=== PATIENT | male | born 1950 | race Caucasian/White ===

== ENCOUNTER 2022-10-28 16:02 | Emergency (ER) | payer MEDICARE, SELFPAY ==
[2022-10-28] VITALS (22 sets, daily range): BP systolic 100–134; BP diastolic 67–102; PULSE 71–170; RESP 13–28; TEMP 36.5; O2SAT 95–99; BMI 31.7
--- NOTE | 2022-10-28 16:32 | ED.CHESTPAI1 ---
HPI - Chest Pain General Chief Complaint: Chest Pain Stated Complaint: CHEST PAIN Time Seen by Provider: 10/28/22 16:32 History of Present Illness HPI narrative: Patient the emergency department complaining of chest pain and palpitations. Patient states he was playing golf earlier and developed substernal chest pressure and a fast heart rate. States he had the same symptoms occurred 6 months ago he was given a medication to the IV and morphine and all of his symptoms resolved. He was treated for atrial fibrillation at that time. pt had multiple stress tests prior and holter monitors x2. The patient has never seen a regional property manager. denies any shortness of breath. He denies any fever, chills, nausea, vomiting, diarrhea, constipation, upper respiratory infection symptoms or abdominal pain. He denies any flank pain, hematuria, dysuria. He denies any trauma. He denies any history of thrombotic embolic disease. He denies any lower extremity edema, or cramping. Related Data Home Medications Medication Instructions Recorded Confirmed carvedilol 25 mg tablet 25 mg PO Q12H 10/28/22 10/28/22 pantoprazole 40 mg tablet,delayed 40 mg PO DAILY 10/28/22 10/28/22 release Previous Rx's Medication Instructions Recorded apixaban 5 mg tablet (Eliquis) 5 mg PO BID #60 tabs 10/28/22 Allergies Allergy/AdvReac Type Severity Reaction Status Date / Time No Known Drug Allergies Allergy Verified 10/28/22 16:30 Review of Systems ROS Status of ROS 10 or more systems reviewed and unremarkable except as noted in history and below Exam Narrative Exam Narrative: Nurses notes and vital signs reviewed and patient is not hypoxic. General: Nontoxic, Well-appearing and in no apparent distress. Skin: Warm, dry, no pallor noted. No Rash Head: Normocephalic, atraumatic. Neck: Supple, non-tender. Eye: Pupils are equal, round and EOMI. No scleral icterus. Ears, Nose, Mouth, and Throat: TM clear, no posterior oropharynx erythema or nasal mucosal hypertrophy, uvula is mid-line Oral mucosa is moist Cardiovascular: irregularly irregular tachycardia without murmur, gallop or rub. Respiratory: No accessory muscle use or respiratory distress. Lungs are clear to auscultation, no wheezing, rales or rhonchi Chest Wall: no tenderness Back: No midline thoracic or lumbar vertebral tenderness. No CVA tenderness Musculoskeletal: normal ROM, no calf or popliteal tenderness, no lower extremity edema/swelling GI: Abdomen is soft, non-distended. Normal bowel sounds. No masses appreciated. No tenderness to palpation. No rebound, guarding, or rigidity noted. Neurological: A&O x4. No cranial nerve dysfunction observed. No truncal ataxia. Moves all extremities. Sensation intact. Psychiatric: Cooperative and interactive. Normal mood and affect. Constitutional Vital Signs, click to edit/add: Last Vital Signs Temp 97.7 F 10/28/22 20:34 Pulse 71 10/28/22 20:34 Resp 20 10/28/22 20:34 BP 126/78 H 10/28/22 20:34 Pulse Ox 97 10/28/22 20:34 O2 Del Method Room Air 10/28/22 16:31 Course Vital Signs Vital signs: Vital Signs Pulse Rate 166 H 10/28/22 16:30 Respiratory Rate 13 10/28/22 16:30 Temperature 97.7 F 10/28/22 20:34 Pulse Rate 71 10/28/22 20:34 Respiratory Rate 20 10/28/22 20:34 Blood Pressure 126/78 H 10/28/22 20:34 Pulse Oximetry 97 10/28/22 20:34 Oxygen Delivery Method Room Air 10/28/22 16:31 MDM - Chest Pain MDM Narrative Medical decision making narrative: He had an IV established.Studies were ordered. Cardizem was ordered and the patient converted No sinus rhythm of 78 prior to giving the medication. Patient Remained chest pain-free. He was feeling better. Old labs were unremarkable. 2nd troponin was repeated at 1 hour after discussing the patient with Dr. Chowdary and the repeat troponin at 1 hr was positive. This was discussed with Dr. Chowdary who advised to repeat the troponin in an hour to see if it's trending up. Patient remains chest pain-free and remains in a sinus rhythm. Patient's troponin was repeated and the level was 233. Patient was discussed with Dr. 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 This was discussed with Dr. Chowdary. Patient is agreeable to plan. At this time the patient is without objective evidence of an acute process requiring hospitalization or inpatient management. The patient has remained hemodynamically stable. No additional indication for emergent studies at this time. I answered all questions. Discussed discharge instructions including standard anticipatory guidance and what should prompt a return to the emergency department, including if they get worse are not getting better or develops any new or concerning symptoms. I've given them specific time frame in which to follow-up, and who to follow-up with. The patient demonstrates understanding. Patient is nontoxic and stable for discharge with outpatient follow-up. This note was created with the assistance of a speech recognition program. Although the intention is to generate documents that actually reflects the content of the visit, no guarantees can be provided that every mistake has been identified and corrected by editing. Differential Diagnosis Differential diagnosis: Likely stable angina, unstable angina pectoris, atypical chest pain, st elevation myocardial infarction and chest pain Medical Records Data Attestation: I reviewed the patient's medical records. Lab Data Attestation: I reviewed the patient's lab results. Labs: Lab Results 10/28/22 10/28/22 10/28/22 Range/Units 16:35 18:06 19:25 WBC 13.6 H (4.0-11.0) 10^3/uL RBC 5.11 (4.70-6.10) 10^6/uL Hgb 14.0 (14.0-18.0) g/dL Hct 42.8 (42.0-54.0) % MCV 83.8 (80.0-94.0) fL MCH 27.4 (25.9-34.0) pg MCHC 32.7 (29.9-35.2) g/dL RDW 14.1 (11.0-15.0) % Plt Count 380 (150-450) 10^3/uL MPV 10.2 (9.5-13.5) fL Neut % (Auto) 58.7 (43.0-75.0) % Lymph % (Auto) 32.6 (20.5-60.0) % Wilkin % (Auto) 7.3 (1.7-12.0) % Eos % (Auto) 0.6 L (0.9-7.0) % Baso % (Auto) 0.4 (0.2-2.0) % Neut # (Auto) 8.0 H (1.4-6.5) 10^3/uL Lymph # (Auto) 4.4 H (1.2-3.8) 10^3/uL Wilkin # (Auto) 1.0 H (0.3-0.8) 10^3/uL Eos # (Auto) 0.1 (0.0-0.7) 10^3/uL Baso # (Auto) 0.1 (0.0-0.1) 10^3/uL Abs Immat Gran (auto) 0.05 H (0.00-0.03) 10^3/uL Imm/Tot Granulo (auto) 0.4 (0.0-0.5) % PT 10.7 (9.0-11.6) sec INR 1.01 APTT 31.2 (22.3-36.2) sec Sodium 135 L (136-145) mmol/L Potassium 4.5 (3.5-5.1) mmol/L Chloride 103 (98-107) mmol/L Carbon Dioxide 24.7 (21.0-32.0) mmol/L Anion Gap 11.8 BUN 20.0 H (7.0-18.0) mg/dL Creatinine 1.53 H (0.70-1.30) mg/dL Est GFR ( Amer) 55 L (>=60) Est GFR (Non-Af Amer) 45 L (>=60) BUN/Creatinine Ratio 13.1 Glucose 118 H (74-106) mg/dL Calcium 9.2 (8.5-10.1) mg/dL Total Bilirubin 0.4 (0.2-1.0) mg/dL AST 17 (15-37) U/L ALT 23 (16-63) U/L Alkaline Phosphatase 48 (46-116) U/L Troponin I High Sens 35.4 107.5 H* 233.5 H* (4.0-76.1) pg/mL NT-Pro-B Natriuret Pep 502.0 (<=900.0) pg/mL Total Protein 7.9 (6.4-8.2) g/dL Albumin 3.9 (3.4-5.0) g/dL Globulin 4.0 g/dL Albumin/Globulin Ratio 1.0 ECG Data Attestation: I personally reviewed and interpreted this ECG as follows: Interpretation: EKG #1, shows atrial fibrillation with RVR of [address] depression in the lateral leads. EKG #2Sinus rhythm 78 bpm. No acute ischemic changes. Heart Score History: Slightly/Non-Suspicious ECG: Sign. ST Depression Age: <45 years Risk Factors: No Risk Factors Troponin: <3X Normal Limit Total Heart Score Recommendations & Risks:: 3 Discharge Plan Discharge Chief Complaint: Chest Pain Clinical Impression: Paroxysmal A-fib, Elevated troponin I measurement Patient Disposition: Home, Self-Care Time of Disposition Decision: 20:13 Condition: Good Mode of Transportation: Private Vehicle Prescriptions / Home Meds: New Eliquis 5 mg tablet 5 mg PO BID Qty: 60 0RF No Action carvedilol 25 mg tablet 25 mg PO Q12H pantoprazole 40 mg tablet,delayed release (DR/EC) 40 mg PO DAILY Instructions: A-fib (Atrial Fibrillation) (ED), Blood Thinners (ED), High Troponin Levels (ED) Stand Alone Forms: Portal Instructions Referrals: Maico Chowdary MD [Primary Care Provider] - 1 week Discharge Date/Time: 10/28/22 21:01
--- NOTE | 2022-10-28 16:33 | XR_ITS ---
The [address] [address] Patient Name: RENNY CALDERÓN MRN: [id number] date: 1950 Sex: M Assigned Patient Location: ER Current Patient Location: Accession/Order Number: [id number] Exam Date: 10/28/2022 17:12 Report Date: 10/28/2022 21:09 At the request of: MANISHA MARCANO Procedure: XR chest 1V EXAMINATION: XR chest 1V HISTORY: chest pain COMPARISON: No relevant comparison available. FINDINGS: LUNGS: No significant pulmonary parenchymal abnormalities. VASCULATURE: No increased pulmonary vasculature. PLEURA: No pneumothorax, effusion, or pleural thickening. CARDIAC: No cardiomegaly or cardiac silhouette abnormality. MEDIASTINUM: No visible mass or adenopathy. BONES: No fracture or visible bone lesion. OTHER: Negative. XR/XR chest 1V IMPRESSION: 1. No acute cardiopulmonary process. Preliminary findings were provided to the emergency department at time of imaging. Electronically authenticated by: TONYA ALVARADO Date: 10/28/2022 21:09
--- NOTE | 2022-10-28 16:33 | ECG_ITS ---
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
[2022-10-28] MEDS: 0.9 % SODIUM CHLORIDE 1,000 ML 1000 ML (16:45)
[2022-10-28 16:56] LABS: Basophils Absolute Auto 0.1 10^3/uL (0.0-0.1); Basophils Percent Auto 0.4 % (0.2-2.0); Eosinophils Absolute Auto 0.1 10^3/uL (0.0-0.7); Eosinophils Percent Auto 0.6 % (0.9-7.0); Hematocrit 42.8 % (42.0-54.0); Immature Granulocytes Abs Auto 0.05 10^3/uL (0.00-0.03); Immature Granulocytes Pct Auto 0.4 % (0.0-0.5); Lymphocytes Absolute Auto 4.4 10^3/uL (1.2-3.8); Lymphocytes Percent Auto 32.6 % (20.5-60.0); Mean Corpuscular HGB Conc 32.7 g/dL (29.9-35.2); Mean Corpuscular Hemoglobin 27.4 pg (25.9-34.0); Mean Corpuscular Volume 83.8 fL (80.0-94.0); Mean Platelet Volume 10.2 fL (9.5-13.5); Monocytes Percent Auto 7.3 % (1.7-12.0); Neutrophils Percent Auto 58.7 % (43.0-75.0); Platelet Count 380 10^3/uL (150-450); Red Blood Count 5.11 10^6/uL (4.70-6.10); Red Cell Distribution Width 14.1 % (11.0-15.0); White Blood Count 13.6 10^3/uL (4.0-11.0)
--- NOTE | 2022-10-28 17:03 | ECG_ITS ---
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
[2022-10-28 17:10] LABS: INR 1.01; Partial Thromboplastin Time 31.2 sec (22.3-36.2); Prothrombin Time 10.7 sec (9.0-11.6)
[2022-10-28 17:16] LABS: Alanine Aminotransferase 23 U/L (16-63); Albumin Level 3.9 g/dL (3.4-5.0); Alkaline Phosphatase 48 U/L (46-116); Anion Gap 11.8; Aspartate Amino Transferase 17 U/L (15-37); BUN Creatinine Ratio 13.1; Bilirubin Total 0.4 mg/dL (0.2-1.0); Calcium 9.2 mg/dL (8.5-10.1); Carbon Dioxide 24.7 mmol/L (21.0-32.0); Chloride 103 mmol/L (98-107); Estimated GFR (African America 55 (>=60); Estimated GFR (Non-African Ame 45 (>=60); Glucose 118 mg/dL (74-106); Potassium 4.5 mmol/L (3.5-5.1); Sodium 135 mmol/L (136-145); Total Protein 7.9 g/dL (6.4-8.2); Troponin I High Sensitivity 35.4 pg/mL (4.0-76.1)
[2022-10-28 18:49] LABS: Troponin I High Sensitivity 107.5 pg/mL (4.0-76.1)
[2022-10-28] MEDS: APIXABAN 5 MG TABLET PO (19:22)
[2022-10-28 20:02] LABS: Troponin I High Sensitivity 233.5 pg/mL (4.0-76.1)
== END 2022-10-28 21:01 | disposition home or self-care (01) ==
PROVIDERS: Emergency Provider Emergency Medicine; PCP Family Medicine
DX: I48.0 Paroxysmal atrial fibrillation (principal); R77.8 Other specified abnormalities of plasma proteins; Z79.899 Other long term (current) drug therapy
CPT/HCPCS: 36415; 71045; 80053; 83880; 84484; 85025; 85610; 85730; 93005; 99285

== ENCOUNTER 2022-11-15 13:30 | Outpatient (OUT) | payer MEDICARE, SELFPAY ==
--- NOTE | 2022-11-15 14:05 | CA_ITS ---
Patient: RENNY CALDERÓN Exam Date: 11/15/2022 : 1950 Gender:M Ordering : DR Maico Chowdary . Admission #: [id number] Family : Order #: [id number] CLICK HERE TO VIEW EXAM ECHOCARDIOGRAM REPORT PROCEDURE: CA ECHO DOPPLER COMPLETE INDICATIONS: Atrial fibrillation, hypertension COMPARISON: None. DESCRIPTION: COMPLETE ECHOCARDIOGRAM Real-time transthoracic echocardiography with 2D, M-mode, spectral and color flow Doppler performed. QUALITY: Technical quality was good. LEFT VENTRICLE: Normal chamber size. Proximal septal hypertrophy (sigmoid septum). Normal systolic function. LV EF: Normal left ventricular ejection fraction, (55%). DIASTOLIC: Normal diastolic function. ATRIAL SEPTUM: Visually appears intact. LEFT ATRIUM: Normal chamber size. RIGHT ATRIUM: Normal chamber size. RIGHT VENTRICLE: Normal chamber size. Normal right ventricular systolic function. TRICUSPID VALVE: Normal mobility and thickness. No stenosis with trivial regurgitation. No evidence of pulmonary hypertension. RVSP 28 mmHg MITRAL VALVE: Normal mobility and thickness. No evidence of mitral valve stenosis. There is no mitral annular calcification. Mild mitral regurgitation. AORTIC VALVE: Normal trileaflet appearance. No visible sclerosis. Normal leaflet mobility. No evidence of aortic valve stenosis. No aortic regurgitation. AORTIC ROOT: Normal diameter and appearance. PULMONIC VALVE: Normal thickness and mobility. No stenosis. Trivial regurgitation. PERICARDIUM: No evidence of pericardial effusion. IVC: Collapses with inspirations. PLEURA: CONCLUSION: 1. Normal left ventricular systolic function. LVEF is 55%. 2. Normal right ventricular size and systolic function. 3. Normal diastolic function. 4. Mild mitral regurgitation. 5. Normal right-sided pressures. Adult Echocardiography Procedure Report Left Ventricle LVEDD (3.7 - 5.6 cm): 4.18 cm LVESD (2.2 - 4.0 cm): 2.70 cm LVIVS thickness (0.6 - 1.2 cm): 1.33 cm LVPW thickness (0.5 - 1.0 cm): 0.91 cm e': 0.07 m/s E - e': 5.82 LVOT Max Gradient: 2.64 mm[Hg], 2.85 mm[Hg] LVOT Area (cm2): 0.83 m/s Peak Velocity (LVOT): 0.81 m/s, 0.84 m/s Mean Velocity (LVOT): 0.54 m/s LVOT Diameter 2.33 cm Left Atrium LA Volume Index (2D A2C): 27.85 ml/m2 Left Atrium Systolic Dimension: 3.80 cm Mitral Valve MV E to A Ratio: 0.64 Mitral Valve A-Wave Peak Velocity: 0.65 m/s Mitral Valve E-Wave Peak Velocity: 0.42 m/s Right Ventricle Aorta AO Root Diam: 3.02 cm Aortic Valve AoV Area (Peak Dagoberto): 3.37 cm2, 3.35 cm2, 3.38 cm2 AoV Area (VTI): 3.28 cm2, 3.24 cm2, 3.31 cm2 Peak Velocity(Antegrade Flow): 1.03 m/s, 1.06 m/s Peak Gradient(Antegrade Flow): 4.27 mm[Hg], 4.53 mm[Hg] Mean Velocity(Antegrade Flow): 0.73 m/s, 0.71 m/s Mean Gradient(Antegrade Flow): 2.39 mm[Hg], 2.33 mm[Hg] Velocity Time Integral: 23.10 cm, 22.39 cm Tricuspid Valve Peak Velocity (Regurgitant Flow): 2.49 m/s Pulmonic Valve Peak Velocity: 1.09 m/s Peak Gradient: 4.97 mm[Hg], 4.46 mm[Hg] Right Atrium Right Atrium Systolic Pressure: 54.90 ml, 54.90 ml Dictated by: Buck Caban M.D. on 11/15/2022 at 14:48 Approved by: Buck Caabn M.D. on 11/15/2022 at 14:52
== END 2022-11-15 13:31 | disposition home or self-care (01) ==
LOC: CARD 13:30
PROVIDERS: PCP Family Medicine; Visit Provider Family Medicine
DX: I48.91 Unspecified atrial fibrillation (principal); I10 Essential (primary) hypertension; I34.0 Nonrheumatic mitral (valve) insufficiency
CPT/HCPCS: 93306

== ENCOUNTER 2023-04-28 09:20 | Outpatient (OUT) | payer MEDICARE, SELFPAY ==
[2023-04-28 09:46] LABS: Basophils Absolute Auto 0.1 10^3/uL (0.0-0.1); Basophils Percent Auto 0.8 % (0.2-2.0); Eosinophils Absolute Auto 0.2 10^3/uL (0.0-0.7); Eosinophils Percent Auto 2.7 % (0.9-7.0); Hematocrit 38.9 % (42.0-54.0); Hemoglobin 12.7 g/dL (14.0-18.0); Immature Granulocytes Abs Auto 0.01 10^3/uL (0.00-0.03); Immature Granulocytes Pct Auto 0.1 % (0.0-0.5); Lymphocytes Absolute Auto 2.8 10^3/uL (1.2-3.8); Lymphocytes Percent Auto 35.5 % (20.5-60.0); Mean Corpuscular HGB Conc 32.6 g/dL (29.9-35.2); Mean Corpuscular Hemoglobin 27.8 pg (25.9-34.0); Mean Corpuscular Volume 85.1 fL (80.0-94.0); Mean Platelet Volume 9.8 fL (9.5-13.5); Monocytes Absolute Auto 0.8 10^3/uL (0.3-0.8); Neutrophils Percent Auto 50.9 % (43.0-75.0); Platelet Count 275 10^3/uL (150-450); Red Blood Count 4.57 10^6/uL (4.70-6.10); Red Cell Distribution Width 13.7 % (11.0-15.0); White Blood Count 7.8 10^3/uL (4.0-11.0)
[2023-04-28 11:27] LABS: Anion Gap 13.4; BUN Creatinine Ratio 14.3; Calcium 8.9 mg/dL (8.5-10.1); Carbon Dioxide 25.5 mmol/L (21.0-32.0); Chloride 104 mmol/L (98-107); Estimated GFR (African America >60 (>=60); Estimated GFR (Non-African Ame 50 (>=60); Glucose 99 mg/dL (74-106); Potassium 3.9 mmol/L (3.5-5.1); Sodium 139 mmol/L (136-145)
== END 2023-04-28 09:21 | disposition home or self-care (01) ==
LOC: LAB 09:22
PROVIDERS: PCP Family Medicine; Visit Provider Internal Medicine Cardiovascular Disease
DX: Z01.818 Encounter for other preprocedural examination (principal)
CPT/HCPCS: 36415; 80048; 85025

== ENCOUNTER 2023-05-22 12:38 | Outpatient (OUT) | payer MEDICARE, SELFPAY ==
--- OUTSIDE RECORDS SUMMARY | 2023-05-22 12:42 | XMS_ITS | CCD ---
Author Name Unknown Address [address] [facility] [id number] [place] [address] Organization [facility] Care Team Providers Care Tour Bus Driver Name Role Phone HOY ., DR DE LA ROSA Consulting Unavailable HOY ., DR DE LA ROSA Attending Unavailable HOY ., DR DE LA ROSA Admitting Unavailable HOY ., DR DE LA ROSA Primary Care Unavailable HOY ., DR DE LA ROSA Primary Care Unavailable HAY ., DR WILSON Admitting Unavailable HAY ., DR WILSON Consulting Unavailable HAY ., DR WILSON Attending Unavailable GRANT ARMANDO Consulting Unavailable HOY ., DR DE LA ROSA Consulting Unavailable HOY ., DR DE LA ROSA Attending Unavailable HOY ., DR DE LA ROSA Admitting Unavailable HOY ., DR DE LA ROSA Primary Care Unavailable HOY ., DR DE LA ROSA Consulting Unavailable HOY ., DR DE LA ROSA Attending Unavailable HOY ., DR DE LA ROSA Admitting Unavailable HOY ., DR DE LA ROSA Primary Care Unavailable HOY ., DR DE LA ROSA Consulting Unavailable HOY ., DR DE LA ROSA Attending Unavailable HOY ., DR DE LA ROSA Admitting Unavailable HOY ., DR DE LA ROSA Primary Care Unavailable Chema Tubbs Consulting Unavailable Jacey Webber Unavailable Estrella Chowdary MD Primary Care Provider [phone] SHAHID WILLSON Admitting Unavailable SHAHID WILLSON Attending Unavailable ANUJ KABA Attending Unavailable RODOLFO CLINTON Attending Unavailable SHAHID WILLSON Referring Unavailable Allergies Allergy Classification Reported Allergen(s) Allergy Type Date of Onset Reaction(s) Facility (1 source) ALLERGIES NOT ON FILE; Translations: [ALLERGIES NOT ON FILE] Propensity to adverse reactions (disorder) [facility] Repository Medications Current Medications Medication Drug Class(es) Dates Sig (Normalized) Sig (Original) carvedilol 25 mg oral tablet (2 sources) alpha-Adrenergic Fernando, beta-Adrenergic Fernando take 1 tablet by mouth every twelve hours Carvedilol 25 MG 1 tablet with food Orally Twice a day Active pantoprazole 40 mg delayed release oral tablet (2 sources) Proton Pump Inhibitor take 1 tablet by mouth every twenty-four hours Pantoprazole Sodium 40 MG 1 tablet Orally Once a day Active Problems Active Problems Problem Classification Problem Date Documented Date Episodic/Chronic Cardiac dysrhythmias (3 sources) Supraventricular tachycardia; Translations: [Paroxysmal atrial fibrillation] Onset: 01-18-2022 Chronic Esophageal disorders (1 source) Gastro-esophageal reflux disease without esophagitis; Translations: [GERD WITHOUT ESOPHAGITIS] Onset: 01-18-2022 Chronic Essential hypertension (1 source) Essential (primary) hypertension; Translations: [ESSENTIAL PRIMARY HYPERTENSION] Onset: 01-18-2022 Chronic Heart valve disorders (1 source) Nonrheumatic mitral (valve) insufficiency; Translations: [NONRHEUMATIC MITRAL INSUFFICIENCY] Onset: 03-24-2022 Chronic Nonspecific chest pain (6 sources) Chest pain, unspecified; Translations: [CHEST PAIN UNSPECIFIED] Onset: 03-18-2022 Episodic Open wounds of extremities (2 sources) Laceration without foreign body of left middle finger without damage to nail, subsequent encounter Episodic Other lower respiratory disease (2 sources) Shortness of breath; Translations: [Shortness of breath] Onset: 05-03-2023 Episodic Residual codes; unclassified (1 source) Sleep apnea, unspecified; Translations: [SLEEP APNEA UNSPECIFIED] Onset: 01-18-2022 Chronic Substance-related disorders (1 source) Nicotine dependence, chewing tobacco, uncomplicated; Translations: [NICOTINE DEPEND CHEW TOBACCO UNCOMP] Onset: 01-18-2022 Chronic Syncope (2 sources) Syncope and collapse; Translations: [Syncope and collapse] Onset: 02-26-2023 Episodic Unclassified (1 source) Other ventricular tachycardia; Translations: [Other ventricular tachycardia] Onset: 04-25-2023 Past or Other Problems Problem Classification Problem Date Documented Date Episodic/Chronic Abdominal pain (3 sources) Epigastric pain; Translations: [EPIGASTRIC PAIN] Onset: 01-14-2022 Episodic Cardiac dysrhythmias (4 sources) Tachycardia, unspecified; Translations: [TACHYCARDIA UNSPECIFIED] Onset: 01-28-2022 Episodic Heart valve disorders (1 source) Unspecified abnormalities of heart beat; Translations: [UNS ABNORMALITIES HEART BEAT] Onset: 03-14-2022 Episodic Other screening for suspected conditions (not mental disorders or infectious disease) (1 source) Abnormal result of other cardiovascular function study; Translations: [ABNORM RESULT OT CV FUNCTION STUDY] Onset: 03-24-2022 Episodic Unclassified (1 source) Other ventricular tachycardia; Translations: [Other ventricular tachycardia] Onset: 04-25-2023 Results Test Name Value Interpretation Reference Range Facility on 05-03-2023 HP H&P reviewed. The patient was examined and there are no changes to the H&P. [facility] NURSNOTEon 05-03-2023 NURSNOTE RN educated pt on d/ c instructions. RN encouraged pt to voice any questions or concerns. Pt verbalizes no questions or concerns at this time. Pt was wheeled off of unit with all of belongings. [facility] 04-25-2023 Pt had 2 afib events in past year, rangel not haad any problems since, had monitor. Chest pain he thinks is from GERD. Otherwise feels good [facility] Consult Note Reason for visit: Afib HPI: Kd Mitchell is a 72 y.o. year old with past medical history of ABDULLAHI, afib, htn, gerd, syncope, hld. He was seen in the [facility] 10/2022 for complaints of chest pain and palpitations. He was found to be in A-fib and was treated for. He was treated with IV Cardizem and patient's converted to sinus rhythm prior to Cardizem even being administered. Patient was then discharged home in sinus rhythm but did not have any follow-up with cardiology until seen by Rodolfo recently. He has been feeling well since this event with no complaints of chest pain, shortness of breath, palpitations, lightness, dizziness. he states that his episodes of A-fib had occurred first in 2019 when he was noted to have A-fib with RVR. he associates his episodes of A-fib with abdominal discomfort and dyspepsia that occurs with consuming jalapeno peppers. he has had episodes of syncope or near syncope in the past but there was no monitoring at that time. he was seen by Rodolfo TAVAREZ who ordered a 30-day event monitor. 30-day event monitor from 02/17/2023 to 03/18/2023 did not reveal any episodes of A-fib but there were episodes of nonsustained ventricular tachycardia noted on 03/06/2023 at 5:14 AM of approximately 2 seconds and another 1 on 03/09/2023 at 7:14 PM of 3 seconds. none of this was symptomatic. Echo 11/15/2022 shows normal LVEF, LA normal size, normal right-sided pressures, no significant valvular abnormalities, he was noted to have proximal septal hypertrophy 10/28/2022 CBC unremarkable, sodium 135, potassium 4.5, chloride 103, BUN 20, creatinine 1.53, GFR 45, liver unremarkable, ECG 03/16/2023 sinus rhythm PMH: ABDULLAHI, AFIB, htn, gerd, syncope, hld PMH: Past Medical History: Diagnosis Date Atrial fibrillation (CMS/HCC) Diverticulitis GERD (gastroesophageal reflux disease) Hyperlipidemia Hypertension ABDULLAHI (obstructive sleep apnea) Syncope and collapse PSH: No past surgical history on file. SH: Social Determinants of Health Tobacco Use: High Risk (02/17/2023) Patient History Smoking Tobacco Use: Never Smokeless Tobacco Use: Current Passive Exposure: Not on file Alcohol Use: Not on file Financial Resource Strain: Not on file Food Insecurity: Not on file Transportation Needs: Not on file Physical Activity: Not on file Stress: Not on file Social Connections: Not on file Intimate Partner Violence: Not on file Depression: Not on file Housing Stability: Not on file Utilities: Not on file Allergies: No Known Allergies Weight: 98.4kg Visit Vitals BP 126/82 Pulse 67 Ht 1.778 m (5' 10 ) Wt 98.4 kg (217 lb) SpO2 97% BMI 31.14 kg/m??? Smoking Status Never BSA 2.2 m??? Meds: Current Outpatient Medications on File Prior to Visit Medication Sig Dispense Refill calcium citrate-vitamin D2 250 mg-2.5 mcg (100 unit) tablet Take 1 tablet by mouth once daily as directed. carvedilol (Coreg) 25 mg tablet Take 25 mg by mouth with breakfast and with evening meal. Eliquis 5 mg tablet Take 5 mg by mouth in the morning and at bedtime. pantoprazole (ProtoNix) 40 mg EC tablet Take 40 mg by mouth in the morning. No current facility-administered medications on file prior to visit. ROS: Cardio Basic Cardiovascular Symptoms: no lightheadedness, no leg edema, no syncope, no orthopnea, no PND, no claudication, CP+ Constitutional Constitutional: no fever, no night sweats, no significant weight gain, no significant weight loss, no exercise intolerance Eyes Eyes: no dry eyes, no irritation, no vision change ENMT Ears: no difficulty hearing, no ear pain Nose: no frequent nosebleeds, Mouth/Throat: no sore throat, no bleeding gums, no snoring, no dry mouth, no mouth ulcers, no oral abnormalities, no teeth problems Respiratory Respiratory: no cough, no wheezing, no coughing up blood, no sleep apnea Musculoskeletal Musculoskeletal: no muscle aches, no muscle weakness, joint pain+, no back pain, no swelling in the extremities Integumentary Skin no rash, no ulcer, no varicosities, no discoloration, no pruritus Neurologic Neurologic: no loss of consciousness, no weakness, no numbness, no seizures, no dizziness, no headaches Psychiatric Psych: no depression, feeling safe in relationship, no alcohol abuse, Hematologic/Lymphatic Hematologic/Lymphatic no swollen glands, no bruising Physical Exam: Constitutional General Appearance: well-nourished, well-developed, appears stated age Level of Distress: comfortable Psychiatric Mental Status: alert, normal affect Orientation: oriented to time, place, and person Insight: good judgement Eyes Lids and Conjunctivae: non-injected, no xanthelasma ENMT Ears: no lesions on external ear Nose: no lesions on external nose (more content not included)... Normal [facility] Office Visiton 04-25-2023 Follow-up visit [id number] Kd Mitchell 1950 [facility] Provider Department Center 04/25/2023 ANUJ MONTGOMERY MATT Silva Family History Problem Relation Age of Onset Heart disease Father Family Status - Relation Status Age at Father Level of Service:67146 AL OFFICE/OUTPATIENT [facility] 60 MINUTES Normal [facility] Orders Onlyon 04-25-2023 Orders Only [id number] PaulaKd A 1950 M Date Provider Department Center 04/25/2023 SANDRA HAIDER MATT Silva Family History Problem Relation Age of Onset Heart disease Father Family Status - Relation Status Age at Father Normal [facility] Office Visiton 02-17-2023 Follow-up visit [id number] Kd Mitchell 1950 Date Provider Department Center 02/17/2023 Duglas-RODOLFO CLINTON Terry Silva Family History Problem Relation Age of Onset Heart disease Father Family Status - Relation Status Age at Father Level of Service:69927 [place] OFFICE/OUTPATIENT NEW MODERATE MDM 45-59 MINUTES Reason for Visit and Comments: New Patient [632] [facility] 01-19-2023 CNPN Telephone (CARCMN) KD MITCHELL ([id number]) 1950 Date Time Provider Department 01/19/23 KITTY HICKS During your visit today, we recorded the following information about you: Baljit Jo 01/19/2023 9:47 AM Signed Left a message for the patient regarding the cancellation of 02/15/2023 appointment. Informed the patient of the new appointment scheduled on 05/24/2023. Left a call back number for the patient if the date and time does not fit. Allergies As of Date: 01/19/2023 (Not on File) Date Reviewed: Never Reviewed Reason for Visit: Appointment [186] Cmt: Left a message for the patient regarding the cancellation of 02/15/2023 appointment. Informed the patient of the new appointment scheduled on 05/24/2023. Left a call back number for the patient if the date and time does not fit. Problem List As Of Date: 01/19/2023 (None) Encounter Status:[facility] by [facility]CARCMN[facility] KD MITCHELL ([id number]) 1950 M Date Time Provider Department 11/21/22 KITTY HICKS During your visit today, we recorded the following information about you: Chance Dueñas 11/21/2022 4:37 PM Signed Records received from [facility] by mail. Records uploaded to OPD and sent to scanning. Patient has a future appointment on: 02/15/23. Date of last OV: -. Chance Dueñas November 21, 2022 4:36 PM Allergies As of Date: 11/21/2022 (Not on File) Date Reviewed: Never Reviewed Reason for Visit: Received Outside Medical Records [[id number]] Problem List As Of Date: 11/21/2022 (None) Encounter Status:Closed by CHANCE DUEÑAS on [facility]/21/[facility] (CARCMN) KD MITCHELL ([id number]) 1950 M Date Time Provider Department 11/16/22 KITTY HICKS During your visit today, we recorded the following information about you: Chance Dueñas 11/16/2022 11:19 AM Signed [facility] Records uploaded to OPD and sent to scanning. Patient has a future appointment on: 02/15/23. Date of last OV: -Lianna Dueñas November 16, 2022 11:17 AM Allergies As of Date: 11/16/2022 (Not on File) Date Reviewed: Never Reviewed Reason for Visit: Received Outside Medical Records [[id number]] Problem List As Of Date: 11/16/2022 (None) Encounter Status:Closed by CHANCE DUEÑAS on 11/16/22 Normal [facility] CNCOon 11-09-2022 CNCO Letter Text Normal [facility] CNPNon 11-06-2022 CNPN Telephone (REFPHY) KD MITCHELL ([id number]) 1950 Date Time Provider Department 11/06/22 NO ONE (HISTORICAL) REFPHY During your visit today, we recorded the following information about you: [facility] Keira Uribe 11/06/2022 3:44 PM Signed Patient: Kd Mitchell Date of : 1950 Patient phone number: [phone] Referring Provider for the encounter: Estrella Chowdary Requesting Provider: Reason for requesting visit (RFV/signs and symptoms/diagnosis): AFib Person calling: rp fax Return call to: rp fax Medical Records/Insurance Card scanned into [facility]: No Comments: Dominga Cr 11/09/2022 11:52 AM Signed RP-Appt scheduled- Spoke with Patient to schedule consult, printed and sent new pt packet and appt info via mail Allergies As of Date: 11/06/2022 (Not on File) Date Reviewed: Never Reviewed Reason for Visit: External Referrals/resources [909] Problem List As Of Date: 11/06/2022 (None) Encounter Status:[facility] URIBE on 11/06/22 [facility] CBC AUTO DIFFon 08-30-2022 BASO # 0.1 103/ul Normal 0.0-0.1 [facility] Comment on above: Performed By: #### C BC ####[facility] [address] [place] [id number]. Jeremiah Vela Basophils/100 WBC (Bld) 0.6 % Normal 0.2-2.0 [facility] Comment on above: Performed By: #### C BC ####[facility] [address] [place] [id number]. Jeremiah Vela EO # 0.1 103/ul Normal 0.0-0.7 [facility] Comment on above: Performed By: #### C BC ####[facility] [address] [place], [place] [address]Dr. Jeremiah Vela Eosinophils/100 WBC (Bld) 1.0 % Normal 0.9-7.0 [facility] Comment on above: Performed By: #### C BC ####[facility] [address] [place], [place] [address]Dr. Jeremiah Vela Erythrocyte distribution width (RBC) [Ratio] 13.9 % Normal 11.0-15.0 [facility] Comment on above: Performed By: #### C BC ####[facility] [address] [place], [place] [address]Dr. Jeremiah Vela Hematocrit (Bld) [Volume fraction] 42.1 % Normal 42.0-54.0 [facility] Comment on above: Performed By: #### C BC ####[facility] [address] [place], [place] [address]Dr. Jeremiah Vela Hemoglobin (Bld) [Mass/Vol] 13.7 g/dL Critically low 14.0-18.0 [facility] Comment on above: Performed By: #### C BC ####[facility] [address] [place] [id number]. Jeremiah Vela IG # 0.02 10e3/ul Normal 0.00-0.03 [facility] Comment on above: Performed By: #### C BC ####[facility] [address] [place], [place] [address]Dr. Jeremiah Vela IG % 0.2 % Normal 0.0-0.5 [facility] Comment on above: Performed By: #### C BC ####[facility] [address] [place] [id number]. Jeremiah Vela LYMPH # 2.9 103/ul Normal 1.2-3.8 [facility] Comment on above: Performed By: #### C BC ####[facility] [address] [place] [id number]. Jeremiah Vela Lymphocytes/100 WBC (Bld) 34.9 % Normal 20.5-60.0 [facility] Comment on above: Performed By: #### C BC ####[facility] [address] [place] [id number]. Jeremiah Dane MANUAL DIFF REQ NO Normal [facility] Comment on above: Performed By: #### C BC ####[facility] [address] [place] [id number]. Jeremiah Dane MCH (RBC) [Entitic mass] 27.1 pg Normal 25.9-34.0 [facility] Comment on above: Performed By: #### C BC ####[facility] [address] [place] [id number]. Jeremiah Vela MCHC (RBC) [Mass/Vol] 32.5 g/dL Normal 29.9-35.2 [facility] Comment on above: Performed By: #### C BC ####[facility] [address] [place] [id number]. Jeremiah Dane MCV (RBC) [Entitic vol] 83.4 fL Normal 80.0-94.0 [facility] Comment on above: Performed By: #### C BC ####[facility] [address] [place] [id number]. Jeremiah Vela MONO # 0.7 103/ul Normal 0.3-0.8 [facility] Comment on above: Performed By: #### C BC ####[facility] [address] [place] [id number]. Jeremiah Dane Monocytes/100 WBC (Bld) 8.2 % Normal 1.7-12.0 [facility] Comment on above: Performed By: #### C BC ####[facility] [address] [place] [id number]. Jeremiah Vela NEUT # 4.6 103/ul Normal 1.4-6.5 [facility] Comment on above: Performed By: #### C BC ####[facility] [address] [place] [id number]. Jeremiah Vela Neutrophils/100 WBC (Bld) 55.1 % Normal 43.0-75.0 [facility] Comment on above: Performed By: #### C BC ####[facility] [address] [place] [id number]. Jeremiah Vela Platelet mean volume (Bld) [Entitic vol] 9.9 fL Normal 9.5-13.5 [facility] Comment on above: Performed By: #### C BC ####[facility] [address] [place] [id number]. Jeremiah Vela PLT 296 103/ul Normal 150-450 [facility] Comment on above: Performed By: #### C BC ####[facility] [address] [place] [id number]. Jeremiah Vela RBC 5.05 106/ul Normal 4.70-6.10 [facility] Comment on above: Performed By: #### C BC ####[facility] [address] [place] [id number]. Jeremiah Vela WBC 8.3 103/ul Normal 4.0-11.0 [facility] Comment on above: Performed By: #### C BC ####[facility] [address] [place] [id number]. Jeremiah Vela FREE T3on 08-30-2022 FREE T3 3.00 pg/mlL Normal 2.18-3.98 [facility] Comment on above: Performed By: #### T 4, TSH, FT3, CMP, URIC, LIPID ####[facility] [address] [place] [id number]. Jeremiah Vela GLYCOHEMOGLOBIN A1Con 2022 ADA RECOMMENDATION SEE BELOW Normal [facility] Comment on above: Result Comment: ADA RECOMMENDED LIMIT 4.0 - 6.0 ADA THERAPEUTIC TARGET < 7.0 ACTION SUGGESTED > 7.0 Performed By: #### A 1C ####[facility] [address] [place] [id number]. Jeremiah Vela Glucose [Mass/Vol] 105 mg/dL Normal [facility] Comment on above: Performed By: #### A 1C ####[facility] [address] [place] [id number]. Serenaaminah Dane HbA1c (Bld) [Mass fraction] 5.3 % Normal 4.5-6.2 [facility] Comment on above: Performed By: #### A 1C ####[facility] [address] [place] [address]Dr. Jeremiah Vela LIPID PROFILEon 08-30-2022 CHOL-HDL RATIO NORM SEE BELOW Normal [facility] Comment on above: Result Comment: 3.3 - 4.4 LOW RISK 4.4 - 7.1 AVERAGE RISK 7.1 - 11.0 MODERATE RISK >11.0 HIGH RISK Performed By: #### T 4, TSH, FT3, CMP, URIC, LIPID ####[facility] [address] [place] [id number]. Serenaaminah Vela Cholesterol [Mass/Vol] 175 mg/dL Normal <=200 [facility] Comment on above: Performed By: #### T 4, TSH, FT3, CMP, URIC, LIPID ####[facility] [address] [place] [id number]. Jeremiah Vela Cholesterol in HDL [Mass/Vol] 40 mg/dL Normal 40-60 [facility] Comment on above: Performed By: #### T 4, TSH, FT3, CMP, URIC, LIPID ####[facility] [address] [place] [id number]. Jeremiah Vela Cholesterol in LDL [Mass/Vol] 102.4 mg/dL Normal [facility] Comment on above: Performed By: #### T 4, TSH, FT3, CMP, URIC, LIPID ####[facility] [address] [place] [id number]. Jeremiah Vela Cholesterol.total/Ch olesterol in HDL [Mass ratio] 4.4 {ratio} Normal [facility] Comment on above: Performed By: #### T 4, TSH, FT3, CMP, URIC, LIPID ####[facility] [address] [place] [address]Dr. Jeremiah Vela HDL NORMAL > or = 60 mg/dl - LO W CARDIOVASCULAR RISK <40 mg/dl - HIGH CARDIOVASCULAR RISK Normal [facility] Comment on above: Performed By: #### T 4, TSH, FT3, CMP, URIC, LIPID ####[facility] [address] [place] [address]Dr. Jeremiah Vela LDL CALC NORMAL SEE BELOW Normal [facility] Comment on above: Result Comment: <100 mg/dl OPTIMAL 100 - 129 mg/dl NEAR OR ABOVE OPTIMAL 130 - 159 mg/dl BORDERLINE HIGH 160 - 189 mg/dl HIGH >190 mg/dl VERY HIGH Performed By: #### T 4, TSH, FT3, CMP, URIC, LIPID ####[facility] [address] [place] [address]Dr. Jeremiah Vela Triglyceride [Mass/Vol] 163 mg/dL Critically high <=150 [facility] Comment on above: Performed By: #### T 4, TSH, FT3, CMP, URIC, LIPID ####[facility] [address] [place] [address]Dr. Jeremiah Vela VLDL CALC 32.6 mg/dL Normal [facility] Comment on above: Performed By: #### T 4, TSH, FT3, CMP, URIC, LIPID ####[facility] [address] [place] [address]Dr. Jeremiah Vela PROF 14(COMP METB)on 023 Albumin [Mass/Vol] 3.8 g/dL Normal 3.4-5.0 [facility] Comment on above: Performed By: #### T 4, TSH, FT3, CMP, URIC, LIPID ####[facility] [address] [place] [address]Dr. Jeremiah Vela Albumin/Globulin [Mass ratio] 0.8 {ratio} Normal [facility] Comment on above: Performed By: #### T 4, TSH, FT3, CMP, URIC, LIPID ####[facility] [address] [place] [address]Dr. Jeremiah Vela ALP [Catalytic activity/Vol] 50 U/L Normal 46-116 [facility] Comment on above: Performed By: #### T 4, TSH, FT3, CMP, URIC, LIPID ####[facility] [address] [place], [place] [address]Dr. Jeremiah Vela ALT [Catalytic activity/Vol] 25 U/L Normal 16-63 [facility] Comment on above: Performed By: #### T 4, TSH, FT3, CMP, URIC, LIPID ####[facility] [address] [place], [place] [address]Dr. Jeremiah Vela Anion gap [Moles/Vol] 13.8 mmol/L Normal [facility] Comment on above: Performed By: #### T 4, TSH, FT3, CMP, URIC, LIPID ####[facility] [address] [place], [place] [address]Dr. Jeremiah Vela AST [Catalytic activity/Vol] 15 U/L Normal 15-37 [facility] Comment on above: Performed By: #### T 4, TSH, FT3, CMP, URIC, LIPID ####[facility] [address] [place], [place] [address]Dr. Jeremiah Vela Bilirubin [Mass/Vol] 0.5 mg/dL Normal 0.2-1.0 [facility] Comment on above: Performed By: #### T 4, TSH, FT3, CMP, URIC, LIPID ####[facility] [address] [place], [place] [address]Dr. Jeremiah Vela Calcium [Mass/Vol] 9.0 mg/dL Normal 8.5-10.1 [facility] [place] Comment on above: Performed By: #### T 4, TSH, FT3, CMP, URIC, LIPID ####[facility] [address] [place], [place] [address]Dr. Serenaaminah Vela Chloride [Moles/Vol] 104 mmol/L Normal 98-107 [facility] Comment on above: Performed By: #### T 4, TSH, FT3, CMP, URIC, LIPID ####[facility] [address] [address]Dr. Jeremiah Vela CO2 [Moles/Vol] 27.4 mmol/L Normal 21.0-32.0 [facility] Comment on above: Performed By: #### T 4, TSH, FT3, CMP, URIC, LIPID ####[facility] [address] [place], [place] [address]Dr. Jeremiah Vela Creatinine [Mass/Vol] 1.27 mg/dL Normal 0.70-1.30 [facility] Comment on above: Performed By: #### T 4, TSH, FT3, CMP, URIC, LIPID ####[facility] [address] [place], [place] [address]Dr. Jeremiah Vela EGFR-AF [place] >60 Normal >=60 [facility] Comment on above: Performed By: #### T 4, TSH, FT3, CMP, URIC, LIPID ####[facility] [address] [place], [place] [address]Dr. Jeremiah Vela EGFR-NON AF [place] 56 mL/min/1.73m2 Critically low >=60 [facility] Comment on above: Performed By: #### T 4, TSH, FT3, CMP, URIC, LIPID ####[facility] [address] [address]Dr. Jeremiah Vela Globulin (S) [Mass/Vol] 4.5 g/dL Normal [facility] Comment on above: Performed By: #### T 4, TSH, FT3, CMP, URIC, LIPID ####[facility] [address] [address]Dr. Jeremiah Vela Glucose [Mass/Vol] 97 mg/dL Normal 74-106 [facility] Comment on above: Performed By: #### T 4, TSH, FT3, CMP, URIC, LIPID ####[facility] [address] [address]Dr. Jeremiah Vela Potassium [Moles/Vol] 4.2 mmol/L Normal 3.5-5.1 [facility] Comment on above: Performed By: #### T 4, TSH, FT3, CMP, URIC, LIPID ####[facility] [address] [address]Dr. Jeremiah Vela Protein [Mass/Vol] 8.3 g/dL Critically high 6.4-8.2 [facility] Comment on above: Performed By: #### T 4, TSH, FT3, CMP, URIC, LIPID ####[facility] [address] [address]Dr. Jeremiah Vela Sodium [Moles/Vol] 141 mmol/L Normal 136-145 [facility] [place] Comment on above: Performed By: #### T 4, TSH, FT3, CMP, URIC, LIPID ####[facility] [address] [address]Dr. Jeremiah Vela Urea nitrogen [Mass/Vol] 19.0 mg/dL Critically high 7.0-18.0 [facility] Comment on above: Performed By: #### T 4, TSH, FT3, CMP, URIC, LIPID ####[facility] [address] [address]Dr. Jeremiah Vela Urea nitrogen/Creatinine [Mass ratio] 15.0 mg/mg Normal [facility] Comment on above: Performed By: #### T 4, TSH, FT3, CMP, URIC, LIPID ####[facility] [address] [address]Dr. Jeremiah Vela T4on 08-30-2022 T4 [Mass/Vol] 6.30 ug/dL Normal 4.50-12.10 [facility] Comment on above: Performed By: #### T 4, TSH, FT3, CMP, URIC, LIPID ####[facility] [address] [address]Dr. Jeremiah Vela TSHon 08-30-2022 TSH 1.881 uIU/mL Normal 0.358-3.740 [facility] Comment on above: Performed By: #### T 4, TSH, FT3, CMP, URIC, LIPID ####[facility] [address] [place], [place] [address]Vy. Jeremiah Vela URIC ACID SERUMon 08-30-2022 Urate [Mass/Vol] 6.5 mg/dL Normal 3.5-7.2 [facility] Comment on above: Performed By: #### T 4, TSH, FT3, CMP, URIC, LIPID ####[facility] [address] [place], [place] [address]Qp. Jeremiah Vela ECHOCARDIO M/2D COMPLETEon 1 05-19-2021 ECHOCARDIO M/2D COMPLETE Patient: KD MITCHELL Exam Date: 03/18/2022 : 1950 Gender:M Ordering : DR ESTRELLA CHOWDARY . Admission #: [id number] Family : Order #: [id number] CLICK HERE TO VIEW EXAM ECHOCARDIOGRAM REPORT PROCEDURE: CARDIO PULMONARY ECHOCARDIO M/2D COMP INDICATIONS: Chest pain, abnormal stress test, hypertension COMPARISON: None. DESCRIPTION: COMPLETE ECHOCARDIOGRAM Real-time transthoracic echocardiography with 2D, M-mode, spectral and color flow Doppler performed. QUALITY: Technical quality was good. 70 211# BP 174/88 LEFT VENTRICLE: Normal chamber size. Proximal septal hypertrophy (sigmoid septum). LV EF: Normal left ventricular ejection fraction, (>55%). DIASTOLIC: Normal diastolic function. ATRIAL SEPTUM: Visually appears intact. LEFT ATRIUM: Normal chamber size. RIGHT ATRIUM: Mild dilatation. RIGHT VENTRICLE: Mild dilatation. Normal right ventricular systolic function. TRICUSPID VALVE: Normal mobility and thickness. No stenosis with trivial regurgitation. Doppler studies reveal mildly (35-45) elevated right sided pressures.RVSP 36 mmHg MITRAL VALVE: Normal mobility and thickness. No evidence of mitral valve stenosis. There is no mitral annular calcification. Mild mitral regurgitation. AORTIC VALVE: Normal trileaflet appearance. No visible sclerosis. Normal leaflet mobility. No evidence of aortic valve stenosis. No aortic regurgitation. AORTIC ROOT: Normal diameter and appearance. PULMONIC VALVE: Normal thickness and mobility. No stenosis. No regurgitation. PERICARDIUM: No evidence of pericardial effusion. IVC: Collapses with inspirations. IVC is normal in size. CONCLUSION: Global left ventricular systolic function is normal; visually estimated ejection fraction is 55 to 60%. No significant wall motion abnormalities. Normal diastolic function. The right atrium is mildly dilated. Right ventricle is mildly dilated with normal systolic function. Mildly elevated right-sided pressures. RVSP is 36 mmHg. Mild mitral regurgitation. Adult Echocardiography Procedure Report Left Ventricle LVEDD (3.7 - 5.6 cm): 3.76 cm LVESD (2.2 - 4.0 cm): 2.91 cm LVIVS thickness (0.6 - 1.2 cm): 1.37 cm LVPW thickness (0.5 - 1.0 cm): 1.05 cm e': 0.10 m/s E - e': 5.61 LVOT Max Gradient: 2.36 mm[Hg], 2.36 mm[Hg], 2.36 mm[Hg], 2.36 mm[Hg] Peak Velocity (LVOT): 0.77 m/s, 0.77 m/s, 0.77 m/s, 0.77 m/s Mean Velocity (LVOT): 0.52 m/s, 0.53 m/s, 0.52 m/s, 0.53 m/s LVOT Diameter 2.64 cm Left Atrium LA Volume Index (2D A2C): 60.31 ml, 60.31 ml Left Atrium Systolic Dimension: 3.51 cm Mitral Valve MV E to A Ratio: 0.80, 0.85 Mitral Valve A-Wave Peak Velocity: 0.67 m/s, 0.66 m/s Mitral Valve E-Wave Peak Velocity: 0.54 m/s, 0.55 m/s Right Ventricle Aorta AO Root Diam: 3.96 cm Aortic Valve AoV Area (Peak Dagoberto): 4.08 cm2, 4.17 cm2, 3.99 cm2, 4.17 cm2, 3.99 cm2 AoV Area (VTI): 5.01 cm2, 5.47 cm2, 4.59 cm2, 5.47 cm2, 4.59 cm2 Peak Velocity(Antegrade Flow): 1.01 m/s, 1.05 m/s, 1.01 m/s, 1.05 m/s Peak Gradient(Antegrade Flow): 4.07 mm[Hg], 4.44 mm[Hg], 4.07 mm[Hg], 4.44 mm[Hg] Mean Velocity(Antegrade Flow): 0.55 m/s, 0.77 m/s, 0.55 m/s, 0.77 m/s Mean Gradient(Antegrade Flow): 1.70 mm[Hg], 2.61 mm[Hg], 1.70 mm[Hg], 2.61 mm[Hg] Velocity Time Integral: 17.39 cm, 19.38 cm, 17.39 cm, 19.38 cm Tricuspid Valve Peak Velocity (Regurgitant Flow): 2.86 m/s Peak Velocity: 0.39 m/s Pulmonic Valve Mean Gradient: 1.86 mm[Hg] Mean Velocity: 0.65 m/s Peak Velocity: 0.98 m/s, 1.05 m/s Peak Gradient: 4.39 mm[Hg], 3.81 mm[Hg] Right Atrium Right Atrium Systolic Pressure: 65.00 ml, 65.00 ml Dictated by: Mazin Ramos M.D. on 03/23/2022 at 09:53 Approved by: Mazin Ramos M.D. on 03/23/2022 at 09:55 Normal [facility] STRESS/REST MULTIon 03-08 [place] STRESS/REST MULTI Patient: KD MITCHELL Exam Date: 03/08/2022 : 1950 Gender:M Ordering : DR ESTRELLA CHOWDARY . Admission #: [id number] Family : Order #: [id number] CLICK HERE TO VIEW EXAM RADIOLOGY REPORT PROCEDURE: RADIONUCLIDE IMAGING STRESS/REST MULTI COMPARISON: [place] STRESS/REST MULTI, 03/05/2020. INDICATIONS: Chest pain, abnormal holter monitor TECHNIQUE: Exam Description: Stress/Rest one day protocol gated SPECT Rest Imagin.0 mCi Tc-99m Cardiolite IV on 03/08/2022 Stress Imaging 30.6 mCi Tc-99m Cardiolite IV on 03/08/2022 Exercise Protocol: 0.4 mg Lexiscan given IV Heart Rate (bpm): Rest: 61 Max: 97 PMHR: 64 Blood Pressure: Rest: 162/86 Max: 166/90 Symptoms: Rest and peak stress ECG findings were normal and the exercise portion of the study was normal per attending physician Dr. Iyer . For more details please see separate cardiac stress test report. FINDINGS: QUALITY OF STUDY: Excellent. PERFUSION DEFECT: LOCATION: Apical anterior. SIZE: Small (1-2 segments). SEVERITY: Mild. TYPE: Persistent. WALL MOTION: Normal. LV SIZE: Normal. 86 mL. TID / TCD: None; 0.9 LVEF: Normal. Calculated EF 63%. SUMMARY: Myocardial perfusion imaging study has ABNORMAL findings. CONCLUSION: 1. No acute or reversible ischemia. 2. Small apically anterior wall fixed perfusion defect versus soft tissue attenuation artifact. 3. Normal wall motion and ejection fraction. Dictated by: Chema Tubbs M.D. on 03/08/2022 at 14:41 Approved by: Chema Tubbs M.D. on 03/08/2022 at 14:43 Normal [facility] AMYLASEon 01-14-2022 Amylase [Catalytic activity/Vol] 40 U/L Normal 25-115 [facility] Comment on above: Performed By: #### C MP, LIPA, BRAEDEN, BNP, HSTROPN #### [facility] [address] [place] [address] Dr. Jeremiah Vela BNPon 01-14-2022 Natriuretic peptide B (Bld) [Mass/Vol] 546.0 pg/mL Normal <=900.0 [facility] Comment on above: Performed By: #### C MP, LIPA, BRAEDEN, BNP, HSTROPN #### [facility] [address] [place] [address] Dr. Jeremiah Vela CBC AUTO DIFFon 01-14-2022 BASO # 0.1 103/ul Normal 0.0-0.1 [facility] Comment on above: Performed By: #### C BC #### [facility] [address] [place] [address] Dr. Jeremiah Vela Basophils/100 WBC (Bld) 0.5 % Normal 0.2-2.0 [facility] Comment on above: Performed By: #### C BC #### [facility] [address] [place] [address] Dr. Jeremiah Vela EO # 0.1 103/ul Normal 0.0-0.7 [facility] Comment on above: Performed By: #### C BC #### [facility] [address] [place] [address] Dr. Jeremiah Vela Eosinophils/100 WBC (Bld) 1.1 % Normal 0.9-7.0 [facility] Comment on above: Performed By: #### C BC #### [facility] [address] [place] [address] Dr. Jeremiah Vela Erythrocyte distribution width (RBC) [Ratio] 13.7 % Normal 11.0-15.0 [facility] Comment on above: Performed By: #### C BC #### [facility] [address] [place] [address] Dr. Jeremiah Vela Hematocrit (Bld) [Volume fraction] 41.1 % Critically low 42.0-54.0 [facility] Comment on above: Performed By: #### C BC #### [facility] [address] [place] [address] Dr. Jeremiah Vela Hemoglobin (Bld) [Mass/Vol] 13.4 g/dL Critically low 14.0-18.0 [facility] Comment on above: Performed By: #### C BC #### [facility] [address] [place] [address] Dr. Jeremiah Vela IG # 0.03 10e3/ul Normal 0.00-0.03 [facility] Comment on above: Performed By: #### C BC #### [facility] [address] [place] [address] Dr. Jeremiah Vela IG % 0.3 % Normal 0.0-0.5 [facility] Comment on above: Performed By: #### C BC #### [facility] [address] [place] [address] Dr. Jeremiah Vela LYMPH # 4.0 103/ul Critically high 1.2-3.8 [facility] Comment on above: Performed By: #### C BC #### [facility] [address] [place] [address] Dr. Jeremiah Vela Lymphocytes/100 WBC (Bld) 36.4 % Normal 20.5-60.0 [facility] Comment on above: Performed By: #### C BC #### [facility] [address] [place] [address] Dr. Jeremiah Vela MANUAL DIFF REQ NO Normal [facility] Comment on above: Performed By: #### C BC #### [facility] [address] [address] [address] Jeremiah Vela MCH (RBC) [Entitic mass] 27.7 pg Normal 25.9-34.0 [facility] Comment on above: Performed By: #### C BC #### [facility] [address] [place] [address] Dr. Jeremiah Vela MCHC (RBC) [Mass/Vol] 32.6 g/dL Normal 29.9-35.2 [facility] Comment on above: Performed By: #### C BC #### [facility] [address] [place] [address] Dr. Jeremiah Vela MCV (RBC) [Entitic vol] 85.1 fL Normal 80.0-94.0 [facility] Comment on above: Performed By: #### C BC #### [facility] [address] [place] [address] Dr. Jeremiah Vela MONO # 1.0 103/ul Critically high 0.3-0.8 [facility] Comment on above: Performed By: #### C BC #### [facility] [address] [place] [address] Dr. Jeremiah Vela Monocytes/100 WBC (Bld) 8.9 % Normal 1.7-12.0 [facility] Comment on above: Performed By: #### C BC #### [facility] [address] [place] [address] Dr. Jeremiah Vela NEUT # 5.8 103/ul Normal 1.4-6.5 [facility] Comment on above: Performed By: #### C BC #### [facility] [address] [place] [address] Dr. Jeremiah Vela Neutrophils/100 WBC (Bld) 52.8 % Normal 43.0-75.0 [facility] Comment on above: Performed By: #### C BC #### [facility] [address] [place] [address] Dr. Jeremiah Vela Platelet mean volume (Bld) [Entitic vol] 10.4 fL Normal 9.5-13.5 [facility] Comment on above: Performed By: #### C BC #### [facility] [address] [address] [address] Jeremiah Vela PLT 342 103/ul Normal 150-450 [facility] Comment on above: Performed By: #### C BC #### [facility] [id number] Jeremiah Vela RBC 4.83 106/ul Normal 4.70-6.10 [facility] Comment on above: Performed By: #### C BC #### [facility] [address] [address] [address] Jeremiah Vela WBC 11.0 103/ul Normal 4.0-11.0 [facility] Comment on above: Performed By: #### C BC #### [facility] [address] [place] [address] Dr. Jeremiah Vela LACTATE/LACTIC ACIDon 2021 Lactate [Moles/Vol] 1.2 mmol/L Normal 0.4-1.9 [facility] Comment on above: Performed By: #### L ACT ####[facility] [address] [address]Dr. Jeremiah Vela LIPASEon 01-14-2022 Lipase [Catalytic activity/Vol] 56.0 U/L Critically low 73.0-393.0 [facility] Comment on above: Performed By: #### C MP, LIPA, BRAEDEN, BNP, HSTROPN #### [facility] [address] [place] [address] Dr. Jeremiah Vela PROF 14(COMP METB)on 022 Albumin [Mass/Vol] 3.7 g/dL Normal 3.4-5.0 [facility] [place] Comment on above: Performed By: #### C MP, LIPA, BRAEDEN, BNP, HSTROPN #### [facility] [address] [address] [address] Jeremiah Vela Albumin/Globulin [Mass ratio] 0.9 {ratio} Normal [facility] Comment on above: Performed By: #### C MP, LIPA, BRAEDEN, BNP, HSTROPN #### [facility] [address] [place] [address] Dr. Jeremiah Vela ALP [Catalytic activity/Vol] 53 U/L Normal 46-116 [facility] Comment on above: Performed By: #### C MP, LIPA, BRAEDEN, BNP, HSTROPN #### [facility] [address] [place] [address] Dr. Jeremiah Vela ALT [Catalytic activity/Vol] 22 U/L Normal 16-63 [facility] Comment on above: Performed By: #### C MP, LIPA, BRAEDEN, BNP, HSTROPN #### [facility] [address] [place] [address] Dr. Jeremiah Vela Anion gap [Moles/Vol] 10.5 mmol/L Normal [facility] Comment on above: Performed By: #### C MP, LIPA, BRAEDEN, BNP, HSTROPN #### [facility] [address] [place] [address] Dr. Jeremiah Vela AST [Catalytic activity/Vol] 19 U/L Normal 15-37 [facility] Comment on above: Performed By: #### C MP, LIPA, BRAEDEN, BNP, HSTROPN #### [facility] [address] [place] [address] Dr. Jeremiah Vela Bilirubin [Mass/Vol] 0.4 mg/dL Normal 0.2-1.0 [facility] Comment on above: Performed By: #### C MP, LIPA, BRAEDEN, BNP, HSTROPN #### [facility] [address] [place] [address] Dr. Jeremiah Vela Calcium [Mass/Vol] 9.2 mg/dL Normal 8.5-10.1 [facility] [place] Comment on above: Performed By: #### C MP, LIPA, BRAEDEN, BNP, HSTROPN #### [facility] [address] [place] [address] Dr. Jeremiah Vela Chloride [Moles/Vol] 101 mmol/L Normal 98-107 [facility] Comment on above: Performed By: #### C MP, LIPA, BRAEDEN, BNP, HSTROPN #### [facility] [address] [place] [address] Dr. Jeremiah Vela CO2 [Moles/Vol] 29.2 mmol/L Normal 21.0-32.0 [facility] Comment on above: Performed By: #### C MP, LIPA, BRAEDEN, BNP, HSTROPN #### [facility] [address] [place] [address] Dr. Jeremiah Vela Creatinine [Mass/Vol] 1.44 mg/dL Critically high 0.70-1.30 [facility] Comment on above: Performed By: #### C MP, LIPA, BAREDEN, BNP, HSTROPN #### [facility] [address] [place] [address] Dr. Jeremiah Vela EGFR-AF [place] 59 mL/min/1.73m2 Critically low >=60 [facility] Comment on above: Performed By: #### C MP, LIPA, BRAEDEN, BNP, HSTROPN #### [facility] [address] [place] [address] Dr. Jeremiah Vela EGFR-NON AF [place] 49 mL/min/1.73m2 Critically low >=60 [facility] Comment on above: Performed By: #### C MP, LIPA, BRAEDEN, BNP, HSTROPN #### [facility] [address] [place] [address] Dr. Jeremiah Vela Globulin (S) [Mass/Vol] 3.9 g/dL Normal [facility] Comment on above: Performed By: #### C MP, LIPA, BRAEDEN, BNP, HSTROPN #### [facility] [address] [place] [address] Dr. Jeremiah Vela Glucose [Mass/Vol] 107 mg/dL Critically high 74-106 [facility] Comment on above: Performed By: #### C MP, LIPA, BRAEDEN, BNP, HSTROPN #### [facility] [address] [place] [address] Dr. Jeremiah Vela Potassium [Moles/Vol] 4.7 mmol/L Normal 3.5-5.1 [facility] Comment on above: Performed By: #### C MP, LIPA, BRAEDEN, BNP, HSTROPN #### [facility] [address] [address] [address] Jeremiah Vela Protein [Mass/Vol] 7.6 g/dL Normal 6.4-8.2 [facility] [place] Comment on above: Performed By: #### C MP, LIPA, BRAEDEN, BNP, HSTROPN #### [facility] [address] [address] [address] Jeremiah Vela Sodium [Moles/Vol] 136 mmol/L Normal 136-145 [facility] Comment on above: Performed By: #### C MP, LIPA, BRAEDEN, BNP, HSTROPN #### [facility] [address] [place] [address] Dr. Jeremiah Vela Urea nitrogen [Mass/Vol] 18.0 mg/dL Normal 7.0-18.0 [facility] Comment on above: Performed By: #### C MP, LIPA, BRAEDEN, BNP, HSTROPN #### [facility] [address] [place] [address] Dr. Jeremiah Vela Urea nitrogen/Creatinine [Mass ratio] 12.5 mg/mg Normal [facility] Comment on above: Performed By: #### C MP, LIPA, BRAEDEN, BNP, HSTROPN #### [facility] [address] [place] [address] Dr. Jeremiah Vela TROPONIN, HIGH SENSITIVITYon 01-14-2022 HSTROP 53.5 pg/mL Normal 4.0-76.1 [facility] Comment on above: Result Comment: CUT- OFF POINTS HAVE BEEN ESTABLISHED BASED ON THE FOURTH UNIVERSAL DEFINITIONS OF MYOCARDIAL INFARCTION. THE UPPER REFERENCE LIMIT (URL) OF TROPONIN, DEFINED THE 99TH PERCENTILE OF cTnI DISTRIBUTION IN A REFERENCE POPULATION, HAS BEEN CONFIRMED THE DECISION THRESHOLD FOR PA DIAGNOSIS. Performed By: #### C MP, LIPA, BRAEDEN, BNP, HSTROPN #### [facility] [address] [place] [address] Dr. Jeremiah Vela XR CHEST 1 Von 01-14-2022 XR CHEST 1 V EXAM: XR CHEST 1 V a t 1742 hours HISTORY: Supraventricular tachycardia COMPARISON: 12/02/2020 TECHNIQUE: AP upright portable chest x-ray FINDINGS: The heart is not enlarged and the vasculature is not distended. No acute infiltrate, effusion or pneumothorax is identified. The osseous structures are grossly intact. IMPRESSION: No acute infiltrate or evidence of cardiac decompensation. The overall appearance of the chest is unchanged. Electronically authenticated by: GRANT ARMANDO Date: 2022-01-14 18:43 Normal [facility] Encounters Encounter Date Encounter Type Care Provider Facility Start: 05-03-2023 End: 05-03-2023 ambulatory SHAHID WILLSON [facility] Start: 04-25-2023 End: 04-25-2023 ambulatory ANUJ KABA [facility] Start: 02-17-2023 End: 02-17-2023 ambulatory RODOLFO [facility] Start: 01-19-2023 Telephone encounter Kitty mcdonald MD Work Phone: Cardiology Comment on above: Appointment (Left a message for the patient regarding the cancellation of 02/15/2023 appointment. Informed the patient of the new appointment scheduled on 05/24/2023. Left a call back number for the patient if the date and time does not fit. ) Start: 11-21-2022 Telephone encounter Kitty mcdonald MD Work Phone: Cardiology Comment on above: Received Outside [employer] [facility] Start: 11-16-2022 Telephone encounter Kitty mcdonald MD Work Phone: Cardiology Comment on above: Received Outside [employer] [facility] Start: 11-06-2022 Telephone encounter No One (Historic al) Referring Physician Comment on above: External Referrals/r esources Start: 09-30-2022 End: 09-30-2022 ambulatory Jacey Webber Other [employer] Other Start: 09-30-2022 Office outpatient vi sit 15 minutes [facility] Start: 09-16-2022 End: 09-16-2022 ambulatory Jacey Webber Other [employer] Other Start: 09-16-2022 Office outpatient vi sit 10 minutes Jacey Webber [facility] Start: 08-30-2022 End: 08-31-[address] ESTRELLA CHOWDARY . Facility:[facility] Start: 03-18-2022 End: 03-19-[address] ESTRELLA CHOWDARY . Facility:[facility] Start: 03-08-2022 End: 03-09-[address] ESTRELLA CHOWDARY . Facility:[facility] Start: 01-28-2022 End: 01-29-[address] ESTRELLA CHOWDARY . Facility:[facility] Start: 01-14-2022 End: 01-14-[address] ESTRELLA CHOWDARY . Facility:[facility] Procedures Date Procedure Procedure Detail Performing Clinician Start: 08-30-[address] BO CHOWDARY . Comment on above: Performed By: #### [facility] #### [facility] [address] [place] [address] Dr. Jeremiah Vela Plan of Treatment Date Care Activity Detail Author Start: 12-16-2022 Influenza vaccination [facility] Start: 04-17-2022 ADVANCE DIRECTIVE DISCUSSION ADVANCE DIRECTIVE DISCUSSION [facility] Start: 04-17-2022 DEPRESSION ASSESSMENT DEPRESSION ASS ESSMENT [facility] Start: 2017 Pneumococcal Vaccine : 65+ (1 - PCV) Pneumococcal Vaccine: 65+ (1 - PCV) [facility] Start: 2017 PNEUMOCOCCAL: 65+ (1 - PCV) PNEUMOCOCCAL: 65+ (1 - PCV) [facility] Start: 2002 SHINGRIX VACCINE (1 of 2) SHINGRIX V ACCINE (1 of 2) [facility] Start: 1997 COLOGUARD (FIT-DNA) COLOGUARD (FIT-D NA) [facility] Start: 1997 Colonoscopy COLONOSCOPY [facility] Start: 1997 COLORECTAL CANCER SCREENING COLORECTAL CANCER SCREENING [facility] Start: [address] COLONOGRAPHY [facility] Start: 1997 DIABETES SCREEN DIABETES SCREEN [facility] Start: 1997 Diabetes Screening Diabetes Screenin g [facility] Start: 1997 FECAL OCCULT BLOOD FECAL OCCULT BLOO D [facility] Start: 1997 SIGMOIDOSCOPY SIGMOIDOSCOPY [facility] Start: 11-30-1987 Lipid 1996 panel - S ami or Plasma Lipid Screening [facility] Start: 11-30-1987 LIPID SCREEN LIPID SCREEN [facility] Start: 11-30-1971 Urine microalbumin profile [facility] Start: 1970 HEPATITIS C SCREENING HEPATITIS C SC KEZIA [facility] Start: 06-01-1953 COVID-19 VACCINE (#1) COVID-19 VACCI NE (#1) [facility] Payers Date Payer Category Payer Unknown [id number] 1959 Unknown [id number] 1950 Unknown [id number] [id number] [id number] 1950 Unknown [id number] [id number] [id number] 1950 Unknown [id number] [id number] [id number] 1950 Unknown [id number] [id number] [id number] 1950 Unknown [id number] 2.16.84 [id number] Social History Date Type Detail Facility Sex Assigned At [employer] Other Tobacco smoking status [facility] Tobacco smoking consumption unknown [facility] Start: 1950 Sex Assigned At Not on file [facility] Clinical Note 05-03-2023 Note Date & Type Note Facility 05-03-2023 Note Patient: Kd Mitchell Procedure Information Date/Time: 05/03/23 1030 Procedure: Coronary angiography (Left) Location: [facility] RESEARCH AND 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 Use of blood products discussed with patient who consented to blood products. Plan discussed with fellow. Additional Equipment Requests [facility] Progress note 04-25-2023 Note Date & Type Note Facility 04-25-2023 Note Pt had 2 afib events in past year, rangel not haad any problems since, had monitor. Chest pain he thinks is from GERD. Otherwise feels good [facility] Consult Note Reason for visit: Afib HPI: Kd Mitchell is a 72 y.o. year old with past medical history of ABDULLAHI, afib, htn, gerd, syncope, hld. He was seen in the [facility] 10/2022 for complaints of chest pain and palpitations. He was found to be in A-fib and was treated for. He was treated with IV Cardizem and patient's converted to sinus rhythm prior to Cardizem even being administered. Patient was then discharged home in sinus rhythm but did not have any follow-up with cardiology until seen by Rodolfo recently. He has been feeling well since this event with no complaints of chest pain, shortness of breath, palpitations, lightness, dizziness. he states that his episodes of A-fib had occurred first in 2019 when he was noted to have A-fib with RVR. he associates his episodes of A-fib with abdominal discomfort and dyspepsia that occurs with consuming jalapeno peppers. he has had episodes of syncope or near syncope in the past but there was no monitoring at that time. he was seen by Rodolfo TAVAREZ who ordered a 30-day event monitor. 30-day event monitor from 02/17/2023 to 03/18/2023 did not reveal any episodes of A-fib but there were episodes of nonsustained ventricular tachycardia noted on 03/06/2023 at 5:14 AM of approximately 2 seconds and another 1 on 03/09/2023 at 7:14 PM of 3 seconds. none of this was symptomatic. Echo 11/15/2022 shows normal LVEF, LA normal size, normal right-sided pressures, no significant valvular abnormalities, he was noted to have proximal septal hypertrophy 10/28/2022 CBC unremarkable, sodium 135, potassium 4.5, chloride 103, BUN 20, creatinine 1.53, GFR 45, liver unremarkable, ECG 03/16/2023 sinus rhythm PMH: ABDULLAHI, AFIB, htn, gerd, syncope, hld PMH: Past Medical History: Diagnosis Date Atrial fibrillation (CMS/HCC) Diverticulitis GERD (gastroesophageal reflux disease) Hyperlipidemia Hypertension ABDULLAHI (obstructive sleep apnea) Syncope and collapse PSH: No past surgical history on file. SH: Social Determinants of Health Tobacco Use: High Risk (02/17/2023) Patient History Smoking Tobacco Use: Never Smokeless Tobacco Use: Current Passive Exposure: Not on file Alcohol Use: Not on file Financial Resource Strain: Not on file Food Insecurity: Not on file Transportation Needs: Not on file Physical Activity: Not on file Stress: Not on file Social Connections: Not on file Intimate Partner Violence: Not on file Depression: Not on file Housing Stability: Not on file Utilities: Not on file Allergies: No Known Allergies Weight: 98.4kg Visit Vitals BP 126/82 Pulse 67 Ht 1.778 m (5' 10 ) Wt 98.4 kg (217 lb) SpO2 97% BMI 31.14 kg/m??? Smoking Status Never BSA 2.2 m??? Meds: Current Outpatient Medications on File Prior to Visit Medication Sig Dispense Refill calcium citrate-vitamin D2 250 mg-2.5 mcg (100 unit) tablet Take 1 tablet by mouth once daily as directed. carvedilol (Coreg) 25 mg tablet Take 25 mg by mouth with breakfast and with evening meal. Eliquis 5 mg tablet Take 5 mg by mouth in the morning and at bedtime. pantoprazole (ProtoNix) 40 mg EC tablet Take 40 mg by mouth in the morning. No current facility-administered medications on file prior to visit. ROS: Cardio Basic Cardiovascular Symptoms: no lightheadedness, no leg edema, no syncope, no orthopnea, no PND, no claudication, CP+ Constitutional Constitutional: no fever, no night sweats, no significant weight gain, no significant weight loss, no exercise intolerance Eyes Eyes: no dry eyes, no irritation, no vision change ENMT Ears: no difficulty hearing, no ear pain Nose: no frequent nosebleeds, Mouth/Throat: no sore throat, no bleeding gums, no snoring, no dry mouth, no mouth ulcers, no oral abnormalities, no teeth problems Respiratory Respiratory: no cough, no wheezing, no coughing up blood, no sleep apnea Musculoskeletal Musculoskeletal: no muscle aches, no muscle weakness, joint pain+, no back pain, no swelling in the extremities Integumentary Skin no rash, no ulcer, no varicosities, no discoloration, no pruritus Neurologic Neurologic: no loss of consciousness, no weakness, no numbness, no seizures, no dizziness, no headaches Psychiatric Psych: no depression, feeling safe in relationship, no alcohol abuse, Hematologic/Lymphatic Hematologic/Lymphatic no swollen glands, no bruising Physical Exam: Constitutional General Appearance: well-nourished, well-developed, appears stated age Level of Distress: comfortable Psychiatric Mental Status: alert, normal affect Orientation: oriented to time, place, and person Insight: good judgement Eyes Lids and Conjunctivae: non-injected, no xanthelasma ENMT Ears: no lesions on external ear Nose: no lesions on external nose (more content not included)... [facility] note 02-17-2023 Note Date & Type Note Facility 02-17-2023 Note [place] [facility] Consult Note Reason for visit: new pt, afib HPI: Kd Mitchell is a 72 y.o. year old with past medical history of ABDULLAHI, afib, htn, gerd, syncope, hld. He was seen in the [facility] 10/2022 for complaints of chest pain and palpitations. He was found to be in A-fib and was treated for. He was treated with IV Cardizem and patient's converted to sinus rhythm prior to Cardizem even being administered. Patient was then discharged home in sinus rhythm but did not have any follow-up with cardiology until today. He has been feeling well since this event with no complaints of chest pain, shortness of breath, palpitations, lightness, dizziness Echo 11/15/2022 shows normal LVEF, LA normal size, normal right-sided pressures, no significant valvular abnormalities, he was noted to have proximal septal hypertrophy 10/28/2022 CBC unremarkable, sodium 135, potassium 4.5, chloride 103, BUN 20, creatinine 1.53, GFR 45, liver unremarkable, ECG 03/16/2023 sinus rhythm PMH: ABDULLAHI, AFIB, htn, gerd, syncope, hld PMH: Past Medical History: Diagnosis Date Atrial fibrillation (CMS/HCC) Diverticulitis GERD (gastroesophageal reflux disease) Hyperlipidemia Hypertension ABDULLAHI (obstructive sleep apnea) Syncope and collapse PSH: History reviewed. No pertinent surgical history. SH: Social Determinants of Health Tobacco Use: High Risk (02/17/2023) Patient History Smoking Tobacco Use: Never Smokeless Tobacco Use: Current Passive Exposure: Not on file Alcohol Use: Not on file Financial Resource Strain: Not on file Food Insecurity: Not on file Transportation Needs: Not on file Physical Activity: Not on file Stress: Not on file Social Connections: Not on file Intimate Partner Violence: Not on file Depression: Not on file Housing Stability: Not on file Allergies: Not on File Weight: No weight available Visit Vitals BP 130/82 (BP Location: Left arm, Patient Position: Sitting, BP Cuff Size: Adult) Pulse 73 Resp 12 Ht 1.778 m (5' 10 ) SpO2 96% Smoking Status Never Meds: Current Outpatient Medications on File Prior to Visit Medication Sig Dispense Refill calcium citrate-vitamin D2 250 mg-2.5 mcg (100 unit) tablet Take 1 tablet by mouth once daily as directed. carvedilol (Coreg) 25 mg tablet Take 25 mg by mouth with breakfast and with evening meal. Eliquis 5 mg tablet Take 5 mg by mouth in the morning and at bedtime. pantoprazole (ProtoNix) 40 mg EC tablet Take 40 mg by mouth in the morning. No current facility-administered medications on file prior to visit. ROS: Cardio Basic Cardiovascular Symptoms: no lightheadedness, no leg edema, no syncope, no orthopnea, no PND, no claudication, Constitutional Constitutional: no fever, no night sweats, no significant weight gain, no significant weight loss, no exercise intolerance Eyes Eyes: no dry eyes, no irritation, no vision change ENMT Ears: no difficulty hearing, no ear pain Nose: no frequent nosebleeds, Mouth/Throat: no sore throat, no bleeding gums, no snoring, no dry mouth, no mouth ulcers, no oral abnormalities, no teeth problems Respiratory Respiratory: no cough, no wheezing, no coughing up blood, no sleep apnea Musculoskeletal Musculoskeletal: no muscle aches, no muscle weakness, joint pain+, no back pain, no swelling in the extremities Integumentary Skin no rash, no ulcer, no varicosities, no discoloration, no pruritus Neurologic Neurologic: no loss of consciousness, no weakness, no numbness, no seizures, no dizziness, no headaches Psychiatric Psych: no depression, feeling safe in relationship, no alcohol abuse, Hematologic/Lymphatic Hematologic/Lymphatic no swollen glands, no bruising Physical Exam: Constitutional General Appearance: well-nourished, well-developed, appears stated age Level of Distress: comfortable Psychiatric Mental Status: alert, normal affect Orientation: oriented to time, place, and person Insight: good judgement Eyes Lids and Conjunctivae: non-injected, no xanthelasma ENMT Ears: no lesions on external ear Nose: no lesions on external nose Oropharynx: no cyanosis, no pallor Neck Neck: supple, trachea midline Carotid Arteries: bilateral normal upstroke, no bruits Jugular Veins: normal jugular venous pressure Thyroid: not enlarged Lungs Respiratory Effort: unlabored Chest Exam: normal curvature, no thoracic deformity Auscultation: clear, no wheezing, no rales, no rhonchi Cardiovascular Rate And Rhythm: regular Heart Sounds: normal S1, normal s2, no gallop Systolic Murmur: not heard Diastolic Murmur: not heard Extremities: no cyanosis, no edema, no peripheral signs of emboli Peripheral Pulses Radial Pulse: normal Abdomen Inspection and Palpation: soft, non distended, no bruit, non tender Musculoskeletal Inspection: no joint swelling Neurologic Gait: normal gait Skin Inspection and Palpation: warm and dry N (more content not included)... [facility] Note 01-19-2023 Telephone Encounter - Baljit Jo - 01/19/2023 9:46 AM EDT Note Date & Type Note Facility 01-19-2023 Miscellaneous Notes Formattin g of this note might be different from the original. Left a message for the patient regarding the cancellation of 02/15/2023 appointment. Informed the patient of the new appointment scheduled on 05/24/2023. Left a call back number for the patient if the date and time does not fit. documented in this encounter [facility] Note 11-21-2022 Telephone Encounter - Chance Dueñas - 11/21/2022 4:36 PM EDT Note Date & Type Note Facility 11-21-2022 Miscellaneous Notes Formattin g of this note might be different from the original. Records received from [facility] by mail. Records uploaded to [employer] and sent to scanning. Patient has a future appointment on: 02/15/23. Date of last OV: -. Chance Dueñas November 21, 2022 4:36 PM documented in this encounter [facility] Note 11-16-2022 Telephone Encounter - Chance Dueñas - 11/16/2022 11:17 AM EDT Note Date & Type Note Facility 11-16-2022 Miscellaneous Notes Formattin g of this note might be different from the original. Records received from [facility] by fax. Records uploaded to [employer] and sent to scanning. Patient has a future appointment on: 02/15/23. Date of last OV: -. Chance Dueñas November 16, 2022 11:17 AM documented in this encounter [facility] Note 11-06-2022 [facility] Keira Pope - 11/06/2022 3:43 PM EDT Note Date & Type Note Facility 11-06-2022 Miscellaneous Notes Formattin g of this note might be different from the original. Patient: Kd Mitchell Date of : 1950 Patient phone number: [phone] Referring Provider for the encounter: Estrella Chowdary Requesting Provider: Reason for requesting visit (RFV/signs and symptoms/diagnosis): AFib Person calling: rp fax Return call to: rp fax Medical Records/Insurance Card scanned into [employer]: No Comments: NA Electronically signed by [facility] Service Keira Pope at 11/06/2022 3:44 PM EDT documented in this encounter [facility] Evaluation note 09-30-2022 Note Date & Type Note Facility 09-30-2022 Evaluation note Encounter Date Diagnosis Assessment Notes Sep, Laceration of left middle finger without foreign body without damage to nail, subsequent encounter (ICD-10 - S61.213D) Patient instructed on scar massage and progression of activity as tolerated [employer] Other Evaluation note 09-16-2022 Note Date & Type Note Facility 09-16-2022 Evaluation note Encounter Date Diagnosis Assessment Notes Sep, Laceration of left middle finger without foreign body without damage to nail, subsequent encounter (ICD-10 - S61.213D) Today, we did a physical examination of the middle finger. We will remove stitches today. Patient may allow the finger to air out, he is advised to wear dressing while outside the home. Patient will f/u in 2-3 weeks [employer] Other History general Narrative - Reported Note Date & Type Note Facility History general Narrative - Reported Type Medical History GERD Medical History hypertension Surgical History Appendix [employer] Other Summary Purpose Family History No Family History Records FoundNo Family History Records FoundNo Family History Records Found Advance Directives No Advanced Directives Records FoundNo Advanced Directives Records FoundNo Advanced Directives Records Found Additional Source Comments (unrecognized sect ion and content) No Status Records FoundNo Status Records FoundNo Status Records Found INFORMATION SOURCE (unrecogn ized section and content) DATE CREATED AUTHOR 08/31/2022 [facility] DATE CREATED AUTHOR AUTHOR'S ORGANIZ ATION 01/22/2023 [facility] DATE CREATED AUTHOR AUTHOR'S ORGANIZ ATION 05/06/2023 [facility] REASON FOR VISIT (unrecogniz ed section and content) Reason Comments External Referrals/resources Reason Comments Received Outside Medical Records Reason Comments Appointment Left a message for t he patient regarding the cancellation of 02/15/2023 appointment. Informed the patient of the new appointment scheduled on 05/24/2023. Left a call back number for the patient if the date and time does not fit. Source Comments (unrecognize d section and content) In the event this informatio n is protected by the Federal Confidentiality of Alcohol and Drug Abuse Patient Records regulations: The Federal rules restrict any use of the information to criminally investigate or prosecute any alcohol or drug abuse patient.[facility] ClinicIn the event this information is protected by the Federal Confidentiality of Alcohol and Drug Abuse Patient Records regulations: The Federal rules restrict any use of the information to criminally investigate or prosecute any alcohol or drug abuse patient.[facility] the event this information is protected by the Federal Confidentiality of Alcohol and Drug Abuse Patient Records regulations: The Federal rules restrict any use of the information to criminally investigate or prosecute any alcohol or drug abuse patient.[facility] the event this information is protected by the Federal Confidentiality of Alcohol and Drug Abuse Patient Records regulations: The Federal rules restrict any use of the information to criminally investigate or prosecute any alcohol or drug abuse patient.[facility] Care Teams (unrecognized sec tion and content) [employer] Bus [employer] Relationship Specialty Start Date End Date Estrella Chowdary MD PCP - General Family Medicine 08/21/14 [employer] Relationship Specialty Start Date End Date Estrella Chowdary MD PCP - General Family Medicine 08/21/14 [employer] Relationship Specialty Start Date End Date Estrella Chowdary MD PCP - General Family Medicine 08/21/14 FOR RECORDS PERTAINING TO PATIENTS WHO ARE OR HAVE BEEN ENROLLED IN A CHEMICAL DEPENDENCY/SUBSTANCEABUSE PROGRAM, SOME INFORMATION MAY BE OMITTED. This clinical summary was aggregated from multiple sources. Caution should be exercised in using it in the provision of clinical care. This summary normalizes information from multiple sources, and as a consequence, information in this document may materially change the coding, format and clinical context of patient data. In addition, data may be omitted in some cases. CLINICAL DECISIONS SHOULD BE BASED ON THE PRIMARY CLINICAL RECORDS. [employer] [facility]. provides no warranty or guarantee of the accuracy or completeness of information in this document.
--- NOTE | 2023-05-22 13:41 | CA_ITS ---
Patient Name: RENNY CALDERÓN MR#: [id number] : 1950 Exam Date: 05/22/2023 Ordering Doctor: CANDY WILLSON ECHOCARDIOGRAM REPORT PROCEDURE: CA ECHO DOPPLER COMPLETE INDICATIONS: Paroxysmal atrial fibrillation, SOB COMPARISON: None. DESCRIPTION: COMPLETE ECHOCARDIOGRAM Real-time transthoracic echocardiography with 2D, M-mode, spectral and color flow Doppler performed. QUALITY: Technical quality was good. LEFT VENTRICLE: Normal chamber size. Borderline left ventricular hypertrophy. Global left ventricular systolic function is normal. LV EF: Estimated left ventricular ejection fraction is 60%. DIASTOLIC: Normal diastolic function. ATRIAL SEPTUM: LEFT ATRIUM: Mild dilatation. RIGHT ATRIUM: Moderate dilatation. RIGHT VENTRICLE: Normal chamber size. Normal right ventricular systolic function. TRICUSPID VALVE: Normal mobility and thickness. No stenosis with mild regurgitation. No evidence of pulmonary hypertension. RVSP 33 mmHg MITRAL VALVE: Normal mobility and thickness. No evidence of mitral valve stenosis. There is no mitral annular calcification. Mild mitral regurgitation. AORTIC VALVE: Normal trileaflet appearance. No visible sclerosis. Normal leaflet mobility. No evidence of aortic valve stenosis. No aortic regurgitation. AORTIC ROOT: Normal diameter and appearance. PULMONIC VALVE: Normal thickness and mobility. No stenosis. Trivial regurgitation. PERICARDIUM: No evidence of pericardial effusion. IVC: Collapses with inspirations. Normal size. PLEURA: CONCLUSION: 1. Normal ventricular function. Estimated LVEF is 60%. 2. Normal diastolic function. 3. Mild to moderate biatrial dilatation. 4. Mild mitral and tricuspid regurgitation. 5. Normal right sided pressures. Adult Echocardiography Procedure Report Left Ventricle LVEDD (3.7 - 5.6 cm): 4.66 cm LVESD (2.2 - 4.0 cm): 3.10 cm LVIVS thickness (0.6 - 1.2 cm): 1.01 cm LVPW thickness (0.5 - 1.0 cm): 1.20 cm e': 0.10 m/s E - e': 5.94 LVOT Max Gradient: 1.72 mm[Hg] LVOT Area (cm2): 0.66 m/s Peak Velocity (LVOT): 0.66 m/s Mean Velocity (LVOT): 0.45 m/s LVOT Diameter 2.47 cm Left Ventricular Ejection Fraction: 60 % Left Atrium LA Volume Index (2D A2C): 37.76 ml/m2 Left Atrium Systolic Dimension: 3.74 cm Mitral Valve MV E to A Ratio: 0.87 Mitral Valve A-Wave Peak Velocity: 0.70 m/s Mitral Valve E-Wave Peak Velocity: 0.61 m/s Right Ventricle RV Internal Diastolic Dimension: 3.66 cm Aorta AO Root Diam: 3.65 cm Ascending Ao Diam: 3.23 cm Aortic Valve AoV Area (Peak Dagoberto): 3.23 cm2, 3.23 cm2 AoV Area (VTI): 2.83 cm2, 2.83 cm2 Peak Velocity(Antegrade Flow): 0.98 m/s Peak Gradient(Antegrade Flow): 3.82 mm[Hg] Mean Velocity(Antegrade Flow): 0.69 m/s Mean Gradient(Antegrade Flow): 2.16 mm[Hg] Velocity Time Integral: 25.21 cm Tricuspid Valve Peak Velocity (Regurgitant Flow): 2.33 m/s, 2.76 m/s Pulmonic Valve Mean Gradient: 1.79 mm[Hg], 1.65 mm[Hg] Mean Velocity: 0.60 m/s, 0.58 m/s Peak Velocity: 0.96 m/s Peak Gradient: 4.12 mm[Hg], 3.31 mm[Hg] Right Atrium Right Atrium Systolic Pressure: 67.90 ml, 67.90 ml Dictated by: Buck Caban M.D. on 05/23/2023 at 16:06 Approved by: Buck Caban M.D. on 05/23/2023 at 16:10
== END 2023-05-22 12:39 | disposition home or self-care (01) ==
LOC: CARD 12:38
PROVIDERS: PCP Family Medicine
DX: I48.0 Paroxysmal atrial fibrillation (principal); R06.02 Shortness of breath
CPT/HCPCS: 93306

== ENCOUNTER 2023-12-08 10:06 | Outpatient (OUT) | payer MEDICARE, SELFPAY ==
--- OUTSIDE RECORDS SUMMARY | 2023-12-08 10:27 | XMS_ITS | CCD ---
Author Organization [facility] Care Team Providers Care Balancing Machine Set Up Worker Name Role Phone DEEDEE ., DR DE LA ROSA Consulting Unavailable [...] Unavailable Estrella Chowdary MD Primary Care Provider [phone] Estrella Chowdary MD Primary Care Provider [phone] ESTRELLA CHOWDARY Primary Care Unavailable PJ KABA Referring Unavailable SHAHID WILLSON Referring Unavailable SHHAID WILLSON Attending Unavailable SHAHID WILLSON Admitting Unavailable PJ KABA Attending Unavailable PJ KABA Attending Unavailable RODOLFO CLINTON Attending Unavailable PJ KABA Attending Unavailable Allergies Allergy Classification Reported Allergen(s) Allergy Type Date of Onset Reaction(s) Facility (1 source) ALLERGIES NOT ON FILE; Translations: [ALLERGIES NOT ON FILE] Propensity to adverse reactions (disorder) [facility] Repository Medications Current Medications Medication Drug Class(es) [...] Translations: [NONRHEUMATIC MITRAL INSUFFICIENCY] Onset: 03-24-2022 Chronic Open wounds of extremities (2 sources) Laceration without foreign body of left middle finger without damage to nail, subsequent encounter Episodic Residual codes; unclassified (1 source) Sleep apnea, unspecified; Translations: [SLEEP APNEA UNSPECIFIED] Onset: 01-18-2022 Chronic Substance-related disorders (1 source) Nicotine dependence, chewing tobacco, uncomplicated; Translations: [NICOTINE DEPEND CHEW TOBACCO UNCOMP] Onset: 01-18-2022 Chronic Unclassified (1 source) Other ventricular tachycardia; Translations: [Other ventricular tachycardia] Onset: 06-06-2023 Past or Other Problems Problem Classification Problem Date Documented Date Episodic/Chronic Abdominal pain (3 sources) Epigastric pain; Translations: [EPIGASTRIC PAIN] Onset: 01-14-2022 Episodic Cardiac dysrhythmias (4 sources) Tachycardia, unspecified; Translations: [TACHYCARDIA UNSPECIFIED] Onset: 01-28-2022 Episodic Heart valve disorders (1 source) Unspecified abnormalities of heart beat; Translations: [UNS ABNORMALITIES HEART BEAT] Onset: 03-14-2022 Episodic Nonspecific chest pain (6 sources) Chest pain, unspecified; Translations: [CHEST PAIN UNSPECIFIED] Onset: 03-18-2022 Episodic Other lower respiratory disease (2 sources) Shortness of breath; Translations: [Shortness of breath] Onset: 05-03-2023 Episodic Other screening for suspected conditions (not mental disorders or infectious disease) (1 source) Abnormal result of other cardiovascular function study; Translations: [ABNORM RESULT [facility] CV FUNCTION STUDY] Onset: 03-24-2022 Episodic Syncope (2 sources) Syncope and collapse; Translations: [Syncope and collapse] Onset: 02-26-2023 Episodic Unclassified (1 source) Other ventricular tachycardia; Translations: [Other ventricular tachycardia] Onset: 06-06-2023 Results Test Name Value Interpretation Reference Range Facility Abstracton 11-21-2023 Abstract [id number] Kd Mitchell 1950 [facility] Provider Department Center 11/21/2023 PJ MONTGOMERY [facility] MATT Hall Family History Problem Relation Age of Onset Heart disease Father Family Status - Relation Status Age at Father Normal [facility] Letter (Out)on 11-10-2023 Letter (Out) [id number] Kd Mitchell 1950 [facility] Provider Department Center 11/10/2023 None-None [facility] AUTH AL Medical C Family History Problem Relation Age of Onset Heart disease Father Family Status - Relation Status Age at Father Normal [facility] Office Visiton 10-31-2023 Follow-up visit [id number] Kd Mitchell 1950 [facility] Provider Department Center 10/31/2023 PJ MONTGOMERY MATT Silva Family History Problem Relation Age of Onset Heart disease Father Family Status - Relation Status Age at Father Level of Service:32956 FL OFFICE/OUTPATIENT ESTABLISHED LOW MDM 20 MIN Normal [facility] MR Heart cine for blood flow velocity mappingon 08-21-2023 * * *Final Report* * * DATE OF EXAM: Aug 21 2023 1:59PM [facility] - MRI CARDIAC VELOCITY FLOW MAP / PROCEDURE REASON: . * * * * Physician Interpretation * * * * Cardiac MRI Report: [facility] Date of service: 08/21/2023 1:11:05 PM Linked orders:[id number] CARDIAC VELOCITY FLOW MAP;[id number] CARD MORPH FUNC WO/W IVCON. Ordering physician: PJ KABA Technologist: CURT HOLLAND Fellow: Burton Lorenzo MD Interpreting physician: Pj Antunez MD PATIENT: Name: KD MITCHELL Age: 72 years Gender: M MRI Scanner: Siemens Ratna 1.5T Comparison: 72 year old male with h/o A. fib 10/2022 and subsequent documentation of episodes of nonsustained ventricular tachycardia 02/2023. This study is performed to quantify left/right ventricular size and function, valvular function, and to perform tissue characterization for the assessment of myocardial fibrosis/edema. MRI Techniques: * Turbo spin echo and gradient echo imaging for anatomic definition. * Dynamic cine imaging (SSFP and GRE) for cardiac chamber and wall-motion analysis, and valvular analysis. * Flow quantification sequences for hemodynamics in 2 locations: aortic root and mid-ascending aorta. * Delayed gadolinium enhancement analysis after injection of gadolinium-chelate. * T2-STIR edema-weighted imaging. * T1 mapping. * T2 mapping. Gadolinium Agent: 15 ml of Gadavist was administered. Baseline vital signs: 75 bpm Height: 175.00 cm BSA: 2.18 m Weight: 98.00 kg BMI: 32.0 kg/m FINDINGS: Extracardiac findings: The chest wall appears normal. The mediastinum is normal. Limited imaging of the lungs reveals no gross abnormalities. Cardiac structures: The cardiac chambers demonstrate normal atrioventricular and normal ventriculoarterial concordance. Systemic and pulmonary venous return is normal. Aorta: The thoracic aorta is normal in size Aortic Root/Sinus: 3.6 cm Mid ascendin.5 cm Mid arch: 2.9 cm Descending mid thoracic: 2.7 cm Arch: Left Arch vessel branching pattern: normal Arch branch vessels: patent ostia Pulmonary Arteries: Pulmonary Arteries: Normal dimensions - Main pulmonary artery diameter: 2.7 cm Left Atrium: The left atrium is normal in size. LA volume: 42 ml (normal range: 31-112 ml) LA volume index: 19 ml/m (normal range: 17-59 ml/m ) LA area (4ch): 14 cm LA area (2ch): 17 cm Right Atrium: The right atrium is normal in size. RA volume: 39 ml (normal range: 24-105 ml) RA volume index: 18 ml/m (normal range: 15-61 ml/m ) RA area (4ch): 14 cm Left Ventricle: The left ventricle is normal in size. Left ventricular systolic function is normal. value (normal range) indexed (normal range) EDV: 125 ml (83-207 ml) EDVi: 57 ml/m (47-107 ml/m ) ESV: 45 ml (19-88 ml) ESVi: 20 ml/m (11-47 ml/m ) SV: 80 ml (55-127 ml) SVi: 37 ml/m (30-66 ml/m ) EF: 64 % (51-76 %) CO: 6.0 l/min (3.9-8.3 l/min) CI: 2.8 l/min/m (2.1-4.3 ml/min/m ) mass: 94 g (57-152 g) LVMi: 43 g/m (36-75 g/m ) There is no LV hypertrophy. LV segment wall thickness: basal anteroseptum: 1.1 cm basal inferolateral: 0.7 cm Wall Motion: There are no wall motion abnormalities. Subepicardial to mid myocardial delayed gadolinium enhancement is seen involving the basal posterior wall with minimal extension into the basal inferior wall. Right Ventricle: The right ventricle is normal in size. Right ventricular systolic function is normal. value (normal range) indexed (normal range) EDV: 156 ml (87-244 ml) EDVi: 71 ml/m (53-123 ml/m ) ESV: 77 ml (29-117 ml) ESVi: 35 ml/m (17-59 ml/m ) SV: 79 ml (43-146 ml) SVi: 36 ml/m (28-75 ml/m ) EF: 51 % (42-72 %) CO: 5.9 l/min (2.8-8.3 l/min) CI: 2.7 l/min/m (1.5-4.5 l/min/m ) T1 / T2 / ECV T2 * : +------+ +-- ---+ +----- +-------+----+ T1 pre (ms) +/- T1 post (ms) +/- ECV (%) +/- +------+ +-- ---+ +----- +-------+----+ Base 1050.71 62.93 384.00 42.41 30.31 7.47 +------+ +-- ---+ +----- +-------+----+ Mid 1043.04 68.22 395.52 31.77 31.89 9.90 +------+ +-- ---+ +----- +-------+----+ [place] 1018.68 66.60 419.45 33.61 25.92 6.44 +------+ +-- ---+ +----- +-------+----+ Global 1040.15 66.93 396.02 39.30 29.68 8.49 +------+ +-- ---+ +----- +-------+----+ Normal values based on healthy individuals: T1: 950 +/- 21 ms; ECV: 26 +/- 4% Aortic Valve: There is trace aortic regurgitation. There is no thickening. AV Flow Quantification: ST Junction Forward Volume: 65 ml Reverse Volume: 6 ml Net Forward Volume (more content not included)... DIVISION OF RADIOLOGY Provider, [facility] [place] - 08/21/2023 * * *Final Report* * * DATE OF EXAM: Aug 21 2023 1:59PM [facility] 0704 - MRI CARDIAC VELOCITY FLOW MAP / PROCEDURE REASON: . * * * * Physician Interpretation * * * * Cardiac MRI Report: [facility] Date of service: 08/21/2023 1:11:05 PM Linked orders:[id number] CARDIAC VELOCITY FLOW MAP;[id number] CARD MORPH FUNC WO/W IVCON. Ordering physician: PJ KABA Technologist: CURT HOLLAND Fellow: Burton Lorenzo MD Interpreting physician: Pj Antunez MD PATIENT: Name: KD MITCHELL Age: 72 years Gender: M MRI Scanner: Siemens Ratna 1.5T Comparison: 72 year old male with h/o A. fib 10/2022 and subsequent documentation of episodes of nonsustained ventricular tachycardia 02/2023. This study is performed to quantify left/right ventricular size and function, valvular function, and to perform tissue characterization for the assessment of myocardial fibrosis/edema. MRI Techniques: * Turbo spin echo and gradient echo imaging for anatomic definition. * Dynamic cine imaging (SSFP and GRE) for cardiac chamber and wall-motion analysis, and valvular analysis. * Flow quantification sequences for hemodynamics in 2 locations: aortic root and mid-ascending aorta. * Delayed gadolinium enhancement analysis after injection of gadolinium-chelate. * T2-STIR edema-weighted imaging. * T1 mapping. * T2 mapping. Gadolinium Agent: 15 ml of Gadavist was administered. Baseline vital signs: 75 bpm Height: 175.00 cm BSA: 2.18 m Weight: 98.00 kg BMI: 32.0 kg/m FINDINGS: Extracardiac findings: The chest wall appears normal. The mediastinum is normal. Limited imaging of the lungs reveals no gross abnormalities. Cardiac structures: The cardiac chambers demonstrate normal atrioventricular and normal ventriculoarterial concordance. Systemic and pulmonary venous return is normal. Aorta: The thoracic aorta is normal in size Aortic Root/Sinus: 3.6 cm Mid ascendin.5 cm Mid arch: 2.9 cm Descending mid thoracic: 2.7 cm Arch: Left Arch vessel branching pattern: normal Arch branch vessels: patent ostia Pulmonary Arteries: Pulmonary Arteries: Normal dimensions - Main pulmonary artery diameter: 2.7 cm Left Atrium: The left atrium is normal in size. LA volume: 42 ml (normal range: 31-112 ml) LA volume index: 19 ml/m (normal range: 17-59 ml/m ) LA area (4ch): 14 cm LA area (2ch): 17 cm Right Atrium: The right atrium is normal in size. RA volume: 39 ml (normal range: 24-105 ml) RA volume index: 18 ml/m (normal range: 15-61 ml/m ) RA area (4ch): 14 cm Left Ventricle: The left ventricle is normal in size. Left ventricular systolic function is normal. value (normal range) indexed (normal range) EDV: 125 ml (83-207 ml) EDVi: 57 ml/m (47-107 ml/m ) ESV: 45 ml (19-88 ml) ESVi: 20 ml/m (11-47 ml/m ) SV: 80 ml (55-127 ml) SVi: 37 ml/m (30-66 ml/m ) EF: 64 % (51-76 %) CO: 6.0 l/min (3.9-8.3 l/min) CI: 2.8 l/min/m (2.1-4.3 ml/min/m ) mass: 94 g (57-152 g) LVMi: 43 g/m (36-75 g/m ) There is no LV hypertrophy. LV segment wall thickness: basal anteroseptum: 1.1 cm basal inferolateral: 0.7 cm Wall Motion: There are no wall motion abnormalities. Subepicardial to mid myocardial delayed gadolinium enhancement is seen involving the basal posterior wall with minimal extension into the basal inferior wall. Right Ventricle: The right ventricle is normal in size. Right ventricular systolic function is normal. value (normal range) indexed (normal range) EDV: 156 ml (87-244 ml) EDVi: 71 ml/m (53-123 ml/m ) ESV: 77 ml (29-117 ml) ESVi: 35 ml/m (17-59 ml/m ) SV: 79 ml (43-146 ml) SVi: 36 ml/m (28-75 ml/m ) EF: 51 % (42-72 %) CO: 5.9 l/min (2.8-8.3 l/min) CI: 2.7 l/min/m (1.5-4.5 l/min/m ) T1 / T2 / ECV T2 * : +------+ +-- ---+ +----- +-------+----+ T1 pre (ms) +/- T1 post (ms) +/- ECV (%) +/- +------+ +-- ---+ +----- +-------+----+ Base 1050.71 62.93 384.00 42.41 30.31 7.47 +------+ +-- ---+ +----- +-------+----+ Mid 1043.04 68.22 395.52 31.77 31.89 9.90 +------+ +-- ---+ +----- +-------+----+ [place] 1018.68 66.60 419.45 33.61 25.92 6.44 +------+ +-- ---+ +----- +-------+----+ Global 1040.15 66.93 396.02 39.30 29.68 8.49 +------+ +-- ---+ +----- +-------+----+ Normal values based on healthy individuals: T1: 950 +/- 21 ms; ECV: 26 +/- 4% Aortic Valve: There is trace aortic regurgitation. There is no thickening. AV Flow Quantification: ST Junction Forward Volume: 65 ml Reverse Volume: 6 ml Net Forward Volume: 59 ml Regurgitant Fraction: 9 % Pulmonic Valve: The pulmonic valve was not seen or not int (more content not included)... [facility] MRI CARD MORPH FUNC WO/W IVC ONon 08-21-2023 MRI CARD MORPH FUNC WO/W IVCON * * *Final Report* * * DATE OF EXAM: Aug 21 2023 1:59PM [facility] 0703 - MRI CARD MORPH FUNC WO/W IVCON / PROCEDURE REASON: . * * * * Physician Interpretation * * * * Cardiac MRI Report: [facility] Date of service: 08/21/2023 1:11:05 PM Linked orders:[id number] CARDIAC VELOCITY FLOW MAP;[id number] CARD MORPH FUNC WO/W IVCON. Ordering physician: PJ KABA Technologist: CURT HOLLAND Fellow: Burton Lorenzo MD Interpreting physician: Pj Antunez MD PATIENT: Name: KD MITCHELL Age: 72 years Gender: M MRI Scanner: Siemens Ratna 1.5T Comparison: 72 year old male with h/o A. fib 10/2022 and subsequent documentation of episodes of nonsustained ventricular tachycardia 02/2023. This study is performed to quantify left/right ventricular size and function, valvular function, and to perform tissue characterization for the assessment of myocardial fibrosis/edema. MRI Techniques: * Turbo spin echo and gradient echo imaging for anatomic definition. * Dynamic cine imaging (SSFP and GRE) for cardiac chamber and wall-motion analysis, and valvular analysis. * Flow quantification sequences for hemodynamics in 2 locations: aortic root and mid-ascending aorta. * Delayed gadolinium enhancement analysis after injection of gadolinium-chelate. * T2-STIR edema-weighted imaging. * T1 mapping. * T2 mapping. Gadolinium Agent: 15 ml of Gadavist was administered. Baseline vital signs: 75 bpm Height: 175.00 cm BSA: 2.18 m? Weight: 98.00 kg BMI: 32.0 kg/m? FINDINGS: Extracardiac findings: The chest wall appears normal. The mediastinum is normal. Limited imaging of the lungs reveals no gross abnormalities. Cardiac structures: The cardiac chambers demonstrate normal atrioventricular and normal ventriculoarterial concordance. Systemic and pulmonary venous return is normal. Aorta: The thoracic aorta is normal in size Aortic Root/Sinus: 3.6 cm Mid ascendin.5 cm Mid arch: 2.9 cm Descending mid thoracic: 2.7 cm Arch: Left Arch vessel branching pattern: normal Arch branch vessels: patent ostia Pulmonary Arteries: Pulmonary Arteries: Normal dimensions - Main pulmonary artery diameter: 2.7 cm Left Atrium: The left atrium is normal in size. LA volume: 42 ml (normal range: 31-112 ml) LA volume index: 19 ml/m? (normal range: 17-59 ml/m?) LA area (4ch): 14 cm? LA area (2ch): 17 cm? Right Atrium: The right atrium is normal in size. RA volume: 39 ml (normal range: 24-105 ml) RA volume index: 18 ml/m? (normal range: 15-61 ml/m?) RA area (4ch): 14 cm? Left Ventricle: The left ventricle is normal in size. Left ventricular systolic function is normal. value (normal range) indexed (normal range) EDV: 125 ml (83-207 ml) EDVi: 57 ml/m? (47-107 ml/m?) ESV: 45 ml (19-88 ml) ESVi: 20 ml/m? (11-47 ml/m?) SV: 80 ml (55-127 ml) SVi: 37 ml/m? (30-66 ml/m?) EF: 64 % (51-76 %) CO: 6.0 l/min (3.9-8.3 l/min) CI: 2.8 l/min/m? (2.1-4.3 ml/min/m?) mass: 94 g (57-152 g) LVMi: 43 g/m? (36-75 g/m?) There is no LV hypertrophy. LV segment wall thickness: basal anteroseptum: 1.1 cm basal inferolateral: 0.7 cm Wall Motion: There are no wall motion abnormalities. Subepicardial to mid myocardial delayed gadolinium enhancement is seen involving the basal posterior wall with minimal extension into the basal inferior wall. Right Ventricle: The right ventricle is normal in size. Right ventricular systolic function is normal. value (normal range) indexed (normal range) EDV: 156 ml (87-244 ml) EDVi: 71 ml/m? (53-123 ml/m?) ESV: 77 ml (29-117 ml) ESVi: 35 ml/m? (17-59 ml/m?) SV: 79 ml (43-146 ml) SVi: 36 ml/m? (28-75 ml/m?) EF: 51 % (42-72 %) CO: 5.9 l/min (2.8-8.3 l/min) CI: 2.7 l/min/m? (1.5-4.5 l/min/m?) T1 / T2 / ECV T2 * : +------+ +-- ---+ +----- +-------+----+ T1 pre (ms) +/- T1 post (ms) +/- ECV (%) +/- +------+ +-- ---+ +----- +-------+----+ Base 1050.71 62.93 384.00 42.41 30.31 7.47 +------+ +-- ---+ +----- +-------+----+ Mid 1043.04 68.22 395.52 31.77 31.89 9.90 +------+ +-- ---+ +----- +-------+----+ [place] 1018.68 66.60 419.45 33.61 25.92 6.44 +------+ +-- ---+ +----- +-------+----+ Global 1040.15 66.93 396.02 39.30 29.68 8.49 +------+ +-- ---+ +----- +-------+----+ Normal values based on healthy individuals: T1: 950 +/- 21 ms; ECV: 26 +/- 4% Aortic Valve: There is trace aortic regurgitation. There is no thickening. AV Flow Quantification: ST Junction Forward Volume: 65 ml Reverse Volume: 6 ml Net Forward Volume: 59 ml Regurgitant Fraction: 9 % Pulmonic Valve: The pulmonic valve was not seen or not interrogated. There is no thickening. Mitral Valve: There is trace mitral regurgitation. There is mild thickening. Mitral Flow Quantif (more content not included)... Normal [facility] MRI CARDIAC MORPH FUNC WO/W IVCONon 08-21-2023 * * *Final Report* * * DATE OF EXAM: Aug 21 2023 1:59PM [facility] 0703 - MRI CARD MORPH FUNC WO/W IVCON / PROCEDURE REASON: . * * * * Physician Interpretation * * * * Cardiac MRI Report: [facility] Date of service: 08/21/2023 1:11:05 PM Linked orders:[id number] CARDIAC VELOCITY FLOW MAP;[id number] CARD MORPH FUNC WO/W IVCON. Ordering physician: JP KABA Technologist: CURT HOLLAND Fellow: Burton Lorenzo MD Interpreting physician: Pj Antunez MD PATIENT: Name: KD MITCHELL Age: 72 years Gender: M MRI Scanner: Siemens Ratna 1.5T Comparison: 72 year old male with h/o A. fib 10/2022 and subsequent documentation of episodes of nonsustained ventricular tachycardia 02/2023. This study is performed to quantify left/right ventricular size and function, valvular function, and to perform tissue characterization for the assessment of myocardial fibrosis/edema. MRI Techniques: * Turbo spin echo and gradient echo imaging for anatomic definition. * Dynamic cine imaging (SSFP and GRE) for cardiac chamber and wall-motion analysis, and valvular analysis. * Flow quantification sequences for hemodynamics in 2 locations: aortic root and mid-ascending aorta. * Delayed gadolinium enhancement analysis after injection of gadolinium-chelate. * T2-STIR edema-weighted imaging. * T1 mapping. * T2 mapping. Gadolinium Agent: 15 ml of Gadavist was administered. Baseline vital signs: 75 bpm Height: 175.00 cm BSA: 2.18 m Weight: 98.00 kg BMI: 32.0 kg/m FINDINGS: Extracardiac findings: The chest wall appears normal. The mediastinum is normal. Limited imaging of the lungs reveals no gross abnormalities. Cardiac structures: The cardiac chambers demonstrate normal atrioventricular and normal ventriculoarterial concordance. Systemic and pulmonary venous return is normal. Aorta: The thoracic aorta is normal in size Aortic Root/Sinus: 3.6 cm Mid ascendin.5 cm Mid arch: 2.9 cm Descending mid thoracic: 2.7 cm Arch: Left Arch vessel branching pattern: normal Arch branch vessels: patent ostia Pulmonary Arteries: Pulmonary Arteries: Normal dimensions - Main pulmonary artery diameter: 2.7 cm Left Atrium: The left atrium is normal in size. LA volume: 42 ml (normal range: 31-112 ml) LA volume index: 19 ml/m (normal range: 17-59 ml/m ) LA area (4ch): 14 cm LA area (2ch): 17 cm Right Atrium: The right atrium is normal in size. RA volume: 39 ml (normal range: 24-105 ml) RA volume index: 18 ml/m (normal range: 15-61 ml/m ) RA area (4ch): 14 cm Left Ventricle: The left ventricle is normal in size. Left ventricular systolic function is normal. value (normal range) indexed (normal range) EDV: 125 ml (83-207 ml) EDVi: 57 ml/m (47-107 ml/m ) ESV: 45 ml (19-88 ml) ESVi: 20 ml/m (11-47 ml/m ) SV: 80 ml (55-127 ml) SVi: 37 ml/m (30-66 ml/m ) EF: 64 % (51-76 %) CO: 6.0 l/min (3.9-8.3 l/min) CI: 2.8 l/min/m (2.1-4.3 ml/min/m ) mass: 94 g (57-152 g) LVMi: 43 g/m (36-75 g/m ) There is no LV hypertrophy. LV segment wall thickness: basal anteroseptum: 1.1 cm basal inferolateral: 0.7 cm Wall Motion: There are no wall motion abnormalities. Subepicardial to mid myocardial delayed gadolinium enhancement is seen involving the basal posterior wall with minimal extension into the basal inferior wall. Right Ventricle: The right ventricle is normal in size. Right ventricular systolic function is normal. value (normal range) indexed (normal range) EDV: 156 ml (87-244 ml) EDVi: 71 ml/m (53-123 ml/m ) ESV: 77 ml (29-117 ml) ESVi: 35 ml/m (17-59 ml/m ) SV: 79 ml (43-146 ml) SVi: 36 ml/m (28-75 ml/m ) EF: 51 % (42-72 %) CO: 5.9 l/min (2.8-8.3 l/min) CI: 2.7 l/min/m (1.5-4.5 l/min/m ) T1 / T2 / ECV T2 * : +------+ +-- ---+ +----- +-------+----+ T1 pre (ms) +/- T1 post (ms) +/- ECV (%) +/- +------+ +-- ---+ +----- +-------+----+ Base 1050.71 62.93 384.00 42.41 30.31 7.47 +------+ +-- ---+ +----- +-------+----+ Mid 1043.04 68.22 395.52 31.77 31.89 9.90 +------+ +-- ---+ +----- +-------+----+ [place] 1018.68 66.60 419.45 33.61 25.92 6.44 +------+ +-- ---+ +----- +-------+----+ Global 1040.15 66.93 396.02 39.30 29.68 8.49 +------+ +-- ---+ +----- +-------+----+ Normal values based on healthy individuals: T1: 950 +/- 21 ms; ECV: 26 +/- 4% Aortic Valve: There is trace aortic regurgitation. There is no thickening. AV Flow Quantification: ST Junction Forward Volume: 65 ml Reverse Volume: 6 ml Net Forward Volum (more content not included)... DIVISION OF RADIOLOGY Provider, [facility] - 08/21/2023 * * *Final Report* * * DATE OF EXAM: Aug 21 2023 1:59PM [facility] 0703 - MRI CARD MORPH FUNC WO/W IVCON / PROCEDURE REASON: . * * * * Physician Interpretation * * * * Cardiac MRI Report: [facility] Date of service: 08/21/2023 1:11:05 PM Linked orders:[id number] CARDIAC VELOCITY FLOW MAP;[id number] CARD MORPH FUNC WO/W IVCON. Ordering physician: PJ KABA Technologist: CURT HOLLAND Fellow: Burton Lorenzo MD Interpreting physician: Pj Antunez MD PATIENT: Name: KD MITCHELL Age: 72 years Gender: M MRI Scanner: Siemens Ranta 1.5T Comparison: 72 year old male with h/o A. fib 10/2022 and subsequent documentation of episodes of nonsustained ventricular tachycardia 02/2023. This study is performed to quantify left/right ventricular size and function, valvular function, and to perform tissue characterization for the assessment of myocardial fibrosis/edema. MRI Techniques: * Turbo spin echo and gradient echo imaging for anatomic definition. * Dynamic cine imaging (SSFP and GRE) for cardiac chamber and wall-motion analysis, and valvular analysis. * Flow quantification sequences for hemodynamics in 2 locations: aortic root and mid-ascending aorta. * Delayed gadolinium enhancement analysis after injection of gadolinium-chelate. * T2-STIR edema-weighted imaging. * T1 mapping. * T2 mapping. Gadolinium Agent: 15 ml of Gadavist was administered. Baseline vital signs: 75 bpm Height: 175.00 cm BSA: 2.18 m Weight: 98.00 kg BMI: 32.0 kg/m FINDINGS: Extracardiac findings: The chest wall appears normal. The mediastinum is normal. Limited imaging of the lungs reveals no gross abnormalities. Cardiac structures: The cardiac chambers demonstrate normal atrioventricular and normal ventriculoarterial concordance. Systemic and pulmonary venous return is normal. Aorta: The thoracic aorta is normal in size Aortic Root/Sinus: 3.6 cm Mid ascendin.5 cm Mid arch: 2.9 cm Descending mid thoracic: 2.7 cm Arch: Left Arch vessel branching pattern: normal Arch branch vessels: patent ostia Pulmonary Arteries: Pulmonary Arteries: Normal dimensions - Main pulmonary artery diameter: 2.7 cm Left Atrium: The left atrium is normal in size. LA volume: 42 ml (normal range: 31-112 ml) LA volume index: 19 ml/m (normal range: 17-59 ml/m ) LA area (4ch): 14 cm LA area (2ch): 17 cm Right Atrium: The right atrium is normal in size. RA volume: 39 ml (normal range: 24-105 ml) RA volume index: 18 ml/m (normal range: 15-61 ml/m ) RA area (4ch): 14 cm Left Ventricle: The left ventricle is normal in size. Left ventricular systolic function is normal. value (normal range) indexed (normal range) EDV: 125 ml (83-207 ml) EDVi: 57 ml/m (47-107 ml/m ) ESV: 45 ml (19-88 ml) ESVi: 20 ml/m (11-47 ml/m ) SV: 80 ml (55-127 ml) SVi: 37 ml/m (30-66 ml/m ) EF: 64 % (51-76 %) CO: 6.0 l/min (3.9-8.3 l/min) CI: 2.8 l/min/m (2.1-4.3 ml/min/m ) mass: 94 g (57-152 g) LVMi: 43 g/m (36-75 g/m ) There is no LV hypertrophy. LV segment wall thickness: basal anteroseptum: 1.1 cm basal inferolateral: 0.7 cm Wall Motion: There are no wall motion abnormalities. Subepicardial to mid myocardial delayed gadolinium enhancement is seen involving the basal posterior wall with minimal extension into the basal inferior wall. Right Ventricle: The right ventricle is normal in size. Right ventricular systolic function is normal. value (normal range) indexed (normal range) EDV: 156 ml (87-244 ml) EDVi: 71 ml/m (53-123 ml/m ) ESV: 77 ml (29-117 ml) ESVi: 35 ml/m (17-59 ml/m ) SV: 79 ml (43-146 ml) SVi: 36 ml/m (28-75 ml/m ) EF: 51 % (42-72 %) CO: 5.9 l/min (2.8-8.3 l/min) CI: 2.7 l/min/m (1.5-4.5 l/min/m ) T1 / T2 / ECV T2 * : +------+ +-- ---+ +----- +-------+----+ T1 pre (ms) +/- T1 post (ms) +/- ECV (%) +/- +------+ +-- ---+ +----- +-------+----+ Base 1050.71 62.93 384.00 42.41 30.31 7.47 +------+ +-- ---+ +----- +-------+----+ Mid 1043.04 68.22 395.52 31.77 31.89 9.90 +------+ +-- ---+ +----- +-------+----+ [place] 1018.68 66.60 419.45 33.61 25.92 6.44 +------+ +-- ---+ +----- +-------+----+ Global 1040.15 66.93 396.02 39.30 29.68 8.49 +------+ +-- ---+ +----- +-------+----+ Normal values based on healthy individuals: T1: 950 +/- 21 ms; ECV: 26 +/- 4% Aortic Valve: There is trace aortic regurgitation. There is no thickening. AV Flow Quantification: ST Junction Forward Volume: 65 ml Reverse Volume: 6 ml Net Forward Volume: 59 ml Regurgitant Fraction: 9 % Pulmonic Valve: The pulmonic valve was not seen or not in (more content not included)... [facility] MRI CARDIAC VELOCITY FLOW ARDEN Baker 08-21-2023 MRI CARDIAC VELOCITY FLOW MAP * * *Final Report* * * DATE OF EXAM: Aug 21 2023 1:59PM [id number] - MRI CARDIAC VELOCITY FLOW MAP / PROCEDURE REASON: . * * * * Physician Interpretation * * * * Cardiac MRI Report: [facility] Date of service: 08/21/2023 1:11:05 PM Linked orders:[id number] CARDIAC VELOCITY FLOW MAP;[id number] CARD MORPH FUNC WO/W IVCON. Ordering physician: PJ KABA Technologist: CURT HOLLAND Fellow: Burton Lorenzo MD Interpreting physician: Pj Antunez MD PATIENT: Name: KD MITCHELL Age: 72 years Gender: M MRI Scanner: Siemens Ratna 1.5T Comparison: 72 year old male with h/o A. fib 10/2022 and subsequent documentation of episodes of nonsustained ventricular tachycardia 02/2023. This study is performed to quantify left/right ventricular size and function, valvular function, and to perform tissue characterization for the assessment of myocardial fibrosis/edema. MRI Techniques: * Turbo spin echo and gradient echo imaging for anatomic definition. * Dynamic cine imaging (SSFP and GRE) for cardiac chamber and wall-motion analysis, and valvular analysis. * Flow quantification sequences for hemodynamics in 2 locations: aortic root and mid-ascending aorta. * Delayed gadolinium enhancement analysis after injection of gadolinium-chelate. * T2-STIR edema-weighted imaging. * T1 mapping. * T2 mapping. Gadolinium Agent: 15 ml of Gadavist was administered. Baseline vital signs: 75 bpm Height: 175.00 cm BSA: 2.18 m? Weight: 98.00 kg BMI: 32.0 kg/m? FINDINGS: Extracardiac findings: The chest wall appears normal. The mediastinum is normal. Limited imaging of the lungs reveals no gross abnormalities. Cardiac structures: The cardiac chambers demonstrate normal atrioventricular and normal ventriculoarterial concordance. Systemic and pulmonary venous return is normal. Aorta: The thoracic aorta is normal in size Aortic Root/Sinus: 3.6 cm Mid ascendin.5 cm Mid arch: 2.9 cm Descending mid thoracic: 2.7 cm Arch: Left Arch vessel branching pattern: normal Arch branch vessels: patent ostia Pulmonary Arteries: Pulmonary Arteries: Normal dimensions - Main pulmonary artery diameter: 2.7 cm Left Atrium: The left atrium is normal in size. LA volume: 42 ml (normal range: 31-112 ml) LA volume index: 19 ml/m? (normal range: 17-59 ml/m?) LA area (4ch): 14 cm? LA area (2ch): 17 cm? Right Atrium: The right atrium is normal in size. RA volume: 39 ml (normal range: 24-105 ml) RA volume index: 18 ml/m? (normal range: 15-61 ml/m?) RA area (4ch): 14 cm? Left Ventricle: The left ventricle is normal in size. Left ventricular systolic function is normal. value (normal range) indexed (normal range) EDV: 125 ml (83-207 ml) EDVi: 57 ml/m? (47-107 ml/m?) ESV: 45 ml (19-88 ml) ESVi: 20 ml/m? (11-47 ml/m?) SV: 80 ml (55-127 ml) SVi: 37 ml/m? (30-66 ml/m?) EF: 64 % (51-76 %) CO: 6.0 l/min (3.9-8.3 l/min) CI: 2.8 l/min/m? (2.1-4.3 ml/min/m?) mass: 94 g (57-152 g) LVMi: 43 g/m? (36-75 g/m?) There is no LV hypertrophy. LV segment wall thickness: basal anteroseptum: 1.1 cm basal inferolateral: 0.7 cm Wall Motion: There are no wall motion abnormalities. Subepicardial to mid myocardial delayed gadolinium enhancement is seen involving the basal posterior wall with minimal extension into the basal inferior wall. Right Ventricle: The right ventricle is normal in size. Right ventricular systolic function is normal. value (normal range) indexed (normal range) EDV: 156 ml (87-244 ml) EDVi: 71 ml/m? (53-123 ml/m?) ESV: 77 ml (29-117 ml) ESVi: 35 ml/m? (17-59 ml/m?) SV: 79 ml (43-146 ml) SVi: 36 ml/m? (28-75 ml/m?) EF: 51 % (42-72 %) CO: 5.9 l/min (2.8-8.3 l/min) CI: 2.7 l/min/m? (1.5-4.5 l/min/m?) T1 / T2 / ECV T2 * : +------+ +-- ---+ +----- +-------+----+ T1 pre (ms) +/- T1 post (ms) +/- ECV (%) +/- +------+ +-- ---+ +----- +-------+----+ Base 1050.71 62.93 384.00 42.41 30.31 7.47 +------+ +-- ---+ +----- +-------+----+ Mid 1043.04 68.22 395.52 31.77 31.89 9.90 +------+ +-- ---+ +----- +-------+----+ [place] 1018.68 66.60 419.45 33.61 25.92 6.44 +------+ +-- ---+ +----- +-------+----+ Global 1040.15 66.93 396.02 39.30 29.68 8.49 +------+ +-- ---+ +----- +-------+----+ Normal values based on healthy individuals: T1: 950 +/- 21 ms; ECV: 26 +/- 4% Aortic Valve: There is trace aortic regurgitation. There is no thickening. AV Flow Quantification: ST Junction Forward Volume: 65 ml Reverse Volume: 6 ml Net Forward Volume: 59 ml Regurgitant Fraction: 9 % Pulmonic Valve: The pulmonic valve was not seen or not interrogated. There is no thickening. Mitral Valve: There is trace mitral regurgitation. There is mild thickening. Mitral Flow Quantifi (more content not included)... Normal [facility] No Panel Informationon 08-20 IMPRESSION: Pattern of findings could be c/w (residuals) of myocarditis or infiltrative disease. Clinical correlation is recommended The left ventricle is normal in size (LV EDVi = 57 ml/m ). -The left ventricular systolic function is normal (LV EF = 64 %). -No regional wall motion abnormality. -Subepicardial to mid myocardial delayed gadolinium enhancement is seen involving the basal posterior wall with minimal extension into the basal inferior wall. The right ventricle is normal in size (RV EDVi = 71 ml/m ). The right ventricular systolic function is normal (RV EF = 51 %). - No significant valvular abnormality. * * * Final * * * RP Medical Apparatus Model Maker: CRISTINO Transcribe Date/Time: Aug 21 2023 1:11P Dictated by : PJ ANTUNEZ MD This examination was interpreted and the report reviewed and electronically signed by: PJ ANTUNEZ MD on Aug 21 2023 3:06PM [facility] DIVISION OF RADIOLOGY Radiology Study observation (narrative) [facility] No Panel InformationOrdered By: Ccf Provider on 08-21-2023 [facility] Office Visiton 06-06-2023 Follow-up visit [id number] Kd Mitchell 1950 M Date Provider Department Center 06/06/2023 PJ MONTGOMERY MATT Silva Family History Problem Relation Age of Onset Heart disease Father Family Status - Relation Status Age at Father Level of Service:99693 [place] OFFICE/OUTPATIENT ESTABLISHED LOW MDM 20 MIN [facility] HPon 05-03-2023 HP H&P reviewed. The patient was examined and there are no changes to the H&P. [facility] NURSNOTEon 05-03-2023 NURSNOTE RN educated pt on d/ c instructions. RN encouraged pt to voice any questions or concerns. Pt verbalizes no questions or concerns at this time. Pt was wheeled off of unit with all of belongings. [facility] HPon 04-25-2023 HP Pt had 2 afib events in past year, rangel not haad any problems since, had monitor. Chest pain he thinks is from GERD. Otherwise feels good [facility]rophys[facility] Consult Note Reason for visit: Afib HPI: Kd Mitchell is a 72 y.o. year old with past medical history of ABDULLAHI, afib, htn, gerd, syncope, hld. He was seen in the [facility] 10/2022 for complaints of chest pain and [...] episodes of A-fib had occurred first in 2018 when he was noted to have A-fib [...] external nose (more content not included)... Normal [facility] Office Visiton 04-25-2023 Follow-up visit [id number] Kd Mitchell Maddison 1950 Date Provider Department Center 04/25/2023 PJ MONTGOMERY MATT Silva Family History Problem Relation Age of Onset Heart disease Father Family Status - Relation Status Age at Father Level of Service:53388 [place] OFFICE/OUTPATIENT NEW HIGH MDM 60 MINUTES [facility] Orders Onlyon 04-25-2023 Orders Only [id number] Kd Mitchell Maddison 1950 Date Provider Department Center 04/25/2023 SANDRA HAIDER MATT [facility] Family History Problem Relation Age of Onset Heart disease Father Family Status - Relation Status Age at Father Normal [facility] Office Visiton 02-17-2023 Follow-up visit [id number] Elmore Maddison 1950 Date Provider Department Center 02/17/2023 RODOLFO GARCIA CARD [facility] Family History Problem Relation Age of Onset Heart disease Father Family Status - Relation Status Age at Father Level of Service:20885 [place] OFFICE/OUTPATIENT NEW MODERATE MDM 45-59 MINUTES Reason for Visit and Comments: New Patient [632] [facility] Gopal 01-19-2023 SAULO Telephone ([facility]) KD MITCHELL ([id number]) 1950 M Date Time Provider Department 01/19/23 KITTY HICKS During your visit today, we recorded the following information about you: Jovana Jocooper 01/19/2023 9:47 AM Signed Left a message [...] Encounter Status:[facility] (CAR[facility] KD MITCHELL ([id number]) 1950 M Date Time Provider Department 11/21/22 KITTY HICKS During your visit today, we recorded the following information about you: Chance Dueñas 11/21/2022 4:37 PM Signed Records received from [facility] by mail. Records uploaded to OPD and sent to scanning. Patient has a future appointment on: 02/15/23. Date of last OV: Holden Dueñas November 21, 2022 4:36 PM Allergies As of Date: 11/21/2022 (Not on File) Date Reviewed: Never Reviewed Reason for Visit: Received Outside Medical Records [[id number]] Problem List As Of Date: 11/21/2022 (None) Encounter Status:Closed by CHANCE DUEÑAS on 11/21/22 [facility] 11-16-2022 CNPN Telephone (CARCMN) KD MITCHELL ([id number]) 1950 M Date Time Provider Department 11/16/22 KITTY HICKS CARCMN During your visit today, we recorded the following information about you: Chance Dueñas 11/16/2022 11:19 AM Signed Records received from [facility] by fax. Records uploaded to OPD and sent to scanning. Patient has a future appointment on: 02/15/23. Date of last OV: -Lianna Dueñas November 16, 2022 11:17 AM Allergies As of Date: 11/16/2022 (Not on File) Date Reviewed: Never Reviewed Reason for Visit: Received Outside Medical Records [[id number]] Problem List As Of Date: 11/16/2022 (None) Encounter Status:Closed by CHANCE DUEÑAS on 11/16/22 [facility] CNCOon 11-09-2022 CNCO Letter Text [facility] 11-06-2022 CNPN Telephone (REFPHY) KD MITCHELL ([id number]) 1950 M Date Time Provider Department 11/06/22 NO ONE (HISTORICAL) REFPHY During your visit today, we recorded the following information about you: [facility] Service ShaniceKeira 11/06/2022 3:44 PM Signed Patient: Kd Mitchell Date of : 1950 Patient phone number: [phone] Referring Provider for the encounter: Estrella Chowdary Requesting Provider: Reason for requesting visit (RFV/signs and symptoms/diagnosis): AFib Person calling: rp fax Return call to: rp fax Medical Records/Insurance Card scanned into [employer]: No Comments: Dominga Cr 11/09/2022 11:52 AM Signed RP-Appt scheduled- Spoke with Patient to schedule consult, printed and sent new pt packet and appt info via mail Allergies As of Date: 11/06/2022 (Not on File) Date Reviewed: Never Reviewed Reason for Visit: External Referrals/resources [909] Problem List As Of Date: 11/06/2022 (None) Encounter Status:Closed by [facility] SERVICE SHANICEKEIRA on 11/06/22 Normal [facility] CBC AUTO DIFFon 08-30-2022 BASO # 0.1 103/ul Normal 0.0-0.[address] [facility] Comment on above: Performed By: #### C BC ####[facility] [address] [place], [place] [address]Dr. Jeremiah Vela Basophils/100 WBC (Bld) 0.6 % Normal 0.2-2.[address] [facility] Comment on above: Performed By: #### C BC ####[facility] [address] [place] [address]Dr. Serenalan Vela EO # 0.1 103/ul Normal 0.0-0.[address] [facility] Comment on above: Performed By: #### C BC ####[facility] [address] [place] [address]Dr. Jeremiah Vela Eosinophils/100 WBC (Bld) 1.0 % Normal 0.9-7.[address] [facility] Comment on above: Performed By: #### C BC ####[facility] [address]ewbr[address] [place] [address]Dr. Jeremiah Vela Erythrocyte distribution width (RBC) [Ratio] 13.9 % Normal 11.0-15.[address] [facility] Comment on above: Performed By: #### C BC ####[facility] [address] [place], [place] [address]Dr. Jeremiah Vela Hematocrit (Bld) [Volume fraction] 42.1 % Normal 42.0-54.[address] [facility] Comment on above: Performed By: #### C BC ####[facility] B[address] [place], [place] [address]Dr. Jeremiah Vela Hemoglobin (Bld) [Mass/Vol] 13.7 g/dL Critically low 14.0-18.0 [facility] Comment on above: Performed By: #### C BC ####[facility] [address] [place], [place] [address]Dr. Jeremiah Vela IG # 0.02 10e3/ul Normal 0.00-0.[address] [facility] Comment on above: Performed By: #### C BC ####[facility] [address]es[address] [place], [place] [address]Dr. Jeremiah Vela IG % 0.2 % Normal 0.0-0.5 [facility] Comment on above: Performed By: #### C BC ####[facility] [address] [place], [place] [address]Dr. Jeremiah Vela LYMPH # 2.9 103/ul Normal 1.2-3.[address] [facility] Comment on above: Performed By: #### C BC ####[facility] [address]uch[address] [place], [place] [address]Dr. Jeremiah Vela Lymphocytes/100 WBC (Bld) 34.9 % Normal 20.5-60.[address] [facility] Comment on above: Performed By: #### C BC ####[facility] [address]zzmp[address] [place], [place] [address]Dr. Jeremiah Vela MANUAL DIFF REQ NO Normal [facility] Comment on above: Performed By: #### C BC ####[facility] [address] [place] [id number]. Jeremiah Vela MCH (RBC) [Entitic mass] 27.1 pg Normal 25.9-34.[address] [facility] Comment on above: Performed By: #### C BC ####[facility] [address] [place] [address]Dr. Jeremiah Vela MCHC (RBC) [Mass/Vol] 32.5 g/dL Normal 29.9-35.[address] [facility] Comment on above: Performed By: #### C BC ####[facility] [address] [place], [place] [id number]. Jeremiah Vela MCV (RBC) [Entitic vol] 83.4 fL Normal 80.0-94.[address] [facility] Comment on above: Performed By: #### C BC ####[facility] [address]rsw[address] [place], [place] [address]Dr. Jeremiah Vela MONO # 0.7 103/ul Normal 0.3-0.[address] [facility] Comment on above: Performed By: #### C BC ####[facility] [address]ynzg[address] [place], [place] [address]Dr. Jeremiah Dane Monocytes/100 WBC (Bld) 8.2 % Normal 1.7-12.[address] [facility] Comment on above: Performed By: #### C BC ####[facility] [address]ps[address]irs[address] [place], [place] [address]Dr. Jeremiah Vela NEUT # 4.6 103/ul Normal 1.4-6.[address] [facility] Comment on above: Performed By: #### C BC ####[facility] [address] [place], [place] [address]Dr. Jeremiah Vela Neutrophils/100 WBC (Bld) 55.1 % Normal 43.0-75.[address] [facility] Comment on above: Performed By: #### C BC ####[facility] [address] [place], [place] [address]Dr. Jeremiah Vela Platelet mean volume (Bld) [Entitic vol] 9.9 fL Normal 9.5-13.[address] [facility] Comment on above: Performed By: #### C BC ####[facility] [address] [place] [id number]. Jeremiah Vela PLT 296 103/ul Normal 150-[address] [facility] Comment on above: Performed By: #### C BC ####[facility] [address] [place] [id number]. Jeremiah Vela RBC 5.05 106/ul Normal 4.70-6.[address] [facility] Comment on above: Performed By: #### C BC ####[facility] [address] [place] [id number]. Jeremiah Vela WBC 8.3 103/ul Normal 4.0-11.[address] [facility] Comment on above: Performed By: #### C BC ####[facility] [address] [place] [address]Dr. Jeremiah Vela FREE T3on 08-30-2022 FREE T3 3.00 pg/mlL Normal 2.18-3.98 [facility] Comment on above: Performed By: #### T 4, TSH, FT3, CMP, URIC, LIPID ####[facility] [address] [place] [id number]. Jeremiah Vela GLYCOHEMOGLOBIN A1Con 2022 ADA RECOMMENDATION SEE BELOW Normal [facility] Comment on above: Result Comment: ADA RECOMMENDED LIMIT 4.0 - 6.0 ADA THERAPEUTIC TARGET < 7.0 ACTION SUGGESTED > 7.0 Performed By: #### A 1C ####[facility] [address] [place], [place] [address]Dr. Jeremiah Vela Glucose [Mass/Vol] 105 mg/dL Normal [facility] Comment on above: Performed By: #### A 1C ####[facility] [address] [place] [id number]. Jeremiah Vela HbA1c (Bld) [Mass fraction] 5.3 % Normal 4.5-6.2 [facility] Comment on above: Performed By: #### A 1C ####[facility] [address] [place] [address]Dr. Jeremiah Vela LIPID PROFILEon 08-30-2022 CHOL-HDL RATIO NORM SEE BELOW Normal [facility] Comment on above: Result Comment: 3.3 - 4.4 LOW RISK 4.4 - 7.1 AVERAGE RISK 7.1 - 11.0 MODERATE RISK >11.0 HIGH RISK Performed By: #### T 4, TSH, FT3, CMP, URIC, LIPID ####[facility] [address] [place] [id number]. Serenaaminah Vela Cholesterol [Mass/Vol] 175 mg/dL Normal <=200 [facility] Comment on above: Performed By: #### T 4, TSH, FT3, CMP, URIC, LIPID ####[facility] [address] [place] [address]Dr. Jeremiah Vela Cholesterol in HDL [Mass/Vol] 40 mg/dL Normal 40-60 [facility] Comment on above: Performed By: #### T 4, TSH, FT3, CMP, URIC, LIPID ####[facility] [address] [place] [address]Dr. Jeremiah Vela Cholesterol in LDL [Mass/Vol] 102.4 mg/dL Normal [facility] Comment on above: Performed By: #### T 4, TSH, FT3, CMP, URIC, LIPID ####[facility] [address] [place] [address]Dr. Jeremiah Vela Cholesterol.total/Chol esterol in HDL [Mass ratio] 4.4 {ratio} Normal [facility] Comment on above: Performed By: #### T 4, TSH, FT3, CMP, URIC, LIPID ####[facility] [address] [place] [id number]. Jeremiah Vela HDL NORMAL > or = 60 mg/dl - LO W CARDIOVASCULAR RISK <40 mg/dl - HIGH CARDIOVASCULAR RISK Normal [facility] Comment on above: Performed By: #### T 4, TSH, FT3, CMP, URIC, LIPID ####[facility] [address] [place] [address]Dr. Jeremiah Vela LDL CALC NORMAL SEE BELOW Normal [facility] Comment on above: Result Comment: <100 mg/dl OPTIMAL 100 - 129 mg/dl NEAR OR ABOVE OPTIMAL 130 - 159 mg/dl BORDERLINE HIGH 160 - 189 mg/dl HIGH >190 mg/dl VERY HIGH Performed By: #### T 4, TSH, FT3, CMP, URIC, LIPID ####[facility] [address] [place] [address]Dr. Jeremiah Vela Triglyceride [Mass/Vol] 163 mg/dL Critically high <=150 [facility] Comment on above: Performed By: #### T 4, TSH, FT3, CMP, URIC, LIPID ####[facility] [address] [place] [address]Dr. Jeremiah Vela VLDL CALC 32.6 mg/dL Normal [facility] Comment on above: Performed By: #### T 4, TSH, FT3, CMP, URIC, LIPID ####[facility] [address] [place] [address]Dr. Jeremiah Vela PROF 14(COMP METB)on 023 Albumin [Mass/Vol] 3.8 g/dL Normal 3.4-5.0 [facility] Comment on above: Performed By: #### T 4, TSH, FT3, CMP, URIC, LIPID ####[facility] [address]ps[address] [place] [address]Dr. Jeremiah Vela Albumin/Globulin [Mass ratio] 0.8 {ratio} Normal [facility] Comment on above: Performed By: #### T 4, TSH, FT3, CMP, URIC, LIPID ####[facility] [address] [place] [address]Dr. Jeremiah Vela ALP [Catalytic activity/Vol] 50 U/L Normal 46-116 [facility] Comment on above: Performed By: #### T 4, TSH, FT3, CMP, URIC, LIPID ####[facility] [address] [place] [address]Dr. Jeremiah Vela ALT [Catalytic activity/Vol] 25 U/L Normal 16-63 [facility] Comment on above: Performed By: #### T 4, TSH, FT3, CMP, URIC, LIPID ####[facility] [address] [place] [address]Dr. Jeremiah Vela Anion gap [Moles/Vol] 13.8 mmol/L Normal [facility] Comment on above: Performed By: #### T 4, TSH, FT3, CMP, URIC, LIPID ####[facility] [address] [place] [address]Dr. Jeremiah Vela AST [Catalytic activity/Vol] 15 U/L Normal 15-[address] [facility] Comment on above: Performed By: #### T 4, TSH, FT3, CMP, URIC, LIPID ####[facility] [address] [place] [address]Dr. Jeremiah Vela Bilirubin [Mass/Vol] 0.5 mg/dL Normal 0.2-1.0 [facility] Comment on above: Performed By: #### T 4, TSH, FT3, CMP, URIC, LIPID ####[facility] [address] [place], [place] [address]Dr. Jeremiah Vela Calcium [Mass/Vol] 9.0 mg/dL Normal 8.5-10.1 [facility] Comment on above: Performed By: #### T 4, TSH, FT3, CMP, URIC, LIPID ####[facility] [address] [place], [place] [address]Dr. Jeremiah Vela Chloride [Moles/Vol] 104 mmol/L Normal 98-[address] [facility] Comment on above: Performed By: #### T 4, TSH, FT3, CMP, URIC, LIPID ####[facility] [address] [address]Dr. Jeremiah Vela CO2 [Moles/Vol] 27.4 mmol/L Normal 21.0-32.0 [facility] Comment on above: Performed By: #### T 4, TSH, FT3, CMP, URIC, LIPID ####[facility] [address] [place], [place] [address]Dr. Jeremiah Vela Creatinine [Mass/Vol] 1.27 mg/dL Normal 0.70-1.30 [facility] Comment on above: Performed By: #### T 4, TSH, FT3, CMP, URIC, LIPID ####[facility] [address] [address]Dr. Jeremiah Vela EGFR-AF ISRAELI >60 Normal >=60 [facility] Comment on above: Performed By: #### T 4, TSH, FT3, CMP, URIC, LIPID ####[facility] [address] [address]Dr. Jeremiah Vela EGFR-NON AF ISRAELI 56 mL/min/1.73m2 Critically low >=[address] [facility] Comment on above: Performed By: #### T 4, TSH, FT3, CMP, URIC, LIPID ####[facility] [address] [address]Dr. Jeremiah Vela Globulin (S) [Mass/Vol] 4.5 g/dL Normal [facility] Comment on above: Performed By: #### T 4, TSH, FT3, CMP, URIC, LIPID ####[facility] [address] [place], [place] [address]Dr. Jeremiah Vela Glucose [Mass/Vol] 97 mg/dL Normal 74-106 [facility] Comment on above: Performed By: #### T 4, TSH, FT3, CMP, URIC, LIPID ####[facility] [address] [place], [place] [address]Dr. Jeremiah Vela Potassium [Moles/Vol] 4.2 mmol/L Normal 3.5-5.1 [facility] Comment on above: Performed By: #### T 4, TSH, FT3, CMP, URIC, LIPID ####[facility] [address] [place], [place] [address]Dr. Jeremiah Vela Protein [Mass/Vol] 8.3 g/dL Critically high 6.4-8.2 [facility] Comment on above: Performed By: #### T 4, TSH, FT3, CMP, URIC, LIPID ####[facility] [address] [place], [place] [address]Dr. Jeremiah Vela Sodium [Moles/Vol] 141 mmol/L Normal 136-145 [facility] Comment on above: Performed By: #### T 4, TSH, FT3, CMP, URIC, LIPID ####[facility] [address] [address]Dr. Jeremiah Vela Urea nitrogen [Mass/Vol] 19.0 mg/dL Critically high 7.0-18.[address] [facility] Comment on above: Performed By: #### T 4, TSH, FT3, CMP, URIC, LIPID ####[facility] [address] [address]Dr. Jeremiah Vela Urea nitrogen/Creatinine [Mass ratio] 15.0 mg/mg Normal [facility] Comment on above: Performed By: #### T 4, TSH, FT3, CMP, URIC, LIPID ####[facility] [address] [address]Dr. Jeremiah Vela T4on 08-30-2022 T4 [Mass/Vol] 6.30 ug/dL Normal 4.50-12.10 [facility] Comment on above: Performed By: #### T 4, TSH, FT3, CMP, URIC, LIPID ####[facility] [address] [address]Dr. Jeremiah Vela TSHon 08-30-2022 TSH 1.881 uIU/mL Normal 0.358-3.740 [facility] Comment on above: Performed By: #### T 4, TSH, FT3, CMP, URIC, LIPID ####[facility] [address] [address]Dr. Jeremiah Vela URIC ACID SERUMon 08-30-2022 Urate [Mass/Vol] 6.5 mg/dL Normal 3.5-7.2 [facility] Comment on above: Performed By: #### T 4, TSH, FT3, CMP, URIC, LIPID ####[facility] [address] [address]Dr. Jeremiah Vela ECHOCARDIO M/2D COMPLETEon 1 05-19-2021 ECHOCARDIO M/2D COMPLETE Patient: KD MITCHELL Exam Date: 03/18/2022 : 1950 Gender:M Ordering : DR ESTRELLA CHOWDARY . Admission #: [id number] Family : Order #: [id number] CLICK HERE TO VIEW EXAM ECHOCARDIOGRAM REPORT [...] Ramos M.D. on 03/23/2022 at 09:55 Normal [facility] NM STRESS/REST MULTIon 03-08 NM STRESS/REST MULTI Patient: KD MITCHELL Exam Date: 03/08/2022 : 1950 Gender:M Ordering : DR ESTRELLA CHOWDARY . Admission #: [id number] Family : Order #: [id number] CLICK HERE TO VIEW EXAM RADIOLOGY REPORT PROCEDURE: RADIONUCLIDE IMAGING STRESS/REST MULTI COMPARISON: NM STRESS/REST MULTI, 03/05/2020. INDICATIONS: Chest pain, abnormal [...] Tubbs M.D. on 03/08/2022 at 14:43 Normal [facility] AMYLASEon 01-14-2022 Amylase [Catalytic activity/Vol] 40 U/L Normal 25-115 [facility] Comment on above: Performed By: #### C MP, LIPA, MARIAM, BNP, HSTROPN #### [facility] [address] [place] [address] Dr. Jeremiah Vela BNPon 01-14-2022 Natriuretic peptide B (Bld) [Mass/Vol] 546.0 pg/mL Normal <=900.0 [facility] Comment on above: Performed By: #### C MP, LIPA, MARIAM, BNP, HSTROPN #### [facility] [address] [place] [address] Dr. Jeremiah Vela CBC AUTO DIFFon 01-14-2022 BASO # 0.1 103/ul Normal 0.0-0.1 [facility] Comment on above: Performed By: #### C BC #### [facility] [address] [place] [address] Dr. Jeremiah Vela Basophils/100 WBC (Bld) 0.5 % Normal 0.2-2.0 [facility] Comment on above: Performed By: #### C BC #### [facility] [address] [place] [address] Dr. Jeremiah Vela EO # 0.1 103/ul Normal 0.0-0.7 [facility] Comment on above: Performed By: #### C BC #### [facility] [address] [place] [address] Dr. Jeremiah Vela Eosinophils/100 WBC (Bld) 1.1 % Normal 0.9-7.0 [facility] Comment on above: Performed By: #### C BC #### [facility] [address] [place] [address] Dr. Jeremiah Vela Erythrocyte distribution width (RBC) [Ratio] 13.7 % Normal 11.0-15.0 [facility] Comment on above: Performed By: #### C BC #### [facility] [address] [place] [address] Dr. Jeremiah Vela Hematocrit (Bld) [Volume fraction] 41.1 % Critically low 42.0-54.0 [facility] Comment on above: Performed By: #### C BC #### [facility] [address] [place] [address] Dr. Jeremiah Vela Hemoglobin (Bld) [Mass/Vol] 13.4 g/dL Critically low 14.0-18.0 [facility] Comment on above: Performed By: #### C BC #### [facility] [address] [place] [address] Dr. Jeremiah Vela IG # 0.03 10e3/ul Normal 0.00-0.03 [facility] Comment on above: Performed By: #### C BC #### [facility] [address] [place] [address] Dr. Jeremiah Vela IG % 0.3 % Normal 0.0-0.5 [facility] Comment on above: Performed By: #### C BC #### [facility] [address] [place] [address] Dr. Jeremiah Vela LYMPH # 4.0 103/ul Critically high 1.2-3.8 [facility] Comment on above: Performed By: #### C BC #### [facility] [address] [place] [address] Dr. Jeremiah Vela Lymphocytes/100 WBC (Bld) 36.4 % Normal 20.5-60.0 [facility] Comment on above: Performed By: #### C BC #### [facility] [address] [place] [address] Dr. Jeremiah Vela MANUAL DIFF REQ NO Normal [facility] Comment on above: Performed By: #### C BC #### [facility] [address] [place] [address] Dr. Jeremiah Vela MCH (RBC) [Entitic mass] 27.7 pg Normal 25.9-34.0 [facility] Comment on above: Performed By: #### C BC #### [facility] [address] [place] [address] Dr. Jeremiah Vela MCHC (RBC) [Mass/Vol] 32.6 g/dL Normal 29.9-35.2 [facility] Comment on above: Performed By: #### C BC #### [facility] [address] [place] [address] Dr. Jeremiah Vela MCV (RBC) [Entitic vol] 85.1 fL Normal 80.0-94.0 [facility] Comment on above: Performed By: #### C BC #### [facility] [address] [address] [address] Jeremiah Vela MONO # 1.0 103/ul Critically high 0.3-0.8 [facility] Comment on above: Performed By: #### C BC #### [facility] [address] [address] [address] Jeremiah Vela Monocytes/100 WBC (Bld) 8.9 % Normal 1.7-12.0 [facility] Comment on above: Performed By: #### C BC #### [facility] [address] [address] [address] Jeremiah Vela NEUT # 5.8 103/ul Normal 1.4-6.5 [facility] Comment on above: Performed By: #### C BC #### [facility] [address] [address] [address] Jeremiah Vela Neutrophils/100 WBC (Bld) 52.8 % Normal 43.0-75.0 [facility] Comment on above: Performed By: #### C BC #### [facility] [address] [address] [address] Jeremiah Vela Platelet mean volume (Bld) [Entitic vol] 10.4 fL Normal 9.5-13.5 [facility] Comment on above: Performed By: #### C BC #### [facility] [address] [address] [address] Jeremiah Vela PLT 342 103/ul Normal 150-[address] [facility] Comment on above: Performed By: #### C BC #### [facility] [address] [address] [address] Jeremiah Vela RBC 4.83 106/ul Normal 4.70-6.[address] [facility] Comment on above: Performed By: #### C BC #### [facility] [address] [address] [address] Jeremiah Vela WBC 11.0 103/ul Normal 4.0-11.[address] [facility] Comment on above: Performed By: #### C BC #### [facility] [address] [address] [address] Jeremiah Vela LACTATE/LACTIC ACIDon 2021 Lactate [Moles/Vol] 1.2 mmol/L Normal 0.4-1.9 [facility] Comment on above: Performed By: #### L ACT ####[facility] [address] [address]Dr. Jeremiah Vela LIPASEon 01-14-2022 Lipase [Catalytic activity/Vol] 56.0 U/L Critically low 73.0-393.0 [facility] Comment on above: Performed By: #### C MP, LIPA, MARIAM, BNP, HSTROPN #### [facility] [address] [address] [address] Jeremiah Vela PROF 14(COMP METB)on 022 Albumin [Mass/Vol] 3.7 g/dL Normal 3.4-5.0 [facility] Comment on above: Performed By: #### C MP, LIPA, MARIAM, BNP, HSTROPN #### [facility] [address] [address] [address] Jeremiah Vela Albumin/Globulin [Mass ratio] 0.9 {ratio} Normal [facility] Comment on above: Performed By: #### C MP, LIPA, MARIAM, BNP, HSTROPN #### [facility] [address] [place] [address] Dr. Jeremiah Vela ALP [Catalytic activity/Vol] 53 U/L Normal 46-116 [facility] Comment on above: Performed By: #### C MP, LIPA, MARIAM, BNP, HSTROPN #### [facility] [address] [address] [address] Jeremiah Vela ALT [Catalytic activity/Vol] 22 U/L Normal 16-63 [facility] Comment on above: Performed By: #### C MP, LIPA, MARIAM, BNP, HSTROPN #### [facility] [address] [address] [address] Jeremiah Vela Anion gap [Moles/Vol] 10.5 mmol/L Normal [facility] Comment on above: Performed By: #### C MP, LIPA, MARIAM, BNP, HSTROPN #### [facility] [address] [place] [address] Dr. Jeremiah Vela AST [Catalytic activity/Vol] 19 U/L Normal 15-37 [facility] Comment on above: Performed By: #### C MP, LIPA, MARIAM, BNP, HSTROPN #### [facility] [address] [place] [address] Dr. Jeremiah Vela Bilirubin [Mass/Vol] 0.4 mg/dL Normal 0.2-1.0 [facility] Comment on above: Performed By: #### C MP, LIPA, MARIAM, BNP, HSTROPN #### [facility] [address] [place] [address] Dr. Jeremiah Vela Calcium [Mass/Vol] 9.2 mg/dL Normal 8.5-10.1 [facility] Comment on above: Performed By: #### C MP, LIPA, MARIAM, BNP, HSTROPN #### [facility] [address] [place] [address] Dr. Jeremiah Vela Chloride [Moles/Vol] 101 mmol/L Normal 98-[address] [facility] Comment on above: Performed By: #### C MP, LIPA, MARIAM, BNP, HSTROPN #### [facility] [address] [place] [address] Dr. Jeremiah Vela CO2 [Moles/Vol] 29.2 mmol/L Normal 21.0-32.0 [facility] Comment on above: Performed By: #### C MP, LIPA, MARIAM, BNP, HSTROPN #### [facility] [address] [place] [address] Dr. Jeremiah Vela Creatinine [Mass/Vol] 1.44 mg/dL Critically high 0.70-1.30 [facility] Comment on above: Performed By: #### C MP, LIPA, MARIAM, BNP, HSTROPN #### [facility] [address] [place] [address] Dr. Jeremiah Vela EGFR-AF ISRAELI 59 mL/min/1.73m2 Critically low >=60 [facility] Comment on above: Performed By: #### C MP, LIPA, MARIAM, BNP, HSTROPN #### [facility] [address] [place] [address] Dr. Jeremiah Vela EGFR-NON AF ISRAELI 49 mL/min/1.73m2 Critically low >=60 [facility] Comment on above: Performed By: #### C MP, LIPA, MARIAM, BNP, HSTROPN #### [facility] [address] [place] [address] Dr. Jeremiah Vela Globulin (S) [Mass/Vol] 3.9 g/dL Normal [facility] Comment on above: Performed By: #### C MP, LIPA, MARIAM, BNP, HSTROPN #### [facility] [address] [place] [address] Dr. Jeremiah Vela Glucose [Mass/Vol] 107 mg/dL Critically high 74-106 [facility] Comment on above: Performed By: #### C MP, LIPA, MARIAM, BNP, HSTROPN #### [facility] [address] [place] [address] Dr. Jeremiah Vela Potassium [Moles/Vol] 4.7 mmol/L Normal 3.5-5.1 [facility] Comment on above: Performed By: #### C MP, LIPA, MARIAM, BNP, HSTROPN #### [facility] [address] [place] [address] Dr. Jeremiah Vela Protein [Mass/Vol] 7.6 g/dL Normal 6.4-8.2 [facility] Comment on above: Performed By: #### C MP, LIPA, MARIAM, BNP, HSTROPN #### [facility] [address] [place] [address] Dr. Jeremiah Vela Sodium [Moles/Vol] 136 mmol/L Normal 136-145 [facility] Comment on above: Performed By: #### C MP, LIPA, MARIAM, BNP, HSTROPN #### [facility] [address] [place] [address] Dr. Jeremiah Vela Urea nitrogen [Mass/Vol] 18.0 mg/dL Normal 7.0-18.0 [facility] Comment on above: Performed By: #### C MP, LIPA, MARIAM, BNP, HSTROPN #### [facility] [address] [address] [address] Jeremiah Vela Urea nitrogen/Creatinine [Mass ratio] 12.5 mg/mg Normal [facility] Comment on above: Performed By: #### C MP, LIPA, MARIAM, BNP, HSTROPN #### [facility] [address] [address] [address] Jeremiah Vela TROPONIN, HIGH SENSITIVITYon 01-14-2022 HSTROP 53.5 pg/mL Normal 4.0-76.1 [facility] Comment on above: Result Comment: CUT- OFF POINTS HAVE BEEN ESTABLISHED BASED ON THE FOURTH UNIVERSAL DEFINITIONS OF MYOCARDIAL INFARCTION. THE UPPER REFERENCE LIMIT (URL) OF TROPONIN, DEFINED THE 99TH PERCENTILE OF cTnI DISTRIBUTION IN A REFERENCE POPULATION, HAS BEEN CONFIRMED THE DECISION THRESHOLD FOR SD DIAGNOSIS. Performed By: #### C MP, LIPA, MARIAM, BNP, HSTROPN #### [facility] [address] [address] [address] Jeremiah Vela XR CHEST 1 Von [...] by: GRANT ARMANDO Date: 2022-01-14 18:43 Normal [facility] Vital Signs Date Time Vital Sign Value Performing Clinician Dianna carlin 08-21-2023 12:56-0400 Body height 175.3 cm Mri (I-Stat/1.5t) [facility] 08-21-2023 12:56-0400 Body mass index (BMI) [Ratio] 31.75 kg/m2 Mri (I-Stat/1.5t) [facility] 08-21-2023 12:56-0400 Body weight 97.52 kg Mri (I-Stat/1.5t) [facility] 08-21-2023 12:56-0400 Diastolic blood pressure 82 mm[Hg] Mri (I-Stat/1.5t) [facility] 08-21-2023 12:56-0400 Heart rate 76 /min Mri (I-Stat/1.5t) [facility] 08-21-2023 12:56-0400 Systolic blood pressure 151 mm[Hg] Mri (I-Stat/1.5t) [facility] Encounters Encounter Date Encounter Type Care Provider Facility Start: 10-31-2023 End: 10-31-2023 ambulatory [facility] Start: 08-21-2023 End: 08-21-2023 ambulatory ESTRELLA CHOWDARY Facility:[facility] Start: 08-21-2023 End: 08-21-2023 Subsequent hospital visit by physician [facility] (I-Stat/1.5t) [facility] Start: 06-06-2023 End: 06-06-2023 ambulatory [facility] Start: 05-03-2023 End: 05-03-2023 ambulatory SHAHID [facility] Start: 04-25-2023 End: 04-25-2023 ambulatory [facility] Start: 02-17-2023 End: 02-17-2023 ambulatory RODOLFO [facility] Start: 01-19-2023 Telephone encounter Kitty mcdonald [...] Phone: Cardiology Comment on above: Received Outside Med [facility] Records Start: 11-16-2022 Telephone encounter Kitty mcdonald MD Work Phone: Cardiology Comment on above: Received Outside Med ical Records Start: 11-06-2022 Telephone encounter No One (Historic al) Referring Physician Comment on above: External Referrals/r esources Start: 09-30-2022 End: 09-30-2022 ambulatory Jacey Bjornrita Other [address] Other Start: 09-30-2022 Office outpatient vi sit 15 minutes Jacey Akbar [facility] Start: 09-16-2022 End: 09-16-2022 ambulatory Jacey Akbar Other [address] Other Start: 09-16-2022 Office outpatient vi sit 10 minutes Jacey Bjornrita [facility] Start: 08-30-2022 End: 08-31-[address] ESTRELLA CHOWDARY . Facility:[facility] Start: 03-18-2022 End: 03-19-[address] ESTRELLA CHOWDARY . Facility:[facility] Start: 03-08-2022 End: 03-09-[address] ESTRELLA CHOWDARY . Facility:[facility] Start: 01-28-2022 End: 01-29-[address] ESTRELLA CHOWDARY . Facility:[facility] Start: 01-14-2022 End: 01-14-[address] ESTRELLA CHOWDARY . Facility: Procedures Date Procedure Procedure Detail Performing Clinician Start: 08-21-2023 Cardiac mri w/wo con trast & further seq [facility] Provider Start: 08-30-[address] BO CHOWDARY . Comment on above: Performed By: #### [facility] #### [facility] [address] [place] [address] Dr. Jeremiah Vela Plan of Treatment Date Care Activity Detail Author Start: 09-02-2032 Urine microalbumin profile DTa P,Tdap,Td Vaccine (2 - Td or Tdap) [facility] Start: 04-17-2023 Advance Directive Discussion Advance Directive Discussion [facility] Start: 04-17-2023 Behavioral Health Screening Behavioral Health Screening [facility] Start: 12-16-2022 Covid-19 Vaccine () Covid-19 Vaccine () [facility] Start: 12-16-2022 Influenza vaccination [facility] Start: 04-17-2022 ADVANCE DIRECTIVE DISCUSSION ADVANCE DIRECTIVE DISCUSSION [facility] Start: 04-17-2022 DEPRESSION ASSESSMENT DEPRESSION ASS ESSMENT [facility] Start: 2017 Pneumococcal Vaccine : 65+ (1 - PCV) Pneumococcal Vaccine: 65+ (1 - PCV) [facility] Start: 2017 PNEUMOCOCCAL: 65+ (1 - PCV) PNEUMOCOCCAL: 65+ (1 - PCV) [facility] Start: 04-10-2015 Shingrix Vaccine (2 of 3) Shingrix V accine (2 of 3) [facility] Start: 2012 RSV Vaccine (1 - 1-d ose 60+ series) RSV Vaccine (1 - 1-dose 60+ series) [facility] Start: 2002 SHINGRIX VACCINE (1 of 2) SHINGRIX V ACCINE (1 of 2) [facility] Start: 1997 COLOGUARD (FIT-DNA) COLOGUARD (FIT-D NA) [facility] Start: 1997 Colonoscopy COLONOSCOPY [facility] Start: 1997 COLORECTAL CANCER SCREENING COLORECTAL CANCER SCREENING [facility] Start: [address] COLONOGRAPHY [facility] Start: 1997 DIABETES SCREEN DIABETES SCREEN [facility] Start: 1997 Diabetes Screening Diabetes Screenin g [facility] Start: 1997 FECAL OCCULT BLOOD FECAL OCCULT BLOO D [facility] Start: 1997 Screening for malign ant neoplasm of colon [facility] Start: 1997 SIGMOIDOSCOPY SIGMOIDOSCOPY [facility] Start: 11-30-1987 Lipid 1996 panel - S ami or Plasma Lipid Screening [facility] Start: 11-30-1987 Lipid panel Lipid Screening [facility] Start: 11-30-1987 LIPID SCREEN LIPID SCREEN [facility] Start: 11-30-1971 Urine microalbumin profile [facility] Start: 1970 HEPATITIS C SCREENING HEPATITIS C [facility] Start: 1970 Hepatitis C screening Hepatitis C [facility] Start: 06-01-1953 COVID-19 VACCINE (#1) COVID-19 VACCI NE (#1) [facility] Payers Date Payer Category Payer Unknown [id number] 1959 Unknown [id number] 1950 Unknown [id number] 2.16.84 [id number] 1950 Unknown [id number] [id number] [id number] 1950 Unknown [id number] 2.16.84 [id number] 1950 Unknown [id number] 2.16.84 [id number] 1950 Unknown [id number] 2.16.84 [id number] Social History Date Type Detail Facility Sex Assigned At [address] Other Tobacco smoking status [facility] Tobacco smoking consumption unknown [facility] Start: 1950 Sex Assigned At Not on file C [facility] Clinical Notes 09-16-2022 to 10-31-2023 Mariam Forde, RN - 08/21/2023 1:30 PM EDTHeather Cuadra RT(R) - 08/21/2023 1:30 PM EDTTelephone Encounter - Baljit Jo - 01/19/2023 9:46 AM EDT Note Date & Type Note Facility 10-31-2023 Note [facility] Consult Note Reason for visit: Afib 10/31/2023 patient underwent cardiac MRI at [facility] and this showed evidence of late gadolinium enhancement in the subepicardial to mid myocardial region that involve the basal posterior wall with extension to the basal inferior wall. this was consistent with the possibility of myocarditis Cardiac MRI: 08/21/23 IMPRESSION: Pattern of findings could be c/w (residuals) of myocarditis or infiltrative disease. The left ventricle is normal in size (LV EDVi = 57 ml/m???). -The left ventricular systolic function is normal (LV EF = 64 %). -No regional wall motion abnormality. -Subepicardial to mid myocardial delayed gadolinium enhancement is seen involving the basal posterior wall with minimal extension into the basal inferior wall. The right ventricle is normal in size (RV EDVi = 71 ml/m???). The right ventricular systolic function is normal (RV EF = 51 %). - No significant valvular abnormality. 06/06/23 Patient underwent a cardiac cath on 05/03/2023. He has not done a cardiac MRI yet. He feels fatigued with minimal work. Pt had 2 afib events in past year, rangel not haad any problems since, had monitor. Chest pain he thinks is from GERD. Otherwise feels good Coronary Angiogram: Left main: patent LAD: patent LCX: patent RCA: patent ECHo 05/22/23 Prior HPI: Kd Mitchell is a 72 y.o. year old with past medical history of ABDULLAHI, afib, htn, gerd, syncope, hld. He was seen in the [facility] 10/2022 for complaints of chest pain and [...] Connections: Not on file Intimate Partner Violence: Unknown (06/08/2023) [place] Safety & Environment Fear of Current or Ex-Partner: Not on file Emotionally Abused: Not on file Physically Abused: Not on file Sexually Abused: Not on file Physically or Sexually Abused: Not on file Depression: Not on file Housing Stability: Not on file Utilities: Not on file Allergies: No Known Allergies Weight: 97.5kg Visit Vitals BP 136/87 Pulse 84 Wt 97.5 kg (215 lb) SpO2 96% BMI 30.85 kg/m??? Smoking Status Never BSA 2.19 m??? Meds: Current Outpatient Medications on File [...] medications on file prior to visit. ROS: Review of Systems Cardiovascular: Positive for dyspnea on exertion. All other systems reviewed and are negative. Physical Exam: Constitutional General Appearance: well-n (more content not included)... [facility] 08-21-2023 Note HNO ID: [id number] Author: MARIAM FORED RN Service: Radiology Author Type: Registered Nurse Type: Progress Notes Filed: 08/21/2023 13:00 Note Text: Radiology Service Progress Note DATE OF SERVICE: August 21, 2023 TIME: 12:57 PM PATIENT WEIGHT: 215 LBS PATIENT IDENTITY VERIFICATION COMPLETED USING TWO (2) STANDARD IDENTIFIERS: Name and Date of confirmed by patient verbally and Name and Date of confirmed by identification band. FALL SCREENING: Has the patient had 2 falls in the last year or 1 fall with injury or currently using an Ambulatory Assistive Device (Walker, Cane, Wheelchair, Crutches, etc.)? No PATIENT GENDER DATA: Male ALLERGIES: Reviewed and unchanged CONTRAST ALLERGY: No EXAM: MRI - CONTRAST TYPE: GROUP II IV SITE: Ambulatory: A peripheral IV was started in the Right antecubital site with a Angio cath: 20 gauge. and A Saline lock was inserted per protocol IV SITE APPEARANCE: Clean,Dry and Intact SIGNATURE: Mariam Forde RN PATIENT NAME: Kd Mitchell DATE: August 21, 2023 TIME: 12:57 PM [facility] 08-21-2023 Note HNO ID: [id number] Author: HEATHER CUADRA RT(Glen) Service: Radiology Author Type: Technologist Type: Progress Notes Filed: 08/21/2023 13:15 Note Text: Radiology Service Progress Note PATIENT NAME: Kd Mitchell DATE OF SERVICE: August 21, 2023 TIME: 1:15 PM PATIENT IDENTITY VERIFICATION COMPLETED USING TWO (2) IDENTIFIERS: Name and Date of confirmed by patient verbally and Name and Date of confirmed by identification band. FALL SCREENING: Has the patient had 2 falls in the last year or 1 fall with injury or currently using an Ambulatory Assistive Device (Walker, Cane, Wheelchair, Crutches, etc.)? No PATIENT GENDER DATA: Male PATIENT RELEVANT IMPLANT DATA REVIEWED: Yes PATIENT PRESENTS WITH AN IMPLANTABLE OR ATTACHED CELL ROOM SUPERVISOR: No RADIOLOGY DEPARTMENT: MR; Exam(s) Completed: Cardiac: Cardiac PERIPHERAL IV DATA: Site assessment: Clean,Dry and Intact, Site disposition Discontinued SIGNED BY: RT Tommy(Iveth Vidales RT August 21, 2023 1:15 PM [facility] 08-21-2023 History of Present illness Narrative Radiology Service Progress Note DATE OF SERVICE: August 21, 2023 TIME: 12:57 PM PATIENT WEIGHT: 215 LBS PATIENT IDENTITY VERIFICATION COMPLETED USING TWO (2) STANDARD IDENTIFIERS: Name and Date of confirmed by patient verbally and Name and Date of confirmed by identification band. FALL SCREENING: Has the patient had 2 falls in the last year or 1 fall with injury or currently using an Ambulatory Assistive Device (Walker, Cane, Wheelchair, Crutches, etc.)? No PATIENT GENDER DATA: Male ALLERGIES: Reviewed and unchanged CONTRAST ALLERGY: No EXAM: MRI - CONTRAST TYPE: GROUP II IV SITE: Ambulatory: A peripheral IV was started in the Right antecubital site with a Angio cath: 20 gauge. and A Saline lock was inserted per protocol IV SITE APPEARANCE: Clean,Dry and Intact SIGNATURE: Mariam Forde RN PATIENT NAME: Kd Mitchell DATE: August 21, 2023 TIME: 12:57 PM Radiology Service Progress Note PATIENT NAME: Kd Mitchell DATE OF SERVICE: August 21, 2023 TIME: 1:15 PM PATIENT IDENTITY VERIFICATION COMPLETED USING TWO (2) IDENTIFIERS: Name and Date of confirmed by patient verbally and Name and Date of confirmed by identification band. FALL SCREENING: Has the patient had 2 falls in the last year or 1 fall with injury or currently using an Ambulatory Assistive Device (Walker, Cane, Wheelchair, Crutches, etc.)? No PATIENT GENDER DATA: Male PATIENT RELEVANT IMPLANT DATA REVIEWED: Yes PATIENT PRESENTS WITH AN IMPLANTABLE OR ATTACHED CELL ROOM SUPERVISOR: No RADIOLOGY DEPARTMENT: MR; Exam(s) Completed: Cardiac: Cardiac PERIPHERAL IV DATA: Site assessment: Clean,Dry and Intact, Site disposition Discontinued SIGNED BY: RT Sanders Tia Cabot (R) RT August 21, 2023 1:15 PM documented in this encounter [facility] 06-06-2023 Note [facility] Consult Note Reason for visit: Afib 06/06/23 Patient underwent a cardiac cath on 05/03/2023. He has not done a cardiac MRI yet. He feels fatigued with minimal work Pt had 2 afib events in past year, rangel not haad any problems since, had monitor. Chest pain he thinks is from GERD. Otherwise feels good Coronary Angiogram: Left main: patent LAD: patent LCX: patent RCA: patent ECHo 05/22/23 Prior HPI: Kd Mitchell is a 72 y.o. year old with past medical history of ABDULLAHI, afib, htn, gerd, syncope, hld. He was seen in the [facility] 10/2022 for complaints of chest pain and [...] on file Allergies: No Known Allergies Weight: 99.3kg Visit Vitals BP 114/74 (BP Location: Left arm, Patient Position: Sitting) Pulse 84 Ht 1.778 m (5' 10 ) Wt 99.3 kg (219 lb) SpO2 97% BMI 31.42 kg/m??? Smoking Status Never BSA 2.21 m??? Meds: Current Outpatient Medications on File [...] medications on file prior to visit. ROS: Review of Systems Cardiovascular: Positive for dyspnea on exertion. All other systems reviewed and are negative. Physical Exam: Constitutional General Appearance: well-nourished, well-developed, [...] bruit, non tender Musculoskeletal Inspection: no joint swellin (more content not included)... [facility] 05-03-2023 Note Patient: Kd Mitchell Procedure Information Date/Time: 05/03/23 1030 Procedure: Coronary angiography (Left) Location: [facility] / [facility] (Cath) Providers: Shahid Willson [...] Plan discussed with fellow. Additional Equipment Requests [facility] 04-25-2023 Note Pt had 2 afib events in past year, rangel not haad any problems since, had monitor. Chest pain he thinks is from GERD. Otherwise feels good [facility] Consult Note Reason for visit: Afib HPI: Kd Mitchell is a 72 y.o. year old with past medical history of ABDULLAHI, afib, htn, gerd, syncope, hld. He was seen in the [facility] 10/2022 for complaints of chest pain and [...] episodes of A-fib had occurred first in 2018 when he was noted to have A-fib [...] on external nose (more content not included)... [facility] 02-17-2023 Note [facility] Consult Note Reason for visit: new pt, afib HPI: Kd Mitchell is a 72 y.o. year old with past medical history of ABDULLAHI, afib, htn, gerd, syncope, hld. He was seen in the [facility] 10/2022 for complaints of chest pain and [...] and dry N (more content not included)... [facility] 01-19-2023 Miscellaneous Notes Left a message for the patient regarding the cancellation of 02/15/2023 appointment. Informed the patient of the new appointment scheduled on 05/24/2023. Left a call back number for the patient if the date and time does not fit. documented in this encounter [facility] 11-21-2022 Miscellaneous Notes Records received from [facility] by mail. Records uploaded to OPD and sent to scanning. Patient has a future appointment on: 02/15/23. Date of last OV: -. Chance Dueñas November 21, 2022 4:36 PM documented in this encounter [facility] 11-16-2022 Miscellaneous Notes Records received from [facility] by fax. Records uploaded to OPD and sent to scanning. Patient has a future appointment on: 02/15/23. Date of last OV: -. Chance Dueñas November 16, 2022 11:17 AM documented in this encounter [facility] 11-06-2022 Miscellaneous Notes Patient: Kd Mitchell Date of : 1950 Patient phone number: [phone] Referring Provider for the encounter: Estrella Chowdary Requesting Provider: Reason for requesting visit (RFV/signs and symptoms/diagnosis): AFib Person calling: rp fax Return call to: rp fax Medical Records/Insurance Card scanned into [employer]: No Comments: NA Electronically signed by [employer] [facility] Keira Pope at 11/06/2022 3:44 PM EDT documented in this encounter [facility] 09-30-2022 Evaluation note Encounter Date Diagnosis Assessment Notes Sep, Laceration of left middle finger without foreign body without damage to nail, subsequent encounter (ICD-10 - S61.213D) Patient instructed on scar massage and progression of activity as tolerated [address] Other 06-02-2023 Evaluation note* Encounter Date Diagnosis Assessment Notes Treatment Notes Treatment Clinical Notes Sep, Laceration of left middle finger without foreign body without damage to nail, subsequent encounter (ICD-10 - S61.213D) Today, we did a physical examination of the middle finger. We will remove stitches today. Patient may allow the finger to air out, he is advised to wear dressing while outside the home. Patient will f/u in 2-[address] Other History general Narrative - Reported* Type Description Date Medical History GERD Medical History hypertension Surgical History Appendix [address] Other Summary Purpose Family History No Family [...] content) DATE CREATED AUTHOR 08/31/2022 [facility] DATE CREATED AUTHOR AUTHOR'S ORGANIZ ATION 08/22/2023 [facility] DATE CREATED AUTHOR AUTHOR'S ORGANIZ ATION 11/26/2023 [facility] REASON FOR VISIT (unrecogniz ed section and content) Reason Comments External Referrals/resources Reason Comments Received Outside Medical Records Reason Comments Appointment Left a message for t he patient regarding the cancellation of 02/15/2023 appointment. Informed the patient of the new appointment scheduled on 05/24/2023. Left a call back number for the patient if the date and time does not fit. Reason Comments Radiology MRI Source Comments (unrecognize d section and content) In the event this informatio n is protected by the Federal Confidentiality of Alcohol and Drug Abuse Patient Records regulations: The Federal rules restrict any use of the information to criminally investigate or prosecute any alcohol or drug abuse patient.[facility] the event this information is protected by the Federal Confidentiality of Alcohol and Drug Abuse Patient Records regulations: The Federal rules restrict any use of the information to criminally investigate or prosecute any alcohol or drug abuse patient.[facility] the event this information is protected by the Federal Confidentiality of Alcohol and Drug Abuse Patient Records regulations: The Federal rules restrict any use of the information to criminally investigate or prosecute any alcohol or drug abuse patient.[facility] the event this information is protected by the Federal Confidentiality of Alcohol and Drug Abuse Patient Records regulations: The Federal rules restrict any use of the information to criminally investigate or prosecute any alcohol or drug abuse patient.[facility] the event this information is protected by the Federal Confidentiality of Alcohol and Drug Abuse Patient Records regulations: The Federal rules restrict any use of the information to criminally investigate or prosecute any alcohol or drug abuse patient.[facility] Care Teams (unrecognized sec tion and content) Balancing Machine Set Up Worker Relationship Specialty Start Date End Date Estrella Chowdary MD PCP - General Family Medicine 08/21/14 Balancing Machine Set Up Worker Relationship Specialty Start Date End Date Estrella Chowdary MD PCP - General Family Medicine 08/21/14 Balancing Machine Set Up Worker Relationship Specialty Start Date End Date Estrella [...] BE BASED ON THE PRIMARY CLINICAL RECORDS. [facility] [employer] [facility]. provides no warranty or guarantee of the accuracy or completeness of information in this document.
[2023-12-08 11:28] LABS: Basophils Percent Auto 0.5 % (0.2-2.0); Eosinophils Absolute Auto 0.2 10^3/uL (0.0-0.7); Hematocrit 42.6 % (42.0-54.0); Hemoglobin 13.8 g/dL (14.0-18.0); Immature Granulocytes Abs Auto 0.01 10^3/uL (0.00-0.03); Immature Granulocytes Pct Auto 0.1 % (0.0-0.5); Lymphocytes Absolute Auto 2.5 10^3/uL (1.2-3.8); Lymphocytes Percent Auto 33.9 % (20.5-60.0); Mean Corpuscular HGB Conc 32.4 g/dL (29.9-35.2); Mean Corpuscular Volume 86.4 fL (80.0-94.0); Monocytes Absolute Auto 0.6 10^3/uL (0.3-0.8); Monocytes Percent Auto 7.9 % (1.7-12.0); Neutrophils Absolute Auto 4.2 10^3/uL (1.4-6.5); Neutrophils Percent Auto 55.6 % (43.0-75.0); Platelet Count 270 10^3/uL (150-450); Red Blood Count 4.93 10^6/uL (4.70-6.10); Red Cell Distribution Width 13.9 % (11.0-15.0); White Blood Count 7.5 10^3/uL (4.0-11.0)
[2023-12-08 11:29] LABS: Estimated Average Glucose 108 mg/dL; Glycohemoglobin A1C 5.4 % (4.5-6.2)
[2023-12-08 12:44] LABS: Alanine Aminotransferase 33 U/L (16-63); Albumin Level 3.9 g/dL (3.4-5.0); Alkaline Phosphatase 48 U/L (46-116); Anion Gap 13.7; Aspartate Amino Transferase 18 U/L (15-37); BUN Creatinine Ratio 12.2; Bilirubin Total 0.6 mg/dL (0.2-1.0); Calcium 9.3 mg/dL (8.5-10.1); Carbon Dioxide 27.9 mmol/L (21.0-32.0); Chloride 103 mmol/L (98-107); Chol HDL Ratio 4.5; Cholesterol 194 mg/dL (<=200); Estimated GFR (African America 57 (>=60); Estimated GFR (Non-African Ame 47 (>=60); Globulin 3.8 g/dL; Glucose 95 mg/dL (74-106); HDL Cholesterol 43 mg/dL (40-60); Potassium 4.6 mmol/L (3.5-5.1); Sodium 140 mmol/L (136-145); Thyroid Stimulating Hormone 1.834 uIU/mL (0.358-3.740); Total Protein 7.7 g/dL (6.4-8.2); Triglycerides 194 mg/dL (<=150); VLDL CHOLESTEROL 38.8 mg/dL
[2023-12-08 12:50] LABS: Prostate Specific Antigen Scrn 1.85 ng/mL (<=4.00)
== END 2023-12-08 10:07 | disposition home or self-care (01) ==
LOC: LAB 10:08
PROVIDERS: PCP Family Medicine; Visit Provider Family Medicine
DX: E78.5 Hyperlipidemia, unspecified (principal); I10 Essential (primary) hypertension; E78.1 Pure hyperglyceridemia; K21.9 Gastro-esophageal reflux disease without esophagitis; G47.33 Obstructive sleep apnea (adult) (pediatric); I48.91 Unspecified atrial fibrillation; R73.09 Other abnormal glucose; Z12.12 Encounter for screening for malignant neoplasm of rectum; Z12.5 Encounter for screening for malignant neoplasm of prostate
CPT/HCPCS: 36415; 80053; 80061; 83036; 84436; 84443; 84481; 85025; G0103

== ENCOUNTER 2024-08-31 12:29 | Emergency (ER) | payer MEDICARE, SELFPAY ==
[2024-08-31] VITALS (7 sets, daily range): BP systolic 109–146; BP diastolic 67–125; PULSE 66–172; TEMP 36.8; O2SAT 95–98; BMI 29.8
--- NOTE | 2024-08-31 12:43 | ECG_ITS ---
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 Measurements Intervals Batson Rate: 170 P: -[id number] PA: -[id number] QRS: 33 QRSD: 86 T: 259 QT: 254 QTc: 346 Interpretive Statements Likely atrial flutter [address] depression 4664 Twave abnormality, possible inferior ischemia 9150 abnormal ECG Compared to ECG 10/28/2022 17:03:31 ST (T wave) deviation now present Possible ischemia now present Sinus rhythm no longer present Electronically Signed On 08-31-2024 18:09:43 EDT by KEMAL BLAIR M.D.
--- OUTSIDE RECORDS SUMMARY | 2024-08-31 12:46 | XMS_ITS | CCD ---
Author Organization [facility] Care Team Providers Care Beck Tender Name Role Phone DEEDEE ., DR DE [...] Unavailable Estrella Chowdary MD Primary Care Provider [phone] Estrella Chowdary MD Primary Care Provider [phone] ESTRELLA CHOWDARY Primary Care Unavailable PJ BHAKTA Referring Unavailable MITRA ANDERSON Attending Unavailable Unavailable Primary Care Provider UnavailWING Gambino Attending Unavailable PJ BHAKTA Referring Unavailable PJ BHAKTA Referring Unavailable PJ BHAKTA Referring Unavailable PJ BHAKTA Admitting Unavailable PJ BHAKTA Attending Unavailable JP BHAKTA Attending Unavailable PJ BHAKTA Attending Unavailable Medications Current Medications Medication Drug Class(es) Dates Sig (Normalized) Sig (Original) apixaban 5 mg oral tablet (2 sources) Factor Xa Inhibitor take 1 tablet by mouth in the morning Eliquis 5 MG tablet Take 5 mg by mouth in the morning and 5 mg before bedtime. Active carvedilol 25 mg oral tablet (5 sources) alpha-Adrenergic Fernando, beta-Adrenergic Fernando take 1 tablet by mouth in the morning carvedilol (Coreg) 25 MG tablet Take 25 mg by mouth in the morning and 25 mg in the evening. Take with meals. Active pantoprazole 40 mg delayed release oral tablet (5 sources) Proton Pump Inhibitor Start: 01-23-2023 take 1 tablet by mouth in the morning pantoprazole (ProtoNix) 40 MG EC tablet Take 40 mg by mouth in the morning. 01/23/2023 Active take 1 tablet by faisal th every twenty-four hours Pantoprazole Sodium 40 MG 1 tablet Orall y Once a day Active Problems Active Problems Problem Classification Problem Date Documented Date Episodic/Chronic Cardiac dysrhythmias (3 sources) Supraventricular tachycardia; Translations: [Paroxysmal atrial fibrillation] Onset: 01-18-2022 Chronic Cardiac dysrhythmias (6 sources) Tachycardia, unspecified; Translations: [Palpitations] Onset: 01-28-2022 Episodic Disorders of lipid metabolism (2 sources) Mixed hyperlipidemia; Translations: [Mixed hyperlipidemia] Onset: 02-26-2023 Chronic Esophageal disorders (1 source) Gastro-esophageal reflux disease without esophagitis; Translations: [GERD WITHOUT ESOPHAGITIS] Onset: 01-18-2022 Chronic Essential hypertension (6 sources) Essential (primary) hypertension; Translations: [Hypertensive disorder] Onset: 01-18-2022 12-20-2023 Chronic Heart valve disorders (1 source) Nonrheumatic mitral (valve) insufficiency; Translations: [NONRHEUMATIC MITRAL INSUFFICIENCY] Onset: 03-24-2022 Chronic Open wounds of extremities (2 sources) Laceration without foreign body of left middle finger without damage to nail, subsequent encounter Episodic Other circulatory disease (2 sources) Presence of other cardiac implants and grafts; Translations: [Presence of other cardiac implants and grafts] Onset: 07-31-2024 Chronic Residual codes; unclassified (1 source) Sleep apnea, unspecified; Translations: [SLEEP APNEA UNSPECIFIED] Onset: 01-18-2022 Chronic Residual codes; unclassified (5 sources) Obstructive sleep apnea syndrome; Translations: [Obstructive sleep apnea (adult) (pediatric)] Onset: 12-20-2023 12-20-2023 Chronic Residual codes; unclassified (3 sources) Hypersomnia; Translations: [Hypersomnia, unspecified] Onset: 12-20-2023 12-20-2023 Chronic Residual codes; unclassified (4 sources) Daytime somnolence; Translations: [Other hypersomnia] Onset: 12-21-2023 12-21-2023 Chronic Substance-related disorders (1 source) Nicotine dependence, chewing tobacco, uncomplicated; Translations: [NICOTINE DEPEND CHEW TOBACCO UNCOMP] Onset: 01-18-2022 Chronic Unclassified (1 source) Other ventricular tachycardia; Translations: [Other ventricular tachycardia] Onset: 07-31-2024 Past or Other Problems Problem Classification Problem Date Documented Date Episodic/Chronic Abdominal pain (3 sources) Epigastric pain; Translations: [EPIGASTRIC PAIN] Onset: 01-14-2022 Episodic Heart valve disorders (1 source) Unspecified abnormalities of heart beat; Translations: [UNS ABNORMALITIES HEART BEAT] Onset: 03-14-2022 Episodic Nonspecific chest pain (4 sources) Chest pain, unspecified; Translations: [CHEST PAIN UNSPECIFIED] Onset: 03-18-2022 Episodic Other lower respiratory disease (4 sources) Snoring; Translations: [Snoring] Onset: 12-21-2023 12-21-2023 Episodic Other screening for suspected conditions (not mental disorders or infectious disease) (1 source) Abnormal result of other cardiovascular function study; Translations: [ABNORM RESULT OT CV FUNCTION STUDY] Onset: 03-24-2022 Episodic Unclassified (1 source) Other ventricular tachycardia; Translations: [Other ventricular tachycardia] Onset: 07-31-2024 Results Test Name Value Interpretation Reference Range Facility Office Visiton 07-31-2024 Follow-up visit [id number] Kd Mitchell 1950 M Date Provider Department Center 07/31/2024 [id number], ADAM MATT Silva Family History Problem Relation Age of Onset Heart disease Father Family Status - Relation Status Age at Mother Father Level of Service:06809 [place] OFFICE/OUTPATIENT ESTABLISHED LOW MDM 20 MIN Normal [facility] HPon 03-07-2024 [facility] Electrophysiology Consult Note Reason for visit: Afib 03/06/24 Pt here for LOOP 02/06/24 Pt continues to experience some palpitations. Prior LOOP was denied for unclear reasons. He has near syncope . Patient here for follow up PAF and NSVT. Loop recorder was denied by insurance company. Denies palpitations. Feels SOB at rest occasionally. Feels chest pressure at times. BP and HR are normal during these episodes he says. His main concern fatigue. Compliant with cpap therapy he says. Had routine labs w/ lipid panel in Nov 2023 after last apt. 10/31/2023 patient underwent cardiac MRI at [facility] and this showed evidence of late [...] 05/22/23 Prior HPI: Kd Mitchell is a 73 y.o. year old with past medical history of ABDULLAHI, afib, htn, gerd, syncope, hld. He was seen in the [facility] 10/2022 for complaints of chest pain and palpitations. He was found to be in A-fib and was treated for. He was treated with IV Cardizem and patient's converted to sinus rhythm prior to Cardizem even being administered. Patient was then discharged home in sinus rhythm but did not have any follow-up with cardiology until seen by Pako recently. He has been feeling well since [...] at that time. he was seen by Pako TAVAREZ who ordered a 30-day event monitor. [...] hld PMH: Past Medical History: Diagnosis Date Abnormal ECG Arrhythmia Atrial fibrillation (CMS/HCC) Diverticulitis GERD (gastroesophageal reflux disease) Hyperlipidemia Hypertension ABDULLAHI (obstructive sleep apnea) Syncope and collapse PSH: No past surgical history on file. SH: Social Determinants of Health Tobacco Use: Low Risk (12/21/2023) [facility], [facility] Patient History Smoking Tobacco Use: Never Smokeless Tobacco Use: Never Passive Exposure: Not on file Recent Concern: Tobacco Use - High Risk (11/13/2023) Patient History Smoking Tobacco Use: Never Smokeless Tobacco Use: Current Passive Exposure: Not on file Alcohol Use: Not on file Financial Resource Strain: Not on file Food Insecurity: Not on file Transportation Needs: Not on file Physical Activity: Not on file Stress: Not on file Social Connections: Not on file Intimate Partner Violence: Unknown (06/08/2023) [place] Safety & Environment Fear of Current or Ex-Partner: Not on file Emotionally Abused: Not on file Physically Abused: Not on file Sexually Abused: Not on file Physically or Sexually Abused: Not on file Depression: Not on file Housing Stability: Not on file Utilities: Not on file Health Literacy: Not on file Allergies: No Known Allergies Weight: 99.8kg Visit Vitals BP 125/74 Pulse 67 Resp 15 SpO2 9 (more content not included)... Normal [facility] Office Visiton 02-06-2024 Follow-up visit [id number] Kd Mitchell 1950 [facility] Provider Department Center 02/06/2024 PJ MONTGOMERY Family History Problem Relation Age of Onset Heart disease Father Family Status - Relation Status Age at Father Level of Service:01297 [place] OFFICE/OUTPATIENT ESTABLISHED LOW MDM 20 MIN [facility] Abstracton 11-21-2023 Abstract [id number] Kd Mitchell 1950 [facility] Provider Department Center 11/21/2023 PJ MONTGOMERY [facility] MATT [facility] Family History Problem Relation Age of Onset Heart disease Father Family Status - Relation Status Age at Father [facility] Letter (Out)on 11-10-2023 Letter (Out) [id number] Kd Mitchell 1950 [facility] Provider Department Center 11/10/2023 None-None [facility] Family History Problem Relation Age of Onset Heart disease Father Family Status - Relation Status Age at Father Normal [facility] Office Visiton 10-31-2023 Follow-up visit [id number] Kd Mitchell 1950 [facility] Provider Department Center 10/31/2023 PJ MONTGOMERY Family History Problem Relation Age of Onset Heart disease Father Family Status - Relation Status Age at Father Level of Service:89708 [place] OFFICE/OUTPATIENT ESTABLISHED LOW MDM 20 MIN Normal [facility] MR Heart cine for blood flow velocity mappingon 08-21-2023 * * *Final Report* * * DATE OF EXAM: Aug 21 2023 1:59PM [facility] 0704 - MRI CARDIAC VELOCITY FLOW MAP / PROCEDURE REASON: . * * * * Physician Interpretation * * * * Cardiac MRI Report: [facility] Date of service: 08/21/2023 1:11:05 PM Linked orders:[id number] CARDIAC VELOCITY FLOW MAP;[id number] CARD MORPH FUNC WO/W IVCON. Ordering physician: PJ BHAKTA Technologist: CURT HOLLAND Fellow: Burton Lorenzo MD [...] 31.89 9.90 +------+ +-- ---+ +----- +-------+----+ [place] 1018.68 66.60 419.45 33.61 25.92 6.44 +------+ [...] content not included)... DIVISION OF RADIOLOGY [facility] * * *Final Report* * * DATE OF EXAM: Aug 21 2023 1:59PM [facility] 0704 - MRI CARDIAC VELOCITY FLOW MAP / PROCEDURE REASON: . * * * * Physician Interpretation * * * * Cardiac MRI Report: [facility] Date of service: 08/21/2023 1:11:05 PM Linked orders:[id number] CARDIAC VELOCITY FLOW MAP;[id number] CARD MORPH FUNC WO/W IVCON. Ordering physician: PJ BHAKTA Technologist: CURT HOLLAND Fellow: Burton Lorenzo MD [...] 31.89 9.90 +------+ +-- ---+ +----- +-------+----+ [place] 1018.68 66.60 419.45 33.61 25.92 6.44 +------+ [...] or not int (more content not included)... [facility] MRI CARD MORPH FUNC WO/W IVC ONon 08-21-2023 MRI CARD MORPH FUNC WO/W IVCON * * *Final Report* * * DATE OF EXAM: Aug 21 2023 1:59PM [facility] 0703 - MRI CARD MORPH FUNC WO/W IVCON / PROCEDURE REASON: . * * * * Physician Interpretation * * * * Cardiac MRI Report: [facility] Date of service: 08/21/2023 1:11:05 PM Linked orders:[id number] CARDIAC VELOCITY FLOW MAP;[id number] CARD MORPH FUNC WO/W IVCON. Ordering physician: PJ BHAKTA Technologist: CURT HOLLAND Fellow: Burton Lorenzo MD [...] 31.89 9.90 +------+ +-- ---+ +----- +-------+----+ [place] 1018.68 66.60 419.45 33.61 25.92 6.44 +------+ [...] Flow Quantif (more content not included)... Normal [facility] MRI CARDIAC MORPH FUNC WO/W IVCONon 08-21-2023 * * *Final Report* * * DATE OF EXAM: Aug 21 2023 1:59PM [facility] 0703 - MRI CARD MORPH FUNC WO/W IVCON / PROCEDURE REASON: . * * * * Physician Interpretation * * * * Cardiac MRI Report: [facility] Date of service: 08/21/2023 1:11:05 PM Linked orders:[id number] CARDIAC VELOCITY FLOW MAP;[id number] CARD MORPH FUNC WO/W IVCON. Ordering physician: PJ BHAKTA Technologist: CURT HOLLAND Fellow: Burton Lorenzo MD [...] 31.89 9.90 +------+ +-- ---+ +----- +-------+----+ [place] 1018.68 66.60 419.45 33.61 25.92 6.44 +------+ [...] content not included)... DIVISION OF RADIOLOGY Provider, [facility] - 08/21/2023 * * *Final Report* * * DATE OF EXAM: Aug 21 2023 1:59PM [facility] 0703 - MRI CARD MORPH JAZIO WO/W IVCON / PROCEDURE REASON: . * * * * Physician Interpretation * * * * Cardiac MRI Report: [facility] Date of service: 08/21/2023 1:11:05 PM Linked orders:[id number] CARDIAC VELOCITY FLOW MAP;[id number] CARD MORPH JAZIO WO/W IVCON. Ordering physician: PJ Kelloggologist: CURT HOLLAND Fellow: Burton Lorenzo MD Interpreting [...] 31.89 9.90 +------+ +-- ---+ +----- +-------+----+ [place] 1018.68 66.60 419.45 33.61 25.92 6.44 +------+ [...] or not in (more content not included)... [facility] MRI CARDIAC VELOCITY FLOW [place] Samuel 08-21-2023 MRI CARDIAC VELOCITY FLOW MAP * * *Final Report* * * DATE OF EXAM: Aug 21 2023 1:59PM [facility] 0704 - MRI CARDIAC VELOCITY FLOW MAP / PROCEDURE REASON: . * * * * Physician Interpretation * * * * Cardiac MRI Report: [facility] Date of service: 08/21/2023 1:11:05 PM Linked orders:[id number] CARDIAC VELOCITY FLOW MAP;[id number] CARD MORPH FUNC WO/W IVCON. Ordering physician: PJ BHAKTA Technologist: CURT HOLLAND Fellow: Burton Lorenzo MD [...] 31.89 9.90 +------+ +-- ---+ +----- +-------+----+ [place] 1018.68 66.60 419.45 33.61 25.92 6.44 +------+ [...] Flow Quantifi (more content not included)... Normal [facility] No Panel Informationon 08-20 IMPRESSION: Pattern of [...] * * Final * * * RP Racing Manager: CRISTINO Transcribe Date/Time: Aug 21 2023 1:11P Dictated by : PJ ANTUNEZ MD This examination was interpreted and the report reviewed and electronically signed by: PJ ANTUNEZ MD on Aug 21 2023 3:06PM [facility] DIVISION OF RADIOLOGY Radiology Study observation (narrative) [facility] No Panel InformationOrdered By: Ccf Provider on 08-21-2023 [facility] Gopal 01-19-2023 SAULO Telephone (CARCMN) KD MITCHELL ([id number]) 1950 Date Time Provider Department 01/19/23 KITTY [...] Encounter Status:Closed by BALJIT JO on 01/19/23 [facility] 11-21-2022 CNPN Telephone (CARCMN) KD MITCHELL ([id number]) 1950 M Date Time Provider Department 11/21/22 KITTY HICKS During your visit today, we recorded the following information about you: Chance Dueñas 11/21/2022 4:37 PM Signed Records received from [facility] by mail. Records uploaded to [...] Encounter Status:Closed by CHANCE DUEÑAS on 11/21/22 [facility] CNPNon 11-16-2022 CNPN Telephone (CARCMN) KD MITCHELL ([id number]) 1950 M Date Time Provider Department 11/16/22 KITTY HICKS CARCMN During your visit today, we recorded the following information about you: Chance Dueñas 11/16/2022 11:19 AM Signed Records received from [facility] by fax. Records uploaded to OPD and sent to scanning. Patient has a future appointment on: 02/15/23. Date of last OV: Holden Dueñas November 16, 2022 11:17 AM Allergies As of Date: 11/16/2022 (Not on File) Date Reviewed: Never Reviewed Reason for Visit: Received Outside Medical Records [3576] Problem List As Of Date: 11/16/2022 (None) Encounter Status:Closed by CHANCE DUEÑAS on 11/16/22 [facility] CNCOon 11-09-2022 [facility] (REFPHY[facility] KD MITCHELL ([id number]) 1950 M Date Time Provider Department 11/06/22 NO ONE (HISTORICAL) REFPHY During your visit today, we recorded the following information about you: [facility] Service Keira Prasad 11/06/2022 3:44 PM Signed Patient: Kd Mitchell Date of : 1950 Patient phone number: [phone] Referring Provider for the encounter: Estrella Chowdary Requesting Provider: Reason for requesting visit (RFV/signs and symptoms/diagnosis): AFib Person calling: rp fax Return call to: rp fax Medical Records/Insurance Card scanned into Epic: No Comments: Dominga Cr 11/09/2022 11:52 AM Signed RP-Appt scheduled- Spoke with Patient to schedule consult, printed and sent new pt packet and appt info via mail Allergies As of Date: 11/06/2022 (Not on File) Date Reviewed: Never Reviewed Reason for Visit: External Referrals/resources [909] Problem List As Of Date: 11/06/2022 (None) Encounter Status:Closed by [facility] KEIRA PRASAD on 11/06/22 Normal [facility] CBC AUTO DIFFon 08-30-2022 BASO # 0.1 103/ul Normal 0.0-0.1 [facility] Comment on above: Performed By: #### C BC ####[facility] [address] [place], [place] [address]Dr. Jeremiah Vela Basophils/100 WBC (Bld) 0.6 % Normal 0.2-2.0 [facility] Comment on above: Performed By: #### C BC ####[facility] [address] [place], [place] [address]Dr. Jeremiah Vela EO # 0.1 103/ul Normal 0.0-0.7 [facility] Comment on above: Performed By: #### C BC ####[facility] [address] [place], [place] [address]Dr. Jeremiah Vela Eosinophils/100 WBC (Bld) 1.0 % Normal 0.9-7.0 [facility] Comment on above: Performed By: #### C BC ####[facility] [address] [place], [place] [address]Dr. Jeremiah Vela Erythrocyte distribution width (RBC) [Ratio] 13.9 % Normal 11.0-15.0 [facility] Comment on above: Performed By: #### C BC ####[facility] [address] [place] [address]Dr. Jeremiah Vela Hematocrit (Bld) [Volume fraction] 42.1 % Normal 42.0-54.0 [facility] Comment on above: Performed By: #### C BC ####[facility] [address] [place] [address]DrLianna Jeremiah Vela Hemoglobin (Bld) [Mass/Vol] 13.7 g/dL Critically low 14.0-18.0 [facility] Comment on above: Performed By: #### C BC ####[facility] [address] [place], [place] [address]Dr. Jeremiah Vela IG # 0.02 10e3/ul Normal 0.00-0.03 [facility] Comment on above: Performed By: #### C BC ####[facility] [address] [place], [place] [address]Dr. Serenaaminah Vela IG % 0.2 % Normal 0.0-0.5 [facility] Comment on above: Performed By: #### C BC ####[facility] [address] [place], [place] [address]DrLianna Jeremiah Dane LYMPH # 2.9 103/ul Normal 1.2-3.8 [facility] Comment on above: Performed By: #### C BC ####[facility] [address] [place], [place] [address]DrLianna Serenaaminah Vela Lymphocytes/100 WBC (Bld) 34.9 % Normal 20.5-60.0 [facility] Comment on above: Performed By: #### C BC ####[facility] [address] [place] [address]DrLianna Serenaaminah Vela MANUAL DIFF REQ NO Normal [facility] Comment on above: Performed By: #### C BC ####[facility] [address] [place] [address]DrLianna Serenaaminah Vela MCH (RBC) [Entitic mass] 27.1 pg Normal 25.9-34.0 [facility] Comment on above: Performed By: #### C BC ####[facility] [address] [place] [address]Dr. Jeremiah Dane MCHC (RBC) [Mass/Vol] 32.5 g/dL Normal 29.9-35.2 [facility] Comment on above: Performed By: #### C BC ####[facility] [address] [place] [address]Dr. Jeremiah Vela MCV (RBC) [Entitic vol] 83.4 fL Normal 80.0-94.0 [facility] Comment on above: Performed By: #### C BC ####[facility] [address] [place], [place] [address]Dr. Jeremiah Vela MONO # 0.7 103/ul Normal 0.3-0.8 [facility] Comment on above: Performed By: #### C BC ####[facility] [address] [place], [place] [address]Dr. Jeremiah Vela Monocytes/100 WBC (Bld) 8.2 % Normal 1.7-12.0 [facility] Comment on above: Performed By: #### C BC ####[facility] [address] [place], [place] [address]Dr. Jeremiah Vela NEUT # 4.6 103/ul Normal 1.4-6.5 [facility] Comment on above: Performed By: #### C BC ####[facility] [address] [place], [place] [address]Dr. Jeremiah Vela Neutrophils/100 WBC (Bld) 55.1 % Normal 43.0-75.0 [facility] Comment on above: Performed By: #### C BC ####[facility] [address] [place], [place] [address]Dr. Jeremiah Vela Platelet mean volume (Bld) [Entitic vol] 9.9 fL Normal 9.5-13.5 [facility] Comment on above: Performed By: #### C BC ####[facility] [address] [place], [place] [address]Dr. Jeremiah Vela PLT 296 103/ul Normal 150-450 [facility] Comment on above: Performed By: #### C BC ####[facility] [address] [place] [address]Dr. Jeremiah Vela RBC 5.05 106/ul Normal 4.70-6.10 [facility] Comment on above: Performed By: #### C BC ####[facility] [address] [place] [address]Dr. Jeremiah Vela WBC 8.3 103/ul Normal 4.0-11.0 [facility] Comment on above: Performed By: #### C BC ####[facility] [address] [place] [address]Dr. Jeremiah Vela FREE T3on 08-30-2022 FREE T3 3.00 pg/mlL Normal 2.18-3.98 [facility] Comment on above: Performed By: #### T 4, TSH, FT3, CMP, URIC, LIPID ####[facility] [address] [place] [address]Dr. Jeremiah Vela GLYCOHEMOGLOBIN A1Con 2022 ADA RECOMMENDATION SEE BELOW Normal [facility] Comment on above: Result Comment: ADA RECOMMENDED LIMIT 4.0 - 6.0 ADA THERAPEUTIC TARGET < 7.0 ACTION SUGGESTED > 7.0 Performed By: #### A 1C ####[facility] [address] [place] [address]Dr. Jeremiah Vela Glucose [Mass/Vol] 105 mg/dL Normal [facility] Comment on above: Performed By: #### A 1C ####[facility] [address] [place] [address]Dr. Jeremiah Vela HbA1c (Bld) [Mass fraction] 5.3 % Normal 4.5-6.2 [facility] Comment on above: Performed By: #### A 1C ####[facility] [address] [place], [place] [address]Dr. Jeremiah Vela LIPID PROFILEon 08-30-2022 CHOL-HDL RATIO NORM SEE BELOW Normal [facility] Comment on above: Result Comment: 3.3 - 4.4 LOW RISK 4.4 - 7.1 AVERAGE RISK 7.1 - 11.0 MODERATE RISK >11.0 HIGH RISK Performed By: #### T 4, TSH, FT3, CMP, URIC, LIPID ####[facility] [address] [place] [address]Dr. Jeremiah Vela Cholesterol [Mass/Vol] 175 mg/dL Normal <=200 Th e [facility] Comment on above: Performed By: #### T 4, TSH, FT3, CMP, URIC, LIPID ####[facility] [address] [place] [address]Dr. Jeremiah Vela Cholesterol in HDL [Mass/Vol] 40 mg/dL Normal 40-60 [facility] Comment on above: Performed By: #### T 4, TSH, FT3, CMP, URIC, LIPID ####[facility] [address] [place], [place] [address]Dr. Jeremiah Vela Cholesterol in LDL [Mass/Vol] 102.4 mg/dL Normal [facility] Comment on above: Performed By: #### T 4, TSH, FT3, CMP, URIC, LIPID ####[facility] [address] [place], [place] [address]Dr. Jeremiah Vela Cholesterol.total/Chol esterol in HDL [Mass ratio] 4.4 {ratio} Normal [facility] Comment on above: Performed By: #### T 4, TSH, FT3, CMP, URIC, LIPID ####[facility] [address] [place] [address]Dr. Serenaaminah Vela HDL NORMAL > or = 60 mg/dl - LO W CARDIOVASCULAR RISK <40 mg/dl - HIGH CARDIOVASCULAR RISK Normal [facility] [facility] Comment on above: Performed By: #### T 4, TSH, FT3, CMP, URIC, LIPID ####[facility] [address] [place] [address]Dr. Serenaaminah Vela LDL CALC NORMAL SEE BELOW Normal [facility] Comment on above: Result Comment: <100 mg/dl OPTIMAL 100 - 129 mg/dl NEAR OR ABOVE OPTIMAL 130 - 159 mg/dl BORDERLINE HIGH 160 - 189 mg/dl HIGH >190 mg/dl VERY HIGH Performed By: #### T 4, TSH, FT3, CMP, URIC, LIPID ####[facility] [address] [place] [address]Dr. Jeremiah Vela Triglyceride [Mass/Vol] 163 mg/dL Critically high <=150 [facility] Comment on above: Performed By: #### T 4, TSH, FT3, CMP, URIC, LIPID ####[facility] [address] [place] [address]Dr. Jeremiah Vela VLDL CALC 32.6 mg/dL Normal [facility] Comment on above: Performed By: #### T 4, TSH, FT3, CMP, URIC, LIPID ####[facility] [address] [place] [address]Dr. Jeremiah Vela PROF 14(COMP METB)on 023 Albumin [Mass/Vol] 3.8 g/dL Normal 3.4-5.0 [facility] Comment on above: Performed By: #### T 4, TSH, FT3, CMP, URIC, LIPID ####[facility] [address] [place] [address]Dr. Jeremiah Vela Albumin/Globulin [Mass ratio] 0.8 {ratio} Normal [facility] Comment on above: Performed By: #### T 4, TSH, FT3, CMP, URIC, LIPID ####[facility] [address] [place] [address]Dr. Jeremiah Vela ALP [Catalytic activity/Vol] 50 U/L Normal 46-116 [facility] Comment on above: Performed By: #### T 4, TSH, FT3, CMP, URIC, LIPID ####[facility] [address] [place] [address]Dr. Jeremiah Vela ALT [Catalytic activity/Vol] 25 U/L Normal 16-63 [facility] Comment on above: Performed By: #### T 4, TSH, FT3, CMP, URIC, LIPID ####[facility] [address] [place] [address]Dr. Jeremiah Vela Anion gap [Moles/Vol] 13.8 mmol/L Normal [facility] Comment on above: Performed By: #### T 4, TSH, FT3, CMP, URIC, LIPID ####[facility] [address] [place] [address]Dr. Jeremiah Vela AST [Catalytic activity/Vol] 15 U/L Normal 15-37 [facility] Comment on above: Performed By: #### T 4, TSH, FT3, CMP, URIC, LIPID ####[facility] [address] [place] [address]Dr. Jeremiah Vela Bilirubin [Mass/Vol] 0.5 mg/dL Normal 0.2-1.0 [facility] Comment on above: Performed By: #### T 4, TSH, FT3, CMP, URIC, LIPID ####[facility] [address] [place] [address]Dr. Jeremiah Vela Calcium [Mass/Vol] 9.0 mg/dL Normal 8.5-10.1 [facility] Comment on above: Performed By: #### T 4, TSH, FT3, CMP, URIC, LIPID ####[facility] [address] [place], [place] [address]Dr. Jeremiah Vela Chloride [Moles/Vol] 104 mmol/L Normal 98-107 [facility] Comment on above: Performed By: #### T 4, TSH, FT3, CMP, URIC, LIPID ####[facility] [address] [place], [place] [address]Dr. Jeremiah Vela CO2 [Moles/Vol] 27.4 mmol/L Normal 21.0-32.[address] [facility] Comment on above: Performed By: #### T 4, TSH, FT3, CMP, URIC, LIPID ####[facility] [address] [place] [address]Dr. Jeremiah Vela Creatinine [Mass/Vol] 1.27 mg/dL Normal 0.70-1.30 [facility] Comment on above: Performed By: #### T 4, TSH, FT3, CMP, URIC, LIPID ####[facility] [address] [place] [address]Dr. Jeremiah Vela EGFR-AF CHILEAN >60 Normal >=[address] [facility] Comment on above: Performed By: #### T 4, TSH, FT3, CMP, URIC, LIPID ####[facility] [address] [place] [address]Dr. Jeremiah Vela EGFR-NON AF CHILEAN 56 mL/min/1.73m2 Critically low >=60 [facility] Comment on above: Performed By: #### T 4, TSH, FT3, CMP, URIC, LIPID ####[facility] [address] [place] [address]Dr. Jeremiah Vela Globulin (S) [Mass/Vol] 4.5 g/dL Normal [facility] Comment on above: Performed By: #### T 4, TSH, FT3, CMP, URIC, LIPID ####[facility] [address] [place] [address]Dr. Jeremiah Vela Glucose [Mass/Vol] 97 mg/dL Normal 74-106 [facility] Comment on above: Performed By: #### T 4, TSH, FT3, CMP, URIC, LIPID ####[facility] [address] [place], [place] [address]Dr. Jeremiah Vela Potassium [Moles/Vol] 4.2 mmol/L Normal 3.5-5.1 [facility] Comment on above: Performed By: #### T 4, TSH, FT3, CMP, URIC, LIPID ####[facility] [address] [place] [address]Dr. Jeremiah Vela Protein [Mass/Vol] 8.3 g/dL Critically high 6.4-8.2 [facility] Comment on above: Performed By: #### T 4, TSH, FT3, CMP, URIC, LIPID ####[facility] [address] [place] [address]Dr. Jeremiah Vela Sodium [Moles/Vol] 141 mmol/L Normal 136-145 [facility] Comment on above: Performed By: #### T 4, TSH, FT3, CMP, URIC, LIPID ####[facility] [address] [place] [address]Dr. Jeremiah Vela Urea nitrogen [Mass/Vol] 19.0 mg/dL Critically high 7.0-18.0 [facility] Comment on above: Performed By: #### T 4, TSH, FT3, CMP, URIC, LIPID ####[facility] [address] [place] [address]Dr. Jeremiah Vela Urea nitrogen/Creatinine [Mass ratio] 15.0 mg/mg Normal [facility] Comment on above: Performed By: #### T 4, TSH, FT3, CMP, URIC, LIPID ####[facility] [address] [place] [address]Dr. Jeremiah Vela T4on 08-30-2022 T4 [Mass/Vol] 6.30 ug/dL Normal 4.50-12.10 [facility] Comment on above: Performed By: #### T 4, TSH, FT3, CMP, URIC, LIPID ####[facility] [address] [place] [address]Dr. Jeremiah Vela TSHon 08-30-2022 TSH 1.881 uIU/mL Normal 0.358-3.740 [facility] Comment on above: Performed By: #### T 4, TSH, FT3, CMP, URIC, LIPID ####[facility] [address] [place] [address]Dr. Jeremiah Vela URIC ACID SERUMon 08-30-2022 Urate [Mass/Vol] 6.5 mg/dL Normal 3.5-7.2 [facility] Comment on above: Performed By: #### T 4, TSH, FT3, CMP, URIC, LIPID ####[facility] [address] [place] [address]Dr. Jeremiah Vela ECHOCARDIO M/2D COMPLETEon 1 05-19-2021 ECHOCARDIO M/2D COMPLETE Patient: KD MITCHELL Exam Date: 03/18/2022 : 1950 Gender:M Ordering : DR ESTRELLA CHOWDARY . Admission #: [id number] Family : Order #: [id number] CLICK HERE TO VIEW EXAM ECHOCARDIOGRAM REPORT [...] Mazin Ramos M.D. on 03/23/2022 at 09:55 [facility] NM STRESS/REST MULTIon 03-08 NM STRESS/REST MULTI Patient: KD MITCHELL Exam Date: 03/08/2022 : 1950 Gender:M Ordering : DR ESTRELLA CHOWDARY . Admission #: [id number] Family : Order #: [id number] CLICK HERE TO VIEW EXAM RADIOLOGY REPORT [...] M.D. on 03/08/2022 at 14:43 Normal [facility] AMYLASEon 01-14-2022 Amylase [Catalytic activity/Vol] 40 U/L Normal 25-115 [facility] Comment on above: Performed By: #### C MP, LIPA, MARIAM, BNP, HSTROPN #### [facility] [address] [place] [address] Dr. Jeremiah Vela BNPon 01-14-2022 Natriuretic peptide B (Bld) [Mass/Vol] 546.0 pg/mL Normal <=900.0 [facility] Comment on above: Performed By: #### C MP, LIPA, MARIAM, BNP, HSTROPN #### [facility] [address] [place] [address] Dr. Jeremiah Vela CBC AUTO DIFFon 01-14-2022 BASO # 0.1 103/ul Normal 0.0-0.1 [facility] Comment on above: Performed By: #### C BC #### [facility] [address] [place] [address] Dr. Jeremiah Vela Basophils/100 WBC (Bld) 0.5 % Normal 0.2-2.0 [facility] Comment on above: Performed By: #### C BC #### [facility] [address] [place] [address] Dr. Jeremiah Vela EO # 0.1 103/ul Normal 0.0-0.7 [facility] Comment on above: Performed By: #### C BC #### [facility] [address] [place] [address] Dr. Jeremiah Vela Eosinophils/100 WBC (Bld) 1.1 % Normal 0.9-7.0 [facility] Comment on above: Performed By: #### C BC #### [facility] [address] [place] [address] Dr. Jeremiah Vela Erythrocyte distribution width (RBC) [Ratio] 13.7 % Normal 11.0-15.0 [facility] Comment on above: Performed By: #### C BC #### [facility] [address] [place] [address] Dr. Jeremiah Vela Hematocrit (Bld) [Volume fraction] 41.1 % Critically low 42.0-54.0 [facility] Comment on above: Performed By: #### C BC #### [facility] [address] [place] [address] Dr. Jeremiah Vela Hemoglobin (Bld) [Mass/Vol] 13.4 g/dL Critically low 14.0-18.0 [facility] Comment on above: Performed By: #### C BC #### [facility] [address] [place] [address] Dr. Jeremiah Vela IG # 0.03 10e3/ul Normal 0.00-0.03 [facility] Comment on above: Performed By: #### C BC #### [facility] [address] [place] [address] Dr. Jeremiah Vela IG % 0.3 % Normal 0.0-0.5 [facility] Comment on above: Performed By: #### C BC #### [facility] [address] [place] [address] Dr. Jeremiah Vlea LYMPH # 4.0 103/ul Critically high 1.2-3.8 [facility] Comment on above: Performed By: #### C BC #### [facility] [address] [place] [address] Dr. Jeremiah Vela Lymphocytes/100 WBC (Bld) 36.4 % Normal 20.5-60.0 [facility] Comment on above: Performed By: #### C BC #### [facility] [address] [place] [address] Dr. Jeremiah Vela MANUAL DIFF REQ NO Normal [facility] Comment on above: Performed By: #### C BC #### [facility] [address] [place] [address] Dr. Jeremiah eVla MCH (RBC) [Entitic mass] 27.7 pg Normal 25.9-34.0 [facility] Comment on above: Performed By: #### C BC #### [facility] [address] [place] [address] Dr. Jeremiah Vela MCHC (RBC) [Mass/Vol] 32.6 g/dL Normal 29.9-35.2 [facility] Comment on above: Performed By: #### C BC #### [facility] [address] [place] [address] Dr. Jeremiah Vela MCV (RBC) [Entitic vol] 85.1 fL Normal 80.0-94.0 [facility] Comment on above: Performed By: #### C BC #### [facility] [address] [place] [address] Dr. Jeremiah Vela MONO # 1.0 103/ul Critically high 0.3-0.8 [facility] Comment on above: Performed By: #### C BC #### [facility] [address] [place] [address] Dr. Jeremiah Vela Monocytes/100 WBC (Bld) 8.9 % Normal 1.7-12.0 [facility] Comment on above: Performed By: #### C BC #### [facility] [address] [place] [address] Dr. Jeremiah Vela NEUT # 5.8 103/ul Normal 1.4-6.5 [facility] Comment on above: Performed By: #### C BC #### [facility] [address] [place] [address] Dr. Jeremiah Vela Neutrophils/100 WBC (Bld) 52.8 % Normal 43.0-75.0 [facility] Comment on above: Performed By: #### C BC #### [facility] [address] [place] [address] Dr. Jeremiah Vela Platelet mean volume (Bld) [Entitic vol] 10.4 fL Normal 9.5-13.5 [facility] Comment on above: Performed By: #### C BC #### [facility] [address] [place] [address] Dr. Jeremiah Vela PLT 342 103/ul Normal 150-450 [facility] Comment on above: Performed By: #### C BC #### [facility] [address] [place] [address] Dr. Jeremiah Vela RBC 4.83 106/ul Normal 4.70-6.10 [facility] Comment on above: Performed By: #### C BC #### [facility] [address] [place] [address] Dr. Jeremiah Vela WBC 11.0 103/ul Normal 4.0-11.0 [facility] Comment on above: Performed By: #### C BC #### [facility] [address] [place] [address] Dr. Jeremiah Vela LACTATE/LACTIC ACIDon 2021 Lactate [Moles/Vol] 1.2 mmol/L Normal 0.4-1.9 [facility] Comment on above: Performed By: #### L ACT ####[facility] [address] [place] [address]Dr. Jeremiah Vela LIPASEon 01-14-2022 Lipase [Catalytic activity/Vol] 56.0 U/L Critically low 73.0-393.0 [facility] Comment on above: Performed By: #### C MP, LIPA, MARIAM, BNP, HSTROPN #### [facility] [address] [place] [address] [address] Jeremiah Vela PROF 14(COMP METB)on Albumin [Mass/Vol] 3.7 g/dL Normal 3.4-5.0 [facility] Comment on above: Performed By: #### C MP, LIPA, MARIAM, BNP, HSTROPN #### [facility] [address] [place] [address] Dr. Jeremiah Vela Albumin/Globulin [Mass ratio] 0.9 {ratio} Normal [facility] Comment on above: Performed By: #### C MP, LIPA, MARIAM, BNP, HSTROPN #### [facility] [address] [place] [address] Dr. Jeremiah Vela ALP [Catalytic activity/Vol] 53 U/L Normal 46-116 [facility] Comment on above: Performed By: #### C MP, LIPA, MARIAM, BNP, HSTROPN #### [facility] [address] [place] [address] [address] Jeremiah Vela ALT [Catalytic activity/Vol] 22 U/L Normal 16-63 [facility] Comment on above: Performed By: #### C MP, LIPA, MARIAM, BNP, HSTROPN #### [facility] [address] [address] [address] Jeremiah Vela Anion gap [Moles/Vol] 10.5 mmol/L Normal [facility] Comment on above: Performed By: #### C MP, LIPA, MARIAM, BNP, HSTROPN #### [facility] [address] [place] [address] Dr. Jeremiah Vela AST [Catalytic activity/Vol] 19 U/L Normal 15-37 [facility] Comment on above: Performed By: #### C MP, LIPA, MARIAM, BNP, HSTROPN #### [facility] [address] [place] [address] Dr. Jeremiah Vela Bilirubin [Mass/Vol] 0.4 mg/dL Normal 0.2-1.0 [facility] Comment on above: Performed By: #### C MP, LIPA, MARIAM, BNP, HSTROPN #### [facility] [address] [place] [address] Dr. Jeremiah Vela Calcium [Mass/Vol] 9.2 mg/dL Normal 8.5-10.1 [facility] Comment on above: Performed By: #### C MP, LIPA, MARIAM, BNP, HSTROPN #### [facility] [address] [place] [address] Dr. Jeremiah Vela Chloride [Moles/Vol] 101 mmol/L Normal 98-107 [facility] Comment on above: Performed By: #### C MP, LIPA, MARIAM, BNP, HSTROPN #### [facility] [address] [place] [address] Dr. Jeremiah Vela CO2 [Moles/Vol] 29.2 mmol/L Normal 21.0-32.0 [facility] Comment on above: Performed By: #### C MP, LIPA, MARIAM, BNP, HSTROPN #### [facility] [address] [place] [address] Dr. Jeremiah Vela Creatinine [Mass/Vol] 1.44 mg/dL Critically high 0.70-1.30 [facility] Comment on above: Performed By: #### C MP, LIPA, MARIAM, BNP, HSTROPN #### [facility] [address] [place] [address] Dr. Jeremiah Vela EGFR-AF CHILEAN 59 mL/min/1.73m2 Critically low >=60 [facility] Comment on above: Performed By: #### C MP, LIPA, MARIAM, BNP, HSTROPN #### [facility] [address] [place] [address] Dr. Jeremiah Vela EGFR-NON AF CHILEAN 49 mL/min/1.73m2 Critically low >=60 [facility] Comment on above: Performed By: #### C MP, LIPA, MARIAM, BNP, HSTROPN #### [facility] [address] [place] [address] Dr. Jeremiah Vela Globulin (S) [Mass/Vol] 3.9 g/dL Normal [facility] Comment on above: Performed By: #### C MP, LIPA, MARIAM, BNP, HSTROPN #### [facility] [address] [place] [address] Dr. Jeremiah Vela Glucose [Mass/Vol] 107 mg/dL Critically high 74-[address] [facility] Comment on above: Performed By: #### C MP, LIPA, MARIAM, BNP, HSTROPN #### [facility] [address] [place] [address] Dr. Jeremiah Vela Potassium [Moles/Vol] 4.7 mmol/L Normal 3.5-5.1 [facility] Comment on above: Performed By: #### C MP, LIPA, MARIAM, BNP, HSTROPN #### [facility] [address] [place] [address] Dr. Jeremiah Vela Protein [Mass/Vol] 7.6 g/dL Normal 6.4-8.2 [facility] Comment on above: Performed By: #### C MP, LIPA, MARIAM, BNP, HSTROPN #### [facility] [address] [place] [address] Dr. Jeremiah Vela Sodium [Moles/Vol] 136 mmol/L Normal 136-145 [facility] Comment on above: Performed By: #### C MP, LIPA, MARIAM, BNP, HSTROPN #### [facility] [address] [place] [address] Dr. Jeremiah Vela Urea nitrogen [Mass/Vol] 18.0 mg/dL Normal 7.0-18.0 [facility] Comment on above: Performed By: #### C MP, LIPA, MARIAM, BNP, HSTROPN #### [facility] [address] [place], [place] [address] Dr. Jeremiah Vela Urea nitrogen/Creatinine [Mass ratio] 12.5 mg/mg Normal [facility] Comment on above: Performed By: #### C MP, LIPA, MARIAM, BNP, HSTROPN #### [facility] [address] [place], [place] [address] Dr. Jeremiah Vela TROPONIN, HIGH SENSITIVITYon 01-14-2022 HSTROP 53.5 pg/mL Normal 4.0-76.1 [facility] Comment on above: Result Comment: CUT- OFF POINTS HAVE BEEN ESTABLISHED BASED ON THE FOURTH UNIVERSAL DEFINITIONS OF MYOCARDIAL INFARCTION. THE UPPER REFERENCE LIMIT (URL) OF TROPONIN, DEFINED THE 99TH PERCENTILE OF cTnI DISTRIBUTION IN A REFERENCE POPULATION, HAS BEEN CONFIRMED THE DECISION THRESHOLD FOR HI DIAGNOSIS. Performed By: #### C MP, LIPA, MARIAM, BNP, HSTROPN #### [facility] [address] [address] [address] Jeremiah Vela XR CHEST 1 Von [...] by: GRANT ARMANDO Date: 2022-01-14 18:43 Normal [facility] Vital Signs Date Time Vital Sign Value Performing Clinician Faci lity 12-21-2023 13:30-0400 Body height 175.3 cm Mitra Anderson ROTARY OPERATOR Work Phone: [facility] 12-21-2023 13:30-040 Body mass index (BMI) [Ratio] 32.19 kg/m2 Mitra Anderson ROTARY OPERATOR Work Phone: [facility] 12-21-2023 13:30-040 Body weight 98.88 kg Mitra Anderson NP Work Phone: [facility] 12-21-2023 13:30-0400 Diastolic blood pressure 78 mm[Hg] Mitra Anderson ROTARY OPERATOR Work Phone: [facility] 12-21-2023 13:30-0400 Heart rate 75 /min Mitra Chamberlainr ROTARY OPERATOR Work Phone: [facility] 12-21-2023 13:30-0400 SaO2% (BldA) [Mass fraction] 95 % Mitra Anderson ROTARY OPERATOR Work Phone: [facility] 12-21-2023 13:30-0400 Systolic blood pressure 140 mm[Hg] Mitra Chamberlainr ROTARY OPERATOR Work Phone: [facility] 08-21-2023 12:56-0400 Body height 175.3 cm Mri (I-Stat/1.5t) [facility] 08-21-2023 12:56-0400 Body mass index (BMI) [Ratio] 31.75 kg/m2 Mri (I-Stat/1.5t) [facility] 08-21-2023 12:56-0400 Body weight 97.52 kg Mri (I-Stat/1.5t) [facility] 08-21-2023 12:56-0400 Diastolic blood pressure 82 mm[Hg] Mri (I-Stat/1.5t) [facility] 08-21-2023 12:56-0400 Heart rate 76 /min Mri (I-Stat/1.5t) [facility] 08-21-2023 12:56-0400 Systolic blood pressure 151 mm[Hg] Mri (I-Stat/1.5t) [facility] Encounters Encounter Date Encounter Type Care Provider Facility Start: 07-31-2024 End: 07-31-2024 ambulatory WING HART [facility] Start: 07-17-2024 ambulatory [facility] Start: 06-11-2024 ambulatory [facility] Start: 05-09-2024 ambulatory [facility] Start: 03-07-2024 End: 03-07-2024 ambulatory [facility] Start: 02-06-2024 End: 02-06-2024 ambulatory [facility] Start: 12-21-2023 End: 12-21-2023 Bamboo flowsheet Mitra Anderson ROTARY OPERATOR Work Phone: [facility] Start: 12-21-2023 End: 12-21-2023 Bamboo flowsheet Mitra Gilljovani ROTARY OPERATOR [facility] Start: 12-21-2023 End: 12-21-2023 Office outpatient visit 25 minutes Mitra Anderson ROTARY OPERATOR Work Phone: [facility] Comment on above: ABDULLAHI (obstructive sle ep apnea) (Primary Dx); Snoring; Daytime hypersomnolence Start: 12-21-2023 End: 12-21-2023 ambulatory MITRA ANDERSON Not Available Start: 10-31-2023 End: 10-31-2023 ambulatory [facility] Start: 08-21-2023 End: 08-21-2023 ambulatory ESTRELLA Nino Gurjit Facility:[facility] Start: 08-21-2023 End: 08-21-2023 Subsequent hospital visit by physician Jefferson Heller (I-Stat/1.5t) JEFFERSON Heller Start: 01-19-2023 Telephone encounter Kitty mcdonald MD [...] above: Received Outside Med ical Records Start: 11-16-2022 Telephone encounter Kitty mcdonald MD Work Phone: Cardiology Comment on above: Received Outside Med ical Records Start: 11-06-2022 Telephone encounter No One (Historic al) Referring Physician Comment on above: External Referrals/r esources Start: 09-30-2022 End: 09-30-2022 ambulatory Jacey Bjornrita Other [facility] Other Start: 09-30-2022 Office outpatient vi sit 15 minutes Jacey Webber [facility] Start: 09-16-2022 End: 09-16-2022 ambulatory Jacey Bjornrita Other [facility] Other Start: 09-16-2022 Office outpatient vi sit 10 minutes Jacey Webber [facility] Start: 08-30-2022 End: 08-31-[address] [...] Comment on above: Performed By: #### P [facility] #### [facility] [address] [place] [address] Dr. Jeremiah Vela Plan of Treatment Date Care Activity Detail Author Start: 09-02-2032 Urine microalbumin profile DTaP,Tdap,Td Vaccine (2 - Td or Tdap) [facility] Start: 12-21-2023 End: 12-21-2023 Patient encounter procedure 12/21/2023 1:40 PM EDT [facility] [address] [place] [address] Mitra Anderson NP [address] [place], [place] Arrived [facility] Comment on above: Arrived Start: 12-17-2023 Influenza vaccination Influenza Vacc ine (#1) [facility] Start: 04-17-2023 Advance Directive Discussion Advance Directive Discussion [facility] Start: 04-17-2023 Behavioral Health Screening Behavioral Health Screening [facility] Start: 12-16-2022 Covid-19 Vaccine ( season) Covid-19 Vaccine ( season) [facility] Start: 12-16-2022 Influenza vaccination [facility] Start: 04-17-2022 ADVANCE DIRECTIVE DISCUSSION ADVANCE DIRECTIVE DISCUSSION [facility] Start: 04-17-2022 DEPRESSION ASSESSMENT DEPRESSION ASS ESSMENT [facility] Start: 2017 Pneumococcal Vaccine : 65+ (1 - PCV) Pneumococcal Vaccine: 65+ (1 - PCV) [facility] Start: 2017 PNEUMOCOCCAL: 65+ (1 - PCV) PNEUMOCOCCAL: 65+ (1 - PCV) [facility] Start: 04-10-2015 Shingrix Vaccine (2 of 3) Shingrix Vaccine (2 of 3) [facility] Start: 2012 RSV Vaccine (1 - 1-d ose 60+ series) RSV Vaccine (1 - 1-dose 60+ series) [facility] Start: 2002 SHINGRIX VACCINE (1 of 2) SHINGRIX VACCINE (1 of 2) [facility] Start: 1997 COLOGUARD (FIT-DNA) COLOGUARD (FIT-D NA) [facility] Start: 1997 Colonoscopy COLONOSCOPY [facility] Start: 1997 COLORECTAL CANCER SCREENING COLORECTAL CANCER SCREENING [facility] Start: [address] COLONOGRAPHY [facility] Start: 1997 DIABETES SCREEN DIABETES SCREEN [facility] Start: 1997 Diabetes Screening Diabetes Screenin g [facility] Start: 1997 FECAL OCCULT BLOOD FECAL OCCULT BLOO D [facility] Start: 1997 Screening for malign ant neoplasm of colon [facility] Start: 1997 [facility] Start: 11-30-1987 Lipid 1996 panel - S ami or Plasma Lipid Screening [facility] Start: 11-30-1987 Lipid panel Lipid Screening [facility] Start: 11-30-1987 LIPID SCREEN LIPID SCREEN [facility] Start: 11-30-1971 Urine microalbumin profile [facility] Start: 1970 HEPATITIS C SCREENING HEPATITIS C [facility] Start: 1970 Hepatitis C screening Hepatitis C [facility] Start: [birth year]01-1953 COVID-19 VACCINE (#1) COVID-19 VACCI NE (#1) [facility] Start: 1950 Screening for malign ant neoplasm of colon [facility] Immunizations Immunization Date Immunization Notes Care Provider Fa pattity 12-28-2022 influenza virus vacc ine, unspecified formulation Mitra Anedrson ROTARY OPERATOR Work Phone: [facility] Healthcare Payers Date Payer Category Payer Unknown [id number] 2012 Unknown [id number] 1959 Unknown [id number] 1950 Unknown [id number] [id number] [id number] 1950 Unknown [id number] [id number] [id number] 1950 Unknown [id number] [id number] [id number] 1950 Unknown [id number] 2.16.84 [id number] 1950 Unknown [id number] 2.16.84 [id number] 1950 Unknown [id number] [id number] [id number] Social History Date Type Detail Facility Start: 12-20-2023 End: 12-21-[address] [facility] [employer] Other Tobacco smoking status DEIS Tobacco smoking consumption unknown [facility] Start: 1950 Sex Assigned At Not on file [facility] Start: 12-20-2023 Tobacco smoking status NHIS Never smoked tobacco [facility] Start: 12-20-2023 Tobacco use and exposure Smokeless tobacco non-user [facility] Start: 12-20-2023 End: 12-21-2023 Alcoholic beverage intake Lifetime non-drinker (finding) [facility] Start: 12-20-2023 End: 12-21-2023 History of Social function [facility] Start: 12-20-2023 Alcohol Comment caffeine 1-2 c ups per day [facility] Clinical Notes 09-16-2022 to 07-31-2024 Mitra Anderson NP - 12/21/2023 1:40 PM EDTMariam Forde RN - 08/21/2023 1:30 PM EDTHeather Cuadra RT(R) - 08/21/2023 1:30 PM EDTTelephone Encounter - Law Jomateus - 01/19/2023 9:46 AM EDT Note Date & Type Note Facility 07-31-2024 Note SUBJECTIVE Reason for Visit: Kd Mitchell is a 73 y.o. year old male patient being seen for follow-up office visit status post loop recorder implant. HPI: Kd Mitchell is a 73 y.o. year old male with significant medical history of obstructive sleep apnea, atrial fibrillation, hypertension, hyperlipidemia, GERD, and prior episodes of syncope. He was evaluated at [facility] in October 2022 for chest pain and palpitations and was found to be in atrial fibrillation. Although IV Cardizem was ordered, he spontaneously converted to sinus rhythm prior to administration and was discharged home in stable condition. He did not follow up with cardiology until recently being evaluated by [facility]. Since that event, he reports feeling well with no recurrence of chest pain, palpitations, shortness of breath, dizziness, or lightheadedness. He recalls his initial episode of atrial fibrillation occurred in 2019 with RVR, and he has since noted a correlation between episodes and abdominal discomfort or dyspepsia, particularly after consuming jalape???os. He also has a history of syncope or near-syncope, though no monitoring was done at the time. [facility], ordered a 30-day event monitor from 02/17/2023 to 03/18/2023, which did not capture any atrial fibrillation. However, two brief asymptomatic episodes of nonsustained ventricular tachycardia were noted: one on 03/06/2023 lasting approximately 2 seconds, and another on 03/09/2023 lasting 3 seconds. 03/06/24 Pt here for LOOP 02/06/24 Pt continues to experience some palpitations. Prior LOOP was denied for unclear reasons. He has near syncope . Patient here for follow up PAF and NSVT. Loop recorder was denied by insurance company. Denies palpitations. Feels SOB at rest occasionally. Feels chest pressure at times. BP and HR are normal during these episodes he says. His main concern fatigue. Compliant with cpap therapy he says. Had routine labs w/ lipid panel in Nov 2023 after last apt. 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 this was consistent with the possibility of myocarditis 07/31/2024 office visit: Patient was seen and evaluated in the office today. He reports shortness of breath with stair climbing or prolonged walking, along with daily fatigue. He states he remains very active, regularly golfing and performing activities leader. He is compliant with his CPAP therapy. He denies chest pain, palpitations, lightheadedness, or dizziness. Physical exam was otherwise unremarkable. Past Medical History: Diagnosis Date Abnormal ECG Arrhythmia Atrial fibrillation (CMS/HCC) Diverticulitis GERD (gastroesophageal reflux disease) Hyperlipidemia Hypertension ABDULLAHI (obstructive sleep apnea) Syncope and collapse No past surgical history on file. Patient Active Problem List Diagnosis Paroxysmal atrial fibrillation (CMS/HCC) Hypertension ABDULLAHI (obstructive sleep apnea) Hyperlipidemia Syncope and collapse Chest pain Daytime hypersomnolence Hypersomnia Snoring family history includes Heart disease in his father. Social History Tobacco Use Smoking status: Never Smokeless tobacco: Current Substance Use Topics Alcohol use: Not Currently Drug use: Never OBJECTIVE Visit Vitals Smoking Status Never Physical Exam Constitutional: General Appearance: well-developed, appears stated age. Level of Distress: no acute distress. Neck: Jugular Veins: normal jugular venous pressure. Lungs: Auscultation: no rales or rhonchi and normal breath sounds. Cardiovascular: Rate And Rhythm: regular Heart Sounds: normal S1 and s2; Systolic Murmur: not heard. Diastolic Murmur: not heard. Extremities: no edema Peripheral Pulses: Pulses: full and equal in all extremities except if noted. Abdomen: Inspection and Palpation: non distended or tender and soft. Musculoskeletal: Inspection: no joint tenderness or swelling. Neurologic: Gait: normal gait. Psychiatric: Mental Status: alert and normal affect. Skin: Inspection and Palpation: warm and dry. Allergies: No Known Allergies Outpatient Medications: Current Outpatient Medications Medication Instructions calcium citrate-vitamin D2 250 mg-2.5 mcg (100 unit) tablet 1 tablet, oral, Once Daily carvedilol (COREG) 25 mg, oral, 2 times daily with meals Eliquis 5 mg, oral, 2 times daily pantoprazole (PROTONIX) 40 mg, oral, Daily rivaroxaban (XARELTO) 20 mg, oral, Daily with evening meal, Take with food. Recent Labs: No visits with results within 2 Month(s) from this visit. Latest known visit with results is: Admission on 05/03/2023, Discharged on 05/03/2023 Component Date Value Ventricular Rate 05/03/2023 68 Atrial Rate 05/03/2023 68 TX Interval 05/03/2023 190 QRS DU (more content not included)... [facility] 03-07-2024 Note LOOP IMPLANT PROCEDU RE NOTE DATE OF PROCEDURE: 03/07/24 PERFORMING PHYSICIAN: Dr. Pj Bhakta OUTREACH PROFESSIONAL: INDICATIONS FOR PROCEDURE: 1. SVT/AF surveillance CONSENT: Patient LOCATION: EP lab PROCEDURAL SEDATION: None FLUOROSCOPY TIME: 0min PREPARATION: Preoperative antibiotics was administered. EBL:5cc SPECIMEN REMOVED: None PROCEDURES PERFORMED: 1. LOOP implant PROCEDURE NOTE: Patient was brought to the EP lab in the post absorptive state. A procedural pause was performed verifying the patient, the procedure. Sterile prep and drape were performed over the left precordium and anesthesia with 1% lidocaine was followed by a small incision was made in the 3rd intercostal space near the sternum on the left using the [employer] Messenger tool. The loop recorder was then injected subcutaneously and noted to have good sensing parameters. Technical details of the device as noted below. The skin was then closed with 3-0 absorbable monofilament suture and glue applied to hold the edges together. Tegaderm was applied to cover the wound. The patient appeared to tolerate the procedure well and was returned to the room in stable condition. No complications were immediately observed. Sensin.35 mV. IMPRESSION: Successful placement of LOOP implant with excellent sensing parameters. COMPLICATIONS: None RECOMMENDATIONS: 1. Occlusive dressing to be changed after 7 days. 2. Do not wet the incision. Pj Bhakta MD Cardiac Electrophysiology. [facility] 02-06-2024 Note [facility] Consult Note Reason for visit: Afib 02/06/24 Pt continues to experience some palpitations. Prior LOOP was denied for unclear reasons. He has near syncope . Patient here for follow up PAF and NSVT. Loop recorder was denied by insurance company. Denies palpitations. Feels SOB at rest occasionally. Feels chest pressure at times. BP and HR are normal during these episodes he says. His main concern fatigue. Compliant with cpap therapy he says. Had routine labs w/ lipid panel in Nov 2023 after last apt. 10/31/2023 patient underwent cardiac MRI at [facility] and this showed evidence of late [...] 05/22/23 Prior HPI: Kd Mitchell is a 73 y.o. year old with past medical history of ABDULLAHI, afib, htn, gerd, syncope, hld. He was seen in the [facility] 10/2022 for complaints of chest pain and palpitations. He was found to be in A-fib and was treated for. He was treated with IV Cardizem and patient's converted to sinus rhythm prior to Cardizem even being administered. Patient was then discharged home in sinus rhythm but did not have any follow-up with cardiology until seen by Pako recently. He has been feeling well since [...] at that time. he was seen by Pako TAVAREZ who ordered a 30-day event monitor. [...] hld PMH: Past Medical History: Diagnosis Date Abnormal ECG Arrhythmia Atrial fibrillation (CMS/HCC) Diverticulitis GERD (gastroesophageal reflux disease) Hyperlipidemia Hypertension ABDULLAHI (obstructive sleep apnea) Syncope and collapse PSH: No past surgical history on file. SH: Social Determinants of Health Tobacco Use: High Risk (02/06/2024) Patient History Smoking Tobacco Use: Never Smokeless Tobacco Use: Current Passive Exposure: Not on file Alcohol Use: Not on file Financial Resource Strain: Not on file Food Insecurity: Not on file Transportation Needs: Not on file Physical Activity: Not on file Stress: Not on file Social Connections: Not on file Intimate Partner Violence: Unknown (06/08/2023) [place] Safety & Environment Fear of Current or Ex-Partner: Not on file Emotionally Abused: Not on file Physically Abused: Not on file Sexually Abused: Not on file Physically or Sexually Abused: Not on file Depression: Not on file Housing Stability: Not on file Utilities: Not on file Allergies: No Known Allergies Weight: 99.8kg Visit Vitals BP 144/72 (BP Location: Left arm, Patient Position: Sitting) Pulse 83 Ht 1.778 m (5' 10 ) Wt 99.8 kg (220 lb) SpO2 96% BMI 31.57 kg/m??? Smoking Status Never BSA 2.22 m??? Meds: Current Outpatient Medications on File Prior to Visit Medication Sig Dispense Refill calcium citrate-vitamin D (more content not included)... [facility] 12-21-2023 History of Present illness Narrative Images from the original note were not included. Chief Complaint Patient presents with Sleep Apnea Patient is here today for follow-up of ABDULLAHI. I am following the plan of care established by the physician who is present in the office today. Gavin Yi was last seen on 12/21/2022 at the [facility]. He states he is wearing his PAP machine nightly. He states he cannot sleep without it. He does get about 6 1/2 hours of sleep most days due to taking his grandson to school. He does get to sleep in on the weekends. He denies any issues with his machine. He does need new supplies. Past Medical History: Diagnosis Date Hypertension (CMS/HCC) Sleep apnea No past surgical history on file. No family history on file. Social History Tobacco Use Smoking status: Never Smokeless tobacco: Never Substance Use Topics Alcohol use: Never Comment: caffeine 1-2 cups per day Allergies: Patient has no known allergies. General: No fever or chills HEENT: No nasal congestion or runny nose Pulmonary: No shortness of breath or cough Cardiovascular: No chest pain or palpitations GI: No nausea or vomiting : No dysuria or hematuria Musculoskeletal: No new aches or pains or muscle weakness Infectious: no recurrent fevers or infections Dermatologic: No rashes or skin lesions Neurologic: No new headaches or dizziness Vitals: 12/21/23 1330 BP: 140/78 Pulse: 75 SpO2: 95% Body mass index is 32.19 kg/m . weight: 218 lb Neurologic exam: General: Normal body habitus, cooperative, pleasant Mental status: Awake, alert to person, place and time. Recent and remote memory are intact. Attention and concentration are normal. Fund of knowledge is appropriate for level of education. HEENT: NC/AT Cranial nerves: CN II: Visual ram full to confrontation. No loss of vision CN III, IV, : pupils equal round and reactive to light. Extraocular movements intact. No ptosis present. CN V: Facial sensation is normal. CN VII: Full and symmetric facial movement. CN VIII: Hearing is normal CN IX and X: Palate elevates symmetrically. CN XI: Shoulder shrug is normal bilaterally. CN XII: Tongue is midline without atrophy or fasciculation. Speech: Clear and fluent no aphasia or dysarthria Pronator drift: Negative bilateral upper extremity Coordination: Intact, no signs of dysmetria Good finger to nose and rapid alternating movements Sensory: Sensation is intact to light and vibratory touch throughout four extremities. Pinprick intact in all four extremities. Motor: LUE 5/5 RUE 5/5 LLE 5/5 RLE 5/5 Tone: Physiologic, no tremor, bradykinesia or rigidity DTR: Bilateral Biceps x Bilateral BR x Bilateral Patellar x No spasticity Gait: Normal to casual gait Romberg's x Review and summary of old records: Assessment/Plan Diagnoses and all orders for this visit: ABDULLAHI (obstructive sleep apnea) Snoring Daytime hypersomnolence 73-year-old male with a severe obstructive sleep apnea with a apnea hypopnea index of 40 and oxygen desaturation/ hypoxia down to 79 percent. This was leading to daytime hypersomnolence and snoring. He is here today as he is in need of new supplies. He last seen at the [facility] December 21, 2022. He is compliant on his machine as noted below. He states he is sleeping very well with the machine and wakes well rested therefore he is benefiting from the machine. He can not sleep without it. Denies any issues with his mask or machine. There was a discussion about why he needs to see us annually and if he needs to continue to do as noted below. He does continue to see cardiology as there is still question if he has atrial fibrillation. Last time he saw them he was going to have a loop recorder placed and insurance denied this. . Compliance download reviewed and he is complaint as he put the mask on 97% of the days > 4 hours with average nightly usage 7 hours 17 minutes, residual AHI 1.2 . . . Plan Sleep Clinic note reviewed Compliance download reviewed Compliance download at next visit WE will send in for new supplies-script sent from clinic signed Continue with cardiology Discussion of annual visits as he has a brother that is with [employer] and he does not need to see a sleep provider and supplies sent to him without issues He has just this month switched to [employer] and may or may not follow up pending if he has too I did discuss reasons to continue to see a provider annually to ensure that he is still well controlled on his mask and not having any issues and we do recommend this plan of care The patient was counseled on the risks of stroke, HI, and sudden with ABDULLAHI, along with the need for compliance with the CPAP/BiPAP treatment. The diagnosis was all discussed with the patient. All questions were answered and they agreed with the treatment plan. Patient will call if there are any new issues or questions. Return to clinic: one year-we will have [facility] call and schedule documented in this encounter [facility] 10-31-2023 Note [facility] Consult Note Reason for visit: Afib 10/31/2023 patient underwent cardiac MRI at [facility] and this showed evidence of late [...] syncope, hld. He was seen in the [facility] 10/2022 for complaints of chest pain and palpitations. He was found to be in A-fib and was treated for. He was treated with IV Cardizem and patient's converted to sinus rhythm prior to Cardizem even being administered. Patient was then discharged home in sinus rhythm but did not have any follow-up with cardiology until seen by Pako recently. He has been feeling well since [...] at that time. he was seen by Pako TAVAREZ who ordered a 30-day event monitor. [...] on file Intimate Partner Violence: Unknown (06/08/2023) [place] Safety & Environment Fear of Current or [...] General Appearance: well-n (more content not included)... [facility] 08-21-2023 Note HNO ID: [id number] Author: MARIAM FORDE RN Service: Radiology Author Type: Registered Nurse [...] DATE: August 21, 2023 TIME: 12:57 PM [facility] 08-21-2023 Note HNO ID: [id number] Author: HEATHER CUADRA RT(R) Service: Radiology Author Type: Technologist Type: Progress [...] PATIENT PRESENTS WITH AN IMPLANTABLE OR ATTACHED PARKING LOT SUPERVISOR: No RADIOLOGY DEPARTMENT: MR; Exam(s) Completed: Cardiac: Cardiac PERIPHERAL IV DATA: Site assessment: Clean,Dry and Intact, Site disposition Discontinued SIGNED BY: RT Tommy(R), Iveth APODACA August 21, 2023 1:15 PM [facility] 08-21-2023 History of Present illness Narrative Radiology [...] PATIENT PRESENTS WITH AN IMPLANTABLE OR ATTACHED PARKING LOT SUPERVISOR: No RADIOLOGY DEPARTMENT: MR; Exam(s) Completed: Cardiac: Cardiac PERIPHERAL IV DATA: Site assessment: Clean,Dry and Intact, Site disposition Discontinued SIGNED BY: RT Tommy(R)Iveth August 21, 2023 1:15 PM documented in this encounter [facility] 01-19-2023 Miscellaneous Notes Left a message for the patient regarding the cancellation of 02/15/2023 appointment. Informed the patient of the new appointment scheduled on 05/24/2023. Left a call back number for the patient if the date and time does not fit. documented in this encounter [facility] 11-21-2022 Miscellaneous Notes Records received from [facility] by mail. Records uploaded to [facility] and sent to scanning. Patient has a future appointment on: 02/15/23. Date of last OV: -. Chance Dueñas November 21, 2022 4:36 PM documented in this encounter [facility] 11-16-2022 Miscellaneous Notes Records received from [facility] by fax. Records uploaded to [facility] and sent to scanning. Patient has a future appointment on: 02/15/23. Date of last OV: -. Chance Dueñas November 16, 2022 11:17 AM documented in this encounter [facility] 11-06-2022 Miscellaneous Notes Patient: Kd Mitchell Date of : 1950 Patient phone number: [phone] Referring Provider for the encounter: Estrella Chowdary Requesting Provider: Reason for requesting visit (RFV/signs and symptoms/diagnosis): AFib Person calling: rp fax Return call to: rp faabhi Medical Records/Insurance Card scanned into [employer]: No Comments: NA documented in this encounter [facility] 09-30-2022 Evaluation note Encounter Date Diagnosis Assessment Notes Sep, Laceration of left middle finger without foreign body without damage to nail, subsequent encounter (ICD-10 - S61.213D) Patient instructed on scar massage and progression of activity as tolerated [facility] Other 06-02-2023 Evaluation note* Encounter Date Diagnosis [...] home. Patient will f/u in 2-3 weeks [facility] Other Evaluation note* Diagnosis ABDULLAHI (obstructive sleep apnea)- Primary Obstructive sleep apnea (adult) (pediatric) Snoring Other dyspnea and respiratory abnormality Daytime hypersomnolence documented in this encounter [facility] - Reported* Type Description Date Medical History GERD Medical History hypertension Surgical History Appendix [facility] Other Summary Purpose Family History No Family History Records FoundNo Family History Records FoundNo Family History Records FoundNo Family History Records Found Advance Directives No Advanced Directives Records FoundNo Advanced Directives Records FoundNo Advanced Directives Records FoundNo Advanced Directives Records Found Additional Source Comments (unrecognized sect ion and content) No Status Records FoundNo Status Records FoundNo Status Records FoundNo Status Records Found INFORMATION SOURCE (unrecogn ized section and content) DATE CREATED AUTHOR 08/31/2022 [facility] DATE CREATED AUTHOR AUTHOR'S ORGANIZ ATION 08/22/2023 [facility] DATE CREATED AUTHOR AUTHOR'S ORGANIZ ATION 12/23/2023 [facility] DATE CREATED AUTHOR AUTHOR'S ORGANIZ ATION 08/02/2024 [facility] REASON FOR VISIT (unrecogniz ed section and [...] does not fit. Reason Comments Radiology MRI Reason Comments Sleep Apnea Source Comments (unrecognize d section and content) In the event this informatio n is protected by the Federal Confidentiality of Alcohol and Drug Abuse Patient Records regulations: The Federal rules restrict any use of the information to criminally investigate or prosecute any alcohol or drug abuse patient.[facility] the event this information is protected by the Federal Confidentiality of Alcohol and Drug Abuse Patient Records regulations: The Federal rules restrict any use of the information to criminally investigate or prosecute any alcohol or drug abuse patient.[facility] the event this information is protected by the Federal Confidentiality of Alcohol and Drug Abuse Patient Records regulations: The Federal rules restrict any use of the information to criminally investigate or prosecute any alcohol or drug abuse patient.[facility] the event this information is protected by the Federal Confidentiality of Alcohol and Drug Abuse Patient Records regulations: The Federal rules restrict any use of the information to criminally investigate or prosecute any alcohol or drug abuse patient.[facility] Center[facility] the event this information is protected by the Federal Confidentiality of Alcohol and Drug Abuse Patient Records regulations: The Federal rules restrict any use of the information to criminally investigate or prosecute any alcohol or drug abuse patient.[facility] Care Teams (unrecognized sec tion and content) Beck Tender Relationship Specialty Start Date End Date Estrella Chowdary MD PCP - [facility] Family [facility] 08/21/14 Beck Tender Relationship Specialty Start Date End Date Estrella Chowdary MD PCP - General [facility] Medicine 08/21/14 Beck Tender Relationship Specialty Start Date End Date Estrella [...] BE BASED ON THE PRIMARY CLINICAL RECORDS. [employer] [facility]. provides no warranty or guarantee of the accuracy or completeness of information in this document.
[2024-08-31] MEDS: DILTIAZEM HCL 25 MG/5 ML VIAL 20 MG IV (12:50)
--- NOTE | 2024-08-31 12:51 | ECG_ITS ---
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 Measurements Intervals [place] Rate: 84 P: -30 WV: 178 QRS: 40 QRSD: 80 T: 22 QT: 330 QTc: 371 Interpretive Statements 1100 Sinus rhythm 9110 normal ECG Compared to ECG 08/31/2024 12:40:14 Sinus rhythm has replaced atrial flutter ST (T wave) deviation no longer present Possible ischemia no longer present Electronically Signed On 08-31-2024 18:12:06 EDT by KEMAL BLAIR M.D.
[2024-08-31 13:03] LABS: Basophils Absolute Auto 0.1 10^3/uL (0.0-0.1); Basophils Percent Auto 0.7 % (0.2-2.0); Eosinophils Absolute Auto 0.1 10^3/uL (0.0-0.7); Eosinophils Percent Auto 1.3 % (0.9-7.0); Hematocrit 40.5 % (42.0-54.0); Hemoglobin 13.2 g/dL (14.0-18.0); Immature Granulocytes Abs Auto 0.02 10^3/uL (0.00-0.03); Immature Granulocytes Pct Auto 0.2 % (0.0-0.5); Lymphocytes Absolute Auto 3.2 10^3/uL (1.2-3.8); Lymphocytes Percent Auto 32.5 % (20.5-60.0); Mean Corpuscular HGB Conc 32.6 g/dL (29.9-35.2); Mean Corpuscular Hemoglobin 27.7 pg (25.9-34.0); Mean Corpuscular Volume 84.9 fL (80.0-94.0); Monocytes Absolute Auto 0.7 10^3/uL (0.3-0.8); Monocytes Percent Auto 7.4 % (1.7-12.0); Neutrophils Absolute Auto 5.6 10^3/uL (1.4-6.5); Neutrophils Percent Auto 57.9 % (43.0-75.0); Platelet Count 336 10^3/uL (150-450); Red Blood Count 4.77 10^6/uL (4.70-6.10); Red Cell Distribution Width 14.1 % (11.0-15.0); White Blood Count 9.7 10^3/uL (4.0-11.0)
[2024-08-31 13:30] LABS: Alanine Aminotransferase 15 U/L (16-63); Albumin Globulin Ratio 0.8; Albumin Level 3.4 g/dL (3.4-5.0); Alkaline Phosphatase 58 U/L (46-116); Anion Gap 11.8; Aspartate Amino Transferase 13 U/L (15-37); BUN Creatinine Ratio 12.8; Bilirubin Total 0.4 mg/dL (0.2-1.0); Calcium 9.1 mg/dL (8.5-10.1); Carbon Dioxide 24.8 mmol/L (21.0-32.0); Chloride 106 mmol/L (98-107); Estimated GFR (African America 53 (>=60 mL/min/1.73m^2); Estimated GFR (Non-African Ame 44 (>=60 mL/min/1.73m^2); Globulin 4.1 g/dL; Glucose 152 mg/dL (74-106); Potassium 4.6 mmol/L (3.5-5.1); Sodium 138 mmol/L (136-145); Total Protein 7.5 g/dL (6.4-8.2)
[2024-08-31 14:58] LABS: Troponin I High Sensitivity 12.6 pg/mL (4.0-76.1)
--- NOTE | 2024-08-31 16:30 | ED_ITS ---
HPI - Arrhythmia/Palpitations General Chief Complaint: Arrhythmia/Palpitations Stated Complaint: AFIB Time Seen by Provider: 08/31/24 12:41 Source: patient Mode of arrival: walk-in Limitations: no limitations History of Present Illness HPI narrative: The patient came to the ER after he was walking outside in the backyard did not start working yet, when he started having retrosternal chest pressure and sense of heart racing, upon arrival the patient mentioned also some dizziness , he mentioned that he have a history of A-fib and this happened to him before Patient denies any recent symptoms of cough fever or any other concerns The patient has been taking his medication including his anticoagulant Eliquis and beta-vera Related Data Home Medications ?Medication ?Instructions ?Recorded ?Confirmed carvedilol 25 mg tablet 25 mg PO Q12H 10/28/2208/31 pantoprazole 40 mg tablet,delayed 40 mg PO DAILY 10/2808/31/24 release Previous Rx's ?Medication ?Instructions ?Recorded apixaban 5 mg tablet (Eliquis) 5 mg PO BID #60 tabs Allergies Allergy/AdvReac Type Severity Reaction Status Date / Time No Known Drug Allergies Allergy Verified 10/28/22 16:30 Review of Systems ROS Status of ROS 10 or more systems reviewed and unremark able except as noted in history and below PFSH PFSH Social History Little interest or pleasure in doing things: not at all Feeling down, depressed, or hopeless: not at all Exam Narrative Exam Narrative: Nurses notes and vital signs reviewed and patient is not hypoxic. General: Well-appearing and in no apparent distress. Skin: Warm, dry, no pallor noted. No rash. Head: Normocephalic, atraumatic. Neck: Supple, non-tender. Eye: Pupils are equal, round and EOMI. No scleral icterus. Ears, Nose, Mouth, and Throat: TM are clear, no nasal mucosal hypertrophy. Oral mucosa is moist, no posterior oropharynx erythema, uvula is mid-line Cardiovascular: Irregular rate and Rhythm without murmur, gallop or rub. Respiratory: No accessory muscle use or respiratory distress. Lungs are clear to auscultation, no wheezing, rales or rhonchi Chest Wall: no tenderness Back: No midline thoracic or lumbar vertebral tenderness. No CVA tenderness Musculoskeletal: normal ROM, no calf or popliteal tenderness, no lower extremity edema/swelling GI: Abdomen is soft, non-distended. Normal bowel sounds. No masses appreciated. No tenderness to palpation. No rebound, guarding, or rigidity noted. Neurological: A&O x4. No cranial nerve dysfunction observed. Constitutional Vital Signs, click to edit/add: Last Vital Signs Temp 98.2 F 08/31/24 12:38 Pulse 66 08/31/24 15:00 Resp 19 08/31/24 15:00 BP 109/67 08/31/24 14:00 Pulse Ox 95 08/31/24 13:00 O2 Del Method Room Air 08/31/24 12:38 Course Vital Signs Vital signs: Vital Signs Temperature 98.2 F 08/31/24 12:38 Pulse Rate 172 H 08/31/24 12:38 Respiratory Rate 18 08/31/24 12:38 Blood Pressure 146/125 H 08/31/24 12:38 Pulse Oximetry 98 08/31/24 12:38 Oxygen Delivery Method Room Air 08/31/24 12:38 Temperature 98.2 F 08/31/24 12:38 Pulse Rate 66 08/31/24 15:00 Respiratory Rate 19 08/31/24 15:00 Blood Pressure 109/67 08/31/24 14:00 Pulse Oximetry 95 08/31/24 13:00 Oxygen Delivery Method Room Air 08/31/24 12:38 MDM - Arrhythmia/Palpitations MDM Narrative Medical decision making narrative: Upon arrival the patient was in A-fib RVR his heart rate was around 170 according to the EKG we obtained initially Patient was started then on Cardizem loading dose 20 mg IV after which the patient turned into sinus and his EKG was showing sinus rhythm with a heart rate of [address] elevation or depression The patient blood workup showed no acute pathology and his troponin did not trend up in a concerning matter for any acute coronary syndrome The patient case was discussed with in cardiology service and he recommended the patient just follow-up with outpatient Patient have no symptoms he was discharged home to follow-up with cardiology as outpatient on Monday The patient is to follow up with primary care physician in next 2-3 days or to return to the emergency department should any of the signs or symptoms worsen or new symptoms develop. The patient agrees with the following Diagnosis and Treatment plan and the patient will be discharged home. Lab Data Labs: Lab Results 08/31/24 08/31/24 Range/Units 12:53 14:23 WBC 9.7 (4.0-11.0) 10^3/uL RBC 4.77 (4.70-6.10) 10^6/uL Hgb 13.2 L (14.0-18.0) g/dL Hct 40.5 L (42.0-54.0) % MCV 84.9 (80.0-94.0) fL MCH 27.7 (25.9-34.0) pg MCHC 32.6 (29.9-35.2) g/dL RDW 14.1 (11.0-15.0) % Plt Count 336 (150-450) 10^3/uL MPV 10.0 (9.5-13.5) fL Neut % (Auto) 57.9 (43.0-75.0) % Lymph % (Auto) 32.5 (20.5-60.0) % [place] % (Auto) 7.4 (1.7-12.0) % Eos % (Auto) 1.3 (0.9-7.0) % Baso % (Auto) 0.7 (0.2-2.0) % Neut # (Auto) 5.6 (1.4-6.5) 10^3/uL Lymph # (Auto) 3.2 (1.2-3.8) 10^3/uL [place] # (Auto) 0.7 (0.3-0.8) 10^3/uL Eos # (Auto) 0.1 (0.0-0.7) 10^3/uL Baso # (Auto) 0.1 (0.0-0.1) 10^3/uL Abs Immat Gran (auto) 0.02 (0.00-0.03) 10^3/uL Imm/Tot Granulo (auto) 0.2 (0.0-0.5) % Sodium 138 (136-145) mmol/L Potassium 4.6 (3.5-5.1) mmol/L Chloride 106 (98-107) mmol/L Carbon Dioxide 24.8 (21.0-32.0) mmol/L Anion Gap 11.8 BUN 20.0 H (7.0-18.0) mg/dL Creatinine 1.56 H (0.70-1.30) mg/dL Est GFR ( Amer) 53 L (>=60 mL/min/1.73m^2) Est GFR (Non-Af Amer) 44 L (>=60 mL/min/1.73m^2) BUN/Creatinine Ratio 12.8 Glucose 152 H (74-106) mg/dL Calcium 9.1 (8.5-10.1) mg/dL Magnesium 2.0 (1.8-2.4) mg/dL Total Bilirubin 0.4 (0.2-1.0) mg/dL AST 13 L (15-37) U/L ALT 15 L (16-63) U/L Alkaline Phosphatase 58 (46-116) U/L Troponin I High Sens 8.0 12.6 (4.0-76.1) pg/mL Total Protein 7.5 (6.4-8.2) g/dL Albumin 3.4 (3.4-5.0) g/dL Globulin 4.1 g/dL Albumin/Globulin Ratio 0.8 Discharge Plan Discharge Chief Complaint: Arrhythmia/Palpitations Clinical Impression: Paroxysmal A-fib Patient Disposition: Home, Self-Care Time of Disposition Decision: 15:19 Condition: Good Prescriptions / Home Meds: No Action carvedilol 25 mg tablet 25 mg PO Q12H pantoprazole 40 mg tablet,delayed release (DR/EC) 40 mg PO DAILY Eliquis 5 mg tablet 5 mg PO BID Qty: 60 0RF Print Language: Portuguese Instructions: A-fib (Atrial Fibrillation) (ED) Referrals: Maico Chowdary MD [Primary Care Provider, Family Practice] - 1 week Pj Bhakta MD [Physician, Cardiology] - 1 week Discharge Date/Time: 08/31/24 15:37
== END 2024-08-31 15:37 | disposition home or self-care (01) ==
PROVIDERS: Emergency Provider Emergency Medicine; PCP Family Medicine
DX: I48.0 Paroxysmal atrial fibrillation (principal); Z79.01 Long term (current) use of anticoagulants; Z79.899 Other long term (current) drug therapy
CPT/HCPCS: 36415; 71045; 80053; 83735; 84484; 85025; 93005; 96374; 99285

== ENCOUNTER 2024-09-23 18:39 | Emergency (ER) | payer OTHER, SELFPAY ==
--- OUTSIDE RECORDS SUMMARY | 2023-12-08 05:00 | XMS_ITS ---
Author Organization [facility] in [place] Address [address] [place] [address] Care Team Providers Care Dba Manager Name Role Phone Hunter Chowdary Primary Care Provider Allergies No Known Allergies REASON FOR VISIT check up Medications Medication SIG (Take, Route, Frequency, Duration) Notes Start Date End Date Status Pantoprazole Sodium 40 MG TAKE 1 TABLET BY MOUTH ONCE DAILY for 90 Active Eliquis 5 MG 1 tablet Orally Twic e a day for 90 days Active Vitamin D 50 MCG (1999) 1 tablet Oral ly Once a day for 90 days Active Carvedilol 25 MG 1 tablet with food O rally Twice a day for 90 days Active Social History Tobacco Use: Social History Observation Description Date Details (start date - stop date) Unknown Tobacco Use/Smoking Question Answer Notes Patient is a Uses tobacco in other forms Additional Findings: Tobacco User Chews tobacco AUDIT-C (Standard) Question Answer Notes Did you have a drink containing alcohol in the p ast year? No Points 0 Interpretation Negative Vital Signs Weight 214.2 lbs 12/08/2023 Height 69 in 12/08/2023 Blood pressure systolic 164 mm Hg 12/08/19 24 Blood pressure diastolic 94 mm Hg 024 BMI 31.63 kg/m2 12/08/2023 Encounters Encounter Location Date Provider Diagnosis [id number] [place] [address] 12/08/2023 Hunter Chowdary Hypertension I10 ; Hypertriglyceridemia E78.1 ; Gastro-esophageal reflux disease K21.9 ; Obstructive sleep apnea syndrome, severe G47.33 and Atrial fibrillation I48.91 Assessments Encounter Date Diagnosis (ICD Code) Assessment Notes Treatment Notes Treatment Clinical Notes Section Notes 12/08/2023 Hypertension (ICD-10 - I10) high here - reaepta next week 12/08/2023 Hypertriglyceridemia (ICD-10 - E78.1) diet 12/08/2023 Gastro-esophageal re flux disease (ICD-10 - K21.9) on meds 12/08/2023 Obstructive sleep ap lala syndrome, severe (ICD-10 - G47.33) wearing mask faithfully 12/08/2023 Atrial fibrillation (ICD-10 - I48.91) rate controlled- sounds liek sinus sinus Plan Of Treatment Treatment Notes Assessment Notes Hypertension high here - reaepta next week Hypertriglyceridemia diet Gastro-esophageal reflux disease on meds Obstructive sleep apnea syndrome, severe wearing mask faithfully Atrial fibrillation rate controlled- brianna nds liek sinus sinus Pending Test Test Name Order Date CMP (COMPLETE METABOLIC PANEL) 4 HEMOGLOBIN A1C (GLYCO) 12/08/2023 LIPID PANEL (CHOL/TRIG/HDL/LDL) 12/08/19 24 CBC WITH DIFF 12/08/2023 PSA, TOTAL 12/08/2023 STOOL OCCULT BLOOD 12/08/2023 THYROID PANEL (T4/TSH/FREE T3) 4 Progress Notes * Kd CALDERÓN ADOB:1950 ( 73 yo M)Acc No.[id number]:12/08/2023 Progress Note Patient: Kd ARBOLEDA Provider: Ruel Chowdary ([facility])MD :1950 A ge:73 Y S ex:Male Date:12/08/2023 Address:[address] [place], [place] [id number] Check In:08:53 AM ESTCheck O ut:10:00 AM EST Subjective: * Chief Complaints: * 1 . Check up. * HPI: D epression Screening: PHQ-2 (2015 Edition) L ittle interest or pleasure in doing things??Not at all F eeling down, depressed, or hopeless? N ot at all T otal Score 0 Bp up here - sbp 130 at home Gerd - good woith meds a-fib with rat under controlled - discussed Cardiology visits - eveiwed echo and cath dsiucsed MRI in heart - bottom of hear twih inflammation Disucssed trigs - Discussed Sleep apne a - wearing mask. * ROS: E ENT: hearing changes d enies. v isual changes d enies.?non-healing mouth sores d enies. s wollen glands or neck lumps d enies. h oarseness d enies. s ore throat d enies. d ifficulty swallowing d enies. n ose bleeds d enies. n elsie congestion d enies. e ar ache d enies. e ar discharge?denies. r inging in ears d enies. l ight sensitivity d enies. e ye pain d enies. b lurring d enies. e ye irritation d enies. d ouble vision d enies.?vision loss d enies. G eneral/Constitutional: Sweats: D enies. F atigue d enies. S leep problems d enies. A norexia d enies. M alaise d enies. W eight loss d enies.?Fatigue or Weakness d enies. F ever or Chills d enies. C ardiovascular: Shortness of Breath w/lying flat d enies. L ightheadedness/dizziness d enies. C hest tightness/ heavy pressure d enies. S welling of legs, ankles, or feet d enies. W aking up with shortness of breath d enies. C hest pain denies. P alpitations d enies. W eight gain d enies. R espiratory: Chronic or frequent cough d enies. C oughing up blood?denies. D ifficulty breathing d enies. P roductive cough d enies. S noring?denies. S hortness of breath that awakens from sleep (PND) d enies. C hest pain d enies. S putum production d enies. W heezing d enies. M usculoskeletal: Joint pain d enies. J oint Fluid d enies. B ack pain d enies. K nee pain d enies. N gulshan pain d enies. J oint Stiffness d enies. M uscle cramps d enies. W eakness of muscles d enies. A rthritis d enies. M uscle aches d enies. P ain in shoulder(s) d enies. S wollen joints d enies. * Active Problem List I10 Hypertension Modified On:08/24/2022 Status:confirmed E78.1 Hypertriglyceridemia Modified On:08/24/2022 Status:confirmed J32.9 Sinusitis Modified On:08/24/2022 Status:confirmed H61.20 Cerumen impaction Modified On:08/24/2022 Status:confirmed Z00.00 Well adult Modified On:08/24/2022 Status:confirmed K57.92 Diverticulitis Modified On:08/24/2022 Status:confirmed R10.11 Abdominal pain, RUQ Modified On:08/24/2022 Status:confirmed K21.9 Gastro-esophageal re flux disease Modified On:08/24/2022 Status:confirmed M75.40 Shoulder impingement syndrome Modified On:08/24/2022 Status:confirmed G47.33 Obstructive sleep ap lala syndrome, severe Modified On:08/24/2022 Status:confirmed R55 Syncope and collapse Modified On:08/24/2022 Status:confirmed M79.606 Pain in leg, unspeci fied Modified On:08/24/2022 Status:confirmed S83.8X9A Sprain of other spec ified parts of unspecified knee, initial encounter Modified On:08/24/2022 Status:confirmed R07.9 Chest pain Modified On:11/16/2022 Status:confirmed R53.83 Fatigue Modified On:08/24/2022 Status:confirmed I48.91 Atrial fibrillation Modified On:10/31/2022 Status:confirmed R00.1 Bradycardia Modified On:06/08/2023 Status:confirmed * Medical History: G lion-esophageal reflux disease, Cerumen impaction, Syncope and collapse, Fatigue, Pain in leg, unspecified, Abdominal pain, RUQ, Obstructive sleep apnea syndrome, severe, Diverticulitis, Shoulder impingement syndrome, Chest pain, Sinusitis, Hypertension, Sprain of other specified parts of unspecified knee, initial encounter, Hypertriglyceridemia, Well adult. * Surgical History: A ppendix 1998, Coronary Angiography 05/03/2023. * Family History: F ather: , diagnosed with Unspecified heart disease. M other: 72 yrs.? * Social History: T obacco Use: T obacco Use/Smoking P atient is a U ses tobacco in other forms A dditional Findings: Tobacco User C hews tobacco D rug/Alcohol: A FIGUEROA-C (Standard) D id you have a drink containing alcohol in the past year? N o P oints 0 I nterpretation N egative * Medications: T aking Carvedilol 25 MG Tablet 1 tablet with food Orally Twice a day , Taking Eliquis(Apixaban) 5 MG Tablet 1 tablet Orally Twice a day , Taking Pantoprazole Sodium 40 MG Tablet Delayed Release TAKE 1 TABLET BY MOUTH ONCE DAILY , Taking Vitamin D 50 MCG (2000 UT) Tablet 1 tablet Orally Once a day , Medication List reviewed and reconciled with the patient * Allergies: N .K.D.A. Objective: * Vitals: W t:214.2lbs, Ht: 69 in, BP:164/94mm Hg, BMI:31.63Index, Ht-cm: 175.26 cm, Wt-k.16 kg. * Examination: P hysical Exam: GENERAL: w ell developed, well nourished, in no acute distress. HEAD: n ormocephalic/atraumatic. EYES: p upils equal, round and reactive to light, conjunctivae and sclerae normal. EARS: n o deformity or lesion of external ear, canals and TM appear normal bilaterally, TM's intact, not inflamed with normal light reflex, hearing grossly normal to conversational speech. NOSE: n o deformity, discharge, inflammation, or lesions.? MOUTH: m ucous membranes moist, normal oropharynx and posterior pharynx without lesions or exudates, tongue normal, dentition normal. NECK: n gulshan supple, no masses or palpable cervical nodes, trachea midline, thyroid without nodules, masses, tenderness, or enlargement. CHEST: n o chest wall deformity, no chest wall tenderness.? LUNGS: n ormal respiratory effort and clear to auscultation, no wheezes, rales, or rhonchi, good air exchange. CARDIO: r egular rate and rhythm, normal S1 and S2, nor murmur, rub, or gallop. PULSES: n ormal capillary refill. ABDOMEN: s oft, non-distended, non-tender, no masses. RECTAL: n o rectal mass, normal external exam. MUSCULOSKELETAL: n o deformity or scoliosis noted, normal range of motion, joints normal, no erythema, edema, effusion, or ecchymosis. EXTREMITY: n o clubbing, cyanosis, edema, or deformity with normal ROM in both upper and lower bilateral extremities. NEUROLOGIC: g rossly normal. SKIN: n o rashes, ulcerations, or suspicious lesions. LYMPH NODES: n o cervical adenopathy, nodes normal. MENTAL STATUS: a lert and oriented x3, normal mood and affect. Assessment: * Assessment: 1. H ypertension - I10 (Primary) 2 . H ypertriglyceridemia - E78.1 3 . G lion-esophageal reflux disease - K21.9 4 . O bstructive sleep apnea syndrome, severe - G47.33?5. A trial fibrillation - I48.91 Plan: * Treatment: 2. H ypertriglyceridemia L AB: CMP (COMPLETE METABOLIC PANEL) L AB: HEMOGLOBIN A1C (GLYCO) L AB: LIPID PANEL (CHOL/TRIG/HDL/LDL) L AB: CBC WITH DIFF L AB: PSA, TOTAL L AB: STOOL OCCULT BLOOD L AB: THYROID PANEL (T4/TSH/FREE T3) Notes: diet 3. G lion-esophageal reflux disease L AB: CMP (COMPLETE METABOLIC PANEL) L AB: HEMOGLOBIN A1C (GLYCO) L AB: LIPID PANEL (CHOL/TRIG/HDL/LDL) L AB: CBC WITH DIFF L AB: PSA, TOTAL L AB: STOOL OCCULT BLOOD L AB: THYROID PANEL (T4/TSH/FREE T3) Notes: on meds 4. O bstructive sleep apnea syndrome, severe L AB: CMP (COMPLETE METABOLIC PANEL) L AB: HEMOGLOBIN A1C (GLYCO) L AB: LIPID PANEL (CHOL/TRIG/HDL/LDL) L AB: CBC WITH DIFF L AB: PSA, TOTAL L AB: STOOL OCCULT BLOOD L AB: THYROID PANEL (T4/TSH/FREE T3) Notes: wearing mask faithfully 5. A trial fibrillation L AB: CMP (COMPLETE METABOLIC PANEL) L AB: HEMOGLOBIN A1C (GLYCO) L AB: LIPID PANEL (CHOL/TRIG/HDL/LDL) L AB: CBC WITH DIFF L AB: PSA, TOTAL L AB: STOOL OCCULT BLOOD L AB: THYROID PANEL (T4/TSH/FREE T3) Notes: rate controlled- sounds liek sinus sinus * Preventive Medicine: Screenings/Counseling: B OR ACTION PLAN Above Normal BMI Follow-up D ietary management education, guidance, and counseling See treatment section of progress note for complete details of management plan. T OBACCO ACTION PLAN Patient counselled on the dangers of tobacco use and urged to quit. 0 12/08/2023 . F ALL RISK SCREENING Fall Risk Assessment: N o falls in the past year * * Sign off status: Completed Visit Status: C HK (Check Out) true * Provider: Ruel Chowdary ([facility])MD Date: 0 12/08/2023 Generated for Printi ng/Fahailyg/eTransmitting on: 0 09/23/2024 06:45 PM EDT History and Physical Notes * HPI (History of Present Illness) Category Sub-Category Detail Notes Category Not es Depression Screening PHQ-2 (2015 Edition) Little interest or pleasure in doing things?: Not at all Bp up here - sbp 130 at home Gerd - good woith meds a-fib with rat under controlled - discussed Cardiology visits - eveiwed echo and cath dsiucsed MRI in heart - bottom of hear twih inflammation Disucssed trigs - Discussed Sleep apne a - wearing mask Feeling down, depressed, or hopeless?: N ot at all Total Score: 0 Examination Category Sub-Category Detail Notes Category Not es Physical Exam GENERAL: well developed, well nourished, in no acute distress HEAD: normocephalic/atraum atic EYES: pupils equal, round and reactive to light, conjunctivae and sclerae normal EARS: no deformity or lesi on of external ear, canals and TM appear normal bilaterally, TM's intact, not inflamed with normal light reflex, hearing grossly normal to conversational speech NOSE: no deformity, discha rge, inflammation, or lesions MOUTH: mucous membranes maggie st, normal oropharynx and posterior pharynx without lesions or exudates, tongue normal, dentition normal NECK: neck supple, no mass es or palpable cervical nodes, trachea midline, thyroid without nodules, masses, tenderness, or enlargement CHEST: no chest wall deform ity, no chest wall tenderness LUNGS: normal respiratory e ffort and clear to auscultation, no wheezes, rales, or rhonchi, good air exchange CARDIO: regular rate and rhy thm, normal S1 and S2, nor murmur, rub, or gallop PULSES: normal capillary ref ill ABDOMEN: soft, non-distended, non-tender, no masses RECTAL: no rectal mass, norm al external exam MUSCULOSKELETAL: no deformity or scol iosis noted, normal range of motion, joints normal, no erythema, edema, effusion, or ecchymosis EXTREMITY: no clubbing, cyanosi s, edema, or deformity with normal ROM in both upper and lower bilateral extremities NEUROLOGIC: grossly normal SKIN: no rashes, ulceratio ns, or suspicious lesions LYMPH NODES: no cervical adenopat hy, nodes normal MENTAL STATUS: alert and oriented x 3, normal mood and affect
--- OUTSIDE RECORDS SUMMARY | 2023-12-10 17:52 | XMS_ITS ---
Author Organization [facility] in [place] Address [address] [place] [address] Care Team Providers Care Polisher Brass Name Role Phone Hunter Chowdary Primary Care Provider REASON FOR VISIT Lab Results Encounters Encounter Location Date Provider Diagnosis [facility] [address] [place] [address] 12/10/2023 Hunter Chowdary Plan Of Treatment No Information Progress Notes * Kd CALDERÓN ADOB:1950 ( 73 yo M)Acc No.[id number]:12/10/2023 Patient: Kasi RAMIREZ Kd Washburn :1950 A ge:73 Y S ex:Male Address:[address] [place] [address], [id number] * true * Date: Generated for Hortensiai ng/Fahailyg/eTransmitting on: 0 09/23/2024 06:45 PM EDT
--- OUTSIDE RECORDS SUMMARY | 2024-05-16 04:23 | XMS_ITS ---
Author Organization [facility] in [place] Address [address] [place] [address] Care Team Providers Care Icicle Machine Operator Name Role Phone DiegoHunter montoya Primary Care Provider Medications Medication SIG (Take, Route, Frequency, Duration) Notes Start Date End Date Status Vitamin D 50 MCG (1999) 1 tablet Oral ly Once a day for 90 days Active Carvedilol 25 mg TAKE 1 TABLET BY STEVE TH TWICE DAILY WITH FOOD for 90 Active Pantoprazole Sodium 40 MG TAKE 1 TABLET BY MOUTH ONCE DAILY for 90 days Active Eliquis 5 MG 1 tablet Orally Twic e a day for 90 days Active Encounters Encounter Location Date Provider Diagnosis [address] [address] 05/16/2024 Hunter Chowdary Plan Of Treatment Medication Medication Name Sig Start Date Stop Date Notes Vitamin D 50 MCG (1999) 1 tablet Oral ly Once a day for 90 days Carvedilol 25 mg TAKE 1 TABLET BY STEVE TH TWICE DAILY WITH FOOD for 90 Pantoprazole Sodium 40 MG TAKE 1 TABLET BY MOUTH ONCE DAILY for 90 days Eliquis 5 MG 1 tablet Orally Twic e a day for 90 days Progress Notes * Kd CALDERÓN ADOB:1950 ( 73 yo M)Acc No.[id number]:05/16/2024 Patient: Kd ARBOLEDA Maddison :1950 A ge:73 Y S ex:Male Address:[address] [place] [address] , [place], [address] * Refills Refill Eliquis Tablet, 5 MG, 180 Tablet, 1 tablet Orally Twice a day, 90 days, Refills=3 Refill Pantoprazole Sodium Tablet Delayed Release, 40 MG, 90 Tablet, TAKE 1 TABLET BY MOUTH ONCE DAILY, 90 days, Refills=3 Refill Carvedilol Tablet, 25 mg, 180 Tablet, TAKE 1 TABLET BY MOUTH TWICE DAILY WITH FOOD, 90, Refills=3 Refill Vitamin D Tablet, 50 MCG (1999 [place]), Orally, 90 Tablet, 1 tablet, Once a day, 90 days, Refills=3 * true * Date: Generated for Kevin howell/Erwin/Venancioitting on: 0 09/23/2024 06:45 PM EDT
[2024-09-23] VITALS (16 sets, daily range): BP systolic 77–124; BP diastolic 55–71; PULSE 71–175; TEMP 36.8–37; O2SAT 95–97
--- OUTSIDE RECORDS SUMMARY | 2024-09-23 18:46 | XMS_ITS | Clinical Summary ---
Author Organization [facility] Healthcare Address [address] [place] [address] Care Team Providers Care Dining Host Name Role Phone Unavailable Primary Care Provider Unavailabl e Allergies No known active allergies Medications carvedilol (Coreg) 25 MG tablet Take 25 mg by mouth in the morning and 25 mg in the evening. Take with meals. Active pantoprazole (ProtoNix) 40 MG EC tablet Take 40 mg by mouth in the morning. 01/23/2023 Active Eliquis 5 MG tablet Take 5 mg by mouth in the morning and 5 mg before bedtime. Active Active Problems Problem Noted Date Diagnosed Date Daytime hypersomnolence 12/21/2023 Snoring 12/21/2023 ABDULLAHI (obstructive sleep apnea) 12/20/2023 Hypersomnia 12/20/2023 Hypertension 12/20/2023 Social History Tobacco Use Types Packs/Day Years Used Date Smoking Tobacco: Never Smokeless Tobacco: Never Tobacco Cessation:Counseling Given: Not Answered Alcohol Use Standard Drinks/Week Comments Never 0 (1 standard drink = 0.6 oz pur e alcohol) caffeine 1-2 cups per day Sex and Gender Information Value Date Recorded Sex Assigned at Not on file Legal Sex Male 6:45 PM EDT Gender Identity Not on file Sexual Orientation Not on file Last Filed Vital Signs Vital Sign Reading Time Taken Comments Blood Pressure 140/78 12/21/2023 1:30 PM EDT Pulse 75 12/21/2023 1:30 PM EDT Temperature - - Respiratory Rate - - Oxygen Saturation 95% 12/21/2023 1:30 PM EDT Inhaled Oxygen Concentration - - Weight 98.9 kg (218 lb) 12/21/2023 1:30 PM EDT Height 175.3 cm (5' 9 ) 12/21/2023 1:30 PM EDT Body Mass Index 32.19 12/21/2023 1:30 PM EDT Plan of Treatment Health Maintenance Due Date Last Done Comments CT Colonography 1950 Colonoscopy 1950 Colorectal Cancer Screening 1950 FIT-DNA 1950 FIT 1950 FOBT 1950 Sigmoidoscopy 1950 Influenza Vaccine (Season Ended) 2024 12/28/2022, 01/13/2022, 01/09/2021, Additional history exists Pneumococcal Vaccine: 65+ Years Completed 09/24/2019, 12/20/2018, 02/23/2018 Insurance [facility] [address] HEALTH
--- OUTSIDE RECORDS SUMMARY | 2024-09-23 18:46 | XMS_ITS | Clinical Summary ---
Author Organization [facility] Address [address] [place], [place] [id number] Care Team Providers Care Electrical Prospecting Observer Name Role Phone Maico Chowdary MD Primary Care Provider [phone] Allergies No known active allergies Social History Tobacco Use Types Packs/Day Years Used Date Smoking Tobacco: Never Assessed Sex and Gender Information Value Date Recorded Sex Assigned at Not on file Legal Sex Male 3:30 PM EDT Gender Identity Not on file Sexual Orientation Not on file Last Filed Vital Signs Vital Sign Reading Time Taken Comments Blood Pressure 151/82 08/21/2023 12:56 PM EDT Pulse 76 08/21/2023 12:56 PM EDT Temperature - - Respiratory Rate - - Oxygen Saturation - - Inhaled Oxygen Concentration - - Weight 97.5 kg (215 lb) 08/21/2023 12:56 PM EDT Height 175.3 cm (5' 9 ) 08/21/2023 12:56 PM EDT Body Mass Index 31.75 08/21/2023 12:56 PM EDT Plan of Treatment Health Maintenance Due Date Last Done Comments Anxiety Screening 1970 Depression Screening 1970 Hepatitis C Screening 1970 Lipid Screening 11/30/1987 CT Colonography 1997 Cologuard (FIT-DNA) 1997 Colonoscopy 1997 Colorectal Cancer Screening 1997 Diabetes Screening 1997 Fecal Occult Blood 1997 Sigmoidoscopy 1997 Shingrix Vaccine (2 of 3) 04/10/2015 02/13/2015 Covid-19 Vaccine ( - 2023-2 5 season) 2023 01/13/2022, 01/15/2021, 07/02/2020, Additional history exists Advance Directive Discussion 04/17/2024 Influenza Vaccine (Season Ended) 2024 12/28/2022, 01/13/2022, 01/09/2021, Additional history exists RSV Vaccine (1 - 1-dose 75+ series) 11/30/2027 DTaP,Tdap,Td Vaccine (2 - Td or Tdap) 09/02/2032 09/02/2022 Pneumococcal Vaccine: 50+ Completed 2019, 12/20/2018, 02/23/2018 Insurance [employer] H[employer] Care Teams Electrical Prospecting Observer Relationship Specialty Start Date End Date Maico Chowdary MD PCP - General Family Medicine 08/21/14
--- OUTSIDE RECORDS SUMMARY | 2024-09-23 18:46 | XMS_ITS | Clinical Summary ---
Author Organization [facility] Address [address] [place] [address] Care Team Providers Care Toolroom Keeper Name Role Phone aMico Chowdary MD Primary Care Provider [phone] Allergies No known active allergies Medications Medication Sig Dispensed Refills Start Date End Date Status Eliquis 5 mg tablet Take 5 mg by mouth two times daily. 01/26/2023 Active carvedilol (Coreg) 25 mg tablet Take 25 mg by mouth with breakfast and with evening meal. 12/26/2022 Active pantoprazole (ProtoNix) 40 mg EC tablet Take 40 mg by mouth in the morning. 01/23/2023 Active calcium citrate-vitamin D2 250 mg-2.5 mcg (100 unit) tablet Take 1 tablet by mouth once daily as directed. Active rivaroxaban (Xarelto) 20 mg tabletIndications:PA F (paroxysmal atrial fibrillation) (CMS/HCC) Take 1 tablet (20 mg) by mouth daily with evening meal. Take with food. 90 tablet 3 05/14/2024 Active Active Problems Problem Noted Date Diagnosed Date Daytime hypersomnolence 12/21/2023 Snoring 12/21/2023 Hypersomnia 12/20/2023 Chest pain 04/25/2023 Paroxysmal atrial fibrillation 02/17/2023 Hypertension ABDULLAHI (obstructive sleep apnea) Hyperlipidemia Syncope and collapse Encounters Date Type Department Care Team Description 09/01/2024 Orders Only [facility] [address] [place] [id number] Pj Bhakta MD 08/22/2024 8:35 AM EDT Ancillary Procedure [facility] [address] [place] [id number] Awareness of heartbeats 07/31/2024 2:00 PM EDT Office Visit [facility] [address] [place] [address] Lino Fernandes CNP Paroxysmal atrial fibrillation (CMS/HCC) (Primary Dx); NSVT (nonsustained ventricular tachycardia) (CMS/HCC); Status post placement of implantable loop recorder; Primary hypertension; Mixed hyperlipidemia 07/09/2024 12:25 PM EDT Ancillary Procedure [facility] [address] [place] [address] Awareness of heartbeats from Last 3 Months Immunizations Name Administration Dates Next Due Influenza, High-dose Seasona l, Quadrivalent, Preservative Free 01/13/2022 Influenza, Seasonal, Quadriv alent, Adjuvanted 12/28/2022,01/13/2020 Influenza, Unspecified 01/09/2021 Influenza, injectable, quadr ivalent, preservative free 12/14/2020,12/01/2017,02/14/2017 Influenza, seasonal, injecta ble, preservative free, 6 moonths & older 01/27/2015 Influenza, trivalent, adjuvanted 12/20/2018 Pneumococcal Conjugate PCV 13 12/20/2018, 018 Pneumococcal Polysaccharide PPV23 09/24/2019 Tdap 09/02/2022 Zoster, live 02/13/2015 Family History Medical History Relation Name Comments Heart disease Father Relation Name Status Comments Father Mother Social History Tobacco Use Types Packs/Day Years Used Date Smoking Tobacco: Never Smokeless Tobacco: Current Chew Tobacco Cessation:Ready to Q uit: Not Asked; Counseling Given: Not Answered Comments:chew Alcohol Use Standard Drinks/Week Comments Yes 0 (1 standard drink = 0.6 oz pur e alcohol) occasional [place] Safety & Environment Answer Date Rec orded Fear of Current or Ex-Partner Not on file Emotionally Abused Not on file 06/08/2023 Physically Abused Not on file 06/08/2023 Sexually Abused Not on file 06/08/2023 Physically or Sexually Abused Not on file Sex and Gender Information Value Date Recorded Sex Assigned at Male 03/07/2024 6:58 AM EST Gender Identity Male 03/07/2024 6:58 AM EST Sexual Orientation Heterosexual or Straight 02/16 6:58 AM EST Last Filed Vital Signs Vital Sign Reading Time Taken Comments Blood Pressure 139/80 07/31/2024 1:49 PM EDT Pulse 79 07/31/2024 1:49 PM EDT Temperature - - Respiratory Rate 20 03/07/2024 8:52 AM EST Oxygen Saturation 96% 07/31/2024 1:49 PM EDT Inhaled Oxygen Concentration - - Weight 99.8 kg (220 lb) 02/06/2024 3:48 PM EDT Height 177.8 cm (5' 10 ) 07/31/2024 1:49 PM EDT Body Mass Index 31.57 02/06/2024 3:48 PM EDT Plan of Treatment Upcoming Encounters Date Type Department Care Team (Late st Contact Info) Description 09/24/2024 9:30 AM EDT Office Visit [facility] [address] [place] [address] Pj Bhakta MD [address] [place] [address] Health Maintenance Due Date Last Done Comments CT Colonography 1950 Colonoscopy 1952 Colorectal Cancer Screening 1952 FIT-DNA 1952 FIT 1952 FOBT 1950 Medicare Annual Wellness (AWV) 1950 Sigmoidoscopy 1952 Depression Screening 1964 Zoster Vaccines (1 of 2) 2002 02/13/2015 Fall Risk Screening 2017 COVID-19 Vaccine ( season) 2023 01/13/2022, 01/15/2021, 07/02/2020, Additional history exists Adult Tetanus 09/02/2032 09/02/2022 Pneumococcal Vaccine: 65+ Years Completed 09/24/2019, 12/20/2018, 02/23/2018 Influenza Vaccine Completed 02/02/2024, , 01/13/2022, Additional history exists HIB Vaccines Aged Out No longer eligi ble based on patient's age to complete this topic HPV Vaccines Aged Out No longer eligi ble based on patient's age to complete this topic IPV Vaccines Aged Out No longer eligi ble based on patient's age to complete this topic Meningococcal B Vaccine Aged Out No l onger eligible based on patient's age to complete this topic Meningococcal Vaccine Aged Out No danna xavier eligible based on patient's age to complete this topic Rotavirus Vaccines Aged Out No longer eligible based on patient's age to complete this topic Medical Devices Implanted Type Area Machine Rigger Device Identifier Shelf Expiration Date Model / Serial / Lot Monitor,Omar Hall,[employer]+[facility] - [id number] - [id number] Implanted:Qty: 1 on 03/07/2024 by Pj Bhakta MD at [facility] Implantable Loop Recorder [employer] 03/27/2025 [id number] / Procedures Procedure Name Priority Date/Time Associated Diagnosis Comments CARDIAC DEVICE CHECK CHECK - REMOTE Routine 09/02/2024 9:38 AM EDT Awareness of heartbeats CARDIAC DEVICE CHECK - REMOTE ALERT - LOOP RECORDER (ILR) Routine 09/01/2024 12:00 AM EDT CARDIAC DEVICE CHECK - REMOTE - LOOP RECORDER (ILR) Routine 07/17/2024 11:28 AM EDT Awareness of heartbeats from Last 3 Months Results * CARDIAC DEVICE CHECK - REMOTE ALERT - LOOP RECORDER (ILR) (09/02/2024 9:38 AM EDT) Only the most recent of2 resultswithin the time period is included. Pj Bhakta MD CV IMPLANTABLE CARDI AC DEVICE PROCEDURES CPACS * Cardiac device check - Remote alert loop recorder (ILR) (09/01/2024 12:00 AM EDT) Anatomical Region Laterality Modality Other 09/01/2024 Pj Bhakta MD CV IMPLANTABLE CARDI AC DEVICE PROCEDURES from Last 3 Months Care Teams Toolroom Keeper Relationship Specialty Start Date End Date Maico Chowdary MD [address] [facility] [place] [address] PCP - General 02/16/23
--- OUTSIDE RECORDS SUMMARY | 2024-09-23 18:46 | XMS_ITS | Patient Health Record ---
Author Organization [facility] in [place] Address [address] [place] [address] Care Team Providers Care Dehydrator Operator Name Role Phone Hunter Chowdary Primary Care Provider [phone] Allergies No Known Allergies Results Component Value Reference Range Notes FREE T3 Reviewed date:12/10/2023 09:52:47 PM Interpretation: Performing Lab: Notes/Report: [facility] , Free T3 2.70 2.18-3.98 pg/mL Performing Lab: see note ML - [facility] LB LIPID PROFILE Reviewed date:12/10/2023 09:52:47 PM Interpretation: Performing Lab: Notes/Report: [facility] , Triglycerides 194 <=150 mg/dL Cholesterol 194 <=200 mg/dL HDL Cholesterol 43 40-60 mg/dL <40 mg/dl - HIGH CARDIOVASCULAR RISK > or =60 mg/dl - LOW CARDIOVASCULAR RISK LDL Cholesterol Calculated 113.0 <100 mg/dl OPTIMAL 130-159 mg/dl BORDERLINE HIGH 100-129 mg/dl NEAR OR ABOVE OPTIMAL >190 mg/dl VERY HIGH 160-189 mg/dl HIGH VLDL CHOLESTEROL 38.8 Chol HDL Ratio 4.5 >11.0 HIGH RISK 3.3 - 4.4 LOW RISK 7.1 - 11.0 MODERATE RISK 4.4 - 7.1 AVERAGE RISK Performing Lab: see note ML - [facility] LB PROF 14(COMP METB) Reviewed date:12/10/2023 09:52:47 PM Interpretation: Performing Lab: Notes/Report: [facility] , Sodium 140 136-145 mmol/L Potassium 4.6 3.5-5.1 mmol/L Chloride 103 98-107 mmol/L Carbon Dioxide 27.9 21.0-32.0 mmol/L Anion Gap 13.7 Glucose 95 74-106 mg/dL Blood Urea Nitrogen 18.0 7.0-18.0 mg/dL Creatinine 1.48 0.70-1.30 mg/dL Estimated GFR ( Chio 57 >=60 Estimated GFR (Non- Sherie 47 >=60 BUN Creatinine Ratio 12.2 Calcium 9.3 8.5-10.1 mg/dL Bilirubin Total 0.6 0.2-1.0 mg/dL Aspartate Amino Transferase 18 15-37 U/L Alanine Aminotransferase 33 16-63 U/L Alkaline Phosphatase 48 46-116 U/L Total Protein 7.7 6.4-8.2 g/dL Albumin Level 3.9 3.4-5.0 g/dL Globulin 3.8 Albumin Globulin Ratio 1.0 Performing Lab: see note ML - [facility] LB T4 Reviewed date:12/10/2023 09:52:47 PM Interpretation: Performing Lab: Notes/Report: [facility] , T4 Thyroxine 5.20 4.50-12.10 ug/dL Performing Lab: see note ML - [facility] LB TSH Reviewed date:12/10/2023 09:52:47 PM Interpretation: Performing Lab: Notes/Report: [facility] , Thyroid Stimulating Hormone 1.834 0.358-3.740 uIU/mL Performing Lab: see note - [facility] LB CBC AUTO DIFF Reviewed date:09/01/2024 10:10:15 PM Interpretation: Performing Lab: Notes/Report: [facility] , White Blood Count 9.7 4.0-11.0 10 3/uL Red Blood Count 4.77 4.70-6.10 10 6/uL Hemoglobin 13.2 14.0-18.0 g/dL Hematocrit 40.5 42.0-54.0 % Mean Corpuscular Volume 84.9 80.0-94.0 fL Mean Corpuscular Hemoglobin 27.7 25.9-34.0 pg Mean Corpuscular HGB Conc 32.6 29.9-35.2 g/dL Red Cell Distribution Width 14.1 11.0-15.0 % Platelet Count 336 150-450 10 3/uL Mean Platelet Volume 10.0 9.5-13.5 fL Neutrophils Percent Auto 57.9 43.0-75.0 % Lymphocytes Percent Auto 32.5 20.5-60.0 % Monocytes Percent Auto 7.4 1.7-12.0 % Eosinophils Percent Auto 1.3 0.9-7.0 % Basophils Percent Auto 0.7 0.2-2.0 % Immature Granulocytes Pct Auto 0.2 0.0-0.5 % Neutrophils Absolute Auto 5.6 1.4-6.5 10 3/uL Lymphocytes Absolute Auto 3.2 1.2-3.8 10 3/uL Monocytes Absolute Auto 0.7 0.3-0.8 10 3/uL Eosinophils Absolute Auto 0.1 0.0-0.7 10 3/uL Basophils Absolute Auto 0.1 0.0-0.1 10 3/uL Immature Granulocytes Abs Auto 0.02 0.00-0.03 10 3/uL Performing Lab: see note ML - [facility] LB MAGNESIUM Reviewed date:09/01/2024 10:10:15 PM Interpretation: Performing Lab: Notes/Report: [facility] , Magnesium 2.0 1.8-2.4 mg/dL Performing Lab: see note ML - [facility] LB PROF 14(COMP METB) Reviewed date:09/01/2024 10:10:15 PM Interpretation: Performing Lab: Notes/Report: [facility] , Sodium 138 136-145 mmol/L Potassium 4.6 3.5-5.1 mmol/L Chloride 106 98-107 mmol/L Carbon Dioxide 24.8 21.0-32.0 mmol/L Anion Gap 11.8 Glucose 152 74-106 mg/dL Blood Urea Nitrogen 20.0 7.0-18.0 mg/dL Creatinine 1.56 0.70-1.30 mg/dL Estimated GFR ( Chio 53 >=60 mL/min/1.73m 2 Estimated GFR (Non- Sherie 44 >=60 mL/min/1.73m 2 BUN Creatinine Ratio 12.8 Calcium 9.1 8.5-10.1 mg/dL Bilirubin Total 0.4 0.2-1.0 mg/dL Aspartate Amino Transferase 13 15-37 U/L Alanine Aminotransferase 15 16-63 U/L Alkaline Phosphatase 58 46-116 U/L Total Protein 7.5 6.4-8.2 g/dL Albumin Level 3.4 3.4-5.0 g/dL Globulin 4.1 Albumin Globulin Ratio 0.8 Performing Lab: see note - [facility] LB Troponin I High Sensitivity Reviewed date:09/01/2024 10:10:15 PM Interpretation: Performing Lab: Notes/Report: [facility] , Troponin I High Sensitivity 8.0 4.0-76.1 pg/mL UNIVERSAL DEFINITION OF MYOCARDIAL INFARCTION. THE UPPER CUT-OFF POINTS HAVE BEEN ESTABLISHED BASED ON THE FOURTH WITH OTHER DIAGNOSTIC AND CLINICAL INFORMATION. HAS BEEN CONFIRMED THE DECISION THRESHOLD FOR [place] PERCENTILE OF cTnI DISTRIBUTION IN A REFERENCE POPULATION, DIAGNOSIS. 99TH PERCENTILE = 76.2 PG/ML USED IN ISOLATION BUT SHOULD BE INTERPRETED IN CONJUNCTION REFERENCE LIMIT (URL) OF TROPONIN, DEFINED THE 99TH NOTE: HIGH-SENSITIVITY TROPONIN ASSAY IS NOT INTENDED TO BE Performing Lab: see note - [facility] LB ECG 12 lead Reviewed date:09/01/2024 10:10:15 PM Interpretation: Performing Lab: Notes/Report: Source Facility: [facility] [address] [place] [address] Electrocardiograph Report Signed Patient: KD CALDERÓN MR#: [id number] : 1950 Acct:[id number] Age/Sex: 73 / M ADM Date: 08/31/24 Loc: ER Attending Dr: Ordering Physician: Liana Amor Date of Service: 08/31/24 Procedure(s): ECG 12 lead Accession Number(s): [id number] cc: [facility] Test Date: 2024-08-31 Pat Name: KD CALDERÓN Department: Room: - Gender: Male Turn Down Man: : 1950 Requested By: 1854 Order Number: [id number] Reading MD: KEMAL BLAIR M.D. Measurements Intervals [place] Rate: 170 P: -43408 MA: -63283 QRS: 33 QRSD: 86 T: 259 QT: 254 QTc: 346 Interpretive Statements Likely atrial flutter [address] depression 4664 Twave abnormality, possible inferior ischemia 9150 abnormal ECG Compared to ECG 10/28/2022 17:03:31 ST (T wave) deviation now present Possible ischemia now present Sinus rhythm no longer present Electronically Signed On 08-31-2024 18:09:43 EDT by KEMAL BLAIR M.D. Dictated By: KEMAL BLAIR Signed By: 08/31/241808 DD/ 1240 TD/TT: [place]: [place] [address] Electrocardiograph Report Signed Patient: KD CALDERÓN MR#: [id number] : 1950 Acct:[id number] Age/Sex: 73 / M ADM Date: 08/31/24 Loc: ER Attending Dr: Ordering Physician: Liana Amor Date of Service: 08/31/24 Procedure(s): ECG 12 lead Accession Number(s): [id number] cc: [facility] Test Date: 2024-08-31 Pat Name: KD CALDERÓN Department: 21 Room: - Gender: Male Turn Down Man: : 1950 Requ ested By: 1854 Order Number: [id number] Reading MD: KEMAL BLAIR M.D. Measurements Intervals [place] Rate: 170 P: -48599 MA: -25748 QRS: 33 QRSD: 86 T: 259 QT: 254 QTc: 346 Interpretive Statements Likely atrial flutter [address] depression 4664 Twave abnormali ty, possible inferior ischemia 9150 abnormal ECG Compared to ECG 10/28/2022 17:03:31 ST (T wave) deviatio n now present Possible ischemia no w present Sinus rhythm no long er present Electronically [place] d On 08-31-2024 18:09:43 EDT by KEMAL BLAIR M.D. Dictated By: KEMAL BLAIR Signed By: 08/31/241808 DD/ 1240 TD/TT: [place]: ECG 12 lead Reviewed date:09/01/2024 10:10:15 PM Interpretation: Performing Lab: Notes/Report: Source Facility: [facility] [address] [place] [address] Electrocardiograph Report Signed Patient: KD CALDERÓN MR#: [id number] : 1950 Acct:[id number] Age/Sex: 73 / M ADM Date: 08/31/24 Loc: ER Attending Dr: Ordering Physician: Liana Amor Date of Service: 08/31/24 Procedure(s): ECG 12 lead Accession Number(s): [id number] cc: [facility] Test Date: 2024-08-31 Pat Name: KD CALDERÓN Department: Room: - Gender: Male Turn Down Man: : 1950 Requested By: 1854 Order Number: [id number] Reading MD: KEMAL BLAIR M.D. Measurements Intervals [place] Rate: 84 P: -30 MA: 178 QRS: 40 QRSD: 80 T: 22 QT: 330 QTc: 371 Interpretive Statements 1100 Sinus rhythm 9110 normal ECG Compared to ECG 08/31/2024 12:40:14 Sinus rhythm has replaced atrial flutter ST (T wave) deviation no longer present Possible ischemia no longer present Electronically Signed On 08-31-2024 18:12:06 EDT by KEMAL BLAIR M.D. Dictated By: KEMAL BLAIR Signed By: 08/31/24 181 DD/ 1252 TD/TT: [place]: [place] [address] Electrocardiograph Report Signed Patient: KD CALDERÓN MR#: [id number] : 1950 Acct:[id number] Age/Sex: 73 / M ADM Date: 08/31/24 Loc: ER Attending Dr: Ordering Physician: Liana Amor Date of Service: 08/31/24 Procedure(s): ECG 12 lead Accession Number(s): [id number] cc: [facility] Test Date: 2024-08-31 Pat Name: KD CALDERÓN Department: 21 Room: - Gender: Male Turn Down Man: : 1950 Requ ested By: 1854 Order Number: [id number] Reading MD: KEMAL BLAIR M.D. Measurements Intervals [place] Rate: 84 P: -30 MA: 178 QRS: 40 QRSD: 80 T: 22 QT: 330 QTc: 371 Interpretive Statements 1100 Sinus rhythm 9110 normal ECG Compared to ECG 08/31/2024 12:40:14 Sinus rhythm has rep laced atrial flutter ST (T wave) deviatio n no longer present Possible ischemia no longer present Electronically [place] d On 08-31-2024 18:12:06 EDT by KEMAL BLAIR M.D. Dictated By: KEMAL BLAIR Signed By: 08/31/24 1812 DD/ 1252 TD/TT: [place]: Troponin I High Sensitivity Reviewed date:09/01/2024 10:10:15 PM Interpretation: Performing Lab: Notes/Report: [facility] , Troponin I High Sensitivity 12.6 4.0-76.1 pg/mL NOTE: HIGH-SENSITIVITY TROPONIN ASSAY IS NOT INTENDED TO BE DIAGNOSIS. CUT-OFF POINTS HAVE BEEN ESTABLISHED BASED ON THE FOURTH 99TH PERCENTILE = 76.2 PG/ML UNIVERSAL DEFINITION OF MYOCARDIAL INFARCTION. THE UPPER REFERENCE LIMIT (URL) OF TROPONIN, DEFINED THE 99TH PERCENTILE OF cTnI DISTRIBUTION IN A REFERENCE POPULATION, WITH OTHER DIAGNOSTIC AND CLINICAL INFORMATION. USED IN ISOLATION BUT SHOULD BE INTERPRETED IN CONJUNCTION HAS BEEN CONFIRMED THE DECISION THRESHOLD FOR [place] Performing Lab: see note ML - [facility] PSA SCREENING Reviewed date:12/10/2023 09:52:47 PM Interpretation: Performing Lab: Notes/Report: [facility] , Prostate Specific Antigen Scrn 1.85 <=4.00 ng/mL Performing Lab: see note ML - [facility] GLYCOHEMOGLOBIN A1C Reviewed date:12/10/2023 09:52:47 PM Interpretation: Performing Lab: Notes/Report: [facility] , Glycohemoglobin A1C 5.4 4.5-6.2 % ADA THERAPEUTIC TARGET < 7.0 > 7.0 ADA RECOMMENDED LIMIT 4.0 - 6.0 ACTION SUGGESTED Estimated Average Glucose 108 Performing Lab: see note ML - [facility] CBC AUTO DIFF Reviewed date:12/10/2023 09:52:47 PM Interpretation: Performing Lab: Notes/Report: [facility] , White Blood Count 7.5 4.0-11.0 10 3/uL Red Blood Count 4.93 4.70-6.10 10 6/uL Hemoglobin 13.8 14.0-18.0 g/dL Hematocrit 42.6 42.0-54.0 % Mean Corpuscular Volume 86.4 80.0-94.0 fL Mean Corpuscular Hemoglobin 28.0 25.9-34.0 pg Mean Corpuscular HGB Conc 32.4 29.9-35.2 g/dL Red Cell Distribution Width 13.9 11.0-15.0 % Platelet Count 270 150-450 10 3/uL Mean Platelet Volume 10.0 9.5-13.5 fL Neutrophils Percent Auto 55.6 43.0-75.0 % Lymphocytes Percent Auto 33.9 20.5-60.0 % Monocytes Percent Auto 7.9 1.7-12.0 % Eosinophils Percent Auto 2.0 0.9-7.0 % Basophils Percent Auto 0.5 0.2-2.0 % Immature Granulocytes Pct Auto 0.1 0.0-0.5 % Neutrophils Absolute Auto 4.2 1.4-6.5 10 3/uL Lymphocytes Absolute Auto 2.5 1.2-3.8 10 3/uL Monocytes Absolute Auto 0.6 0.3-0.8 10 3/uL Eosinophils Absolute Auto 0.2 0.0-0.7 10 3/uL Basophils Absolute Auto 0.0 0.0-0.1 10 3/uL Immature Granulocytes Abs Auto 0.01 0.00-0.03 10 3/uL Performing Lab: see note ML - [facility] Reason For Referral No Information Medications Medication SIG (Take, Route, Frequency, Duration) Notes Start Date End Date Status Vitamin D 50 MCG (1999) 1 tablet Oral ly Once a day for 90 days Active Carvedilol 25 mg TAKE 1 TABLET BY STEVE TWICE DAILY WITH FOOD for 90 Active Pantoprazole Sodium 40 MG TAKE 1 TABLET BY MOUTH ONCE DAILY for 90 days Active Eliquis 5 MG 1 tablet Orally Twic e a day for 90 days Active Social History Tobacco Use: Social History Observation Description Date Details (start date - stop date) Unknown Tobacco Use/Smoking Question Answer Notes Patient is a Uses tobacco in other forms Additional Findings: Tobacco User Chews tobacco Alcohol Screen (Audit-C) Question Answer Notes Did you have a drink contain ing alcohol in the past year? Yes How often did you have 6 or more drinks on one occasion in the past year? Never (0 point) How many drinks did you have on a typical day when you were drinking in the past year? 3 or 4 drinks (1 point) How often did you have a dri nk containing alcohol in the past year? Weekly (3 points) Points 4 Interpretation Positive AUDIT-C (Standard) Question Answer Notes Did you have a drink containing alcohol in the p ast year? No Points 0 Interpretation Negative Problems Problem Type SNOMED Code ICD Code Onset Dates Problem Status W/U Status Risk Notes Problem Syncope and collapse (317617556) Syncope and collapse (R55) Active confirmed Problem Pain in limb (63357950) Pain in leg, unspecified (M79.606) Active confirmed Problem Sprain of knee (disorder) (05107250) Sprain of other specified parts of unspecified knee, initial encounter (S83.8X9A) Active confirmed Problem Chest pain (75653302) Chest pain (R07.9) Active confirmed Problem Fatigue (40581457) Fatigue (R53.83) Active conf irmed Problem Atrial fibrillation (33955637) Atrial fibrillation (I48.91) Active confirmed Problem Hypertension (40355807) Hypertension (I10) Active confirmed Problem Bradycardia (31285453) Bradycardia (R00.1) Active confirmed Problem Hypertriglyceridemia (649824296) Hypertriglyceridemia (E78.1) Active confirmed Problem Sinusitis (57996371) Sinusitis (J32.9) Active c onfirmed Problem Impacted cerumen (89248113) Cerumen impaction (H61.20) Active confirmed Problem Well adult (444311319) Well adult (Z00.00) Active confirmed Problem Diverticulitis (47554494) Diverticulitis (K57.92) Active confirmed Problem Right upper quadrant pain (683363605) Abdominal pain, RUQ (R10.11) Active confirmed Problem Gastro-esophageal reflux disease (056698614) Gastro-esophageal reflux disease (K21.9) Active confirmed Problem Shoulder impingement syndrome (397995737) Shoulder impingement syndrome (M75.40) Active confirmed Problem Obstructive sleep apnea syndrome (21973456) Obstructive sleep apnea syndrome, severe (G47.33) Active confirmed Vital Signs Blood pressure diastolic 94 mm Hg 12/08/2023 Height 69 in 12/08/2023 Blood pressure systolic 164 mm Hg 12/08/2023 Weight 214.2 lbs 12/08/2023 BMI 31.63 kg/m2 12/08/2023 Encounters Encounter Location Date Provider Diagnosis [facility] [address] [place] [address] 05/16/2024 [facility] [address] [place] [address] 11/27/2023 [facility] [address] [place] [address] 12/10/2023 [facility] [address] [place] [address] 12/08/2023 Hunter Chowdary Hypertension I10 ; Hypertriglyceridemia [...] sounds liek sinus sinus Plan Of Treatment Pending Test Test Name Order Date CMP (COMPLETE METABOLIC PANEL) 3 CMP (COMPLETE METABOLIC PANEL) 4 HEMOGLOBIN A1C (GLYCO) 08/30/2022 HEMOGLOBIN A1C (GLYCO) 12/08/2023 LIPID PANEL (CHOL/TRIG/HDL/LDL) 08/31/19 LIPID PANEL (CHOL/TRIG/HDL/LDL) 12/08/19 24 CBC WITH DIFF 12/08/2023 CBC WITH DIFF 08/30/2022 PSA, PROSTATE-SPECIFIC ANTIGEN 3 URIC ACID 08/30/2022 PSA, TOTAL 12/08/2023 STOOL OCCULT BLOOD 12/08/2023 THYROID PANEL (T4/TSH/FREE T3) 4 THYROID PANEL (T4/TSH/FREE T3) 3 ECHOCARDIO M/2D COMPLETE 10/31/2022 Insurance Providers Payer Name Payer Address Payer Phone Subscriber Number Group Number Insured Name Patient Relationship to Insured Coverage Start Date Coverage End Date [employer] ADV PLAN [address] [place] [address] [id number] [facility] Self - patient is the insured 3 Medical (General) History Medical History History ICD Code Gastro-esophageal reflux disease K21.9 Cerumen impaction H61.20 Syncope and collapse R55 Fatigue R53.83 Pain in leg, unspecified M79.606 Abdominal pain, RUQ R10.11 Obstructive sleep apnea syndrome, severe G47.33 Diverticulitis K57.92 Shoulder impingement syndrome M75.40 Chest pain R07.9 Sinusitis J32.9 Hypertension I10 Sprain of other specified parts of unspe cified knee, initial encounter S83.8X9A Hypertriglyceridemia E78.1 Well adult Z00.00 Surgical History Surgery Date(Month/Year) Coronary Angiography 05/03/2023 Appendix 1998
--- NOTE | 2024-09-23 18:55 | ECG_ITS ---
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 Measurements Intervals [place] Rate: 176 P: -59482 MT: -30759 QRS: 33 QRSD: 90 T: 178 QT: 260 QTc: 354 Interpretive Statements Supraventricular tachycardia [address] depression 4664 Twave abnormality, possible inferior ischemia 9150 abnormal ECG Compared to ECG 08/31/2024 12:52:42 ST (T wave) deviation now present Possible ischemia now present Sinus rhythm no longer present Electronically Signed On 09-23-2024 21:57:46 EDT by KEMAL BLAIR M.D.
[2024-09-23] MEDS: 0.9 % SODIUM CHLORIDE 1,000 ML 1000 ML IV (19:00)
[2024-09-23] MEDS: DILTIAZEM HCL 25 MG/5 ML VIAL 20 MG IV (19:05)
--- NOTE | 2024-09-23 19:06 | ECG_ITS ---
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 Measurements Intervals [place] Rate: 87 P: -6 UT: 168 QRS: 33 QRSD: 84 T: 32 QT: 334 QTc: 379 Interpretive Statements 1100 Sinus rhythm 9110 normal ECG Compared to ECG 09/23/2024 18:47:41 Supraventricular tachycardia no longer present ST (T wave) deviation no longer present Electronically Signed On 09-23-2024 21:58:45 EDT by KEMAL BLAIR M.D.
[2024-09-23 19:12] LABS: Basophils Absolute Auto 0.1 10^3/uL (0.0-0.1); Basophils Percent Auto 0.5 % (0.2-2.0); Eosinophils Absolute Auto 0.1 10^3/uL (0.0-0.7); Eosinophils Percent Auto 0.9 % (0.9-7.0); Hemoglobin 12.8 g/dL (14.0-18.0); Immature Granulocytes Abs Auto 0.02 10^3/uL (0.00-0.03); Immature Granulocytes Pct Auto 0.2 % (0.0-0.5); Lymphocytes Absolute Auto 4.4 10^3/uL (1.2-3.8); Lymphocytes Percent Auto 37.6 % (20.5-60.0); Mean Corpuscular HGB Conc 33.7 g/dL (29.9-35.2); Mean Corpuscular Hemoglobin 27.6 pg (25.9-34.0); Mean Corpuscular Volume 81.9 fL (80.0-94.0); Mean Platelet Volume 9.9 fL (9.5-13.5); Monocytes Percent Auto 8.8 % (1.7-12.0); Platelet Count 390 10^3/uL (150-450); Red Blood Count 4.64 10^6/uL (4.70-6.10); Red Cell Distribution Width 13.5 % (11.0-15.0); White Blood Count 11.6 10^3/uL (4.0-11.0)
[2024-09-23] MEDS: ASPIRIN 81 MG TAB.CHEW 162 MG PO (19:15)
[2024-09-23 19:27] LABS: Alanine Aminotransferase 14 U/L (16-63); Albumin Globulin Ratio 0.7; Albumin Level 3.3 g/dL (3.4-5.0); Alkaline Phosphatase 64 U/L (46-116); Anion Gap 16.8; Aspartate Amino Transferase 13 U/L (15-37); BUN Creatinine Ratio 15.6; Bilirubin Total 0.5 mg/dL (0.2-1.0); Calcium 9.3 mg/dL (8.5-10.1); Carbon Dioxide 25.4 mmol/L (21.0-32.0); Chloride 100 mmol/L (98-107); Estimated GFR (African America >60 (>=60 mL/min/1.73m^2); Estimated GFR (Non-African Ame 52 (>=60 mL/min/1.73m^2); Globulin 4.6 g/dL; Glucose 105 mg/dL (74-106); Potassium 4.2 mmol/L (3.5-5.1); Sodium 138 mmol/L (136-145); Total Protein 7.9 g/dL (6.4-8.2)
--- NOTE | 2024-09-23 19:29 | ED.ARRPALP1 ---
HPI - Arrhythmia/Palpitations General Chief Complaint: Arrhythmia/Palpitations Stated Complaint: afib, sob, chest pains Time Seen by Provider: 09/23/24 18:53 Source: patient and family Mode of arrival: walk-in Limitations: no limitations History of Present Illness HPI narrative: past history of episodic A. fib. Episode 4 years ago. Again 2 years ago and 3 weeks ago. converted 3 weeks ago after IV diltiazem. Followed by [facility] cardiology and wearing loop recorder since 03/10. About 45 minutes prior to admission again experienced episode of A. fib with RVR associated with substernal chest pain. Came to ER and initially seen by Dr Luna who ordered diltiazem IVP. When I seen the patient he was back in NSR and no longer had chest pain. Repeat EKG ordered. He has an appointment tomorrow with Dr Bhakta Sign Language Teacher Related Data Home Medications ?Medication ?Instructions ?Recorded ?Confirmed carvedilol 25 mg tablet 25 mg PO Q12H 10/28/22 09/23/24 pantoprazole 40 mg tablet,delayed 40 mg PO DAILY 10/28/22 09/23/24 release rivaroxaban 20 mg tablet (Xarelto) 20 mg PO DAILY 09/23/24 09/23/24 Allergies Allergy/AdvReac Type Severity Reaction Status Date / Time No Known Drug Allergies Allergy Verified 09/23/24 18:48 Review of Systems ROS Status of ROS 10 or more systems reviewed and unremarkable except as noted in history and below PFSH PFSH Social History Little interest or pleasure in doing things: not at all Feeling down, depressed, or hopeless: not at all Exam Constitutional Vital Signs, click to edit/add: Last Vital Signs Temp 98.3 F 09/23/24 18:48 Pulse 71 09/23/24 20:10 Resp 18 09/23/24 20:10 BP 124/64 09/23/24 19:30 Pulse Ox 95 09/23/24 19:30 O2 Del Method Room Air 09/23/24 18:48 Common normals: no apparent distress, average body habitus, oriented x3, no limitations, healthy appearing, alert and well nourished [facility] [place] Common normals: normocephalic and head/scalp atraumatic Eye Common normals: EOMs intact bilaterally and conjunctivae normal Respiratory Common normals: normal respiratory effort, no retractions, no use of accessory muscles and clear to auscultation bilaterally Cardio Common normals: regular rate, regular rhythm, S1 normal heart sound and S2 normal heart sound GI Common normals: Normal to inspection, nondistended, normoactive bowel sounds present and soft to palpation Extremity Common normals: normal to inspection and full ROM Neuro Common normals: oriented x3, CN's II-XII intact bilaterally, moves all extremities and no focal motor deficits Psych Appearance: grossly normal Course Vital Signs Vital signs: Vital Signs Pulse Rate 174 H 09/23/24 18:47 Respiratory Rate 23 H 09/23/24 18:47 Pulse Oximetry 96 09/23/24 18:47 Temperature 98.3 F 09/23/24 18:48 Pulse Rate 71 09/23/24 20:10 Respiratory Rate 18 09/23/24 20:10 Blood Pressure 124/64 09/23/24 19:30 Pulse Oximetry 95 09/23/24 19:30 Oxygen Delivery Method Room Air 09/23/24 18:48 MDM - Arrhythmia/Palpitations MDM Narrative Medical decision making narrative: presents with acute onset of A. Fib. 4 episodes over the past 4 years. Last episode 3 weeks ago that resolved after one dose of diltiazem IVP. Has an appointment with Cardiology tomorrow. Acute onset of A. fib again about 45 min IT SUPPORT ANALYST. given dose of Diltiazem and again converted to NSR. Lab unremarkable including normal troponin. Cxray per my review without acute findings. Repeat EKG confirms NSR. patient discharged home in improved condition and will follow up with Cardiology tomorrow as scheduled Patient was seen by Dr. Patrick. I briefly spoke to the patient at 1850, ordered medications to help treat hemodynamics. Patient was seen and evaluated with complete history, physical exam by Dr. Patrick. Lab Data Labs: Lab Results 09/23/24 Range/Units 18:55 WBC 11.6 H (4.0-11.0) 10^3/uL RBC 4.64 L (4.70-6.10) 10^6/uL Hgb 12.8 L (14.0-18.0) g/dL Hct 38.0 L (42.0-54.0) % MCV 81.9 (80.0-94.0) fL MCH 27.6 (25.9-34.0) pg MCHC 33.7 (29.9-35.2) g/dL RDW 13.5 (11.0-15.0) % Plt Count 390 (150-450) 10^3/uL MPV 9.9 (9.5-13.5) fL Neut % (Auto) 52.0 (43.0-75.0) % Lymph % (Auto) 37.6 (20.5-60.0) % Reeves % (Auto) 8.8 (1.7-12.0) % Eos % (Auto) 0.9 (0.9-7.0) % Baso % (Auto) 0.5 (0.2-2.0) % Neut # (Auto) 6.0 (1.4-6.5) 10^3/uL Lymph # (Auto) 4.4 H (1.2-3.8) 10^3/uL Reeves # (Auto) 1.0 H (0.3-0.8) 10^3/uL Eos # (Auto) 0.1 (0.0-0.7) 10^3/uL Baso # (Auto) 0.1 (0.0-0.1) 10^3/uL Abs Immat Gran (auto) 0.02 (0.00-0.03) 10^3/uL Imm/Tot Granulo (auto) 0.2 (0.0-0.5) % PT 11.9 H (9.0-11.6) sec INR 1.14 APTT 36.4 H (22.3-36.2) sec Sodium 138 (136-145) mmol/L Potassium 4.2 (3.5-5.1) mmol/L Chloride 100 (98-107) mmol/L Carbon Dioxide 25.4 (21.0-32.0) mmol/L Anion Gap 16.8 BUN 21.0 H (7.0-18.0) mg/dL Creatinine 1.35 H (0.70-1.30) mg/dL Est GFR ( Amer) >60 (>=60 mL/min/1.73m^2) Est GFR (Non-Af Amer) 52 L (>=60 mL/min/1.73m^2) BUN/Creatinine Ratio 15.6 Glucose 105 (74-106) mg/dL Calcium 9.3 (8.5-10.1) mg/dL Total Bilirubin 0.5 (0.2-1.0) mg/dL AST 13 L (15-37) U/L ALT 14 L (16-63) U/L Alkaline Phosphatase 64 (46-116) U/L Troponin I High Sens 8.4 (4.0-76.1) pg/mL NT-Pro-B Natriuret Pep 364.0 (<=900.0) pg/mL Total Protein 7.9 (6.4-8.2) g/dL Albumin 3.3 L (3.4-5.0) g/dL Globulin 4.6 g/dL Albumin/Globulin Ratio 0.7 Lipase 17.0 (16.0-77.0) U/L Discharge Plan Discharge Chief Complaint: Arrhythmia/Palpitations Clinical Impression: Paroxysmal A-fib Patient Disposition: Home, Self-Care Prescriptions / Home Meds: No Action carvedilol 25 mg tablet 25 mg PO Q12H pantoprazole 40 mg tablet,delayed release (DR/EC) 40 mg PO DAILY Xarelto 20 mg tablet 20 mg PO DAILY Rx Instructions: must administer with evening meal Print Language: Australian Instructions: A-fib (Atrial Fibrillation) (ED) Additional Instructions: follow up with Dr Lyn tomorrow Referrals: Maico Chowdary MD [Primary Care Provider, Family Practice] - 1 week
--- NOTE | 2024-09-23 19:33 | ECG_ITS ---
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 Measurements Intervals Moodus Rate: 72 P: -30 ND: 162 QRS: 27 QRSD: 82 T: 15 QT: 370 QTc: 395 Interpretive Statements 1100 Sinus rhythm 9110 normal ECG Compared to ECG 09/23/2024 19:06:05 No significant changes Electronically Signed On 09-23-2024 21:59:02 EDT by KEMAL BLAIR M.D.
[2024-09-23 19:34] LABS: Troponin I High Sensitivity 8.4 pg/mL (4.0-76.1)
[2024-09-23 19:35] LABS: INR 1.14; Partial Thromboplastin Time 36.4 sec (22.3-36.2); Prothrombin Time 11.9 sec (9.0-11.6)
== END 2024-09-23 20:34 | disposition home or self-care (01) ==
PROVIDERS: Emergency Medicine; Emergency Provider Internal Medicine; PCP Family Medicine
DX: I48.0 Paroxysmal atrial fibrillation (principal); R00.2 Palpitations; R07.89 Other chest pain
CPT/HCPCS: 36415; 71045; 80053; 83690; 83880; 84484; 85025; 85610; 85730; 93005; 96374; 99285

== ENCOUNTER 2024-10-07 22:34 | Emergency (ER) | payer OTHER, SELFPAY ==
[2024-10-07] VITALS (14 sets, daily range): BP systolic 99–130; BP diastolic 65–90; PULSE 78–178; O2SAT 94–98; BMI 30.3
--- OUTSIDE RECORDS SUMMARY | 2024-10-07 22:40 | XMS_ITS | CCD ---
Author Organization 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 Name Role Phone DEEDEE ., DR DE [...] Unavailable Estrella Chowdary MD Primary Care Provider [phone] Estrella Chowdary MD Primary Care Provider [phone] ESTRELLA CHOWDARY Primary Care Unavailable PJ BHAKTA Referring Unavailable ANGELA ANDERSON Attending Unavailable Unavailable Primary Care Provider UnavailPJ Morataya Referring Unavailable WING HART Attending Unavailable PJ BHAKTA Attending Unavailable PJ BHAKTA Attending Unavailable PJ BHAKTA Attending Unavailable PJ BHAKTA Admitting Unavailable PJ BHAKTA Attending Unavailable PJ BHAKTA Referring Unavailable PJ BHAKTA Referring Unavailable PJ BHAKTA Referring Unavailable PJ BHAKTA Referring Unavailable Medications Current Medications Medication Drug Class(es) [...] Translations: [Paroxysmal atrial fibrillation] Onset: 01-18-2022 Chronic Disorders of lipid metabolism (2 sources) Mixed [...] UNCOMP] Onset: 01-18-2022 Chronic Unclassified (1 source) Supraventricular tachycardia, unspecified; Translations: [Supraventricular tachycardia, unspecified] Onset: 09-24-2024 Unclassified (1 source) Other ventricular tachycardia; Translations: [Other ventricular tachycardia] Onset: 07-31-2024 Past or Other Problems Problem Classification Problem Date Documented Date Episodic/Chronic Abdominal pain (3 sources) Epigastric pain; Translations: [EPIGASTRIC PAIN] Onset: 01-14-2022 Episodic Cardiac dysrhythmias (6 sources) Tachycardia, unspecified; Translations: [Palpitations] Onset: 01-28-2022 Episodic Heart valve disorders (1 [...] other cardiovascular function study; Translations: [ABNORM RESULT OTH CV FUNCTION STUDY] Onset: 03-24-2022 Episodic Unclassified (1 source) Supraventricular tachycardia, unspecified; Translations: [Supraventricular tachycardia, unspecified] Onset: 09-24-2024 Unclassified (1 source) Other ventricular tachycardia; Translations: [Other ventricular tachycardia] Onset: 07-31-2024 Results Test Name Value Interpretation Reference Range Facility 36on 10-02-2024 36 This report has been cancelled. [facility] 36 Pharmacy called stating pt needs refill on his Eliquis medication. I spoke to pt he states he needed a refill on his xarelto but he gets it from [facility] and ordered a 4 month supply. Pt will call if he needs a refill on his eliquis. [facility] Telephoneon 10-02-2024 Telephone [id number] Renny Mitchell 1950 Date Provider Department Center 10/02/2024 Richard-MISTY RICHTERTA C CARD [place] [facility] Family History Problem Relation Age of Onset Heart disease Father Family Status - Relation Status Age at Mother Father [facility] Office Visiton 09-24-2024 Follow-up visit [id number] Renny Mitchell 1950 Date Provider Department Center 09/24/2024 PJ MONTGOMERY CARD [facility] Family History Problem Relation Age of Onset Heart disease Father Family Status - Relation Status Age at Mother Father Level of Service:00283 [place] OFFICE/OUTPATIENT ESTABLISHED HIGH MDM 40 MIN [facility] Orders Onlyon 09-24-2024 Orders Only [id number] Renny Mitchell 1950 Date Provider Department Center 09/24/2024 SANDRA HAIDER [facility]ARD [facility] Family History Problem Relation Age of Onset Heart disease Father Family Status - Relation Status Age at Mother Father [facility] Orders Onlyon 09-01-2024 Orders Only [id number] Renny Mitchell 1950 Date Provider Department Center 09/01/2024 PJ MONTGOMERY [facility] CARD [place] [facility] Family History Problem Relation Age of Onset Heart disease Father Family Status - Relation Status Age at Mother Father [facility] Office Visiton 07-31-2024 Follow-up visit [id number] Renny Mitchell 1950 Date Provider Department Center 07/31/2024 [id number] MIKE CARD [facility] Family History Problem Relation Age of Onset Heart disease Father Family Status - Relation Status Age at Mother Father Level of Service:70252 [place] OFFICE/OUTPATIENT ESTABLISHED LOW MDM 20 MIN [facility] HPon 03-07-2024 [facility] Electrophysiology Consult Note Reason for visit: Afib [...] apt. 10/31/2023 patient underwent cardiac MRI at [facility] and this showed evidence of late [...] patent RCA: patent ECHo 05/22/23 Prior HPI: Renny Mitchell is a 73 y.o. year old with past medical history of ABDULLAHI, afib, htn, gerd, syncope, hld. He was seen in the [facility] 10/2022 for complaints of chest pain [...] Tobacco Use: Low Risk (12/21/2023) [facility] Patient History Smoking Tobacco Use: [...] on file Intimate Partner Violence: Unknown (06/08/2023) [place] Safety [place] Fear of Current or [...] SpO2 9 (more content not included)... Normal [facility] Office Visiton 02-06-2024 Follow-up visit [id number] Renny Mitchell 1950 M Date Provider Department Center 02/06/2024 PJ MONTGOMERY Family History Problem Relation Age of Onset Heart disease Father Family Status - Relation Status Age at Father Level of Service:77589 [place] OFFICE/OUTPATIENT ESTABLISHED LOW MDM 20 MIN Normal [facility] Abstracton 11-21-2023 Abstract [id number] Renny Mitchell 1950 M Date Provider Department Center 11/21/2023 PJ MONTGOMERY [facility] Family History Problem Relation Age of Onset Heart disease Father Family Status - Relation Status Age at Father Normal [facility] Letter (Out)on 11-10-2023 Letter (Out) [id number] PaulaRenny A 1950 M Date Provider Department Center 11/10/2023 None-None [facility] AUTH [place] [facility] Family History Problem Relation Age of Onset Heart disease Father Family Status - Relation Status Age at Father Normal [facility] Office Visiton 10-31-2023 Follow-up visit [id number] PaulaRenny A 1950 M Date Provider Department Center 10/31/2023 PJ MONTGOMERY Family History Problem Relation Age of Onset Heart disease Father Family Status - Relation Status Age at Father Level of Service:53935 [place] OFFICE/OUTPATIENT ESTABLISHED LOW MDM 20 MIN Normal [facility] MR Heart cine for blood flow velocity mappingon 08-21-2023 * * *Final Report* * * DATE OF EXAM: Aug 21 2023 1:59PM [facility] 0704 - MRI CARDIAC VELOCITY FLOW MAP / PROCEDURE REASON: . * * * * Physician Interpretation * * * * Cardiac MRI Report: [facility] Date of service: 08/21/2023 1:11:05 PM Linked orders:[id number] CARDIAC VELOCITY FLOW MAP;[id number] CARD MORPH FUNC WO/W IVCON. Ordering physician: PJ BHAKTA Technologist: CURT HOLLAND Fellow: Burton Lorenzo MD Interpreting physician: Pj Antunez MD PATIENT: Name: RENNY MITCHELL Age: 72 years Gender: M MRI [...] 31.89 9.90 +------+ +-- ---+ +----- +-------+----+ [place] 1018.68 66.60 419.45 33.61 25.92 6.44 +------+ [...] content not included)... DIVISION OF RADIOLOGY Provider, [facility] Darby Quispe - 08/21/2023 * * *Final Report* * * DATE OF EXAM: Aug 21 2023 1:59PM [facility] 0704 - MRI CARDIAC VELOCITY FLOW MAP / PROCEDURE REASON: . * * * * Physician Interpretation * * * * Cardiac MRI Report: [facility] Date of service: 08/21/2023 1:11:05 PM Linked orders:[id number] CARDIAC VELOCITY FLOW MAP;[id number] CARD MORPH FUNC WO/W IVCON. Ordering physician: PJ BHAKTA Technologist: CURT HOLLAND Fellow: Burton Lorenzo MD Interpreting physician: Pj Antunez MD PATIENT: Name: RENNY MITCHELL Age: 72 years Gender: M MRI [...] 31.89 9.90 +------+ +-- ---+ +----- +-------+----+ [place] 1018.68 66.60 419.45 33.61 25.92 6.44 +------+ [...] or not int (more content not included)... [facility] MRI CARD MORPH FUNC WO/W IVC ONon 08-21-2023 MRI CARD MORPH FUNC WO/W IVCON * * *Final Report* * * DATE OF EXAM: Aug 21 2023 1:59PM [facility] 0703 - MRI CARD MORPH FUNC WO/W IVCON / PROCEDURE REASON: . * * * * Physician Interpretation * * * * Cardiac MRI Report: [facility] Date of service: 08/21/2023 1:11:05 PM Linked orders:[id number] CARDIAC VELOCITY FLOW MAP;[id number] CARD MORPH FUNC WO/W IVCON. Ordering physician: PJ BHAKTA Technologist: CURT HOLLAND Fellow: Burton Lorenzo MD Interpreting physician: Pj Antunez MD PATIENT: Name: RENNY MITCHELL Age: 72 years Gender: M MRI [...] 31.89 9.90 +------+ +-- ---+ +----- +-------+----+ [place] 1018.68 66.60 419.45 33.61 25.92 6.44 +------+ [...] Flow Quantif (more content not included)... Normal [facility] MRI CARDIAC MORPH FUNAcuitas Medical WO/W IVCONon 08-21-2023 * * *Final Report* * * DATE OF EXAM: Aug 21 2023 1:59PM [facility] 0703 - MRI CARD MORPH Brian IndustriesC WO/W IVCON / PROCEDURE REASON: . * * * * Physician Interpretation * * * * Cardiac MRI Report: [facility] Date of service: 08/21/2023 1:11:05 PM Linked orders:[id number] CARDIAC VELOCITY FLOW MAP;[id number] CARD MORPH FUNC WO/W IVCON. Ordering physician: PJ BHAKTA Technologist: CURT HOLLAND Fellow: Burton Lorenzo MD Interpreting physician: Pj Antunez MD PATIENT: Name: RENNY MITCHELL Age: 72 years Gender: M MRI Scanner: [employer] 1.5T Comparison: 72 year old male with [...] 31.89 9.90 +------+ +-- ---+ +----- +-------+----+ [place] 1018.68 66.60 419.45 33.61 25.92 6.44 +------+ [...] content not included)... DIVISION OF RADIOLOGY Provider, [facility] - 08/21/2023 * * *Final Report* * * DATE OF EXAM: Aug 21 2023 1:59PM [facility] 0703 - MRI CARD MORPH MERY WO/W JAYSONON / PROCEDURE REASON: . * * * * Physician Interpretation * * * * Cardiac MRI Report: [facility] Date of service: 08/21/2023 1:11:05 PM Linked orders:[id number] CARDIAC VELOCITY FLOW MAP;[id number] CARD MORPH FUNC WO/W IVCON. Ordering physician: PJ BHAKTA Technologist: CURT HOLLAND Fellow: Burton Lorenzo MD Interpreting physician: Pj Antunez MD PATIENT: Name: RENNY MITCHELL Age: 72 years Gender: M MRI [...] 31.89 9.90 +------+ +-- ---+ +----- +-------+----+ [place] 1018.68 66.60 419.45 33.61 25.92 6.44 +------+ [...] or not in (more content not included)... [facility] MRI CARDIAC VELOCITY FLOW MT Samuel 08-21-2023 MRI CARDIAC VELOCITY FLOW MAP * * *Final Report* * * DATE OF EXAM: Aug 21 2023 1:59PM [facility] 0704 - MRI CARDIAC VELOCITY FLOW MAP / PROCEDURE REASON: . * * * * Physician Interpretation * * * * Cardiac MRI Report: [facility] Date of service: 08/21/2023 1:11:05 PM Linked orders:[id number] CARDIAC VELOCITY FLOW MAP;[id number] CARD MORPH FUNC WO/W IVCON. Ordering physician: PJ BHAKTA Technologist: CURT HOLLAND Fellow: Burton Lorenzo MD Interpreting physician: Pj Antunez MD PATIENT: Name: RENNY MITCHELL Age: 72 years Gender: M MRI [...] 31.89 9.90 +------+ +-- ---+ +----- +-------+----+ [place] 1018.68 66.60 419.45 33.61 25.92 6.44 +------+ [...] Flow Quantifi (more content not included)... Normal [facility] No Panel Informationon 08-20 IMPRESSION: Pattern [...] * * Final * * * RP Loan Servicing Representative: CRISTINO Transcribe Date/Time: Aug 21 2023 1:11P Dictated by : PJ ANTUNEZ MD This examination was interpreted and the report reviewed and electronically signed by: PJ ANTUNEZ MD on Aug 21 2023 3:06PM [facility] DIVISION OF RADIOLOGY Radiology Study observation (narrative) [facility] No Panel InformationOrdered By: Ccf Provider on 08-21-2023 [facility] Gopal 01-19-2023 SAULO Telephone (CARCMN) RENNY MITCHELL ([id number]) 1950 M Date Time Provider Department 01/19/23 MARÍA HICKS During your visit today, we recorded the following information about you: Hosea Jo 01/19/2023 9:47 AM Signed Left a [...] Of Date: 01/19/2023 (None) Encounter Status:Closed by HOSEA [facility] CNPN Telephone (CARCMN) RENNY MITCHELL ([id number]) 1950 M Date Time Provider Department 11/21/22 MARÍA HICKS During your visit today, we recorded the following information about you: Chance Dueñas 11/21/2022 4:37 PM Signed Records received from [facility] by mail. Records uploaded to OPD and sent to scanning. Patient has a future appointment on: 02/15/23. Date of last OV: Holden Dueñas November 21, 2022 4:36 PM Allergies As of Date: 11/21/2022 (Not on File) Date Reviewed: Never Reviewed Reason for Visit: Received Outside Medical Records [3576] Problem List As Of Date: 11/21/2022 (None) Encounter Status:Closed by CHANCE DUEÑAS on 11/21/22 [facility] CNPN Telephone (CARCMN) RENNY MITCHELL ([id number]) 1950 M Date Time Provider Department 11/16/22 MARÍA HICKS [place] During your visit today, we recorded the following information about you: Chance Dueñas 11/16/2022 11:19 AM Signed [facility] fax. Records uploaded to OPD and sent to scanning. Patient has a future appointment on: 02/15/23. Date of last OV: -Lianna Dueñas November 16, 2022 11:17 AM Allergies As of Date: 11/16/2022 (Not on File) Date Reviewed: Never Reviewed Reason for Visit: Received Outside Medical Records [3576] Problem List As Of Date: 11/16/2022 (None) Encounter Status:Closed by CHANCE DUEÑAS on 11/16/22 [facility] CNCOon 11-09-2022 CNCO Letter Text [facility] CNPNon 11-06-2022 CNPN Telephone (REFPHY) RENNY MITCHELL ([id number]) 1950 M Date Time Provider Department 11/06/22 NO ONE (HISTORICAL) REFPHY During your visit today, we recorded the following information about you: [facility] Keira Pope 11/06/2022 3:44 PM Signed Patient: Renny Mitchell Date of : 1950 Patient phone number: [phone] Referring Provider for the encounter: Estrella Chowdary Requesting Provider: Reason for requesting visit (RFV/signs and symptoms/diagnosis): AFib Person calling: rp fax Return call to: rp fax Medical Records/Insurance Card scanned into [employer]: No Comments: Dominga Cr 11/09/2022 11:52 AM Signed RP-Appt scheduled- Spoke with Patient to schedule consult, printed and sent new pt packet and appt info via mail Allergies As of Date: 11/06/2022 (Not on File) Date Reviewed: Never Reviewed Reason for Visit: External Referrals/resources [909] Problem List As Of Date: 11/06/2022 (None) Encounter Status:Closed by [facility] SHANICE KEIRA on 11/06/22 Normal [facility] CBC AUTO DIFFon 08-30-2022 BASO # 0.1 103/ul Normal 0.0-0.1 [facility] Comment on above: Performed By: #### C BC ####[facility] [address] [place], [place] [address]Dr. Jeremiah Vela Basophils/100 WBC (Bld) 0.6 % Normal 0.2-2.0 [facility] Comment on above: Performed By: #### C BC ####[facility] [address] [place], [place] [address]DrLianna Vela EO # 0.1 103/ul Normal 0.0-0.7 [facility] Comment on above: Performed By: #### C BC ####[facility] [address] [place], [place] [address]DrLianna Vela Eosinophils/100 WBC (Bld) 1.0 % Normal 0.9-7.0 [facility] Comment on above: Performed By: #### C BC ####[facility] P[address] [place], [place] [address]DrLianna Vela Erythrocyte distribution width (RBC) [Ratio] 13.9 % Normal 11.0-15.0 [facility] Comment on above: Performed By: #### C BC ####[facility] [address] [place] [address]Dr. Jeremiah Vela Hematocrit (Bld) [Volume fraction] 42.1 % Normal 42.0-54.0 [facility] Comment on above: Performed By: #### C BC ####[facility] [address] [place] [address]Dr. Jeremiah Vela Hemoglobin (Bld) [Mass/Vol] 13.7 g/dL Critically low 14.0-18.0 [facility] Comment on above: Performed By: #### C BC ####[facility] K[address] [place], [place] [address]Dr. Jeremiah Vela IG # 0.02 10e3/ul Normal 0.00-0.03 [facility] Comment on above: Performed By: #### C BC ####[facility] T[address] [place], [place] [address]Dr. Jeremiah Vela IG % 0.2 % Normal 0.0-0.5 [facility] Comment on above: Performed By: #### C BC ####[facility] Vwpew[address] [place], [place] [address]DrLianna Vela LYMPH # 2.9 103/ul Normal 1.2-3.8 [facility] Comment on above: Performed By: #### C BC ####[facility] Eiuzfmsaf[address] [place], [place] [address]DrLianna Vela Lymphocytes/100 WBC (Bld) 34.9 % Normal 20.5-60.0 [facility] Comment on above: Performed By: #### C BC ####[facility] [address] [place], [place] [address]DrLianna Vela MANUAL DIFF REQ NO Normal [facility] Comment on above: Performed By: #### C BC ####[facility] Pincyt[address] [place], [place] [address]DrLianna Vela MCH (RBC) [Entitic mass] 27.1 pg Normal 25.9-34.0 [facility] Comment on above: Performed By: #### C BC ####[facility] [address] [place] [address]DrLianna Vela MCHC (RBC) [Mass/Vol] 32.5 g/dL Normal 29.9-35.2 [facility] Comment on above: Performed By: #### C BC ####[facility] [address] [place] [address]DrLianna Vela MCV (RBC) [Entitic vol] 83.4 fL Normal 80.0-94.0 [facility] Comment on above: Performed By: #### C BC ####[facility] W[address]wh[address] [place], [place] [address]DrLianna Vela MONO # 0.7 103/ul Normal 0.3-0.8 [facility] Comment on above: Performed By: #### C BC ####[facility] [address] [place], [place] [address]DrLianna Vela Monocytes/100 WBC (Bld) 8.2 % Normal 1.7-12.0 [facility] Comment on above: Performed By: #### C BC ####[facility] [address] [place], [place] [address]DrLianna Vela NEUT # 4.6 103/ul Normal 1.4-6.5 [facility] Comment on above: Performed By: #### C BC ####[facility] [address] [place], [place] [address]DrLianna Vela Neutrophils/100 WBC (Bld) 55.1 % Normal 43.0-75.0 [facility] Comment on above: Performed By: #### C BC ####[facility] [address] [place], [place] [address]DrLianna Vela Platelet mean volume (Bld) [Entitic vol] 9.9 fL Normal 9.5-13.5 [facility] Comment on above: Performed By: #### C BC ####[facility] [address] [place], [place] [address]DrLianna Vela PLT 296 103/ul Normal 150-450 [facility] Comment on above: Performed By: #### C BC ####[facility] [address] [place] [id number]. Jeremiah Vela RBC 5.05 106/ul Normal 4.70-6.10 [facility] Comment on above: Performed By: #### C BC ####[facility] [address] [place] [id number]. Jeremiah Vela WBC 8.3 103/ul Normal 4.0-11.0 [facility] Comment on above: Performed By: #### C BC ####[facility] [address] [place] [id number]. Jeremiah Vela FREE T3on 08-30-2022 FREE T3 3.00 pg/mlL Normal 2.18-3.98 [facility] Comment on above: Performed By: #### T 4, TSH, FT3, CMP, URIC, LIPID ####[facility] [address] [place] [id number]. Jeremiah Vela GLYCOHEMOGLOBIN A1Con 2022 ADA RECOMMENDATION SEE BELOW Normal [facility] Comment on above: Result Comment: ADA RECOMMENDED LIMIT 4.0 - 6.0 ADA THERAPEUTIC TARGET < 7.0 ACTION SUGGESTED > 7.0 Performed By: #### A 1C ####[facility] [address] [place] [id number]. Jeremiah Vela Glucose [Mass/Vol] 105 mg/dL Normal [facility] Comment on above: Performed By: #### A 1C ####[facility] [address] [place] [id number]. Jeremiah Vela HbA1c (Bld) [Mass fraction] 5.3 % Normal 4.5-6.2 [facility] Comment on above: Performed By: #### A 1C ####[facility] [address] [place] [id number]. Jeremiah Vela LIPID PROFILEon 08-30-2022 CHOL-HDL RATIO NORM SEE BELOW Normal [facility] Comment on above: Result Comment: 3.3 - 4.4 LOW RISK 4.4 - 7.1 AVERAGE RISK 7.1 - 11.0 MODERATE RISK >11.0 HIGH RISK Performed By: #### T 4, TSH, FT3, CMP, URIC, LIPID ####[facility] [address] [place] [address]Dr. Jeremiah Vela Cholesterol [Mass/Vol] 175 mg/dL Normal <=200 [facility] Comment on above: Performed By: #### T 4, TSH, FT3, CMP, URIC, LIPID ####[facility] [address] [place] [address]Dr. Jeremiah Vela Cholesterol in HDL [Mass/Vol] 40 mg/dL Normal 40-60 [facility] Comment on above: Performed By: #### T 4, TSH, FT3, CMP, URIC, LIPID ####[facility] [address] [place] [address]Dr. Jeremiah Vela Cholesterol in LDL [Mass/Vol] 102.4 mg/dL Normal [facility] Comment on above: Performed By: #### T 4, TSH, FT3, CMP, URIC, LIPID ####[facility] [address] [place] [address]Dr. Serenaaminah Vela Cholesterol.total/Chol esterol in HDL [Mass ratio] 4.4 {ratio} Normal [facility] Comment on above: Performed By: #### T 4, TSH, FT3, CMP, URIC, LIPID ####[facility] [address] [place] [address]Dr. Serenaaminah Vela HDL NORMAL > or = 60 mg/dl - LO W CARDIOVASCULAR RISK <40 mg/dl - HIGH CARDIOVASCULAR RISK Normal [facility] Comment on above: Performed By: #### T 4, TSH, FT3, CMP, URIC, LIPID ####[facility] [address] [place] [address]Dr. Serenaaminah Vela LDL CALC NORMAL SEE BELOW Normal [facility] Comment on above: Result Comment: <100 mg/dl OPTIMAL 100 - 129 mg/dl NEAR OR ABOVE OPTIMAL 130 - 159 mg/dl BORDERLINE HIGH 160 - 189 mg/dl HIGH >190 mg/dl VERY HIGH Performed By: #### T 4, TSH, FT3, CMP, URIC, LIPID ####[facility] [address] [place] [address]Dr. Jeremiah Vela Triglyceride [Mass/Vol] 163 mg/dL Critically high <=150 [facility] Comment on above: Performed By: #### T 4, TSH, FT3, CMP, URIC, LIPID ####[facility] [address] [place] [address]Dr. Jeremiah Vela VLDL CALC 32.6 mg/dL Normal [facility] Comment on above: Performed By: #### T 4, TSH, FT3, CMP, URIC, LIPID ####[facility] [address] [place] [address]Dr. Jeremiah Vela PROF 14(COMP METB)on 023 Albumin [Mass/Vol] 3.8 g/dL Normal 3.4-5.0 [facility] Comment on above: Performed By: #### T 4, TSH, FT3, CMP, URIC, LIPID ####[facility] [address] [place] [address]Dr. Jeremiah Vela Albumin/Globulin [Mass ratio] 0.8 {ratio} Normal [facility] Comment on above: Performed By: #### T 4, TSH, FT3, CMP, URIC, LIPID ####[facility] [address] [place] [address]Dr. Jeremiah Vela ALP [Catalytic activity/Vol] 50 U/L Normal 46-116 [facility] Comment on above: Performed By: #### T 4, TSH, FT3, CMP, URIC, LIPID ####[facility] [address] [place] [address]Dr. Jeremiah Vela ALT [Catalytic activity/Vol] 25 U/L Normal 16-63 [facility] Comment on above: Performed By: #### T 4, TSH, FT3, CMP, URIC, LIPID ####[facility] [address] [place] [address]Dr. Jeremiah Vela Anion gap [Moles/Vol] 13.8 mmol/L Normal [facility] Comment on above: Performed By: #### T 4, TSH, FT3, CMP, URIC, LIPID ####[facility] [id number] [address]Dr. Jeremiah Vela AST [Catalytic activity/Vol] 15 U/L Normal 15-37 [facility] Comment on above: Performed By: #### T 4, TSH, FT3, CMP, URIC, LIPID ####[facility] [address] [address]Dr. Jeremiah Vela Bilirubin [Mass/Vol] 0.5 mg/dL Normal 0.2-1.0 [facility] Comment on above: Performed By: #### T 4, TSH, FT3, CMP, URIC, LIPID ####[facility] [address] [place], [place] [address]Dr. Jeremiah Vela Calcium [Mass/Vol] 9.0 mg/dL Normal 8.5-10.1 [facility] Comment on above: Performed By: #### T 4, TSH, FT3, CMP, URIC, LIPID ####[facility] [address] [place], [place] [address]Dr. Jeremiah Vela Chloride [Moles/Vol] 104 mmol/L Normal 98-107 [facility] Comment on above: Performed By: #### T 4, TSH, FT3, CMP, URIC, LIPID ####[facility] [address] [place], [place] [address]Dr. Jeremiah Vela CO2 [Moles/Vol] 27.4 mmol/L Normal 21.0-32.0 [facility] Comment on above: Performed By: #### T 4, TSH, FT3, CMP, URIC, LIPID ####[facility] [address] [place], [place] [address]Dr. Jeremiah Vela Creatinine [Mass/Vol] 1.27 mg/dL Normal 0.70-1.30 [facility] Comment on above: Performed By: #### T 4, TSH, FT3, CMP, URIC, LIPID ####[facility] [address] [place], [place] [address]Dr. Jeremiah Vela EGFR-AF BARBADIAN >60 Normal >=60 [facility] Comment on above: Performed By: #### T 4, TSH, FT3, CMP, URIC, LIPID ####[facility] [address] [address]Dr. Jeremiah Vela EGFR-NON AF BARBADIAN 56 mL/min/1.73m2 Critically low >=60 [facility] Comment on above: Performed By: #### T 4, TSH, FT3, CMP, URIC, LIPID ####[facility] [address] [address]Dr. Jeremiah Vela Globulin (S) [Mass/Vol] 4.5 g/dL Normal [facility] Comment on above: Performed By: #### T 4, TSH, FT3, CMP, URIC, LIPID ####[facility] [address] [place], [place] [address]Dr. Jeremiah Vela Glucose [Mass/Vol] 97 mg/dL Normal 74-106 [facility] Comment on above: Performed By: #### T 4, TSH, FT3, CMP, URIC, LIPID ####[facility] [address] [place], [place] [address]Dr. Jeremiah Vela Potassium [Moles/Vol] 4.2 mmol/L Normal 3.5-5.1 [facility] Comment on above: Performed By: #### T 4, TSH, FT3, CMP, URIC, LIPID ####[facility] [address] [place] [address]Dr. Jeremiah Vela Protein [Mass/Vol] 8.3 g/dL Critically high 6.4-8.2 [facility] Comment on above: Performed By: #### T 4, TSH, FT3, CMP, URIC, LIPID ####[facility] [address] [address] [address]Dr. Jeremiah Vela Sodium [Moles/Vol] 141 mmol/L Normal 136-145 [facility] Comment on above: Performed By: #### T 4, TSH, FT3, CMP, URIC, LIPID ####[facility] [address] [address] [address]Dr. Jeremiah Vela Urea nitrogen [Mass/Vol] 19.0 mg/dL Critically high 7.0-18.0 [facility] Comment on above: Performed By: #### T 4, TSH, FT3, CMP, URIC, LIPID ####[facility] [address] [address] [address]Dr. Jeremiah Vela Urea nitrogen/Creatinine [Mass ratio] 15.0 mg/mg Normal [facility] Comment on above: Performed By: #### T 4, TSH, FT3, CMP, URIC, LIPID ####[facility] [address] [id number]. Jeremiah Vela T4on 08-30-2022 T4 [Mass/Vol] 6.30 ug/dL Normal 4.50-12.10 [facility] Comment on above: Performed By: #### T 4, TSH, FT3, CMP, URIC, LIPID ####[facility] [address]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 Tommy(R)Iveth August 21, 2023 1:15 PM documented in this encounter [facility] 01-19-2023 Miscellaneous Notes Left a message for the patient regarding the cancellation of 02/15/2023 appointment. Informed the patient of the new appointment scheduled on 05/24/2023. Left a call back number for the patient if the date and time does not fit. documented in this encounter [facility] 11-21-2022 Miscellaneous Notes Records received from [facility] by mail. Records uploaded to OPD and sent to scanning. Patient has a future appointment on: 02/15/23. Date of last OV: -. Chance Dueñas November 21, 2022 4:36 PM documented in this encounter [facility] 11-16-2022 Miscellaneous Notes [facility] fax. Records uploaded to OPD and sent to scanning. Patient has a future appointment on: 02/15/23. Date of last OV: -Lianna Dueñas November 16, 2022 11:17 AM documented in this encounter [facility] 11-06-2022 Miscellaneous Notes Patient: Renny [facility] Date of : 1950 Patient phone number: [phone] Referring Provider for the encounter: Estrella Chowdary Requesting Provider: Reason for requesting visit (RFV/signs and symptoms/diagnosis): AFib Person calling: rp fax Return call to: rp fax Medical Records/Insurance Card scanned into [employer]: No Comments: NA Electronically signed by [email or web address] [facility] Service Keira Pope at 11/06/2022 3:44 PM EDT documented in this encounter [facility] 09-30-2022 Evaluation note Encounter Date Diagnosis Assessment Notes Sep, Laceration of left middle finger without foreign body without damage to nail, subsequent encounter (ICD-10 - S61.213D) Patient instructed on scar massage and progression of activity as tolerated [facility] Other 06-02-2023 Evaluation note* Encounter Date Diagnosis [...] home. Patient will f/u in 2-3 weeks [facility] Other Evaluation note* Diagnosis ABDULLAHI (obstructive sleep apnea)- Primary Obstructive sleep apnea (adult) (pediatric) Snoring Other dyspnea and respiratory abnormality Daytime hypersomnolence documented in this encounter [facility] N[facility] - Reported* Type Description Date Medical History GERD Medical History hypertension Surgical History Appendix [facility] Other Summary Purpose Family History No Family [...] and content) DATE CREATED AUTHOR 08/31/2022 [facility] DATE CREATED AUTHOR 'S ORGANIZ ATION 08/22/2023 [facility] DATE CREATED AUTHOR AUTHOR'S ORGANIZ ATION 12/23/2023 [facility] DATE CREATED AUTHOR AUTHOR'S ORGANIZ ATION 10/05/2024 [facility] REASON FOR VISIT (unrecogniz ed section and [...] or prosecute any alcohol or drug abuse patient.[facility] the event this information is protected by the Federal Confidentiality of Alcohol and Drug Abuse Patient Records regulations: The Federal rules restrict any use of the information to criminally investigate or prosecute any alcohol or drug abuse patient.[facility] the event this information is protected by the Federal Confidentiality of Alcohol and Drug Abuse Patient Records regulations: The Federal rules restrict any use of the information to criminally investigate or prosecute any alcohol or drug abuse patient.[facility] the event this information is protected by the Federal Confidentiality of Alcohol and Drug Abuse Patient Records regulations: The Federal rules restrict any use of the information to criminally investigate or prosecute any alcohol or drug abuse patient.[facility] the event this information is protected by the Federal Confidentiality of Alcohol and Drug Abuse Patient Records regulations: The Federal rules restrict any use of the information to criminally investigate or prosecute any alcohol or drug abuse patient.[facility] Care Teams (unrecognized sec tion and content) Farm Equipment Operator Relationship Specialty Start Date End Date Estrella Chowdary MD PCP - General Family Medicine 08/21/14 Farm Equipment Operator Relationship Specialty Start Date End Date Estrella Chowdary MD PCP - General Family Medicine 08/21/14 Farm Equipment Operator Relationship Specialty Start Date End Date Estrella [...] BE BASED ON THE PRIMARY CLINICAL RECORDS. [facility] [employer] [facility]. provides no warranty or guarantee of the accuracy or completeness of information in this document.
--- NOTE | 2024-10-07 22:46 | ECG_ITS ---
[facility] Test Date: 2024-10-07 Pat Name: RENNY CALDERÓN Department: Room: - Gender: Male Integrity Consultant: : 1950 Requested By: [id number] Order Number: [id number] Reading MD: KEMAL BLAIR M.D. Measurements Intervals [place] Rate: 178 P: -[id number] NE: -[id number] QRS: 34 QRSD: 88 T: -42 QT: 262 QTc: 356 Interpretive Statements Supraventricular tachycardia, likely atrial flutter [address] depression [address] & Twave abnormality 9150 abnormal ECG Compared to ECG 09/23/2024 19:33:00 ST (T wave) deviation now present Sinus rhythm no longer present Electronically Signed On 10-08-2024 9:36:09 EDT by KEMAL BLAIR M.D.
--- NOTE | 2024-10-07 22:56 | ED.ARRPALP1 ---
HPI - Arrhythmia/Palpitations General Chief Complaint: Arrhythmia/Palpitations Stated Complaint: A FIB Time Seen by Provider: 10/07/24 22:52 Mode of arrival: Wheelchair Limitations: no limitations History of Present Illness HPI narrative: past history of recurrent A. Fib. Seen several times in past couple of months in the ER. Seen by his oim architect and scheduled for an ablation next month. Tonight around 10pm heart racing again. Now presents complaining of pressure in his chest . No nausea or dyspnea Related Data Home Medications ?Medication ?Instructions ?Recorded ?Confirmed carvedilol 25 mg tablet 25 mg PO Q12H 10/28/22 09/23/24 pantoprazole 40 mg tablet,delayed 40 mg PO DAILY 10/28/22 09/23/24 release rivaroxaban 20 mg tablet (Xarelto) 20 mg PO DAILY 09/23/24 09/23/24 Allergies Allergy/AdvReac Type Severity Reaction Status Date / Time No Known Drug Allergies Allergy Verified 09/23/24 18:48 Review of Systems ROS Status of ROS 10 or more systems reviewed and unremarkable except as noted in history and below PFSH PFSH Social History Little interest or pleasure in doing things: not at all Feeling down, depressed, or hopeless: not at all Exam Constitutional Vital Signs, click to edit/add: Last Vital Signs Pulse 68 10/08/24 01:15 Resp 15 10/08/24 01:00 BP 117/70 10/08/24 01:15 Pulse Ox 96 10/08/24 00:00 O2 Del Method Room Air 10/07/24 22:48 Common normals: no apparent distress, average body habitus, oriented x3, no limitations, healthy appearing, alert and well nourished [facility] Common normals: normocephalic and head/scalp atraumatic Eye Common normals: PERRL and EOMs intact bilaterally Respiratory Common normals: normal respiratory effort, no retractions, no use of accessory muscles and clear to auscultation bilaterally Cardio Rate: tachycardic GI Common normals: Normal to inspection, nondistended, normoactive bowel sounds present, soft to palpation and non-tender Extremity Common normals: normal to inspection and full ROM Neuro Common normals: oriented x3, CN's II-XII intact bilaterally and moves all extremities Psych Appearance: grossly normal Course Vital Signs Vital signs: Vital Signs Pulse Rate 178 H 10/07/24 22:46 Respiratory Rate 20 10/07/24 22:46 Pulse Rate 68 10/08/24 01:15 Respiratory Rate 15 10/08/24 01:00 Blood Pressure 117/70 10/08/24 01:15 Pulse Oximetry 96 10/08/24 00:00 Oxygen Delivery Method Room Air 10/07/24 22:48 MDM - Arrhythmia/Palpitations MDM Narrative Medical decision making narrative: patient well known to the department. Presents again with acute onset of A. fib with RVR immediately responsive to diltiazem. He has converted to NSR after 10mg bolus and drip. labs normal including Troponin. Will hold drip and continue to monitor patient observed in the department for over an hour without diltiazem drip. In the past he has converted with the diltiazem bolus and did not require hospitalization. Will discharge and have him contact his oim architect tomorrow Lab Data Labs: Lab Results 10/07/24 Range/Units 22:55 WBC 11.2 H (4.0-11.0) 10^3/uL RBC 4.59 L (4.70-6.10) 10^6/uL Hgb 12.4 L (14.0-18.0) g/dL Hct 37.7 L (42.0-54.0) % MCV 82.1 (80.0-94.0) fL MCH 27.0 (25.9-34.0) pg MCHC 32.9 (29.9-35.2) g/dL RDW 13.4 (11.0-15.0) % Plt Count 434 (150-450) 10^3/uL MPV 9.6 (9.5-13.5) fL Neut % (Auto) 50.1 (43.0-75.0) % Lymph % (Auto) 39.5 (20.5-60.0) % [place] % (Auto) 7.9 (1.7-12.0) % Eos % (Auto) 1.6 (0.9-7.0) % Baso % (Auto) 0.7 (0.2-2.0) % Neut # (Auto) 5.6 (1.4-6.5) 10^3/uL Lymph # (Auto) 4.4 H (1.2-3.8) 10^3/uL [place] # (Auto) 0.9 H (0.3-0.8) 10^3/uL Eos # (Auto) 0.2 (0.0-0.7) 10^3/uL Baso # (Auto) 0.1 (0.0-0.1) 10^3/uL Abs Immat Gran (auto) 0.02 (0.00-0.03) 10^3/uL Imm/Tot Granulo (auto) 0.2 (0.0-0.5) % Sodium 139 (136-145) mmol/L Potassium 3.8 (3.5-5.1) mmol/L Chloride 103 (98-107) mmol/L Carbon Dioxide 27.7 (21.0-32.0) mmol/L Anion Gap 12.1 BUN 16.0 (7.0-18.0) mg/dL Creatinine 1.33 H (0.70-1.30) mg/dL Est GFR ( Amer) >60 (>=60 mL/min/1.73m^2) Est GFR (Non-Af Amer) 53 L (>=60 mL/min/1.73m^2) BUN/Creatinine Ratio 12.0 Glucose 127 H (74-106) mg/dL Calcium 9.2 (8.5-10.1) mg/dL Troponin I High Sens 8.1 (4.0-76.1) pg/mL Discharge Plan Discharge Chief Complaint: Arrhythmia/Palpitations Clinical Impression: Paroxysmal A-fib Patient Disposition: Home, Self-Care Prescriptions / Home Meds: No Action carvedilol 25 mg tablet 25 mg PO Q12H pantoprazole 40 mg tablet,delayed release (DR/EC) 40 mg PO DAILY Xarelto 20 mg tablet 20 mg PO DAILY Rx Instructions: must administer with evening meal Print Language: Italian Instructions: A-fib (Atrial Fibrillation) (ED) Additional Instructions: contact oim architect tomorrow and update on your condition Referrals: Maico Chowdary MD [Primary Care Provider, Family Practice] - 1 week
[2024-10-07 23:08] LABS: Basophils Absolute Auto 0.1 10^3/uL (0.0-0.1); Basophils Percent Auto 0.7 % (0.2-2.0); Eosinophils Absolute Auto 0.2 10^3/uL (0.0-0.7); Eosinophils Percent Auto 1.6 % (0.9-7.0); Hematocrit 37.7 % (42.0-54.0); Hemoglobin 12.4 g/dL (14.0-18.0); Immature Granulocytes Abs Auto 0.02 10^3/uL (0.00-0.03); Immature Granulocytes Pct Auto 0.2 % (0.0-0.5); Lymphocytes Absolute Auto 4.4 10^3/uL (1.2-3.8); Lymphocytes Percent Auto 39.5 % (20.5-60.0); Mean Corpuscular HGB Conc 32.9 g/dL (29.9-35.2); Mean Corpuscular Volume 82.1 fL (80.0-94.0); Mean Platelet Volume 9.6 fL (9.5-13.5); Monocytes Absolute Auto 0.9 10^3/uL (0.3-0.8); Monocytes Percent Auto 7.9 % (1.7-12.0); Neutrophils Absolute Auto 5.6 10^3/uL (1.4-6.5); Neutrophils Percent Auto 50.1 % (43.0-75.0); Platelet Count 434 10^3/uL (150-450); Red Blood Count 4.59 10^6/uL (4.70-6.10); Red Cell Distribution Width 13.4 % (11.0-15.0); White Blood Count 11.2 10^3/uL (4.0-11.0)
[2024-10-07] MEDS: DILTIAZEM HCL 25 MG/5 ML VIAL 10 MG IV (23:08)
[2024-10-07] MEDS: dilTIAZem HCL 125 MG in 0.9 % SODIUM CHLORIDE 100 ML 10 MG IV (23:09)
[2024-10-07 23:28] LABS: Anion Gap 12.1; Calcium 9.2 mg/dL (8.5-10.1); Carbon Dioxide 27.7 mmol/L (21.0-32.0); Chloride 103 mmol/L (98-107); Estimated GFR (African America >60 (>=60 mL/min/1.73m^2); Estimated GFR (Non-African Ame 53 (>=60 mL/min/1.73m^2); Glucose 127 mg/dL (74-106); Potassium 3.8 mmol/L (3.5-5.1); Sodium 139 mmol/L (136-145); Troponin I High Sensitivity 8.1 pg/mL (4.0-76.1)
[2024-10-08] VITALS (11 sets, daily range): BP systolic 96–119; BP diastolic 60–72; PULSE 67–80; O2SAT 96
--- NOTE | 2024-10-08 00:16 | ECG_ITS ---
[facility] Test Date: 2024-10-08 Pat Name: RENNY CALDERÓN Department: Room: - Gender: Male Manager Speech: : 1950 Requested By: [id number] Order Number: [id number] Reading MD: KEMAL BLAIR M.D. Measurements Intervals [place] Rate: 74 P: 18 [place]: 178 QRS: 26 QRSD: 80 T: 7 QT: 356 QTc: 384 Interpretive Statements 1100 Sinus rhythm 9110 normal ECG Compared to ECG 10/07/2024 22:46:28 Sinus rhythm is now present ST (T wave) deviation no longer present Electronically Signed On 10-08-2024 9:35:30 EDT by KEMAL BLAIR M.D.
== END 2024-10-08 01:42 | disposition home or self-care (01) ==
PROVIDERS: Emergency Provider Internal Medicine; PCP Family Medicine
DX: I48.0 Paroxysmal atrial fibrillation (principal)
CPT/HCPCS: 36415; 80048; 84484; 85025; 93005; 96365; 96376; 99285

== ENCOUNTER 2024-10-24 09:25 | Outpatient (OUT) | payer OTHER, SELFPAY ==
[2024-10-24 10:11] LABS: Hematocrit 36.9 % (42.0-54.0); Hemoglobin 12.0 g/dL (14.0-18.0); Immature Granulocytes Abs Auto 0.03 10^3/uL (0.00-0.03); Immature Granulocytes Pct Auto 0.2 % (0.0-0.5); Lymphocytes Absolute Auto 2.3 10^3/uL (1.2-3.8); Mean Corpuscular HGB Conc 32.5 g/dL (29.9-35.2); Mean Corpuscular Hemoglobin 26.9 pg (25.9-34.0); Mean Corpuscular Volume 82.7 fL (80.0-94.0); Platelet Count 401 10^3/uL (150-450); Red Blood Count 4.46 10^6/uL (4.70-6.10); White Blood Count 12.6 10^3/uL (4.0-11.0)
[2024-10-24 11:06] LABS: Alanine Aminotransferase 14 U/L (16-63); Albumin Globulin Ratio 0.6; Albumin Level 3.2 g/dL (3.4-5.0); Alkaline Phosphatase 53 U/L (46-116); Anion Gap 11.3; Aspartate Amino Transferase 10 U/L (15-37); Blood Urea Nitrogen 17.0 mg/dL (7.0-18.0); Calcium 9.3 mg/dL (8.5-10.1); Carbon Dioxide 31.1 mmol/L (21.0-32.0); Chloride 102 mmol/L (98-107); Cholesterol 156 mg/dL (<=200); Estimated GFR (African America >60 (>=60 mL/min/1.73m^2); Estimated GFR (Non-African Ame 59 (>=60 mL/min/1.73m^2); Free T3 2.72 pg/mL (2.18-3.98); Globulin 5.1 g/dL; Glucose 101 mg/dL (74-106); HDL Cholesterol 46 mg/dL (40-60); NT Pro B Type Natriuretic Pept 346.0 pg/mL (<=900.0); Potassium 4.4 mmol/L (3.5-5.1); Sodium 140 mmol/L (136-145); Thyroid Stimulating Hormone 1.566 uIU/mL (0.358-3.740); Total Protein 8.3 g/dL (6.4-8.2); Triglycerides 90 mg/dL (<=150); Uric Acid 5.3 mg/dL (3.5-7.2); VLDL CHOLESTEROL 18.0 mg/dL
[2024-10-25 19:08] LABS: Antinuclear Antibodies, IFA Positive (.)
== END 2024-10-24 09:26 | disposition home or self-care (01) ==
LOC: LAB 09:38
PROVIDERS: PCP Family Medicine; Visit Provider Family Medicine
DX: I48.91 Unspecified atrial fibrillation (principal); I50.9 Heart failure, unspecified; N18.31 Chronic kidney disease, stage 3a; M54.50 Low back pain, unspecified; E78.5 Hyperlipidemia, unspecified; R73.09 Other abnormal glucose; Z12.5 Encounter for screening for malignant neoplasm of prostate; I11.0 Hypertensive heart disease with heart failure
CPT/HCPCS: 36415; 80053; 80061; 83036; 83525; 83880; 84436; 84443; 84481; 84484; 84550; 85025; 85652; 86038; 86060; 86140; 86431; G0103

== ENCOUNTER 2025-02-21 12:28 | Outpatient (OUT) | payer OTHER, SELFPAY ==
--- OUTSIDE RECORDS SUMMARY | 2025-02-07 04:30 | XMS_ITS ---
Author Organization [facility] [place] Address [address] [place] [address] Care Team Providers Care Laundry Tech Name Role Phone Hunter Chowdary Primary Care Provider [phone] Allergies No Known Allergies REASON FOR VISIT Presents to office alone for F2F for CPAP- new machine, Machine is 5 years old and is making very loud noises when using it. [facility]ses [facility] Medications Medication SIG (Take, Route, Frequency, Duration) Notes Start Date End Date Status Carvedilol 25 mg TAKE 1 TABLET BY MOUTH TWICE DA ISAIAS WITH FOOD; Duration: 90 ActiveCPAP -CPAP machine and mask and tubine; Duration: 365 days5Active Vitamin D 50 MCG (1999)1 tablet Orally Once a day; Duration: 90 daysActive Pantoprazole Sodium 40 MGTAKE 1 TABLET BY MOUTH ONCE DAILY; Duration: 90 days ActiveXarelto 20 MG1 tablet with food Orally Once a day5Active Social History Tobacco Use: Social History Observation Description Date Details (start date - stop date) Unknown Tobacco Use/Smoking Question Answer Notes Patient is a Uses tobacco in other forms Additional Findings: Tobacco UserChews tobaccoAUDIT-C (Standard) Question Answer Notes Did you have a drink containing alcohol in the p ast year? No Zjvcmg8WuonbdrbpxrzlnCyfqytku Problems Problem Type SNOMED Code ICD Code Onset Dates Problem Status W/U Status Risk Notes Problem Sleep apnea (43953921) Sleep apnea (G47.3 0) Activeconfirmed Vital Signs Weight 211.2 lbs 02/07/2025 Height 69 in 02/07/2025 Blood pressure systolic 128 mm Hg 02/08/20 25 Blood pressure diastolic 80 mm Hg 025 BMI 31.19 kg/m2 02/07/2025 Encounters Encounter Location Date Provider Diagnosis [facility] [address] [place] [address] 02/07/2025 Hunter Chowdary Sleep apnea G47.30 Assessments Encounter Date Diagnosis (ICD Code) Assessment Notes Treatment Notes Treatment Clinical Notes Section Notes 02/07/2025 Sleep apnea (ICD-10 - G47.30) Needs new machine - grinding noise from machine does work - help with daytime wakefulness and focus Plan Of Treatment Medication Medication Name Sig Start Date Stop Date Notes CPAP - CPAP machine and mask and tubine; Duratio n: 365 days 02/07/2025 Treatment Notes Assessment Notes Sleep apnea Needs new machine - grinding noise from machine does work - help with daytime wakefulness and focus Progress Notes * Kd CALDERÓN ADOB:1950 ( 74 yo M)Acc No.[id number]:02/07/2025 Progress Note Patient: Kd ARBOLEDA :?Maico M. Epi ([facility]), MDDOB:1950???Age: 74 Y???Sex:MaleDate:02/07/2025Phone:[phone]:[address] [place] [id number] In:09:22 AM ESTCheck Out:10:01 AM EST Subjective: * Chief Complaints: * P resents to office alone for F2F for CPAP- new machineMachine is 5 years old and is making very loud noises when using it. Uses [facility] * HPI: ???General:? Dx with PMR Sleep apnea - Dx fopr over 5 years - uses machine daily and helpw ith focus and wakefullness now getting grinding from machine - he had a recording adn def not a mask leak. * ROS: ???EENT:?hearing changes?denies.?visual changes?denies. non-healing mouth sores?denies.?swollen glands or neck lumps?denies.?hoarseness?denies.?sore throat?denies.?difficulty swallowing?denies.?nose bleeds?denies.?nasal congestion?denies.?ear ache?denies.?ear discharge denies.?ringing in ears?denies.?light sensitivity?denies.?eye pain?denies.?blurring?denies.?eye irritation?denies.?double vision?denies. vision loss?denies.?General/Constitutional:?Sweats:?Denies.?Fatigue?denies.?Sleep proble ms?denies.?Anorexia?denies.?Malaise?denies.?Weight loss?denies. Fatigue or Weakness?denies.?Fever or Chills?denies.?Cardiovascular:?Shortness of Breath w/lying flat?denies.?Lightheadedne ss/dizziness?denies.?Chest tightness/ heavy pressure?denies.?Swelling of legs, a nkles, or feet?denies.?Waking up with shortness of breath?denies.?Chest pain&#16 0;denies.?Palpitations?denies.?Weight gain?denies.?Respiratory:?Chronic or frequent cough?denies.?Coughing up blood&#1 60;denies.?Difficulty breathing?denies.?Productive cough?denies.?Snoring&#1 60;denies.?Shortness of breath that awakens from sleep (PND)?denies.?Chest pain? denies.?Sputum production?denies.?Wheezing?denies.?Musculoskeletal:?Joint pain?denies.?Joint Fluid?denies.?Backpain?denies.?Knee pain?denies.?Neck pain?denies.?Joint Stiffness?denies.?Muscle cramps?denies.?Weakness of muscles?denies.?Arthritis?denies.?Muscle aches?denies.?Pain in shoulder(s)?denies.?Swollen joints?denies.? * Active Problem List I10 Hypertension Modified On:08/24/2022W/U Status:gmtivfzgsN73.1Hypertriglyceridemia Modified On:08/24/2022 Status:qstjmyjqbK78.9Sinusitis Modified On:08/24/2022 Status:lencsfhirM92.20Cerumen impaction Modified On:08/24/2022 Status:btyhkuogzZ84.00Well adult Modified On:08/24/2022 Status:rlxmtwandZ33.92Diverticulitis Modified On:08/24/2022 Status:cjleddbvlJ87.11Abdominal pain, RUQ Modified On:08/24/2022 Status:rwhslwgxgN75.9Gastro-esophageal reflux disease Modified On:08/24/2022 Status:fhfonvyaxN00.40Shoulder impingement syndrome Modified On:08/24/2022 Status:xxkmojubqP33.33Obstructive sleep apnea syndrome, severe Modified On:08/24/2022 Status:cewyzlypdD92Tctljuh and collapse Modified On:08/24/2022 Status:vscpkltkiL00.606Pain in leg, unspecified Modified On:08/24/2022 Status:dbzywfsfiH29.6I8LPbbudo of other specified parts of unspecified knee, initial encounter Modified On:08/24/2022 Status:ruwqiqyqqJ74.9Chest pain Modified On:11/16/2022 Status:napjqyjvwA25.83Fatigue Modified On:08/24/2022 Status:losyeuteaA84.91Atrial fibrillation Modified On:10/31/2022 Status:jpwpimxmpW32.1Bradycardia Modified On:06/08/2023 Status:zufrxrmkiM60.9Heart failure, unspecified Modified On:10/24/2024 Status:bnvktjflcI05.31Chronic kidney disease, stage 3a Modified On:10/24/2024 Status:vvjdlpibkT11.9Lupus Modified On:10/28/2024 Status:kemjbaktgK18.3PMR (polymyalgia rheumatica) Modified On:01/17/2025 Status:intxgvhvxP80.52Long term (current) use of systemic steroids Modified On:01/17/2025W/U Status:ufzhdlvejI93.30Sleep apnea Modified On:02/07/2025W/U Status:confirmed * Medical History: * Surgical History: A ppendix 1999Coronary Angiography 05/03/2023 * Hospitalization/Major Diagno stic Procedure: * Family History: F ather: , diagnosed with Heart Disease. M other: 72 yrs. * Social History: ???Tobacco Use:?Tobacco Use/Smoking?Patient is a?Uses tobacco in other forms ?Additional Findings: Tobacco User?Chews tobacco ???Drug/Alcohol:?AUDIT-C (Standard)?Did you have a drink containing alcohol in the past year??No ?Points?0 ?Interpretation?Negative * Medications: T akingCarvedilol 25 mg Tablet TAKE 1 TABLET BY MOUTH TWICE DAILY WITH FOOD Pantoprazole Sodium 40 MG Tablet Delayed Release TAKE 1 TABLET BY MOUTH ONCE DAILY Vitamin D 50 MCG (2000 UT) Tablet 1 tablet Orally Once a day Xarelto(Rivaroxaban) 20 MG Tablet 1 tablet with food Orally Once a day Medication List reviewed and reconciled with the patientTaking Carvedilol 25 mg Tablet TAKE 1 TABLET BY MOUTH TWICE DAILY WITH FOOD Taking Pantoprazole Sodium 40 MG Tablet Delayed Release TAKE 1 TABLET BY MOUTH ONCE DAILY Taking Vitamin D 50 MCG (2000 UT) Tablet 1 tablet Orally Once a day Taking Xarelto(Rivaroxaban) 20 MG Tablet 1 tablet with food Orally Once a day Medication List reviewed and reconciled with the patient * Allergies: N .K.D.A.no[Allergies Verified] Objective: * Vitals: W t:211.2lbs, Ht: 69 in, BP:128/80mm Hg, BMI:31.19Index, Ht-cm: 175.26 cm, Wt-k.8 kg. * Examination: ???Physical Exam: ?GENERAL:?well developed, well nourished, in no acute distress.?HEAD:?normocephalic/atraumatic.?EYES:?pupils equal, round and reactive to light, conjunctivae and sclerae normal.?EARS:?no deformity or lesion of external ear, canals and TM appear normal bilaterally, TM's intact, not inflamed with normal light reflex, hearing grossly normal to conversational speech.?NOSE:?no deformity, discharge, inflammation, or lesions. ?MOUTH:?mucous membranes moist, normal oropharynx and posterior pharynx without lesions or exudates, tongue normal, dentition normal.?NECK:?neck supple, no masses or palpable cervical nodes, trachea midline, thyroid without nodules, masses, tenderness, or enlargement.?CHEST:?no chest wall deformity, no chest wall tenderness. ?LUNGS:?normal respiratory effort and clear to auscultation, no wheezes, rales, or rhonchi, good air exchange.?CARDIO:?regular rate and rhythm, normal S1 and S2, nor murmur, rub, or gallop.?PULSES:?normal capillary refill.?ABDOMEN:?soft, non-distended, non-tender, no masses.?MUSCULOSKELETAL:?no deformity or scoliosis noted, normal range of motion, joints normal, no erythema, edema, effusion, or ecchymosis.?EXTREMITY:?no clubbing, cyanosis, edema, or deformity withnormal ROM in both upper and lower bilateral extremities.?NEUROLOGIC:?grossly normal.?SKIN:?no rashes, ulcerations, or suspicious lesions.?LYMPH NODES:?no cervical adenopathy, nodes normal.?MENTAL STATUS:?alert and oriented x3, normal mood and affect.? Assessment: * Assessment: 1.?Sleep apnea - G47.30 (Primary)??? Plan: * Treatment: Start CPAP , -, CPAP machine and mask and tubine, 365 days, 1, Refills 11.?? Notes: Needs new machine - grinding noise from machine does work - help with daytime wakefulness and focus?? * Procedure Codes: * Preventive Medicine: ??Screenings/Counseling:?BMI ACTION PLAN?Above Normal BMI Follow-up?Dietary management education, guidance, and counseling See treatment section of progress note for complete details of management plan. ?TOBACCO ACTION PLAN?Patient counselled on the dangers of tobacco use and urged to quit.? 02/07/2025 . ?FALL RISK SCREENING?Fall Risk Assessment:?No falls in the past year * * Sign off status: CompletedVisit Status:?CHK (Check Out) true * Provider: Ruel Chowdary (TT[facility])MD Date: Generated for Printing/Faxing/eTransmitting on:?02/21/2025 12:35 PM EST History and Physical Notes * HPI (History of Present Illness) CategorySub-CategoryDetailNotesCategory NotesGeneral Dx with PMR Sleep apnea - Dx fopr over 5 years - uses machine daily and helpw ith focus and wakefullness now getting grinding from machine - he had a recording adn def not a mask leak Examination CategorySub-CategoryDetailNotesCategory NotesPhysical ExamGENERAL:well developed, well nourished, in no acute distressHEAD:normocephalic/atraumatic EYES:pupils equal, round and reactive to light, conjunctivae and sclerae normal EARS:no deformity or lesion of external ear, canals and TM appear normal bilaterally, TM's intact, not inflamed with normal light reflex, hearing grossly normal to conversational speechNOSE:no deformity, discharge, inflammation, or lesionsMOUTH:mucous membranes moist, normal oropharynx and posterior pharynx without lesions or exudates, tonguenormal, dentition normalNECK:neck supple, no masses or palpable cervical nodes, trachea midline, thyroid without nodules, masses, tenderness, or enlargementCHEST:no chest wall deformity, no chest wall tendernessLUNGS:normal respiratory effort and clear to auscultation, no wheezes, rales, or rhonchi, good air exchangeCARDIO:regular rate and rhythm, normal S1 and S2, nor murmur, rub, or gallopPULSES:normal capillary refillABDOMEN:soft, non-distended, non-tender, no massesRECTAL:MUSCULOSKELETAL:no deformity or scoliosis noted, normal range of motion, joints normal, no erythema, edema, effusion, or ecchymosisEXTREMITY:no clubbing, cyanosis, edema, or deformity with normal ROM in both upper and lower bilateral extremitiesNEUROLOGIC:grossly normalSKIN:no rashes, ulcerations, or suspicious lesionsLYMPH NODES:no cervical adenopathy, nodes normalMENTAL STATUS:alert and oriented x3, normal mood and affect
--- OUTSIDE RECORDS SUMMARY | 2025-02-21 04:06 | XMS_ITS ---
Author Organization [facility] [place] Address [address] [place] [address] Care Team Providers Care Grocery Clerk Marking Name Role Phone Hunter Chowdary Primary Care Provider REASON FOR VISIT labs from [facility] Encounters Encounter Location Date Provider Diagnosis [facility] [address] [place] [address] 02/21/2025 Hunter Chowdary Lupus M32.9 Assessments Encounter Date Diagnosis (ICD Code) Assessment Notes Treatment Notes Treatment Clinical Notes Section Notes 02/21/2025 Lupus (ICD-10 - M32.9) Plan Of Treatment Pending Test Test Name Order Date ESR 02/21/2025 CRP 02/21/2025 Progress Notes * Kd CALDERÓN ADOB:1950 ( 74 yo M)Acc No.[id number]:02/21/2025 Patient:?Kd CALDERÓN :1950???Age:74 Y???Sex:MalePhone:[phone] Address:[address] [place] [id number] Subjective: * Chief Complaints: * l abs from [facility] * Medical History: * Surgical History: * Hospitalization/Major Diagno stic Procedure: * Medications: Objective: * Vitals: * Physical Examination: ??? Assessment: * Assessment: 1.?Lupus - M32.9 (Primary)??? Plan: * Treatment: ?LAB: ESR ?LAB: CRP * Procedure Codes: * true * Date:?Generated for Printing/FaPosh Eyes/Sensicast Systemsitting on:?02/21/2025 12:35 PM EST
--- OUTSIDE RECORDS SUMMARY | 2025-02-21 12:36 | XMS_ITS | Clinical Summary ---
Author Organization [facility] Address [address] [place] [address] Care Team Providers Care Studio Assistant Name Role Phone Unavailable Primary Care Provider Unavailabl e Allergies No known active allergies Medications MedicationSigDispense QuantityRefillsLast FilledStart DateEnd DateStatus carvedilol (Coreg) 25 MG tablet Take 25 mg by mouth in the morning and 25 mg in the evening. Take with meals. Active pantoprazole (ProtoNix) 40 MG EC tablet Take 40 mg by mouth in the morning.01/23/2023ctive Eliquis 5 MG tablet Take 5 mg by mouth in the morning and 5 mg before bedtime.Active Active Problems ProblemNoted DateDiagnosed DateDaytime ahyvaxbpknrhfrm79/05/2024Snoring 12/21/2023OSA (obstructive sleep apnea)12/20/20238109Wyyathbyfht11/04/2024 Peizywdmoeuj95/04/2024 Social History Tobacco UseTypesPacks/DayYears UsedDateSmoking Tobacco: NeverSmokeless Tobacco: Never Tobacco Cessation:Counseling Given: Not Answered Alcohol UseStandard Drinks/WeekCommentsNever0 (1 standard drink = 0.6 oz pure alcohol)caffeine 1-2 cups per daySex and Gender InformationValueDate RecordedSex Assigned at BirthNot on fileLegal SzyUaek1106/29/2022 6:45 PM EDTGender Identity Not on fileSexual OrientationNot on file Last Filed Vital Signs Vital SignReadingTime TakenCommentsBlood Irewqpwj482/7809 1:30 PM EDT Jwrrg561612/21/2023 1:30 PM EDTTemperature--Respiratory Rate--Oxygen Xdoevqupil65% 12/21/2023 1:30 PM EDTInhaled Oxygen Concentration--Hwvkng11.9 kg (218 lb) 12/21/2023 1:30 PM QEGIznlit401.3 cm (5' 9 )12/21/2023 1:30 PM EDTBody Mass Index32.19012/21/2023 1:30 PM EDT Plan of Treatment Not on file Insurance
--- OUTSIDE RECORDS SUMMARY | 2025-02-21 12:36 | XMS_ITS | Clinical Summary ---
Author Organization [facility] Address [address] [place] [address] Care Team Providers Care Yield Clerk Name Role Phone Maico Chowdary MD Primary Care Provider [phone] Allergies No known active allergies Medications MedicationSigDispense QuantityRefillsLast FilledStart DateEnd DateStatus carvedilol (Coreg) 25 mg tablet Take 25 mg by mouth with breakfast and with evening meal.12/26/2022ctive pantoprazole (ProtoNix) 40 mg EC tablet Take 40 mg by mouth in the morning.01/23/2023ctive rivaroxaban (Xarelto) 20 mg tablet Indications:PAF (paroxysmal atrial fibrillation) (CMS/HCC)Take 1 tablet (20 mg) by mouth daily with evening meal. Take with food. 90 tablet 5Active cholecalciferol (Vitamin D3) 50 MCG (1999) tablet Take 2,000 Units by mouth in the morning.Active Active Problems ProblemNoted DateDiagnosed DateSVT (supraventricular tachycardia)09/24/2024 Daytime nhtjrtfpetizpbs68/05/9261Qfnjymp54/05/3523Eoshaomkepr96/04/2024hest pain04/25/2023aroxysmal atrial syebvbpohbof80/03/2023HypertensionOSA (obstructive sleep apnea)HyperlipidemiaSyncope and collapse Encounters DateTypeDepartmentCare CvuxZlgodmjdiha57/05/2025Orders Only [facility] [address] [place] [phone] Rosio Marcelo MD 01/06/2025 10:15 AM EDTAncillary Procedure [facility] [address] [place] [address] Awareness of heartbeatsfrom Last 3 Months Immunizations ImmunizationAdministration DatesNext DueInfluenza, High-dose Seasonal, Quadrivalent, Preservative Free01/13/2022Influenza, Seasonal, Quadrivalent, Aeppkglogp74/13/2023,01/13/2020Influenza, Etkmxtmltck20/25/2021Influenza, injectable, quadrivalent, preservative free12/14/2020,12/01/2017,02/14/2017 Influenza, seasonal, injectable, preservative free, 6 moonths & older01/27/2015 Influenza, trivalent, szizlvzqtz92/05/2019Pneumococcal Conjugate PCV 13 12/20/2018,02/23/2018Pneumococcal Polysaccharide NNC303009/24/2019Tdap09/02/2022 Zoster, live02/13/2015 Family History Medical HistoryRelationNameCommentsHeart diseaseFatherRelationNameStatusComments FatherDeceasedMotherDeceased Social History Tobacco UseTypesPacks/DayYears UsedDateSmoking Tobacco: NeverSmokeless Tobacco: CurrentChew Tobacco Cessation:Ready to Q uit: Not Asked; Counseling Given: Not Answered Comments:chew Alcohol UseStandard Drinks/WeekCommentsYes0 (1 standard drink = 0.6 oz pure alcohol)occasionalUT Safety & EnvironmentAnswerDate RecordedFear of Current or Ex-PartnerNot on file06/08/2023Emotionally AbusedNot on file06/08/2023hysically AbusedNot on file06/08/2023Sexually AbusedNot on file06/08/2023hysically or Sexually AbusedNot on file06/08/2023Sex and Gender InformationValueDate Recorded Sex Assigned at LhkvsUemq84/21/2024 6:58 AM ESTLegal AawBihb4210/14/2021 12:39 AM EDTGender QiykarntMwfd63/21/2024 6:58 AM ESTSexual OrientationHeterosexual or Lrapbsmx21/21/2024 6:58 AM EST Last Filed Vital Signs Vital SignReadingTime TakenCommentsBlood Owjzekoa004/9008 9:14 AM EDT Ujxsp8779/01/2025 9:14 AM EDTTemperature--Respiratory Mkzs4506 9:14 AM EDTOxygen Bwkahdylqb89%11/15/2024 9:14 AM EDTInhaled Oxygen Concentration-- Vdgdmz09.7 kg (202 lb 3.2 oz)11/15/2024 9:14 AM SSZPfdfjq648.8 cm (5' 10 ) 11/15/2024 9:14 AM EDTBody Mass Index29.01011/15/2024 9:14 AM EDT Plan of Treatment DateTypeDepartmentCare Team (Latest Contact Info)Pzuadrfexvh85/02/2025 9:45 AM ESTOffice Visit [facility] [address] [place] [address] Pj Bhakta MD [address] [place] [address] Health MaintenanceDue DateLast DoneCommentsCT Jilwzlwihxny06/15/1953Colonoscopy 3Colorectal Cancer Vqnolkidp63/15/1951FIT-DNA1950FIT1950 FOBT1950Medicare Annual Wellness (AWV)1950 0947Wrzmpsefxfkxs48/15/1953 Depression Ufdcljccd36/15/1965Zoster Vaccines (1 of 2)Fall Risk Cmofnmsaj13/15/2018COVID-19 Vaccine ( season)2024 01/13/2022, 01/15/2021, 07/02/2020, Additional history existsInfluenza Vaccine (#1), 12/28/2022, 01/13/2022, Additional history existsAdult Qqibgni06neumococcal Vaccine: 50+ OzmydFypiixige51/09/2020, 12/20/2018, 02/23/2018HIB VaccinesAged OutNo longer eligible based on patient's age to complete this topicHPV VaccinesAged OutNo longer eligible based on patient's age to complete this topicIPV VaccinesAged OutNo longer eligible based on patient's age to complete this topicMeningococcal B VaccineAged OutNo longer eligible based on patient's age to complete this topicMeningococcal VaccineAged OutNo longer eligible based on patient's age to complete this topicRotavirus VaccinesAged OutNo longer eligible based on patient's age to complete this topic Medical Devices ImplantedTypeAreaManufacturerDevice IdentifierShelf Expiration DateModel / Serial / LotMonitor,Cardiac,Lux,Dxii+[facility] - [id number] - [id number] Implanted:Qty: 1 on 03/07/2024 by Pj [facility] HospitalImplantable Loop RecorderBoston [id number] / [id number] / Procedures Procedure NamePriorityDate/TimeAssociated DiagnosisCommentsCARDIAC DEVICE CHECK CHECK - GFLMBWAsmyjsn71/08/2025 9:27 AM EDT Awareness of heartbeats CARDIAC DEVICE CHECK - REMOTE - LOOP RECORDER (ILR)Vkglhxx0601/19/2025 12:00 AM EDTCARDIAC DEVICE CHECK CHECK - NVIEDFQsgxhhj93/13/2025 10:19 AM EDT Awareness of heartbeats from Last 3 Months Results * CARDIAC DEVICE CHECK - REMOTE - LOOP RECORDER (ILR) (01/22/2025 9:27 AM EDT) Only the most recent of2 resultswithin the time period is included. Specimen (Source)Anatomical Location / LateralityCollection Method / Volume Collection TimeReceived Time Narrative Authorizing ProviderResult TypeResult StatusPj Bhakta [facility] IMPLANTABLE CARDIAC DEVICE PROCEDURESFinal ResultPerforming OrganizationAddressCity/State/ZIP Code Phone Number CPACS * Cardiac device check - Remote loop recorder (ILR) (01/19/2025 12:00 AM EDT) Anatomical RegionLateralityModalityOtherSpecimen (Source)Anatomical Location / LateralityCollection Method / VolumeCollection TimeReceived Time01/19/2025 Narrative Authorizing ProviderResult TypeResult StatusRosio Marcelo [facility] IMPLANTABLE CARDIAC DEVICE PROCEDURESFinal Result from Last 3 Months Insurance * Guarantor: Kd Mitchell AAccount TypeRelation to PatientDate of BirthPhone Billing AddressPersonal/MjxwpdVeyh08/ [address] [address] Care Teams Team MemberRelationshipSpecialtyStart DateEnd Date Maico Chowdary MD [address] [facility] [address] [address] PCP - Uxorsji47/2/23
--- OUTSIDE RECORDS SUMMARY | 2025-02-21 12:36 | XMS_ITS | Patient Health Record ---
Author Organization [facility] in [place] Address [address] [place] [address] Care Team Providers Care Recruiter Account Manager Name Role Phone Hunter Chowdary Primary Care Provider Allergies No Known Allergies Results Component Value Reference Range Notes BNP Reviewed date:10/24/2024 06:45:52 PM Interpretation: Performing Lab: Notes/Report: [facility] , NT Pro B Type Natriuretic Pept 346.0 <=900.0 pg /mL Performing Lab:see noteML - [facility] LBCBC AUTO DIFF Reviewed date:09/01/2024 10:10:15 PM Interpretation: Performing Lab: Notes/Report: [facility] ,White Blood Count9.74.0-11.0 10 3/uLRed Blood Count4.774.70-6.10 10 6/uL Wempnmycci31.214.0-18.0 g/lSEosopxsunu23.542.0-54.0 %Mean Corpuscular Prdxqe92.9 80.0-94.0 fLMean Corpuscular Xbpzypiodw96.725.9-34.0 pgMean Corpuscular HGB Conc 32.629.9-35.2 g/dLRed Cell Distribution Width14.111.0-15.0 %Platelet Uuybe806 150-450 10 3/uLMean Platelet Rcimub27.09.5-13.5 fLNeutrophils Percent Auto57.9 43.0-75.0 %Lymphocytes Percent Auto32.520.5-60.0 %Monocytes Percent Auto7.41.7- 12.0 %Eosinophils Percent Auto1.30.9-7.0 %Basophils Percent Auto0.70.2-2.0 % Immature Granulocytes Pct Auto0.20.0-0.5 %Neutrophils Absolute Auto5.61.4-6.5 10 3/uLLymphocytes Absolute Auto3.21.2-3.8 10 3/uLMonocytes Absolute Auto0.70.3-0.8 10 3/uLEosinophils Absolute Auto0.10.0-0.7 10 3/uLBasophils Absolute Auto0.10.0- 0.1 10 3/uLImmature Granulocytes Abs Auto0.020.00-0.03 10 3/uLPerforming Lab:see noteML - [facility] LBMAGNESIUM Reviewed date:09/01/2024 10:10:15 PM Interpretation: Performing Lab: Notes/Report: [facility] ,Magnesium2.01.8-2.4 mg/dLPerforming Lab:see noteML - [facility] LB PROF 14(COMP METB) Reviewed date:09/01/2024 10:10:15 PM Interpretation: Performing Lab: Notes/Report: [facility] ,Dfjynn421688-441 mmol/LPotassium4.63.5-5.1 mmol/PXswhrimj38526-161 mmol/LCarbon Ujqgeou29.821.0-32.0 mmol/LAnion Gap11.1Fnpdaon78610-495 mg/dLBlood Urea Emfwmcfm78.07.0-18.0 mg/dLCreatinine1.560.70-1.30 mg/dLEstimated GFR ( Mlelpnx04>=60 mL/min/1.73m 2Estimated GFR (Non- Ame44>=60 mL/min/1.73m 2 BUN Creatinine Ratio12.8Xnxhtpd8.18.5-10.1 mg/dLBilirubin Total0.40.2-1.0 mg/dL Aspartate Amino Ucdqxshvwje9946-75 U/LAlanine Lruzswrmwukohnoq9724-96 U/L Alkaline Jmyhuvhpmyj0845-046 U/LTotal Protein7.56.4-8.2 g/dLAlbumin Level3.43.4- 5.0 g/dLGlobulin4.1Albumin Globulin Ratio0.8Performing Lab:see noteML - [facility] LBTroponin I High Sensitivity Reviewed date:09/01/2024 10:10:15 PM Interpretation: Performing Lab: Notes/Report: [facility] ,Troponin I High Sensitivity8.04.0-76.1 pg/mL UNIVERSAL DEFINITION OF MYOCARDIAL INFARCTION. THE UPPER CUT-OFF POINTS HAVE BEEN ESTABLISHED BASED ON THE FOURTH PERCENTILE OF cTnI DISTRIBUTION IN A REFERENCE POPULATION, WITH OTHER DIAGNOSTIC AND CLINICAL INFORMATION. HAS BEEN CONFIRMED THE DECISION THRESHOLD FOR NC DIAGNOSIS. 99TH PERCENTILE = 76.2 PG/ML REFERENCE LIMIT (URL) OF TROPONIN, DEFINED THE 99TH USED IN ISOLATION BUT SHOULD BE INTERPRETED IN CONJUNCTION NOTE: HIGH-SENSITIVITY TROPONIN ASSAY IS NOT INTENDED TO BE Performing Lab:see noteML - [facility] LBECG 12 lead Reviewed date:09/01/2024 10:10:15 PM Interpretation: Performing Lab: Notes/Report: Source Facility: [facility]-[address] [place] [address] [place] [address] Electrocardiograph Report Signed Patient: KD CALDERÓN MR#: [id number] : 1950 Acct:[id number] Age/Sex: 73 / M ADM Date: 08/31/24 Loc: ER Attending Dr: Ordering Physician: Liana Amor Date of Service: 08/31/24 Procedure(s): ECG 12 lead Accession Number(s): [id number] cc: [facility] Test Date: 2024-08-31 Pat Name: KD CALDERÓN Department: Room: - Gender: Male Parts Counterman: : 1950 Requested By: 1854 Order Number: [id number] Reading MD: KEMAL BLAIR M.D. Measurements Intervals [place] Rate: 170 P: -01037 WV: -88563 QRS: 33 QRSD: 86 T: 259 QT: [...] Dictated By: KEMAL BLAIR Signed By: 08/31/24 1809 DD/ 1240 TD/TT: Open Hearth Worker:ECG 12 lead Reviewed date:09/01/2024 10:10:15 PM Interpretation: Performing Lab: Notes/Report: Source Facility: [facility]-[address] [place] [address] [place] [address] Electrocardiograph Report Signed Patient: KD CALDERÓN MR#: [id number] : 1950 Acct:[id number] Age/Sex: 73 / M ADM Date: 08/31/24 Loc: ER Attending Dr: Ordering Physician: Liana Amor Date of Service: 08/31/24 Procedure(s): ECG 12 lead Accession Number(s): [id number] cc: [facility] Test Date: 2024-08-31 Pat Name: KD CALDERÓN Department: Room: - Gender: Male Parts Counterman: : 1950 Requested By: 1854 Order Number: [id number] Reading MD: KEMAL BLAIR M.D. Measurements Intervals [place] Rate: 84 P: -30 WV: 178 QRS: 40 QRSD: 80 T: 22 QT: 330 QTc: 371 Interpretive Statements 1100 Sinus rhythm 9110 normal ECG Compared to ECG 08/31/2024 12:40:14 Sinus rhythm has replaced atrial flutter ST (T wave) deviation no longer present Possible ischemia no longer present Electronically Signed On 08-31-2024 18:12:06 EDT by KEMAL BLAIR M.D. Dictated By: KEMAL BLAIR Signed By: 08/31/24 1812 DD/ 1252 TD/TT: Open Hearth Worker:Troponin I High Sensitivity Reviewed date:09/01/2024 10:10:15 PM Interpretation: Performing Lab: Notes/Report: [facility] ,Troponin I High Nlwfphgmpep98.64.0-76.1 pg/mL NOTE: HIGH-SENSITIVITY TROPONIN ASSAY IS NOT INTENDED TO BE DIAGNOSIS. CUT-OFF POINTS HAVE BEEN ESTABLISHED BASED ON THE FOURTH 99TH PERCENTILE = 76.2 PG/ML UNIVERSAL DEFINITION OF MYOCARDIAL INFARCTION. THE UPPER PERCENTILE OF cTnI DISTRIBUTION IN A REFERENCE POPULATION, REFERENCE LIMIT (URL) OF TROPONIN, DEFINED THE 99TH WITH OTHER DIAGNOSTIC AND CLINICAL INFORMATION. HAS BEEN CONFIRMED THE DECISION THRESHOLD FOR NC USED IN ISOLATION BUT SHOULD BE INTERPRETED IN CONJUNCTION Performing Lab:see noteML - [facility] LBECG 12 lead Reviewed date:09/24/2024 03:28:25 PM Interpretation: Performing Lab: Notes/Report: Source Facility: [place] [address] Electrocardiograph Report Signed Patient: KD CALDERÓN MR#: [id number] : 1950 Acct:[id number] Age/Sex: 73 / M ADM Date: 09/23/24 Loc: ER Attending Dr: Ordering Physician: Bahman Patrick Date of Service: 09/23/24 Procedure(s): ECG 12 lead Accession Number(s): [id number] cc: [facility] Test Date: 2024-09-23 Pat Name: KD CALDERÓN Department: Room: - Gender: Male Parts Counterman: : 1950 Requested By: 1031 Order Number: [id number] Reading MD: KEMAL BLAIR M.D. Measurements Intervals [place] Rate: 87 P: -6 WV: 168 QRS: 33 QRSD: 84 T: 32 QT: 334 QTc: 379 Interpretive Statements 1100 Sinus rhythm 9110 normal ECG Compared to ECG 09/23/2024 18:47:41 Supraventricular tachycardia no longer present ST (T wave) deviation no longer present Electronically Signed On 09-23-2024 21:58:45 EDT by KEMAL BLAIR M.D. Dictated By: KEMAL BLAIR Signed By: 09/23/24 2159 DD/ 05 TD/TT: Open Hearth Worker:ECG 12 lead Reviewed date:09/24/2024 03:28:25 PM Interpretation: Performing Lab: Notes/Report: Source Facility: [place] [address] Electrocardiograph Report Signed Patient: KD CALDERÓN MR#: [id number] : 1950 Acct:[id number] Age/Sex: 73 / M ADM Date: 09/23/24 Loc: ER Attending Dr: Ordering Physician: Bahman Patrick Date of Service: 09/23/24 Procedure(s): ECG 12 lead Accession Number(s): [id number] cc: [facility] Test Date: 2024-09-23 Pat Name: KD CALDERÓN Department: Room: - Gender: Male Parts Counterman: : 1950 Requested By: 1031 Order Number: [id number] Reading MD: KEMAL BLAIR M.D. Measurements Intervals [place] Rate: 72 P: -30 WV: 162 QRS: 27 QRSD: 82 T: 15 QT: 370 QTc: 395 Interpretive Statements 1100 Sinus rhythm 9110 normal ECG Compared to ECG 09/23/2024 19:06:05 No significant changes Electronically Signed On 09-23-2024 21:59:02 EDT by KEMAL BLAIR M.D. Dictated By: KEMAL BLAIR Signed By: 09/23/242158 DD/ 32 TD/TT: Open Hearth Worker:CBC AUTO DIFF Reviewed date:10/09/2024 09:09:16 PM Interpretation: Performing Lab: Notes/Report: [facility] ,White Blood Count11.24.0-11.0 10 3/uLRed Blood Count4.594.70-6.10 10 6/uL Visnvwjeut71.414.0-18.0 g/rLSqxmmhfqgm01.742.0-54.0 %Mean Corpuscular Xdmejl68.1 80.0-94.0 fLMean Corpuscular Qbxuffssnm03.025.9-34.0 pgMean Corpuscular HGB Conc 32.929.9-35.2 g/dLRed Cell Distribution Width13.411.0-15.0 %Platelet Kcxkt888 150-450 10 3/uLMean Platelet Volume9.69.5-13.5 fLNeutrophils Percent Auto50.1 43.0-75.0 %Lymphocytes Percent Auto39.520.5-60.0 %Monocytes Percent Auto7.91.7- 12.0 %Eosinophils Percent Auto1.60.9-7.0 %Basophils Percent Auto0.70.2-2.0 % Immature Granulocytes Pct Auto0.20.0-0.5 %Neutrophils Absolute Auto5.61.4-6.5 10 3/uLLymphocytes Absolute Auto4.41.2-3.8 10 3/uLMonocytes Absolute Auto0.90.3-0.8 10 3/uLEosinophils Absolute Auto0.20.0-0.7 10 3/uLBasophils Absolute Auto0.10.0- 0.1 10 3/uLImmature Granulocytes Abs Auto0.020.00-0.03 10 3/uLPerforming Lab:see noteML - [facility] LBPROF CHEM 8 (BAS METB) Reviewed date:10/09/2024 09:09:16 PM Interpretation: Performing Lab: Notes/Report: [facility] ,Xnffbz582260-211 mmol/LPotassium3.83.5-5.1 mmol/IHwglnaan98946-027 mmol/LCarbon Luqgncx65.721.0-32.0 mmol/LAnion Gap12.6Rzocqfg39253-703 mg/dLBlood Urea Arimxfdt89.07.0-18.0 mg/dLCreatinine1.330.70-1.30 mg/dLEstimated GFR ( Chio>60>=60 mL/min/1.73m 2Estimated GFR (Non- Ame53>=60 mL/min/1.73m 2 BUN Creatinine Ratio12.1Seppwny5.28.5-10.1 mg/dLPerforming Lab:see noteML - [facility] LBTroponin I High Sensitivity Reviewed date:10/09/2024 09:09:16 PM Interpretation: Performing Lab: Notes/Report: [facility] ,Troponin I High Sensitivity8.14.0-76.1 pg/mL USED IN ISOLATION BUT SHOULD BE INTERPRETED IN CONJUNCTION HAS BEEN CONFIRMED THE DECISION THRESHOLD FOR NC DIAGNOSIS. WITH OTHER DIAGNOSTIC AND CLINICAL INFORMATION. REFERENCE LIMIT (URL) OF TROPONIN, DEFINED THE 99TH PERCENTILE OF cTnI DISTRIBUTION IN A REFERENCE POPULATION, UNIVERSAL DEFINITION OF MYOCARDIAL INFARCTION. THE UPPER NOTE: HIGH-SENSITIVITY TROPONIN ASSAY IS NOT INTENDED TO BE CUT-OFF POINTS HAVE BEEN ESTABLISHED BASED ON THE FOURTH 99TH PERCENTILE = 76.2 PG/ML Performing Lab:see noteML - [facility] LBECG 12 lead Reviewed date:10/09/2024 09:09:16 PM Interpretation: Performing Lab: Notes/Report: Source Facility: [place] [address] [place] [address] Electrocardiograph Report Signed Patient: KD CALDERÓN MR#: [id number] : 1950 Acct:[id number] Age/Sex: 73 / M ADM Date: 10/07/24 Loc: ER Attending Dr: Ordering Physician: Bahman Patrick Date of Service: 10/07/24 Procedure(s): ECG 12 lead Accession Number(s): [id number] cc: [facility] Test Date: 2024-10-07 Pat Name: KD CALDERÓN Department: Room: - Gender: Male Parts Counterman: : 1950 Requested By: 1031 Order Number: [id number] Reading MD: KEMAL BLAIR M.D. Measurements Intervals [place] Rate: 178 P: -57990 WV: -96154 QRS: 34 QRSD: 88 T: -42 QT: 262 QTc: 356 Interpretive Statements Supraventricular tachycardia, likely atrial flutter [address] depression [address] Twave abnormality 9150 abnormal ECG Compared to ECG 09/23/2024 19:33:00 ST (T wave) deviation now present Sinus rhythm no longer present Electronically Signed On 10-08-2024 9:36:09 EDT by KEMAL BLAIR M.D. Dictated By: KEMAL BLAIR Signed By: 10/08/24 0936 DD/ 2246 TD/TT: Open Hearth Worker:ECG 12 lead Reviewed date:10/09/2024 09:09:16 PM Interpretation: Performing Lab: Notes/Report: Source Facility: [address] [address] Electrocardiograph Report Signed Patient: KD CALDERÓN MR#: [id number] : 1950 Acct:[id number] Age/Sex: 73 / M ADM Date: 10/07/24 Loc: ER Attending Dr: Ordering Physician: Bahman Patrick Date of Service: 10/08/24 Procedure(s): ECG 12 lead Accession Number(s): [id number] cc: [facility] Test Date: 2024-10-08 Pat Name: KD CALDERÓN Department: Room: - Gender: Male Parts Counterman: : 1950 Requested By: 1031 Order Number: [id number] Reading MD: KEMAL BLAIR M.D. Measurements Intervals [place] Rate: 74 P: 18 WV: 178 QRS: 26 QRSD: 80 T: 7 QT: 356 QTc: 384 Interpretive Statements 1100 Sinus rhythm 9110 normal ECG Compared to ECG 10/07/2024 22:46:28 Sinus rhythm is now present ST (T wave) deviation no longer present Electronically Signed On 10-08-2024 9:35:30 EDT by KEMAL BLAIR M.D. Dictated By: KEMAL BLAIR Signed By: 10/08/24 0935 DD/ 0016 TD/TT: Open Hearth Worker:AISSATOU by IFA Reviewed date:10/27/2024 03:59:49 PM Interpretation: Performing Lab: Notes/Report: [facility] ,Antinuclear Antibodies, IFAPositive. Borderline 1:80 Positive >1:80 Negative <1:80 Homogeneous PatternTNP.Nucleolar PatternTNP.Speckled Pattern1:160.ICAP nomenclature: AC-2,4,5,29Centromere PatternTNP.Spindle Apparatus PatternTNP. Nuclear Membrane PatternTNP.Midbody PatternTNP.Nuclear Dot PatternTNP.PCNA PatternTNP.Centriole PatternTNP.Note:Comment. Arterial Hypertension, Systemic Autoimmune Cholangitis Homogeneous Systemic Lupus Erythematosus, Drug Induced Myositis Overlap Syndrome, Systemic Myositis Overlap Syndrome, Sjogren Lupus, Congenital Heart Block, Myositis Overlap Syndrome, Systemic Lupus Centromere Scleroderma-CREST, Limited Cutaneous SSc, Speckled Sjogren Syndrome, Systemic Lupus Pattern Potential Disease Association Syndrome, Raynaud phenomenon, Pulmonary Rheumatic Disease, Autoimmune Cytopenias, Arthritis Rheumatic Disease, Cancer Systemic Lupus Erythematosus, Chronic Mixed Connective Tissue Disease, Autoimmune Rheumatic Disease, Erythematosus, Subacute Cutaneous Lupus, Performed at: [facility] Dot Primary Biliary Cholangitis Tipple Tender: Gibson Cruz PhD, Phone: [phone] Nucleolar Systemic Sclerosis, Scleroderma-Autoimmune Orfbdcxcyoykz-Teloyfoshnt-Ejrjclhlvm Raynaud's Phenomenon, Primary Biliary Nuclear Primary Biliary Cholangitis, Autoimmune Undifferentiated Connective Tissue Disease Scleroderma-diffuse, Scleroderma-Autoimmune Autoimmune hepatitis, Juvenile Idiopathic Linear Scleroderma, Antiphospholipid Syndrome [address] [place], [place] [id number] Membrane Hepatitis/Liver disease, Systemic Autoimmune Performing Lab:see noteLC - [facility] LBCBC AUTO DIFF Reviewed date:10/24/2024 06:45:52 PM Interpretation: Performing Lab: Notes/Report: [facility] ,White Blood Count12.64.0-11.0 10 3/uLRed Blood Count4.464.70-6.10 10 6/uL Ckquvkilip05.014.0-18.0 g/kLUyhkonmtvd54.942.0-54.0 %Mean Corpuscular Yvovos68.7 80.0-94.0 fLMean Corpuscular Fbgbxdtysa62.925.9-34.0 pgMean Corpuscular HGB Conc 32.529.9-35.2 g/dLRed Cell Distribution Width13.511.0-15.0 %Platelet Lmccs688 150-450 10 3/uLMean Platelet Volume9.29.5-13.5 fLNeutrophils Percent Auto72.5 43.0-75.0 %Lymphocytes Percent Auto18.420.5-60.0 %Monocytes Percent Auto7.41.7- 12.0 %Eosinophils Percent Auto1.00.9-7.0 %Basophils Percent Auto0.50.2-2.0 % Immature Granulocytes Pct Auto0.20.0-0.5 %Neutrophils Absolute Auto9.21.4-6.5 10 3/uLLymphocytes Absolute Auto2.31.2-3.8 10 3/uLMonocytes Absolute Auto0.90.3-0.8 10 3/uLEosinophils Absolute Auto0.10.0-0.7 10 3/uLBasophils Absolute Auto0.10.0- 0.1 10 3/uLImmature Granulocytes Abs Auto0.030.00-0.03 10 3/uLPerforming Lab:see noteML - [facility] LBCRP Reviewed date:10/24/2024 06:45:52 PM Interpretation: Performing Lab: Notes/Report: [facility] ,C Reactive Protein5.89<=0.50 mg/dLPerforming Lab:see note - [facility] LBFREE T3 Reviewed date:10/24/2024 06:45:52 PM Interpretation: Performing Lab: Notes/Report: [facility] ,Free T32.722.18-3.98 pg/mLPerforming Lab:see note - [facility] LB GLYCOHEMOGLOBIN A1C Reviewed date:10/24/2024 06:45:52 PM Interpretation: Performing Lab: Notes/Report: [facility] ,Glycohemoglobin A1C5.64.5-6.2 % ADA THERAPEUTIC TARGET < 7.0 ADA RECOMMENDED LIMIT 4.0 - 6.0 ACTION SUGGESTED > 7.0 Estimated Average Agbttgx842Qmhceeqjym Lab:see note - [facility] LB LIPID PROFILE Reviewed date:10/24/2024 06:45:52 PM Interpretation: Performing Lab: Notes/Report: [facility] ,Gdyteqirzqzlz69<=150 mg/zDJsrdzuksqdn336<=200 mg/dLHDL Pzgzbbulwvu9609-71 mg/dL <40 mg/dl - HIGH CARDIOVASCULAR RISK > or =60 mg/dl - LOW CARDIOVASCULAR RISK LDL Cholesterol Xzvncegbea30.0 >190 mg/dl VERY HIGH 130-159 mg/dl BORDERLINE HIGH <100 mg/dl OPTIMAL 100-129 mg/dl NEAR OR ABOVE OPTIMAL 160-189 mg/dl HIGH VLDL GGFFNPTSEHG26.0Chol HDL Ratio3.4 7.1 - 11.0 MODERATE RISK >11.0 HIGH RISK 3.3 - 4.4 LOW RISK 4.4 - 7.1 AVERAGE RISK Performing Lab:see note - [facility] LBPROF 14(COMP METB) Reviewed date:10/24/2024 06:45:52 PM Interpretation: Performing Lab: Notes/Report: [facility] ,Hoezin461651-765 mmol/LPotassium4.43.5-5.1 mmol/GYhkvjpno43314-398 mmol/LCarbon Frordus56.121.0-32.0 mmol/LAnion Gap11.3Kpjgeeq31233-566 mg/dLBlood Urea Ifxvtepp95.07.0-18.0 mg/dLCreatinine1.210.70-1.30 mg/dLEstimated GFR ( Chio>60>=60 mL/min/1.73m 2Estimated GFR (Non- Ame59>=60 mL/min/1.73m 2 BUN Creatinine Ratio14.8Wbbfutt0.38.5-10.1 mg/dLBilirubin Total0.40.2-1.0 mg/dL Aspartate Amino Mgmocztwapz0886-29 U/LAlanine Hsvucrdwxyvvharb0167-74 U/L Alkaline Envqfgmuqjc7836-962 U/LTotal Protein8.36.4-8.2 g/dLAlbumin Level3.23.4- 5.0 g/dLGlobulin5.1Albumin Globulin Ratio0.6Performing Lab:see noteML - [facility] LBRHEUMATOID FACTOR Reviewed date:10/27/2024 03:59:49 PM Interpretation: Performing Lab: Notes/Report: [facility] ,Rheumatoid Factor (RF)13.6<14.0 IU/mLPerforming Lab:see noteLC - [facility] LBT4 Reviewed date:10/24/2024 06:45:52 PM Interpretation: Performing Lab: Notes/Report: [facility] ,T4 Thyroxine5.104.50-12.10 ug/dLPerforming Lab:see note - [facility] LBTSH Reviewed date:10/24/2024 06:45:52 PM Interpretation: Performing Lab: Notes/Report: [facility] ,Thyroid Stimulating Hormone1.5660.358-3.740 uIU/mLPerforming Lab:see note - [facility] LBURIC ACID SERUM Reviewed date:10/24/2024 06:45:52 PM Interpretation: Performing Lab: Notes/Report: [facility] ,Uric Acid5.33.5-7.2 mg/dLPerforming Lab:see note - [facility] LB Erythrocyte Sedimentation Rate Reviewed date:10/24/2024 06:45:52 PM Interpretation: Performing Lab: Notes/Report: [facility] ,Erythrocyte Sedimentation Rate93<=20 mm/hrPerforming Lab:see note - [facility] LBTroponin I High Sensitivity Reviewed date:10/24/2024 06:45:52 PM Interpretation: Performing Lab: Notes/Report: [facility] ,Troponin I High Sensitivity5.84.0-76.1 pg/mL REFERENCE LIMIT (URL) OF TROPONIN, DEFINED THE 99TH USED IN ISOLATION BUT SHOULD BE INTERPRETED IN CONJUNCTION NOTE: HIGH-SENSITIVITY TROPONIN ASSAY IS NOT INTENDED TO BE DIAGNOSIS. CUT-OFF POINTS HAVE BEEN ESTABLISHED BASED ON THE FOURTH 99TH PERCENTILE = 76.2 PG/ML PERCENTILE OF cTnI DISTRIBUTION IN A REFERENCE POPULATION, HAS BEEN CONFIRMED THE DECISION THRESHOLD FOR NC WITH OTHER DIAGNOSTIC AND CLINICAL INFORMATION. UNIVERSAL DEFINITION OF MYOCARDIAL INFARCTION. THE UPPER Performing Lab:see [facility] LBAntistreptolysin O Ab Reviewed date:10/27/2024 03:59:49 PM Interpretation: Performing Lab: Notes/Report: [facility] ,Antistreptolysin O Ab74.10.0-200.0 IU/mL Tipple Tender: Gibson Cruz PhD, Phone: [phone] Performed at: [address] [id number] Performing [facility] LBPSA SCREENING Reviewed date:10/24/2024 06:45:52 PM Interpretation: Performing Lab: Notes/Report: [facility] ,Prostate Specific Antigen Scrn2.00<=4.00 ng/mLPerforming Lab:see [facility] LBINSULIN Reviewed date:10/27/2024 03:59:49 PM Interpretation: Performing Lab: Notes/Report: [facility] ,Unvapor30.62.6-24.9 uIU/mL Tipple Tender: Gbison Cruz PhD, Phone: [phone] [address] [place] [phone] Performed at: [facility] Performing Lab:see [facility] LBECG 12 lead Reviewed date:09/24/2024 03:28:25 PM Interpretation: Performing Lab: Notes/Report: Source Facility: [facility]-[address] [place] [address] [place] [address] Electrocardiograph Report Signed Patient: KD CALDERÓN MR#: [id number] : 1950 Acct:[id number] Age/Sex: 73 / M ADM Date: 09/23/24 Loc: ER Attending Dr: Ordering Physician: Brian Luna Date of Service: 09/23/24 Procedure(s): ECG 12 lead Accession Number(s): [id number] cc: [facility] Test Date: 2024-09-23 Pat Name: KD CALDERÓN Department: Room: - Gender: Male Parts Counterman: : 1950 Requested By: 0919 Order Number: [id number] Reading MD: KEMAL BLAIR M.D. Measurements Intervals [place] Rate: 176 P: -95723 WV: -[address]232 QRS: 33 QRSD: 90 T: 178 QT: 260 QTc: 354 Interpretive Statements Supraventricular tachycardia [address] depression 4664 Twave abnormality, possible inferior ischemia 9150 abnormal ECG Compared to ECG 08/31/2024 12:52:42 ST (T wave) deviation now present Possible ischemia now present Sinus rhythm no longer present Electronically Signed On 09-23-2024 21:57:46 EDT by KEMAL BLAIR M.D. Dictated By: KEMAL BLAIR Signed By: 09/23/24 2158 DD/ 1847 TD/TT: Open Hearth Worker:Troponin I High Sensitivity Reviewed date:09/23/2024 09:04:51 PM Interpretation: Performing Lab: Notes/Report: [facility] ,Troponin I High Sensitivity8.44.0-76.1 pg/mL PERCENTILE OF cTnI DISTRIBUTION IN A REFERENCE POPULATION, DIAGNOSIS. WITH OTHER DIAGNOSTIC AND CLINICAL INFORMATION. HAS BEEN CONFIRMED THE DECISION THRESHOLD FOR NC USED IN ISOLATION BUT SHOULD BE INTERPRETED IN CONJUNCTION NOTE: HIGH-SENSITIVITY TROPONIN ASSAY IS NOT INTENDED TO BE REFERENCE LIMIT (URL) OF TROPONIN, DEFINED THE 99TH UNIVERSAL DEFINITION OF MYOCARDIAL INFARCTION. THE UPPER CUT-OFF POINTS HAVE BEEN ESTABLISHED BASED ON THE FOURTH 99TH PERCENTILE = 76.2 PG/ML Performing Lab:see noteML - [facility] LBProthrombin Time INR Reviewed date:09/23/2024 09:04:51 PM Interpretation: Performing Lab: Notes/Report: [facility] ,Prothrombin Time11.99.0-11.6 secINR1.14 DESIRED INR: 2.5-3.5 RECURRENT THROMBOSIS 2.5-3.5 FOR PROSTHETIC HEART VALVE REPLACEMENT 2.0-3.0 CONDITIONS NOT LISTED BELOW Performing Lab:see noteML - [facility] LBPTT Reviewed date:09/23/2024 09:04:51 PM Interpretation: Performing Lab: Notes/Report: [facility] ,Partial Thromboplastin Time36.422.3-36.2 secPerforming Lab:see note - [facility] LBPROF 14(COMP METB) Reviewed date:09/23/2024 09:04:51 PM Interpretation: Performing Lab: Notes/Report: [facility] ,Cfnicf154842-140 mmol/LPotassium4.23.5-5.1 mmol/SYufeoqsa56622-664 mmol/LCarbon Hewojli21.421.0-32.0 mmol/LAnion Gap16.9Zoiwxvm40144-667 mg/dLBlood Urea Hpshjjtr50.07.0-18.0 mg/dLCreatinine1.350.70-1.30 mg/dLEstimated GFR ( Chio>60>=60 mL/min/1.73m 2Estimated GFR (Non- Ame52>=60 mL/min/1.73m 2 BUN Creatinine Ratio15.0Fvcekoy4.38.5-10.1 mg/dLBilirubin Total0.50.2-1.0 mg/dL Aspartate Amino Yvsmmuqrtwq0033-78 U/LAlanine Zaovalpzlhiwwlyh9925-62 U/L Alkaline Atehbqeyold6548-745 U/LTotal Protein7.96.4-8.2 g/dLAlbumin Level3.33.4- 5.0 g/dLGlobulin4.6Albumin Globulin Ratio0.7Performing Lab:see noteML - [facility] LBLIPASE Reviewed date:09/23/2024 09:04:51 PM Interpretation: Performing Lab: Notes/Report: [facility] ,Dolnqi35.016.0-77.0 U/LPerforming Lab:see note - [facility] LBCBC AUTO DIFF Reviewed date:09/23/2024 09:04:51 PM Interpretation: Performing Lab: Notes/Report: [facility] ,White Blood Count11.64.0-11.0 10 3/uLRed Blood Count4.644.70-6.10 10 6/uL Krieaaiirl83.814.0-18.0 g/fXGjvmpxsvoc47.042.0-54.0 %Mean Corpuscular Scndqm90.9 80.0-94.0 fLMean Corpuscular Uuggpkufrd10.625.9-34.0 pgMean Corpuscular HGB Conc 33.729.9-35.2 g/dLRed Cell Distribution Width13.511.0-15.0 %Platelet Fpoav950 150-450 10 3/uLMean Platelet Volume9.99.5-13.5 fLNeutrophils Percent Auto52.0 43.0-75.0 %Lymphocytes Percent Auto37.620.5-60.0 %Monocytes Percent Auto8.81.7- 12.0 %Eosinophils Percent Auto0.90.9-7.0 %Basophils Percent Auto0.50.2-2.0 % Immature Granulocytes Pct Auto0.20.0-0.5 %Neutrophils Absolute Auto6.01.4-6.5 10 3/uLLymphocytes Absolute Auto4.41.2-3.8 10 3/uLMonocytes Absolute Auto1.00.3-0.8 10 3/uLEosinophils Absolute Auto0.10.0-0.7 10 3/uLBasophils Absolute Auto0.10.0- 0.1 10 3/uLImmature Granulocytes Abs Auto0.020.00-0.03 10 3/uLPerforming Lab:see noteML - [facility] LBBNP Reviewed date:09/23/2024 09:04:51 PM Interpretation: Performing Lab: Notes/Report: [facility] ,NT Pro B Type Natriuretic Uqdo335.0<=900.0 pg/mLPerforming Lab:see noteML - [facility] LB Reason For Referral Diagnosis 1 Lupus (M32.9) Referral Organization [facility] Referring Provider First Name Hunter Referring Provider Last Name Diegojan Referring Provider Speciality [facility] marcy Referred Provider Shad Holcomb Referred Provider Specialty Rheumatology Referral Priority Routine Medications Medication SIG (Take, Route, Frequency, Duration) Notes Start Date End Date Status Carvedilol 25 mg TAKE 1 TABLET BY MOUTH TWICE DA ISAIAS WITH FOOD; Duration: 90 ActiveCPAP -CPAP machine and mask and tubine; Duration: 365 days5Active Vitamin D 50 MCG (1999 UT)1 tablet Orally Once a day; Duration: 90 [...] in other forms Additional Findings: Tobacco UserChews tobaccoAlcohol Screen (Audit-C) Question Answer Notes Did you have a drink containing alcohol in the p ast year? Yes How often did you have 6 or more drinks on one occasion in the past year?Never (0 point)How many drinks did you have on a typical day when you were drinking in the past year?3 or 4 drinks (1 point)How often did you have a drink containing alcohol in the past year?Weekly (3 points)Frpspr0FviimrekjodmgyLcwmmtazMABFI-D (Standard) Question Answer Notes Did you have a drink containing alcohol in the p ast year? No Btrxec8MwzcfadfldzerbFlgcoqkj Problems Problem Type SNOMED Code ICD Code Onset Dates Problem Status W/U Status Risk Notes Problem Syncope and collapse (989602314) Syncope and collapse (R55) ActiveconfirmedProblemHeart failure (03437001)Heart failure, unspecified (I50.9) ActiveconfirmedProblemPain in limb (37089225)Pain in leg, unspecified (M79.606) ActiveconfirmedProblemSprain of knee (disorder) (32755671)Sprain of other specified parts of unspecified knee, initial encounter (S83.8X9A)Activeconfirmed ProblemLong-term current use of systemic steroid (103102392254023)group home (current) use of systemic steroids (Z79.52)ActiveconfirmedProblemChest pain (32746537)Chest pain (R07.9)ActiveconfirmedProblemFatigue (46955673)Fatigue (R53.83)ActiveconfirmedProblemAtrial fibrillation (12386677)Atrial fibrillation (I48.91)ActiveconfirmedProblemHypertension (71444803)Hypertension (I10)Active confirmedProblemBradycardia (44518013)Bradycardia (R00.1)ActiveconfirmedProblem Sleep apnea (59501808)Sleep apnea (G47.30)ActiveconfirmedProblem Hypertriglyceridemia (087989960)Hypertriglyceridemia (E78.1)Activeconfirmed ProblemSinusitis (63579181)Sinusitis (J32.9)ActiveconfirmedProblemImpacted cerumen (66384043)Cerumen impaction (H61.20)ActiveconfirmedProblemPolymyalgia rheumatica (93768452)PMR (polymyalgia rheumatica) (M35.3)ActiveconfirmedProblem Well adult (410907084)Well adult (Z00.00)ActiveconfirmedProblemDiverticulitis (24671297)Diverticulitis (K57.92)ActiveconfirmedProblemLupus (487520727)Lupus (M32.9)ActiveconfirmedProblemRight upper quadrant pain (293852763)Abdominal pain, RUQ (R10.11)ActiveconfirmedProblemGastro-esophageal reflux disease (350860642)Gastro-esophageal reflux disease (K21.9)ActiveconfirmedProblem Shoulder impingement syndrome (246203609)Shoulder impingement syndrome (M75.40) ActiveconfirmedProblemObstructive sleep apnea syndrome (53989029)Obstructive sleep apnea syndrome, severe (G47.33)ActiveconfirmedProblemChronic kidney disease stage 3A (disorder) (044915654)Chronic kidney disease, stage 3a (N18.31) Activeconfirmed Vital Signs Blood pressure diastolic 80 mm Hg 02/07/2025 Oiskhd66 in02/07/2025lood pressure rbsfuzgf753 mm Hg02/07/20253563Bdsxts875.2 lbs 02/07/2025BMI31.19 kg/m202/07/2025 Encounters Encounter Location Date Provider Diagnosis [facility] [address] [place] [address] 10/24/2024 Hunter Hoy Atrial fibrillation I48.91 ; Heart failure, unspecified I50.9 ; Chronic kidney disease, stage 3a N18.31 and Low back pain at multiple sites M54.50 [facility] [address] [facility] [place] [address] 02/07/2025 Hunter Chowdary Sleep apnea G47.30 [facility] [address] [facility] [place] [address] 05/16/2024 Hunter Cortezy [facility] [facility] [place] [address] [facility]/24[facility] [facility] [place] [address]/Doug HoyLupus M32.9BSt[facility] [facility] [address]/[facility]BV[facility] [facility] [place] [address]/10/2024Doug HoyLupus M32.9 Assessments Encounter Date Diagnosis (ICD Code) Assessment Notes Treatment Notes Treatment Clinical Notes Section Notes 10/24/2024 Atrial fibrillation (ICD-10 - I4 8.91) rate controlle but getting ablation -10/24/2024Heart failure, unspecified (ICD- 10 - I50.9)02/07/2025Sleep apnea (ICD-10 - G47.30) Needs new machine - grinding noise from machine does work - help with daytime wakefulness and focus 10/27/2024Lupus (ICD-10 - M32.9)02/21/2025Lupus (ICD-10 - M32.9)10/24/2024 Chronic kidney disease, stage 3a (ICD-10 - N18.31)folow up on labs10/24/2024Low back pain at multiple sites (ICD-10 - M54.50)x-rays Plan Of Treatment Pending Test Test Name Order Date CMP (COMPLETE METABOLIC PANEL) 3 CMP (COMPLETE METABOLIC PANEL) 4 HEMOGLOBIN A1C (GLYCO) 08/30/2022 HEMOGLOBIN A1C (GLYCO) 12/08/2023 HEMOGLOBIN A1C (GLYCO) 10/24/2024 INSULIN, TOTAL 10/24/2024 LIPID PANEL (CHOL/TRIG/HDL/LDL) 10/25/19 25 LIPID PANEL (CHOL/TRIG/HDL/LDL) 08/31/19 23 LIPID PANEL (CHOL/TRIG/HDL/LDL) 12/08/19 24 CBC WITH DIFF 12/08/2023 CBC WITH DIFF 08/30/2022 PSA, PROSTATE-SPECIFIC ANTIGEN 3 URIC ACID 08/30/2022 URIC ACID 10/24/2024 ESR 02/21/2025 RHEUMATOID PANEL 10/24/2024 PSA, TOTAL 12/08/2023 High Sensitivity Troponin 10/24/2024 STOOL OCCULT BLOOD 12/08/2023 CRP 02/21/2025 SED RATE WESTERGREN 10/24/2024 THYROID PANEL (T4/TSH/FREE T3) 5 THYROID PANEL (T4/TSH/FREE T3) 4 THYROID PANEL (T4/TSH/FREE T3) 3 ECHOCARDIO M/2D COMPLETE 10/31/2022 PSA, SCREENING 10/24/2024 CMP (COMP MET TORRES) w/eGFR CKD-EPI 2024 CBC WITH DIFF 10/24/2024 Insurance Providers Payer Name Payer Address Payer Phone Subscriber Number Group Number Insured Name Patient Relationship to Insured Coverage Start Date Coverage End Date [facility] [address] [place] [address] [phone] [id number] Amy Calderón - patient is the insured Medical (General) History Medical History History ICD [...]
--- OUTSIDE RECORDS SUMMARY | 2025-02-21 12:37 | XMS_ITS | CCD ---
Author Organization [facility] Care Team Providers Care Decontamination Worker Name Role Phone DEEDEE ., DR [...] Unavailable HAY ., DR WILSON Attending Unavailable NEFGRANT MONTALVO Consulting Unavailable HOY ., DR DE LA [...] Tubbs Consulting Unavailable Jacey Webber Unavailable Estrella Mark MD Primary Care Provider [phone] Estrella Mark MD Primary Care Provider [phone] ANGELA ANDERSON Attending Unavailable Unavailable Primary Care Provider UnavailPJ Morataya Attending Unavailable PJ KABA Referring Unavailable SENDYPJ Caban Referring Unavailable SENDYPJ Caban Referring Unavailable SENDYPJ Caban Referring Unavailable SENDYPJ Caban Attending Unavailable PJ KABA Referring Unavailable SENDYPJ Caban Referring Unavailable PJ KABA Admitting Unavailable PJ KABA Attending Unavailable PJ KABA Admitting Unavailable PJ KABA Attending Unavailable PJ KABA Referring Unavailable FELIX ROSE Referring Unavailable SENDYPJ Referring Unavailable SENDYPJ Referring Unavailable TANNER, WING Attending Unavailable WING HART Attending Unavailable ESTRELLA MARK Primary Care Unavailable URIEL ANAYA Attending Unavailable ESTRELLA MARK Mica Primary Care Unavailable TOÑA DILL Referring Unavailable ESTRELLA MARK Referring Unavailable ESTRELLA MARK Primary Care Unavailable URIEL ANAYA Attending Unavailable ESTRELLA MARK Primary Care Unavailable TOÑA DILL Referring Unavailable CAYETANONAREN CagleLAS Mica Primary Care Unavailable TOÑA DILL Referring Unavailable Medications Current Medications MedicationDrug Class(es)DatesSig (Normalized)Sig (Original)apixaban 5 mg oral tablet (2 sources)Factor Xa Inhibitortake 1 tablet by mouth in the morningEliquis 5 MG tablet Take 5 mg by mouth in the morning and 5 mg before bedtime. Active carvedilol 25 mg oral tablet (11 sources)alpha-Adrenergic Fernando, beta-Adrenergic BlockerStart: 12-26-2022 carvedilol (COREG) 25 mg tablet Take 25 mg by mouth. 12/26/2022 Active cholecalciferol 0.05 mg oral tablet (6 sources)Vitamin Dcholecalciferol (VITAMIN D3) 50 mcg (2,000 unit) tablet Take 2,000 Units by mouth. Activepantoprazole 40 mg delayed release oral tablet (11 sources)Proton Pump InhibitorStart: 22-22-4718ajubnojdkvgx DR (PROTONIX) 40 mg tablet Take 40 mg by mouth. 01/23/2023 Activetake 1 tablet by mouth every twenty-four hoursPantoprazole Sodium 40 MG 1 tablet Orally Once a day Active predniSONE 5 mg oral tablet (5 sources)Start: 02-08-2595tntbwpHGBR (DELTASONE) 5 mg tablet Take 3 tablets by mouth once daily. Patient should start on December 23, 2024. 90 tablet 1 12/23/2024 ActiveStart: 24-80-1254lata 1 tablet by mouth once dailypredniSONE (DELTASONE) 20 mg tablet Take 1 tablet by mouth once daily. 30 tablet 12/05/2024 Activerivaroxaban 20 mg oral tablet (6 sources)Factor Xa InhibitorStart: 34-99-3773wjqqscbypvk (XARELTO) 20 mg tablet Take 20 mg by mouth. 05/14/2024 Active Problems Active Problems Problem ClassificationProblemDateDocumented DateEpisodic/ChronicCardiac dysrhythmias (3 sources)Supraventricular tachycardia; Translations: [Paroxysmal atrial fibrillation]Onset: 80-07-3361MicmshaZqjhyvrvz of lipid metabolism (2 sources)Mixed hyperlipidemia; Translations: [Mixed hyperlipidemia]Onset: 64-92-4599ZqgwcsvXxnivzhblk disorders (1 source)Gastro-esophageal reflux disease without esophagitis; Translations: [GERD WITHOUT ESOPHAGITIS]Onset: 16-88-8152GdihgwuIpzldirhq hypertension (6 sources)Essential (primary) hypertension; Translations: [Hypertensive disorder]Onset: 684240-76-3871FlcaguiJsbmc valve disorders (1 source)Nonrheumatic mitral (valve) insufficiency; Translations: [NONRHEUMATIC MITRAL INSUFFICIENCY]Onset: 55-62-6318MejqqvrTzouzyo and fatigue (3 sources)Malaise and fatigue; Translations: [Other malaise]Onset: 12-04-2024 90-08-0074XydhojuqXbgb wounds of extremities (2 sources)Laceration without foreign body of left middle finger without damage to nail, subsequent encounterEpisodicOther aftercare (1 source)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; Translations: [snf current use of systemic steroids]Onset: 78-06-7265TpnbsiozFhiou circulatory disease (2 sources)Presence of other cardiac implants and grafts; Translations: [Presence of other cardiac implants and grafts]Onset: 65-48-0133CsasfyjBadvi connective tissue disease (4 sources)Polymyalgia rheumatica; Translations: [Polymyalgia rheumatica] 52-28-6504SixzlkdQattb connective tissue disease (1 source)Polymyalgia rheumatica; Translations: [PMR (polymyalgia rheumatica) ([facility])]Onset: 44-21-4292EfrfixgBxnlx connective tissue disease (1 source)Muscle pain; Translations: [Myalgia, unspecified site]12-04-2024 EpisodicOther connective tissue disease (1 source)Myalgia, unspecified site; Translations: [Muscle pain]Onset: 34-65-2586UyqdbuslVcqdh non-traumatic joint disorders (1 source)Bilateral shoulder joint pain; Translations: [Pain in right shoulder] 31-60-0892HmgswfemDaqpg non-traumatic joint disorders (1 source)Pain in right shoulder; Translations: [Pain of both shoulder joints] Onset: 31-13-0201GxrzpfcvMmywj non-traumatic joint disorders (1 source)Pain in left shoulder; Translations: [Pain of both shoulder joints] Onset: 19-98-6462HnrfjiceZzgryhnw codes; unclassified (1 source)Sleep apnea, unspecified; Translations: [SLEEP APNEA UNSPECIFIED] Onset: 71-08-2443VdarrbaOddwyeyo codes; unclassified (5 sources)Obstructive sleep apnea syndrome; Translations: [Obstructive sleep apnea (adult) (pediatric)]Onset: 538701-62-7619NrcpuyaThlfduvx codes; unclassified (3 sources)Hypersomnia; Translations: [Hypersomnia, unspecified]Onset: 507341-03-7117OdxcpptZkpnuvpt codes; unclassified (4 sources)Daytime somnolence; Translations: [Other hypersomnia]Onset: 695095-33-4323LqcmaanDmwzdqqzn-osfxaqb disorders (1 source)Nicotine dependence, chewing tobacco, uncomplicated; Translations: [NICOTINE DEPEND CHEW TOBACCO UNCOMP]Onset: 02-32-7504SjpurpjXthcsqpu lupus erythematosus and connective tissue disorders (3 sources)Systemic lupus erythematosus; Translations: [Systemic lupus erythematosus, unspecified]Onset: 816412-35-1669CipgvklUsemzgjkkvgq (1 source)Other supraventricular tachycardia; Translations: [Other supraventricular tachycardia]Onset: 69-36-0214Hmylpyeyexnz (1 source)Supraventricular tachycardia, unspecified; Translations: [Supraventricular tachycardia, unspecified]Onset: 57-36-0452Aglutoduzeaj (1 source)Other ventricular tachycardia; Translations: [Other ventricular tachycardia]Onset: 07-31-2024 Past or Other Problems Problem ClassificationProblemDateDocumented DateEpisodic/ChronicAbdominal pain (3 sources)Epigastric pain; Translations: [EPIGASTRIC PAIN]Onset: 01-14-2022 EpisodicCardiac dysrhythmias (6 sources)Tachycardia, unspecified; Translations: [Palpitations]Onset: 88-78-8737TibcdgrhQbngr valve disorders (1 source)Unspecified abnormalities of heart beat; Translations: [UNS ABNORMALITIES HEART BEAT]Onset: 97-45-0342VfuollmmZexsdorqomw chest pain (4 sources)Chest pain, unspecified; Translations: [CHEST PAIN UNSPECIFIED]Onset: 54-71-6819NrzfzwesKmwdd lower respiratory disease (4 sources)Snoring; Translations: [Snoring]Onset: 486409-06-9311Ebuxqhtd Other screening for suspected conditions (not mental disorders or infectious disease) (1 source)Abnormal result of other cardiovascular function study; Translations: [ABNORM RESULT OT CV FUNCTION STUDY]Onset: 99-23-3004MahphozwWuyiaqhgocza (1 source)Other supraventricular tachycardia; Translations: [Other supraventricular tachycardia]Onset: 02-72-2705Qcvoztjljpzg (1 source)Supraventricular tachycardia, unspecified; Translations: [Supraventricular tachycardia, unspecified]Onset: 94-57-5716Jwabvyvrsetg (1 source)Other ventricular tachycardia; Translations: [Other ventricular tachycardia]Onset: 07-31-2024 Results Test NameValueInterpretationReference RangeFacilityCNPNon 49-49-8859KLYG Telephone (RHEUMN) RENNY MITCHELL ([id number]) 1950 M Date Time Provider Department 02/03/25 URIEL ANAYA RHEUMN During your visit today, we recorded the following information about you: Debra Her MA 02/03/2025 2:53 PM Addendum Patient called stated he was told by Dr. Anaya he needs to call her. Patient stated he can be reached at [phone] Spoke to patient, reports that his symptoms are well controlled with the 12.5mg of prednisone after 2 weeks. Patient will start 10mg daily. Reports mild intermittent frontal headache, no jaw claudication or vision changes. Debra Her MA 02/06/2025 10:03 AM Signed Patient called back again requesting a call back and directions for Prednisone. Call back number [phone] Allergies As of Date: 02/03/2025 (No Known Allergies) Date Reviewed: 01/15/2025 Reviewed by: Radha Serrano MA - Fully Assessed Reason for Visit: Return Call Request [[id number]] Prescriptions as of 02/06/2025 - predniSONE (DELTASONE) 10 mg tablet Take 1 tablet by mouth once daily. - predniSONE (DELTASONE) 10 mg tablet Take 1 tablet by mouth once daily for 21 days. - predniSONE (DELTASONE) 2.5 mg tablet Take 1 tablet by mouth once daily for 21 days. - predniSONE (DELTASONE) 5 mg tablet Take 3 tablets by mouth once daily. Patient should start on December 23, 2024. - predniSONE (DELTASONE) 20 mg tablet Take 1 tablet by mouth once daily. - cholecalciferol (VITAMIN D3) 50 mcg (2,000 unit) tablet Take 2,000 Units by mouth. - pantoprazole DR (PROTONIX) 40 mg tablet Take 40 mg by mouth. - carvedilol (COREG) 25 mg tablet Take 25 mg by mouth. - rivaroxaban (XARELTO) 20 mg tablet Take 20 mg by mouth. Problem List As Of Date: 02/03/2025 (None) Encounter Status:Closed by URIEL ANAYA on 02/03/25NoalCProtestant HospitalOrders Onlyon 16-91-3782Fvlmpz [id number] Renny Mitchell 1950 Date Provider Department Center 01/19/2025 Yajaira-[facility] CARD [facility] HeartVAS Family History Problem Relation Age of Onset Heart disease Father Family Status - Relation Status Age at Mother Father DeceasedNormalUniversity of Medical Arts HospitalB. burgdorferi IgG and IgM panel (S)on 01-15-2025. burgdorferi IgG+IgM Qn (S)NegativeNormalNegative [facility] HospitalComment on above:Order Comment: Specimen Type: BLOOD SPECIMEN Ordering Facility: [facility] Address: [address] [place], [place] [address]Result Comment: Recent infection with B. burgdorferi sensu lato cannot be excluded if the specimen collected within four weeks after the onset of signs and symptoms or within six weeks after a known tick exposure. Clinical and epidemiological correlation is required.Performed By: #### 03770-4, 5195-3, 99033-4 #### [facility] CLIA [id number] [address] [place] [address] OF [facility]ITALCB W Auto Differential panel (Bld)on 82-61-2095Chglqtibz (Bld) [#/Vol]0.04 10*3/uLNormal<0.11CFort [facility] on above:Order Comment: Specimen Type: URINE SPECIMEN Ordering Facility: [facility] Address: [address] [place], [place] [address]Performed By: #### [id number] #### [facility] CLIA [id number] [address] [place] [address] [place] OF AMERICABasophils/100 WBC (Bld)0.3 % NormalOhioHealth on above:Order Comment: Specimen Type: URINE SPECIMEN Ordering Facility: [facility] Address: [address] [place], [place] [address]Performed By: #### [id number] #### [facility] CLIA [id number] [address] [place] [address] [place] AMERICADifferential cell count method Nom (Bld)AutoNormalClevelTrinity Health System on above:Order Comment: Specimen Type: URINE SPECIMEN Ordering Facility: [facility] Address: [address] [place], [place] [address]Performed By: #### [id number] #### [facility] CLIA [id number] [address] [place] [address] [place] AMERICAEosinophils (Bld) [#/Vol] 0.07 10*3/uLNormal<0.46[facility] on above:Order Comment: Specimen Type: URINE SPECIMEN Ordering Facility: [facility] Address: [address] [place], [place] [address]Performed By: #### [id number] #### [facility] CLIA [id number] [address] [place] [address] [place] AMERICAEosinophils/100 WBC (Bld)0.6 %NormalOhioHealth on above:Order Comment: Specimen Type: URINE SPECIMEN Ordering Facility: [facility] Address: [address] [place], [place] [address]Performed By: #### [id number] #### [facility] CLIA [id number] [address] [place] [address] [place] AMERICAErythrocyte distribution width (RBC) [Ratio]17.5 %High11.5-15.0[facility] on above:Order Comment: Specimen Type: URINE SPECIMEN Ordering Facility: [facility] Address: [address] [place], [place] [address]Performed By: #### [id number] #### [facility] CLIA [id number] [address] [place] [address] [place] AMERICAHematocrit (Bld) [Volume fraction]41.0 %Ndmaum87.0-51.0[facility] on above:Order Comment: Specimen Type: URINE SPECIMEN Ordering Facility: [facility] Address: [address] [place], [place] [address]Performed By: #### [id number] #### [facility] CLIA [id number] [address] [place] [address] [place] AMERICAHemoglobin (Bld) [Mass/Vol] 13.3 g/fVXysjmn69.0-17.0[facility] on above:Order Comment: Specimen Type: URINE SPECIMEN Ordering Facility: [facility] Address: [address] [place], [place] [address]Performed By: #### [id number] #### [facility] CLIA [id number] [address] [place] [address] [place] AMERICAImmature granulocytes (Bld) [#/Vol]0.04 10*3/uLNormal<0.10[facility] on above:Order Comment: Specimen Type: URINE SPECIMEN Ordering Facility: [facility] Address: [address] [place], [place] [address]Performed By: #### [id number] #### [facility] CLIA [id number] [address] [place] [address] [place] AMERICAImmature granulocytes/100 WBC (Bld)0.3 %NormalOhioHealth on above:Order Comment: Specimen Type: URINE SPECIMEN Ordering Facility: [facility] Address: [address] [place], [place] [address]Performed By: #### [id number] #### [facility] CLIA [id number] [address] [place] [address] [place] AMERICALymphocytes (Bld) [#/Vol] 2.70 10*3/uLNormal1.00-4.00[facility] on above:Order Comment: Specimen Type: URINE SPECIMEN Ordering Facility: [facility] Address: [address] [place], [place] [address]Performed By: #### [id number] #### [facility] CLIA [id number] [address] [place] [address] [place] AMERICALymphocytes/100 WBC (Bld) 22.1 %NormalOhioHealth on above:Order Comment: Specimen Type: URINE SPECIMEN Ordering Facility: [facility] Address: [address] [place], [place] [address]Performed By: #### [id number] #### [facility] CLIA [id number] [address] [place] [address] [place] AMERICAMCH (RBC) [Entitic mass]27.3 agExrujw53.0-34.0[facility] on above:Order Comment: Specimen Type: URINE SPECIMEN Ordering Facility: [facility] Address: [address] [place], [place] [address]Performed By: #### [id number] #### [facility] CLIA [id number] [address] [place], [place] [address]MCHC (RBC) [Mass/Vol]32.4 g/sJVpbnzv38.5-36.0[facility] on above:Order Comment: Specimen Type: URINE SPECIMEN Ordering Facility: [facility] Address: [address] [place], [place] [address]Performed By: #### [id number] #### [facility] CLIA [id number] [address] [place], [place] [address]MCV (RBC) [Entitic vol]84.0 tDTqqutb40.0-100.0[facility] on above:Order Comment: Specimen Type: URINE SPECIMEN Ordering Facility: [facility] Address: [address] [place], [place] [address]Performed By: #### [id number] #### [facility] CLIA [id number] [address] [place] [address] [place] AMERICAMonocytes (Bld) [#/Vol]0.90 10*3/uLHigh<0.87[facility] on above:Order Comment: Specimen Type: URINE SPECIMEN Ordering Facility: [facility] Address: [address] [place], [place] [address]Performed By: #### [id number] #### [facility] CLIA [id number] [address] [place] [address] [place] AMERICAMonocytes/100 WBC (Bld)7.4 % NormalOhioHealth on above:Order Comment: Specimen Type: URINE SPECIMEN Ordering Facility: [facility] Address: [address] [place], [place] [address]Performed By: #### [id number] #### [facility] CLIA [id number] [address] [place] [address] [place] AMERICANeutrophils (Bld) [#/Vol] 8.46 10*3/uLHigh1.45-7.50[facility] on above:Order Comment: Specimen Type: URINE SPECIMEN Ordering Facility: [facility] Address: [address] [place], [place] [address]Performed By: #### [id number] #### [facility] CLIA [id number] [address] [place] [address] [place] AMERICANeutrophils/100 WBC (Bld) 69.3 %NormalOhioHealth on above:Order Comment: Specimen Type: URINE SPECIMEN Ordering Facility: [facility] Address: [address] [place], [place] [address]Performed By: #### [id number] #### [facility] CLIA [id number] [address] [place] [address] [place] AMERICANucleated RBC (Bld) [#/Vol] 10*3/uLNormal<0.01[facility] on above:Order Comment: Specimen Type: URINE SPECIMEN Ordering Facility: [facility] Address: [address] [place], [place] [address]Performed By: #### [id number] #### [facility] CLIA [id number] [address] [place] [address] [place] AMERICANucleated RBC/100 WBC (Bld) [Ratio]0.0 /100 WBCNormalCFort Hamilton Hospital on above:Order Comment: Specimen Type: URINE SPECIMEN Ordering Facility: [facility] Address: [address] [place], [place] [address]Performed By: #### [id number] #### [facility] CLIA [id number] [address] [place] [address] [place] AMERICAPlatelet mean volume (Bld) [Entitic vol]9.9 fLNormal9.0-12.7CFort Hamilton Hospital on above: Order Comment: Specimen Type: URINE SPECIMEN Ordering Facility: [facility] Address: [address] [place], [place] [address]Performed By: #### [id number] #### [facility] CLIA [id number] [address] [place], [place] [address] [facility]CH[facility] HOSPITALPlatelets (Bld) [#/Vol]272 10*3/nDKgpzus038-488KzimysntiOhioHealth on above:Order Comment: Specimen Type: URINE SPECIMEN Ordering Facility: [facility] Address: [address] [place], [place] [address]Performed By: #### [id number] #### [facility] CLIA [id number] [address] [place] [address] (d) [#/Vol]4.88 10*6/uLNormal4.20-6.00[facility] on above:Order Comment: Specimen Type: URINE SPECIMEN Ordering Facility: [facility] Address: [address] [place], [place] [address]Performed By: #### [id number] #### [facility] CLIA [id number] [address] [place], [place] [address] (d) [#/Vol]12.21 10*3/uLHigh3.70-11.00[facility] on above:Order Comment: Specimen Type: URINE SPECIMEN Ordering Facility: [facility] Address: [address] [place], [place] [address]Performed By: #### [id number] #### [facility] CLIA [id number] [address] [place], [place] [address] [facility] SerPl-cCncon 96-16-0093VX [Catalytic activity/Vol]72 U/BAnaytr33-388OotgyyarsOhioHealth on above:Order Comment: Specimen Type: BLOOD SPECIMEN Ordering Facility: [facility] Address: [address] [place], [place] [address]Performed By: #### 15101-6, 5195-3, 30350-8 #### [facility] CLIA [id number] [address] [place] [address] OF [facility] HOSPITALCNOVon 34-38-4874BTFFRxjxdm Visit (RHEUMN) RENNY MITCHELL ([id number]) 1950 M Date Time Provider Department 01/15/25 9:30 AM URIEL ANAYA RHEUMN During your visit today, we recorded the following information about you: Temperature Pulse Blood pressure Weight 97.5 degrees 76/minute 162/84 94.8 kg Height 1.753 m Toña Dill MD 01/15/2025 5:16 PM Signed Rheumatology Clinic note [facility] [place] Department of Rheumatic and Immunologic Diseases Referring Physician: Estrella Mark [address] [facility] [address] CC: PMR History of Present Illness, Initial Visit 12/04/24: Renny Mitchell is a 74 year old year-old male with PMH notable for AFIB,who presents to Rheumatology Clinic for evaluation of SLE. Reports positive SLE blood test on outside labs. Symptoms: Last 5,6 years worsening over the past 2 months. Associated with severe fatigue, legs feeling heavy, usually active but has not been able to play golf. Endorses decreased appetite, weight loss 12 pounds over 2 months. Seen rheumatology 5 years ago told he does not have Lupus. Cardiac stress tests have been negative for ischemia. Previously active, he played golf 2-3 times a week until October, when he became too fatigued to continue. He also reports difficulty performing household tasks and playing with his grandchildren due to fatigue and weakness. No h/o raynauds, no blood clots, IBD, uveitis, no psoriasis or serositis. He reports no family history of autoimmune diseases. Shoulder pain and stiffness, lasts several minutes to hours and improves with movement. Pain also felt in the back of the thighs. Has diffuse muscle pain. Endorses muscle weakness, mild difficulty getting up from a chair. Never used steroids. No swelling of joints. He denies chest pain, dyspnea, or palpitations. He has a history of myocarditis diagnosed 2 years ago and underwent an ablation last month for atrial fibrillation. He has a loop implant to monitor for arrhythmias and denies recent episodes of palpitations. 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 He uses a Mago device daily for nerve pain relief. He denies any recent head trauma, headaches, or changes in vision. He has been seeing an eye doctor regularly and was diagnosed with a cataract in one eye. He is concerned about his symptoms and has been researching his condition online, leading to increased anxiety. He is eager to return to his previous level of activity and enjoy time with his grandchildren. Interval Hx 01/15/25: Feels well, symptoms completely with 20mg of prednisone which he started on 12/06/24. Prednisone was reduced after 2 weeks to 15mg which patient is currently taking. Today he feels well. Has not had recurrence of his shoulder or hip pain and stiffness. He is very happy with the prednisone. He feels completely back to normal. His fatigue has also significantly improved. Able to mow and do significant walking without discomfort. No prior history of diverticulitis. He denies headaches, jaw or arm claudication or scalp tenderness. He is currently taking vitamin D and consumes dairy products such as milk, yogurt, and cheese. Review of Systems CONSTITUTION: Positive for: Recent weight change Negative for: Fever HEENT: Negative for: Nosebleeds, Mouth sores, Trouble swallowing and Dry mouth RESPIRATORY: Negative for: Cough, Shortness of breath, Pain with breathing and Coughing up blood GASTROINTESTINAL: Positive for: Diarrhea Negative for: Melena, Heartburn and Abdominal pain MUSCULOSKELETAL: Positive for: Arthralgias, Myalgias, Muscle weakness and Morning Joint Stiffness Negative for: Joint swelling NEUROLOGICAL: Negative for: Headaches, Numbness and Memory loss SKIN: Negative for: Rash, Sun Sensitive Rash, Skin changes, Hair loss and Nail changes EYES: Positive for: Visual disturbance Negative for: Eye pain, Eye redness and Eye dryness CARDIOVASCULAR: Negative for: Chest pain and Leg swelling GENITOURINARY: Negative for: Dysuria, Hematuria and Ulcerations HEMATOLOGIC/LYMPHATIC: Negative for: Swollen glands Otherwise, a 12 point ROS was obtained and was negative. MEDICATIONS: predniSONE (DELTASONE) 5 mg tablet Take 3 tablets by mouth once daily. Patient should start on December 23, 2024. predniSONE (DELTASONE) 20 mg tablet Take 1 tablet by mouth once daily. cholecalciferol (VITAMIN D3) 50 mcg (2,000 unit) tablet Take 2,000 Units by mouth. pantoprazole DR (PROTONIX) 40 mg tablet Take 40 mg by mouth. carvedilol (COREG) 25 mg tablet Take 25 mg by mouth. rivaroxaban (XARELTO) 20 mg tablet Take 20 mg by mouth. ALLERGIES No Known Allergies Physical Examination: Vitals: BP 162/84 Pulse 76 Temp 36.4 ?C (97.5 ?F) (Temporal) Ht 175.3 cm (5' 9 ) Wt 94.8 kg (208 lb 15.9 oz) BMI 30.86 kg/m? GE (more content not included)...NormalUniversity Hospitals [facility] SerPl-mCnc on 58-99-6903JDU [Mass/Vol]mg/LNormal<0.9ClevelTrinity Health System on above:Order Comment: Specimen Type: BLOOD SPECIMEN Ordering Facility: [facility] Address: [address] [place], [place] [address]Performed By: #### 83753-5, 5195-3, 96498-6 #### [facility] CLIA [id number] [address] [place] [address] STATES OF AMERICAComprehensive metabolic 2000 panelon 50-21-3045Wcgiztg [Mass/Vol]3.9 g/dLNormal3.9-4.9ClevelTrinity Health System on above:Order Comment: Specimen Type: BLOOD SPECIMEN Ordering Facility: [facility] Address: [address] [place], [place] [address]Performed By: #### 79654-6, 5195-3, 57232-4 #### [facility] CLIA [id number] [address] [place] [address] [place] OF AMERICAALP [Catalytic activity/Vol] 50 U/WLkyijd97-469GspozlxzzOhioHealth on above:Order Comment: Specimen Type: BLOOD SPECIMEN Ordering Facility: [facility] Address: [address] [place], [place] [address]Performed By: #### 78582-8, 5195-3, 14994-8 #### [facility] CLIA [id number] [address] [place] [address] [place] AMERICAALT [Catalytic activity/Vol] 16 U/XArgsla97-48TbofkbispOhioHealth on above:Order Comment: Specimen Type: BLOOD SPECIMEN Ordering Facility: [facility] Address: [address] [place], [place] [address]Performed By: #### 98527-4, 5195-3, 87619-9 #### [facility] CLIA [id number] [address] [place] [address] [place] OF AMERICAAnion gap [Moles/Vol]14 mmol/LNormal8-15[facility] on above:Order Comment: Specimen Type: BLOOD SPECIMEN Ordering Facility: [facility] Address: [address] [place], [place] [address]Performed By: #### 05527-1, 5-3, 39904-0 #### [facility] CLIA [id number] [address] [place] [address] [place] OF AMERICAAST [Catalytic activity/Vol] 13 U/LCcl36-75DycxvpnzcOhioHealth on above:Order Comment: Specimen Type: BLOOD SPECIMEN Ordering Facility: [facility] Address: [address] [place], [place] [address]Performed By: #### 84583-7, 5-3, 69494-1 #### [facility] CLIA [id number] [address] [place], [place] [address] [place] OF AMERICABilirubin [Mass/Vol]0.4 mg/dLNormal0.2-1.3CFort Hamilton Hospital on above:Order Comment: Specimen Type: BLOOD SPECIMEN Ordering Facility: [facility] Address: [address] [place], [place] [address]Performed By: #### 50344-2, 5-3, 25065-7 #### [facility] CLIA [id number] [address] [place] [address] [place] AMERICACalcium [Mass/Vol]9.5 mg/dL Normal8.5-10.2CFort Hamilton Hospital on above:Order Comment: Specimen Type: BLOOD SPECIMEN Ordering Facility: [facility] Address: [address] [place], [place] [address]Performed By: #### 58351-5, 5-3, 50893-1 #### [facility] CLIA [id number] [address] [place] [address] [place] OF AMERICAChloride [Moles/Vol]103 mmol/GAebahz80-844AwfwardsmOhioHealth on above:Order Comment: Specimen Type: BLOOD SPECIMEN Ordering Facility: [facility] Address: [address] [place], [place] [address]Performed By: #### 42079-8, 5194-3, 01995-0 #### [facility] CLIA [id number] [address] [place] [address] [place] AMERICACO2 [Moles/Vol]25 mmol/L Jiixap86-45ZxmybzisbOhioHealth on above:Order Comment: Specimen Type: BLOOD SPECIMEN Ordering Facility: [facility] Address: [address] [place], [place] [address]Performed By: #### 06228-4, 5194-3, 42075-0 #### [facility] CLIA [id number] [address] [place] [address] [place] OF AMERICACreatinine [Mass/Vol]1.20 mg/dLNormal0.73-1.22[facility] on above:Order Comment: Specimen Type: BLOOD SPECIMEN Ordering Facility: [facility] Address: [address] [place] [address]Kgodhsqxx By: #### 15376-1, 5195-3, 43310-5 #### [facility] CLIA [id number] [address] [place], [place] [address] [place] OF AMERICAeGFRcr SerPlBld CKD-EPI 2020 64 mL/min/1.73m???Normal>=60[facility] on above:Order Comment: Specimen Type: BLOOD SPECIMEN Ordering Facility: [facility] Address: [address] [place], [place] [address]Result Comment: Estimated Glomerular Filtration Rate (eGFR) is calculated using the 2020 CKD-EPI cre atinine equation. This equation utilizes serum creatinine, sex, and age as parameters. The creatinine assay has traceable calibration to isotope dilution- mass spectrometry. Refer to KDIGO guidelines for clinical interpretation. In patients with unstable renal function, e.g. those with acute kidney injury, the eGFR may not accurately reflect actual GFR.Performed By: #### 35725-0, 5195-3, 53580-3 #### [facility] CLIA [id number] [address] [place], [place] [address] [place] OF AMERICAGlucose [Mass/Vol]91 mg/dL Damudu35-38WexethzqcOhioHealth on above:Order Comment: Specimen Type: BLOOD SPECIMEN Ordering Facility: [facility] Address: [address] [place] [address] 07[address]Zjbtxo Comment: The [place] Diabetes Association (ADA) provides guidance for cutoff values for fasting glucose and random glucose. The ADA defines fasting as no caloric intake for at least 8 hours. Fasting plasma glucose results between 100 to 125 mg/dL indicate increased risk for diabetes (prediabetes). Fasting plasma glucose results greater than or equal to 126 mg/dL meet the criteria for diagnosis of diabetes. In the absence of unequivocal hyperglycemia, results should be confirmed by repeat testing. In a patient with classic symptoms of hyperglycemia or hyperglycemic crisis, random plasma glucose results greater than or equal to 200 mg/dL meet the criteria for diagnosis of diabetes. Reference: Standards of Medical Care in Diabetes 2016, [place] [employer]. Diabetes Care. 2016.39(Suppl 1).Performed By: #### 70347-8, 5195-3, 37237-0 #### [facility] CLIA [id number] [address] [place] [address] [place] OF AMERICAPotassium [Moles/Vol]4.5 mmol/LNormal3.7-5.1CFort Hamilton Hospital on above:Order Comment: Specimen Type: BLOOD SPECIMEN Ordering Facility: [facility] Address: [address] [place], [place] [address]Performed By: #### 69108-1, 5195-3, 63616-3 #### [facility] CLIA [id number] [address] [place] [address] [place] OF AMERICASodium [Moles/Vol]142 mmol/L Kxsdpy315-873QvujfsmcqOhioHealth on above:Order Comment: Specimen Type: BLOOD SPECIMEN Ordering Facility: [facility] Address: [address] [place], [place] [address]Performed By: #### 18878-1, 5195-3, 16962-9 #### [facility] CLIA [id number] [address] [place] [address] [place] OF AMERICAUrea nitrogen [Mass/Vol]19 mg/dLNormal9-24[facility] on above:Order Comment: Specimen Type: BLOOD SPECIMEN Ordering Facility: [facility] Address: [address] [place], [place] [address]Performed By: #### 21622-9, 5195-3, 28336-0 #### [facility] CLIA [id number] [address] [place] [address] [place] OF AMERICACyclic citrullinated peptide IgG Qnon 30-52-0427ICG ANTIBODY IGG QUALITATIVENegativeNormalNegativeOhioHealth on above:Order Comment: Specimen Type: BLOOD SPECIMEN Ordering Facility: [facility] Address: [address] [place], [place] [address]Performed By: #### 61950-5, 5195-3, 66429-0 #### [facility] CLIA [id number] [address] [place], [place] [address] [place] OF AMERICAESR Westergren method (Bld) [Velocity]on 82-48-8369ZVY (Bld) [Velocity]5 mm/hNormal0-15[facility] on above:Order Comment: Specimen Type: URINE SPECIMEN Ordering Facility: [facility] Address: [address] [place], [place] [address]Performed By: #### [id number] #### [facility] [place] [id number] [address] [place] [address] STATES OF AMERICAHIGH SENSITIVITY TROPONIN T on 00-37-4851Jnuljiep T.cardiac High sensitivity method [Mass/Vol]31 ng/LHigh<12 [facility] on above:Order Comment: Specimen Type: BLOOD SPECIMEN Ordering Facility: [facility] Address: [address] [place], [place] [address]Performed By: #### 89957-5, 5195-3, 62617-6 #### [facility] IA [id number] [address] [place] [address] UNITED [facility] CENTERT-proBNP SerPl-mCncon 45-47-4155Ajsgktrnbuk peptide.B prohormone N-Terminal [Mass/Vol]261 pg/mLHigh <125[facility] on above:Order Comment: Specimen Type: BLOOD SPECIMEN Ordering Facility: [facility] Address: [address] [place], [place] [address]Performed By: #### 47704-6, 5195-3, 90739-3 #### [facility] CLIA [id number] [address] [place], [place] [address] [place] OF AMERICAPROTEIN ELECTROPHORESIS SERUM (P)on 74-48-9797Qsdfuba [Mass/Vol]3.93 g/dLNormal3.43-5.41[facility] on above:Order Comment: Specimen Type: BLOOD SPECIMEN Ordering Facility: [facility] Address: [address] [place], [place] [address]Performed By: #### [id number] #### [facility] CLIA [id number] [address] [place] [address] [place] OF AMERICAAlpha 1 globulin Elph [Mass/Vol]0.25 g/dLNormal0.18-0.43[facility] on above: Order Comment: Specimen Type: BLOOD SPECIMEN Ordering Facility: [facility] Address: [address] [place], [place] [address]Performed By: #### [id number] #### [facility] CLIA [id number] [address] [place] [address] [place] AMERICAAlpha 2 globulin Elph [Mass/Vol]0.71 g/dLNormal0.42-0.98[facility] on above: Order Comment: Specimen Type: BLOOD SPECIMEN Ordering Facility: [facility] Address: [address] [place], [place] [address]Performed By: #### [id number] #### [facility] CLIA [id number] [address] [place] [address] [place] AMERICABeta globulin Elph [Mass/Vol]0.92 g/dLNormal0.61-1.17[facility] on above: Order Comment: Specimen Type: BLOOD SPECIMEN Ordering Facility: [facility] Address: [address] [place], [place] [address]Performed By: #### [id number] #### [facility] CLIA [id number] [address] [place] [address] [place] OF AMERICAGamma globulin Elph [Mass/Vol]1.19 g/dLNormal0.53-1.51[facility] on above: Order Comment: Specimen Type: BLOOD SPECIMEN Ordering Facility: [facility] Address: [address] [place], [place] [address]Performed By: #### [id number] #### [facility] CLIA [id number] [address] [place] [address] [place] OF AMERICAM-PROTEIN LOCATIONNormal [facility] on above:Order Comment: Specimen Type: BLOOD SPECIMEN Ordering Facility: [facility] Address: [address] [place], [place] [address]Result Comment: Not Applicable. Performed By: #### [id number] #### [facility] CLIA [id number] [address] [place] [address] [place] OF AMERICAProtein Fractions [Interp]No definitive M protein is identified on protein electrophoresis.NormalNo definitive M protein is identified on protein electrophoresis.[facility] on above:Order Comment: Specimen Type: BLOOD SPECIMEN Ordering Facility: [facility] Address: [address] [place], [place] [address]Performed By: #### [id number] #### [facility] CLIA [id number] [address] [place] [address] [place] AMERICAProtein.monoclonal Elph [Mass/Vol]0.00 g/dLNormal<=0.00[facility] on above:Order Comment: Specimen Type: BLOOD SPECIMEN Ordering Facility: [facility] Address: [address] [place], [place] [address]Performed By: #### [id number] #### [facility] CLIA [id number] [address] [place] [address] [place] OF AMERICASPE STAFF REVIEWReviewed by Kathie FloresalCFort Hamilton Hospital on above:Order Comment: Specimen Type: BLOOD SPECIMEN Ordering Facility: [facility] Address: [address] [place], [place] [address]Performed By: #### [id number] #### [facility] CLIA [id number] [address] [place] [address] [place] OF AMERICAProt SerPl-mCncon 01-15-2025 Protein [Mass/Vol]7.0 g/dLNormal6.3-8.0[facility] on above:Order Comment: Specimen Type: BLOOD SPECIMEN Ordering Facility: [facility] Address: [address] [place], [place] [address]Performed By: #### 63304-5, 5195-3, 61303-2 #### [facility] CLIA [id number] [address] [place] [address] STATES OF AMERICAProt Ur-mCncon 01-15-2025 Protein (U) [Mass/Vol]8 mg/dLNormal0-20[facility] on above:Order Comment: Specimen Type: URINE SPECIMEN Ordering Facility: [facility] Address: [address] [place], [place] [address]Performed By: #### [id number] #### [facility] CLIA [id number] [address] [place] [address] [place] AMERICARheumatoid fact SerPl-aCncon 25-11-9021Fflbvqtfrv factor Qn[IU]/mLNormal<16[facility] on above:Order Comment: Specimen Type: BLOOD SPECIMEN Ordering Facility: [facility] Address: [address] [place], [place] [address]Performed By: #### 34547-7, 5195-3, 72599-2 #### [facility] CLIA [id number] [address] [place] [address] STATES AMERICAURINE PROTEIN ELECTROPHORESIS RANDOM (P)on 79-79-1045Rwoqvzx Elph (U) [Mass fraction]18.58 % NormalOhioHealth on above:Order Comment: Specimen Type: URINE SPECIMEN Ordering Facility: [facility] Address: [address] [place], [place] [address]Performed By: #### [id number] #### [facility] CLIA [id number] [address] [place] [address] [place] AMERICAAlpha 1 globulin Elph (U) [Mass fraction]3.46 %[facility] on above:Order Comment: Specimen Type: URINE SPECIMEN Ordering Facility: [facility] Address: [address] [place], [place] [address]Performed By: #### [id number] #### [facility] CLIA [id number] [address] [place] [address] [place] AMERICAAlpha 2 globulin Elph (U) [Mass fraction]18.83 %[facility] on above:Order Comment: Specimen Type: URINE SPECIMEN Ordering Facility: [facility] Address: [address] [place], [place] [address]Performed By: #### [id number] #### [facility] CLIA [id number] [address] [place] [address] STATES OF AMERICABeta globulin Elph (U) [Mass fraction]29.64 %[facility] on above:Order Comment: Specimen Type: URINE SPECIMEN Ordering Facility: [facility] Address: [address] [place], [place] [address]Performed By: #### [id number] #### [facility] CLIA [id number] [address] [place] [address] [place] OF AMERICAGamma globulin Elph (U) [Mass fraction]29.48 %[facility] on above:Order Comment: Specimen Type: URINE SPECIMEN Ordering Facility: [facility] Address: [address] [place], [place] [address]Performed By: #### [id number] #### [facility] CLIA [id number] [address] [place] [address] [place] OF AMERICAINTERPRETATION COMMENT FOR PROTEIN ELECTROPHORESISThe absence of M-protein on urine protein electrophoresis does not entirely exclude the presence ofmonoclonal gammopathy in urine. Monoclonal protein analysis (immunofixation), a more definitive test to exclude monoclonal gammopathy, may be requested on this specimen if clinically indicated.[facility] on above:Order Comment: Specimen Type: URINE SPECIMEN Ordering Facility: [facility] Address: [address] [place], [place] [address]Performed By: #### [id number] #### [facility] IA [id number] [address] [place] [address] [place] OF AMERICAProtein Fractions Elph Alex (U) [Interp]No definitive M protein is identified on protein electrophoresis. NormalNo definitive M protein is identified on protein electrophoresis.[facility] HospitalCombr[facility] on above:Order Comment: Specimen Type: URINE SPECIMEN Ordering Facility: [facility] Address: [address] [place], [place] [address]Performed By: #### [id number] #### [facility] IA [id number] [address] [place], [place] [address]STAFF REVIEW (URINE ELECTRO) Reviewed by Kathie FloresPremier Health Upper Valley Medical CenterCombronson south [facility] hospital on above: Order Comment: Specimen Type: URINE SPECIMEN Ordering Facility: [facility] Address: [address] [place], [place] [address]Performed By: #### [id number] #### [facility] [place] [id number] [address] [place] [address] [place] AMERICAcCP IgG SerPl-aCncon 00-99-0189Tujubv citrullinated peptide IgG Qn<15Normal<20[facility] on above:Order Comment: Specimen Type: BLOOD SPECIMEN Ordering Facility: [facility] Address: [address] [place], [place] [address]Performed By: #### 18133-2, 5195-3, 33690-5 #### [facility] [place] [id number] [address] [place], [place] [address]CNPNon 64-80-9342RMZZ Telephone (RHEUMN) RENNY MITCHELL ([id number]) 1950 M Date Time Provider Department 12/13/24 URIEL ANAYA During your visit today, we recorded the following information about you: Debra Her MA 12/13/2024 8:28 AM Signed Patient has been identified by name and date of : Yes . Patient calling for :patient update. Patient called to provide an update for Dr. Anaya regarding his Prednisone 20 mg (take 1 tablet daily). He stated that he is doing well and expressed his gratitude, saying he would like to thank you for giving him his life back. Pharmacy has been updated: Yes . Return call needed: Patient is expecting a call back. Can be reached at phone number listed below.. Patient can be reached at : [phone] Allergies As of Date: 12/13/2024 (No Known Allergies) Date Reviewed: 12/04/2024 Reviewed by: Radha Serrano MA - Fully Assessed Reason for Visit: Patient Update [3524] Prescriptions as of 12/13/2024 - predniSONE (DELTASONE) 20 mg tablet Take 1 tablet by mouth once daily. - cholecalciferol (VITAMIN D3) 50 mcg (2,000 unit) tablet Take 2,000 Units by mouth. - pantoprazole DR (PROTONIX) 40 mg tablet Take 40 mg by mouth. - carvedilol (COREG) 25 mg tablet Take 25 mg by mouth. - rivaroxaban (XARELTO) 20 mg tablet Take 20 mg by mouth. Problem List As Of Date: 12/13/2024 (None) Encounter Status:Closed by URIEL ANAYA on 12/13/24[facility] HospitalT[facility] [id number] (RHEUMN) CARLRENNY Lee ([id number]) 1950 M Date Time Provider Department 12/06/24 URIEL ANAYA During your visit today, we recorded the following information about you: Debra Her MA 12/06/2024 8:32 AM Signed Patient called requesting to speak with Dr. Anaya he stated she left him a voicemail and he is returning her call to talk. Call back number [phone] Uriel Anaya MD 12/06/2024 8:48 AM Signed Spoke to patient via telephone, discussed lab results. Noted elevated creatinine, patient will obtain records from PCP for comparison. Discussed side effects of prednisone. Patient will reach out regarding his symptoms. Plan to f/u 07/05 at 8:45. Allergies As of Date: 12/06/2024 (No Known Allergies) Date Reviewed: 12/04/2024 Reviewed by: Radha Serrano MA - Fully Assessed Reason for Visit: Return Call Request [[id number]] Prescriptions as of 12/06/2024 - predniSONE (DELTASONE) 20 mg tablet Take 1 tablet by mouth once daily. - cholecalciferol (VITAMIN D3) 50 mcg (2,000 unit) tablet Take 2,000 Units by mouth. - pantoprazole DR (PROTONIX) 40 mg tablet Take 40 mg by mouth. - carvedilol (COREG) 25 mg tablet Take 25 mg by mouth. - rivaroxaban (XARELTO) 20 mg tablet Take 20 mg by mouth. Problem List As Of Date: 12/06/2024 (None) Encounter Status:Closed by URIEL ANAYA on 12/06/24NormalCMiddletown Hospital-REACTIVE PROTEINon 12-61-5019RYH [Mass/Vol]3.0 mg/dLHighNINF - 0.9 mg/dLDaniel Ville [address] COMPLEMENTon 20-51-8245Rxjdlrbufi C3 [Mass/Vol]175 mg/dL High86 - 166 mg/dLDaniel Ville [address] SerPl-mCncon 97-77-0652Aucjgojtmv C3 [Mass/Vol]175 mg/iRBawb37-035Hfujoxczn Clinic ClevelandComment on above:Order Comment: Specimen Type: BLOOD SPECIMEN [facility] Facility[facility] Address: [address] [place], [place] [address]Performed By: #### 00882-2, 5195-3, 29008-4 #### [facility] CLIA [id number] [address] [place] [address] [place] [facility] HOSPITALC4 COMPLEMENTon 12-04-2024 Complement C4 [Mass/Vol]26 mg/dL13 - 46 mg/dLBrandi Ville [address] SerPl-mCncon 11-04-1430Bcfunaienr C4 [Mass/Vol]26 mg/zXEwqtlu37-47CxbmtluyqWestern Reserve Hospital Comment on above:Order Comment: Specimen Type: BLOOD SPECIMEN [facility] Address: [address] [place], [place] [address]Performed By: #### 80840-0, 5195-3, 36342-6 #### [facility] CLIA [id number] [address] [place], [place] [address]CB W Auto Differential panel (Bld)on 60-12-2036Guzaimzsf (Bld) [#/Vol]0.06 10*3/uLNINFPromedica Memorial Hospital Basophils/100 WBC (Bld)0.5 %[facility] HospitalDifferential cell count method Nom (Bld)AutoCleveland ClinicEosinophils (Bld) [#/Vol]0.10 10*3/uLNINFPromedica Memorial HospitalEosinophils/100 WBC (Bld)0.9 %[facility] HospitalErythrocyte distribution width (RBC) [Ratio]14.8 %11.5 - 15.0 %[facility] HospitalHematocrit (Bld) [Volume fraction]38.5 %Low39.0 - 51.0 %[facility] HospitalHemoglobin (Bld) [Mass/Vol]12.2 g/dLLow13.0 - 17.0 g/dLPromedica Memorial HospitalImmature granulocytes (Bld) [#/Vol]0.03 10*3/uLNINFPromedica Memorial HospitalImmature granulocytes/100 WBC (Bld)0.3 %[facility] HospitalInterpretation and review of laboratory resultsAbnormalCJoint Township District Memorial Hospital Lymphocytes (Bld) [#/Vol]2.93 10*3/uLPromedica Memorial HospitalLymphocytes/100 WBC (Bld) 24.9 %[facility] HospitalH (RBC) [Entitic mass]25.8 pgLow26.0 - 34.0 pgCRegency Hospital CompanyHC (RBC) [Mass/Vol]31.7 g/dL30.5 - 36.0 g/dLAvita Health System Ontario HospitalV (RBC) [Entitic vol]81.4 fL80.0 - 100.0 fLCJoint Township District Memorial HospitalMonocytes (Bld) [#/Vol]0.81 10*3/uLNINFPromedica Memorial HospitalMonocytes/100 WBC (Bld)6.9 %[facility] Neutrophils (Bld) [#/Vol]7.83 10*3/uLCentervilleNeutrophils/100 WBC (Bld)66.5 %[facility] HospitalNucleated RBC (Bld) [#/Vol]NINFCJoint Township District Memorial Hospital Nucleated RBC/100 WBC (Bld) [Ratio]0.0 %/100 WBCPromedica Memorial HospitalPlatelet mean volume (Bld) [Entitic vol]9.5 fL9.0 - 12.7 fLCJoint Township District Memorial HospitalPlatelets (Bld) [#/Vol]399 10*3/uLPromedica Memorial HospitalRBC (Bld) [#/Vol]4.73 10*6/uL4.20 - 6.00 m/uL [facility] HospitalWBC (Bld) [#/Vol]11.76 10*3/uLLima Memorial Hospital ClinicBasophils (Bld) [#/Vol]0.06 10*3/uLNormal<0.11CProtestant Hospital Comment on above:Order Comment: Specimen Type: URINE SPECIMEN Ordering Facility: [facility] Address: [address] [place], [place] [address]Performed By: #### [id number] #### [facility] CLIA [id number] [address] [place] [address] [place] AMERICABasophils/100 WBC (Bld)0.5 % NormalOhioHealth on above:Order Comment: Specimen Type: URINE SPECIMEN Ordering Facility: [facility] Address: [address] [place], [place] [address]Performed By: #### [id number] #### [facility] CLIA [id number] [address] [place] [address] [place] AMERICADifferential cell count method Nom (Bld)AutoNormalCFort Hamilton Hospital on above:Order Comment: Specimen Type: URINE SPECIMEN Ordering Facility: [facility] Address: [address] [place], [place] [address]Performed By: #### [id number] #### [facility] CLIA [id number] [address] [place] [address] [place] AMERICAEosinophils (Bld) [#/Vol] 0.10 10*3/uLNormal<0.46[facility] on above:Order Comment: Specimen Type: URINE SPECIMEN Ordering Facility: [facility] Address: [address] [place], [place] [address]Performed By: #### [id number] #### [facility] CLIA [id number] [address] [place] [address] [place] AMERICAEosinophils/100 WBC (Bld)0.9 %NormalOhioHealth on above:Order Comment: Specimen Type: URINE SPECIMEN Ordering Facility: [facility] Address: [address] [place], [place] [address]Performed By: #### [id number] #### [facility] CLIA [id number] [address] [place], [place] [address] [place] AMERICAErythrocyte distribution width (RBC) [Ratio]14.8 %Invfyy20.5-15.0[facility] on above:Order Comment: Specimen Type: URINE SPECIMEN Ordering Facility: [facility] Address: [address] [place], [place] [address]Performed By: #### [id number] #### [facility] CLIA [id number] [address] [place] [address] [place] AMERICAHematocrit (Bld) [Volume fraction]38.5 %Low39.0-51.0[facility] on above:Order Comment: Specimen Type: URINE SPECIMEN Ordering Facility: [facility] Address: [address] [place], [place] [address]Performed By: #### [id number] #### [facility] CLIA [id number] [address] [place] [address] [place] AMERICAHemoglobin (Bld) [Mass/Vol] 12.2 g/dLLow13.0-17.0[facility] on above:Order Comment: Specimen Type: URINE SPECIMEN Ordering Facility: [facility] Address: [address] [place], [place] [address]Performed By: #### [id number] #### [facility] CLIA [id number] [address] [place] [address] [place] AMERICAImmature granulocytes (Bld) [#/Vol]0.03 10*3/uLNormal<0.10[facility] on above:Order Comment: Specimen Type: URINE SPECIMEN Ordering Facility: [facility] Address: [address] [place], [place] [address]Performed By: #### [id number] #### [facility] CLIA [id number] [address] [place] [address] [place] AMERICAImmature granulocytes/100 WBC (Bld)0.3 %NormalOhioHealth on above:Order Comment: Specimen Type: URINE SPECIMEN Ordering Facility: [facility] Address: [address] [place], [place] [address]Performed By: #### [id number] #### [facility] CLIA [id number] [address] [place] [address] [place] AMERICALymphocytes (Bld) [#/Vol] 2.93 10*3/uLNormal1.00-4.00[facility] on above:Order Comment: Specimen Type: URINE SPECIMEN Ordering Facility: [facility] Address: [address] [place], [place] [address]Performed By: #### [id number] #### [facility] CLIA [id number] [address] [place], [place] [address] [facility] HOSPITALLymphocytes/100 WBC (Bld) 24.9 %NormalOhioHealth on above:Order Comment: Specimen Type: URINE SPECIMEN Ordering Facility: [facility] Address: [address] [place], [place] [address]Performed By: #### [id number] #### [facility] CLIA [id number] [address] [place] [address] (RBC) [Entitic mass]25.8 pgLow26.0-34.0[facility] on above:Order Comment: Specimen Type: URINE SPECIMEN Ordering Facility: [facility] Address: [address] [place], [place] [address]Performed By: #### [id number] #### [facility] CLIA [id number] [address] [place], [place] [address] [facility] (RBC) [Mass/Vol]31.7 g/pQAkodef10.5-36.0[facility] on above:Order Comment: Specimen Type: URINE SPECIMEN Ordering Facility: [facility] Address: [address] [place], [place] [address]Performed By: #### [id number] #### [facility] CLIA [id number] [address] [place], [place] [address] [facility] (RBC) [Entitic vol]81.4 ySDwiltt76.0-100.0[facility] on above:Order Comment: Specimen Type: URINE SPECIMEN Ordering Facility: [facility] Address: [address] [place], [place] [address]Performed By: #### [id number] #### [facility] CLIA [id number] [address] [place] [address] [place] AMERICAMonocytes (Bld) [#/Vol]0.81 10*3/uLNormal<0.87[facility] on above:Order Comment: Specimen Type: URINE SPECIMEN Ordering Facility: [facility] Address: [address] [place], [place] [address]Performed By: #### [id number] #### [facility] CLIA [id number] [address] [place] [address] [place] AMERICAMonocytes/100 WBC (Bld)6.9 % NormalOhioHealth on above:Order Comment: Specimen Type: URINE SPECIMEN Ordering Facility: [facility] Address: [address] [place], [place] [address]Performed By: #### [id number] #### [facility] CLIA [id number] [address] [place] [address] [place] AMERICANeutrophils (Bld) [#/Vol] 7.83 10*3/uLHigh1.45-7.50[facility] on above:Order Comment: Specimen Type: URINE SPECIMEN [facility]ing Facility[facility] Address: [address] [place], [place] [address]Performed By: #### [id number] #### [facility] CLIA [id number] [address] [place] [address] [place] AMERICANeutrophils/100 WBC (Bld) 66.5 %NormalOhioHealth on above:Order Comment: Specimen Type: URINE SPECIMEN Ordering Facility[facility] Address: [address] [place], [place] [address]Performed By: #### [id number] #### [facility] CLIA [id number] [address] [place] [address] [place] AMERICANucleated RBC (Bld) [#/Vol] 10*3/uLNormal<0.01[facility] on above:Order Comment: Specimen Type: URINE SPECIMEN [facility]ing Facility: [facility] Address: [address] [place], [place] [address]Performed By: #### [id number] #### [facility] CLIA [id number] [address] [place] [address] [place] AMERICANucleated RBC/100 WBC (Bld) [Ratio]0.0 /100 WBCNormalCFort Hamilton Hospital on above:Order Comment: Specimen Type: URINE SPECIMEN Ordering Facility: [facility] Address: [address] [place], [place] [address]Performed By: #### [id number] #### [facility] CLIA [id number] [address] [place] [address] [place] AMERICAPlatelet mean volume (Bld) [Entitic vol]9.5 fLNormal9.0-12.7CFort Hamilton Hospital on above: Order Comment: Specimen Type: URINE SPECIMEN [facility]ing Facility: [facility] Address: [address] [place], [place] [address]Performed By: #### [id number] #### [facility] CLIA [id number] [address] [place] [address] [place] AMERICAPlatelets (Bld) [#/Vol]399 10*3/sDXckzcp410-505NtlllcbpgOhioHealth on above:Order Comment: Specimen Type: URINE SPECIMEN Ordering Facility: [facility] Address: [address] [place], [place] [address]Performed By: #### [id number] #### [facility] CLIA [id number] [address] [place] [address] [place] AMERICARBC (Bld) [#/Vol]4.73 10*6/uLNormal4.20-6.00[facility] on above:Order Comment: Specimen Type: URINE SPECIMEN Ordering Facility: [facility] Address: [address] [place], [place] [address]Performed By: #### [id number] #### [facility] CLIA [id number] [address] [place], [place] [address]WBC (Bld) [#/Vol]11.76 10*3/uLHigh3.70-11.00Western [facility] HospitalCombronson [facility] on above:Order Comment: Specimen Type: URINE SPECIMEN Ordering Facility: [facility] Address: [address] [place], [place] [address]Performed By: #### [id number] #### [facility] CLIA [id number] [address] [place], [place] [address]CNOVon [id number] Visit (RHEUMN) RENNY MITCHELL ([id number]) 1950 M Date Time Provider Department 12/04/24 8:15 AM URIEL ANAYAN During your visit today, we recorded the following information about you: Temperature Pulse Blood pressure Weight 97.5 degrees 80/minute 145/69 91.7 kg Height 1.753 m Toña Dill MD 12/04/2024 6:07 PM Signed Rheumatology Clinic note [facility] [place] Department of Rheumatic and Immunologic Diseases Referring Physician: Estrella Mark [address] [facility] [address] CC: SLE History of Present Illness: Renny Mitchell is a 74 year old year-old male with PMH notable for AFIB,who presents to Rheumatology Clinic for evaluation of SLE. Reports positive SLE blood test on outside labs. Symptoms: Last 5,6 years worsening over the past 2 months. Associated with severe fatigue, legs feeling heavy, usually active but has not been able to play golf. Endorses decreased appetite, weight loss 12 pounds over 2 months. Seen rheumatology 5 years ago told he does not have Lupus. Cardiac stress tests have been negative for ischemia. Previously active, he played golf 2-3 times a week until October, when he became too fatigued to continue. He also reports difficulty performing household tasks and playing with his grandchildren due to fatigue and weakness. No h/o raynauds, no blood clots, IBD, uveitis, no psoriasis or serositis. He reports no family history of autoimmune diseases. Shoulder pain and stiffness, lasts several minutes to hours and improves with movement. Pain also felt in the back of the thighs. Has diffuse muscle pain. Endorses muscle weakness, mild difficulty getting up from a chair. Never used steroids. No swelling of joints. He denies chest pain, dyspnea, or palpitations. He has a history of myocarditis diagnosed 2 years ago and underwent an ablation last month for atrial fibrillation. He has a loop implant to monitor for arrhythmias and denies recent episodes of palpitations. 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 He uses a Mago device daily for nerve pain relief. He denies any recent head trauma, headaches, or changes in vision. He has been seeing an eye doctor regularly and was diagnosed with a cataract in one eye. He is concerned about his symptoms and has been researching his condition online, leading to increased anxiety. He is eager to return to his previous level of activity and enjoy time with his grandchildren. Review of Systems CONSTITUTION: Positive for: Recent weight change Negative for: Fever HEENT: Negative for: Nosebleeds, Mouth sores, Trouble swallowing and Dry mouth RESPIRATORY: Negative for: Cough, Shortness of breath, Pain with breathing and Coughing up blood GASTROINTESTINAL: Positive for: Diarrhea Negative for: Melena, Heartburn and Abdominal pain MUSCULOSKELETAL: Positive for: Arthralgias, Myalgias, Muscle weakness and Morning Joint Stiffness Negative for: Joint swelling NEUROLOGICAL: Negative for: Headaches, Numbness and Memory loss SKIN: Negative for: Rash, Sun Sensitive Rash, Skin changes, Hair loss and Nail changes EYES: Positive for: Visual disturbance Negative for: Eye pain, Eye redness and Eye dryness CARDIOVASCULAR: Negative for: Chest pain and Leg swelling GENITOURINARY: Negative for: Dysuria, Hematuria and Ulcerations HEMATOLOGIC/LYMPHATIC: Negative for: Swollen glands Otherwise, a 12 point ROS was obtained and was negative. MEDICATIONS: pantoprazole DR (PROTONIX) 40 mg tablet Take 40 mg by mouth. carvedilol (COREG) 25 mg tablet Take 25 mg by mouth. rivaroxaban (XARELTO) 20 mg tablet Take 20 mg by mouth. cholecalciferol (VITAMIN D3) 50 mcg (2,000 unit) tablet Take 2,000 Units by mouth. ALLERGIES No Known Allergies Physical Examination: Vitals: BP 145/69 Pulse 80 Temp 36.4 ?C (97.5 ?F) (Temporal) Ht 175.3 cm (5' 9 ) Wt 91.7 kg (202 lb 2.6 oz) BMI 29.85 kg/m? GEN: awake, alert, well-appearing HEENT: NCAT, EOMI, MMM. No nodulosis or tenderness over temporal arteries NECK: supple, no LAD CV: RRR, no mgr PULM: CTAB, no wheezing, rhonchi, or crackles EXT: WWP, no edema NEURO: CN II-XII grossly intact, LT sensation and strength intact bl UE AND LE SKIN: no bruises, rashes, or lesions MSK: Spine: full ROM, no TTP Neck: full ROM with flexion/extension/lateral rotation Shoulders: Limited ROM in abduction and flexion Elbows: no swelling, no tenderness, no flexion contractures, no nodules, good ROM Wrists: no swelling, no tenderness, no limitation in flexion and extension Hands: no evidence of synovitis. Able to make full fist bilaterally Hips: limited ROM, pain, L>R with flexion and internal rotation Knees: no effusion, no tenderness, good ROM Ankles: no swelling, no tenderness, good ROM Pulses:+2 bra (more content not included)...NormalWestern Reserve HospitalCR SerPl-mCncon [id number] [Mass/Vol]3.0 mg/dLHigh<0.9CProtestant Hospital Comment on above:Order Comment: Specimen Type: BLOOD SPECIMEN Order[facility] Facility[facility] Address: [address] [place], [place] [address]Bbqehnhjk By: #### 91829-3, 5195-3, 99783-7 #### [facility] CLIA [id number] [address] [place] [address] [place] AMERICACentromere Ab IF Ql (S)on 08-21-3113Xsgydijisn Ab Qn (S)0.2 AINormal<1.0[facility] on above:Order Comment: Specimen Type: BLOOD SPECIMEN Ordering Facility: [facility] Address: [address] [place], [place] [address]Result Comment: Anti-centromere antibody is used as in aid in diagnosis of systemic sclerosis. Clinical correlation is required. Test Methodology: Multiplex flow immunoassay.Performed By: #### 12912-2, 5195-3, 09848-9 #### [facility] CLIA [id number] [address] [place] [address] [place] AMERICACENTROMERE AB QUALNegative NormalNegativeOhioHealth on above:Order Comment: Specimen Type: BLOOD SPECIMEN [facility] Address: [address] [place], [place] [address]Performed By: #### 93082-4, 5195-3, 47190-6 #### [facility] CLIA [id number] [address] [place] [address] [place] AMERICAChromatin Ab Qnon 12-04-2024 CHROMATIN AB QUALNegativeNormalNegativeOhioHealth on above:Order Comment: Specimen Type: BLOOD SPECIMEN [facility] Facility[facility] Address: [address] [place], [place] [address]Performed By: #### 48013-6, 5195-3, 15709-5 #### [facility] CLIA [id number] [address] [place] [address] [place] AMERICAChromatin Ab SerPl-aCncon 24-58-8827Dpbqpmkvo Ab Qn<0.2Normal<1.0[facility] on above:Order Comment: Specimen Type: BLOOD SPECIMEN Ordering Facility: [facility] Address: [address] [place], [place] [address]Result Comment: Test Methodology: Multiplex flow immunoassay.Performed By: #### 05088-9, 5195-3, 92602-9 #### [facility] CLIA [id number] [address] [place] [address] [place] AMERICAComplement C4 [Mass/Vol]on 38-02-3957Wubccnajabdkcr and review of laboratory resultsNormalCJoint Township District Memorial Hospital Comprehensive metabolic 2000 panelon 18-66-8529Feipwsx [Mass/Vol]4.2 g/dL3.9 - 4.9 g/dLCarnegie ClinicALP [Catalytic activity/Vol]52 U/L38 - 113 U/LCleveland ClinicALT [Catalytic activity/Vol]10 U/L10 - 54 U/LCleveland ClinicAnion gap [Moles/Vol]14 mmol/L8 - 15 mmol/LCleveland ClinicAST [Catalytic activity/Vol]15 U/L14 - 40 U/LCleveland ClinicBilirubin [Mass/Vol]0.5 mg/dL0.2 - 1.3 mg/dL [facility] HospitalCalcium [Mass/Vol]9.9 mg/dL8.5 - 10.2 mg/dLPromedica Memorial Hospital Chloride [Moles/Vol]100 mmol/L98 - 107 mmol/LCleveland ClinicCO2 [Moles/Vol]24 mmol/L22 - 30 mmol/LCleveland ClinicCreatinine [Mass/Vol]1.27 mg/dLHigh0.73 - 1.22 mg/dLPromedica Memorial HospitalGFR/1.73 sq M.predicted among non-blacks MDRD (S/P/Bld) [Vol rate/Area]60 mL/min/{1.73_m2}- PINChildren's Hospital for RehabilitationComment on above:Estimated Glomerular Filtration Rate (eGFR) is calculated using the 2020 CKD-EPI creatinine equation. This equation utilizes serum creatinine, sex, and age as parameters. The creatinine assay has traceable calibration to isotope dilution-mass spectrometry. Refer to KDIGO guidelines for clinical inte rpretation. In patients with unstable renal function, e.g. those with acute kidney injury, the eGFRmay not accurately reflect actual GFR.Glucose [Mass/Vol] 101 mg/rSXyvc63 - 99 mg/dLPromedica Memorial HospitalComment on above:The [place] Diabetes Association (ADA) provides guidance for cutoff values for fasting glucose and random glucose. The ADA defines fasting as no caloric intake for at least 8 hours. Fasting plasma glucose results between 100 to 125 mg/dL indicate increased risk for diabetes (prediabetes). Fasting plasma glucose results greater than or equal to 126 mg/dL meet the criteria for diagnosis of diabetes. In the absence of unequivocal hyperglycemia, results should be confirmed by repeat testing. In a patient with classic symptoms of hyperglycemia or hyperglycemic crisis, random plasma glucose results greater than or equal to 200 mg/dL meet the criteria for diagnosis of diabetes. Reference: Standards of Medical Care in Diabetes 2016, [place] Diabetes Association. Diabetes Care. 2016.39(Suppl 1). Potassium [Moles/Vol]4.7 mmol/L3.7 - 5.1 mmol/LCleveland ClinicProtein [Mass/Vol]8.5 g/dLHigh6.3 - 8.0 g/dLKettering Health Main Campusodium [Moles/Vol]138 mmol/L 136 - 144 mmol/LCleveland ClinicUrea nitrogen [Mass/Vol]15 mg/dL9 - 24 mg/dL Carnegie ClinicAlbumin [Mass/Vol]4.2 g/dLNormal3.9-4.9CFort Hamilton Hospital on above:Order Comment: Specimen Type: BLOOD SPECIMEN Order[facility] Address: [address] [place], [place] [address]Performed By: #### 08225-1, 5195-3, 59301-7 #### [facility] CLIA [id number] [address] [place] [address] [place] AMERICAALP [Catalytic activity/Vol] 52 U/MTajsgr56-249KapsgyyrdOhioHealth on above:Order Comment: Specimen Type: BLOOD SPECIMEN Ordering Facility[facility] Address: [address] [place], [place] [address]Performed By: #### 28403-0, 5195-3, 82867-1 #### [facility] CLIA [id number] [address] [place] [address] [place] AMERICAALT [Catalytic activity/Vol] 10 U/QWnjwjk68-05FizwauoamOhioHealth on above:Order Comment: Specimen Type: BLOOD SPECIMEN Order[facility] Address: [address] [place], [place] [address]Performed By: #### 33950-5, 5195-3, 21560-8 #### [facility] CLIA [id number] [address] [place] [address] [place] AMERICAAnion gap [Moles/Vol]14 mmol/LNormal8-15[facility] on above:Order Comment: Specimen Type: BLOOD SPECIMEN Ordering Facility[facility] Address: [address] [place], [place] [address]Performed By: #### 28866-9, 5195-3, 65564-0 #### [facility] CLIA [id number] [address] [place] [address] [place] AMERICAAST [Catalytic activity/Vol] 15 U/FOypvlq55-04WiipnkvuvOhioHealth on above:Order Comment: Specimen Type: BLOOD SPECIMEN Ordering Facility[facility] Address: [address] [place], [place] [address]Performed By: #### 51951-8, 5195-3, 73502-3 #### [facility] CLIA [id number] [address] [place] [address] [place] AMERICABilirubin [Mass/Vol]0.5 mg/dLNormal0.2-1.3CFort Hamilton Hospital on above:Order Comment: Specimen Type: BLOOD SPECIMEN [facility] Facility[facility] Address: [address] [place], [place] [address]Performed By: #### 12607-1, 5195-3, 25257-7 #### [facility] CLIA [id number] [address] [place] [address] [place] AMERICACalcium [Mass/Vol]9.9 mg/dL Normal8.5-10.2CFort Hamilton Hospital on above:Order Comment: Specimen Type: BLOOD SPECIMEN [facility] Address: [address] [place], [place] [address]Performed By: #### 81935-4, 5195-3, 68669-6 #### [facility] CLIA [id number] [address] [place] [address] [place] AMERICAChloride [Moles/Vol]100 mmol/EUgnroc65-401KvoassfveOhioHealth on above:Order Comment: Specimen Type: BLOOD SPECIMEN [facility]ing Facility[facility] Address: [address] [place], [place] [address]Performed By: #### 52477-0, 5195-3, 95599-2 #### [facility] CLIA [id number] [address] [place] [address] [place] AMERICACO2 [Moles/Vol]24 mmol/L Uymfhq69-23TrntmifheOhioHealth on above:Order Comment: Specimen Type: BLOOD SPECIMEN Ordering Facility[facility] Address: [address] [place], [place] [address]Performed By: #### 32982-7, 5195-3, 95834-3 #### [facility] CLIA [id number] [address] [place] [address] [place] AMERICACreatinine [Mass/Vol]1.27 mg/dLHigh0.73-1.22[facility] on above:Order Comment: Specimen Type: BLOOD SPECIMEN Ordering Facility[facility] Address: [address] [place], [place] [address]Performed By: #### 59062-7, 5195-3, 94787-1 #### [facility] CLIA [id number] [address] [place], [place] [address] [place] AMERICAeGFRcr SerPlBld CKD-EPI 2020 60 mL/min/1.73m???Normal>=60[facility] on above:Order Comment: Specimen Type: BLOOD SPECIMEN Ordering Facility: [facility] Address: [address] [place], [place] [address]Result Comment: Estimated Glomerular Filtration Rate (eGFR) is calculated using the 2020 CKD-EPI cre atinine equation. This equation utilizes serum creatinine, sex, and age as parameters. The creatinine assay has traceable calibration to isotope dilution- mass spectrometry. Refer to KDIGO guidelines for clinical interpretation. In patients with unstable renal function, e.g. those with acute kidney injury, the eGFR may not accurately reflect actual GFR.Performed By: #### 78492-4, 5195-3, 60166-3 #### [facility] CLIA [id number] [address] [place], [place] [address] [place] OF AMERICAGlucose [Mass/Vol]101 mg/dL Gtxt79-89GyqhjjlyiOhioHealth on above:Order Comment: Specimen Type: BLOOD SPECIMEN Ordering Facility: [facility] Address: [address] [place], [place] [address]Result Comment: The [place] Diabetes [employer] (ADA) provides guidance for cutoff values for fasting glucose and random glucose. The ADA defines fasting as no caloric intake for at least 8 hours. Fasting plasma glucose results between 100 to 125 mg/dL indicate increased risk for diabetes (prediabetes). Fasting plasma glucose results greater than or equal to 126 mg/dL meet the criteria for diagnosis of diabetes. In the absence of unequivocal hyperglycemia, results should be confirmed by repeat testing. In a patient with classic symptoms of hyperglycemia or hyperglycemic crisis, random plasma glucose results greater than or equal to 200 mg/dL meet the criteria for diagnosis of diabetes. Reference: Standards of Medical Care in Diabetes 2016, [place] [employer]. Diabetes Care. 2016.39(Suppl 1).Performed By: #### 95206-9, 5195-3, 47976-9 #### [facility] CLIA [id number] [address] [place] [address] [place] AMERICAPotassium [Moles/Vol]4.7 mmol/LNormal3.7-5.1CFort Hamilton Hospital on above:Order Comment: Specimen Type: BLOOD SPECIMEN Ordering Facility: [facility] Address: [address] [place], [place] [address]Performed By: #### 88338-7, 5195-3, 26380-9 #### [facility] CLIA [id number] [address] [place] [address] [place] AMERICAProtein [Mass/Vol]8.5 g/dL High6.3-8.0[facility] on above:Order Comment: Specimen Type: BLOOD SPECIMEN Ordering Facility: [facility] Address: [address] [place], [place] [address]Performed By: #### 08394-7, 5195-3, 25587-4 #### [facility] CLIA [id number] [address] [place] [address] [place] AMERICASodium [Moles/Vol]138 mmol/L Iydnbw336-411LcmrqdvygOhioHealth on above:Order Comment: Specimen Type: BLOOD SPECIMEN Ordering Facility: [facility] Address: [address] [place], [place] [address]Performed By: #### 63797-4, 5195-3, 90893-1 #### [facility] CLIA [id number] [address] [place] [address] [place] AMERICAUrea nitrogen [Mass/Vol]15 mg/dLNormal9-24[facility] on above:Order Comment: Specimen Type: BLOOD SPECIMEN Ordering Facility: [facility] Address: [address] [place], [place] [address]Performed By: #### 37687-5, 5195-3, 37773-0 #### [facility] CLIA [id number] [address] [place] [address] [place] AMERICADNA ANTIBODY DS BLDon 37-83-7915JXZ DCZYCKSX97 IU/mLNormal<=200[facility] on above:Order Comment: Specimen Type: BLOOD SPECIMEN Ordering Facility: [facility] Address: [address] [place], [place] [address]Result Comment: Negative: <200 IU/mL Equivocal: 201-300 IU/mL Moderate Positive: 301-800 IU/mL Strong Positive: >801 IU/mLPerformed By: #### 83168-8, 5195-3, 69838-0 #### [facility] CLIA [id number] [address] [place] [address] [place] AMERICADNA ANTIBODY QUALITATIVE INTERPRETATIONNegativeNormalNegativeCleThe Christ Hospital on above: Order Comment: Specimen Type: BLOOD SPECIMEN Ordering Facility: [facility] Address: [address] [place], [place] [address]Performed By: #### 68098-9, 5195-3, 93348-5 #### [facility] CLIA [id number] [address] [place] [address] [place] AMERICAENA Jo1 Ab Ser-aCncon 28-21-9083Df-1 extractable nuclear Ab Qn (S)<0.2Normal<1.0[facility] on above:Order Comment: Specimen Type: BLOOD SPECIMEN Ordering Facility: [facility] Address: [address] [place], [place] [address]Performed By: #### 41972-1, 5195-3, 80569-4 #### [facility] [place] [id number] [address] [place] [address] STATES OF AMERICAENA PROGRAM SUPERVISOR Ab Ser-aCncon 41-93-9819Tumhtdsxvxhbqaroi extractable nuclear Ab Qn (S)<0.2Normal<1.0[facility] on above:Order Comment: Specimen Type: BLOOD SPECIMEN Ordering Facility: [facility] Address: [address] [place], [place] [address]Performed By: #### 70644-2, 5195-3, 43109-5 #### [facility] CLIA [id number] [address] [place] [address] [place] AMERICAENA SM IgG Ser-aCncon 54-30-1840Kgxyw extractable nuclear IgG Qn (S)<0.2Normal<1.0[facility] on above:Order Comment: Specimen Type: BLOOD SPECIMEN Ordering Facility: [facility] Address: [address] [place], [place] [address]Performed By: #### 10655-0, 5195-3, 02669-5 #### [facility] CLIA [id number] [address] [place] [address] [place] AMERICAENA SS-A Ab Ser-aCncon 03-67-1988Vowrutyj syndrome-A extractable nuclear Ab Qn (S)<0.2Normal<1.0 [facility] on above:Order Comment: Specimen Type: BLOOD SPECIMEN Ordering Facility: [facility] Address: [address] [place], [place] [address]Result Comment: Test Methodology: Multiplex flow immunoassay.Performed By: #### 01716-6, 5195-3, 28263-5 #### [facility] CLIA [id number] [address] [place] [address] STATES OF AMERICAENA SS-B Ab Ser-aCncon 05-50-8691Rsmotoor syndrome-B extractable nuclear Ab Qn (S)<0.2Normal<1.0 [facility] on above:Order Comment: Specimen Type: BLOOD SPECIMEN Ordering Facility: [facility] Address: [address] [place], [place] [address]Result Comment: Anti-SSB (anti-La) antibody is used as an aid in diagnosis of a variety of systemicautoimmune diseases, especially for Sjogren's syndrome and systemic lupus erythematosus. Clinical correlation is required. Test Methodology: Multiplex flow immunoassay.Performed By: #### 86702-2, 5195-3, 51606-8 #### [facility] CLIA [id number] [address] [place] [address] [place] AMERICAESR Westergren method (Bld) [Velocity]on 36-37-4969GRI (Bld) [Velocity]43 mm/[facility] Interpretation and review of laboratory resultsAbnormalCleveland Adena Health SystemR (Bld) [Velocity]43 mm/hHigh0-15[facility] on above:Order Comment: Specimen Type: URINE SPECIMEN Ordering Facility: [facility] Address: [address] [place], [place] [address]Performed By: #### [id number] #### [facility] CLIA [id number] [address] [place] [address] [place] AMERICAHBV core Ab Ser Qlon 25-50-1847PZA core Ab Ql (S)NegativeNormalNegativeWestern Reserve Hospital Comment on above:Order Comment: Specimen Type: BLOOD SPECIMEN Ordering Facility: [facility] Address: [address] [place], [place] [address]Result Comment: No evidence of current or past infection with Hepatitis B virus. Should recent infection be suspected, repeat testing may be considered 3-4 weeks after this draw.Performed By: #### 08822-5, 5195-3, 75565-0 #### [facility] CLIA [id number] [address] [place] [address] [place] AMERICAHBV surface Ab Ql (S)on 79-00-4814VXC surface Ab Qn (S)<8.00NormPremier Health Upper Valley Medical CenterComment on above:Order Comment: Specimen Type: BLOOD SPECIMEN Ordering Facility: [facility] Address: [address] [place], [place] [address]Result Comment: <8 mIU/mL: No serological evidence of immunity to Hepatitis B Virus. >/= 8 to <12 mIU/mL: No serological evidence of immunity to Hepatitis B Virus. >/= 12 mIU/mL: Consistent with serological evidence of immunity to Hepatitis B Virus.Performed By: #### 01268-9, 5195-3, 68314-8 #### [facility] CLIA [id number] [address] [place] [address] [place] AMERICAHBV surface Ab Ser Qlon 85-91-1320SQS surface Ab Ql (S)NegativeNormalCProtestant HospitalComment on above:Order Comment: Specimen Type: BLOOD SPECIMEN Ordering Facility: [facility] Address: [address] [place], [place] [address]Result Comment: No serological evidence of immunity to Hepatitis B Virus.Performed By: #### 38017-1, 5195-3, 73626-3 #### [facility] CLIA [id number] [address] [place] [address] STATES OF AMERICAHBV surface Ag Ser Qlon 42-75-9608XFA surface Ag Ql (S)NegativeNormalNegativeWestern Reserve Hospital Comment on above:Order Comment: Specimen Type: BLOOD SPECIMEN Ordering Facility: [facility] Address: [address] [place], [place] [address]Performed By: #### 21996-5, 5-3, 29539-8 #### [facility] [place] [id number] [address] [place] [address] STATES OF AMERICAHCV Ab Ser Qlon 12-04-2024 HCV Ab Ql (S)NegativeNormalNegativeWestern Reserve HospitalComment on above: Order Comment: Specimen Type: BLOOD SPECIMEN Ordering Facility: [facility] Address: [address] [place], [place] [address]Result Comment: The result suggests no evidence of infection with Hepatitis C virus. Should recent infection be suspected, repeat testing may be considered 4-6 weeks after this draw.Performed By: #### 39428-0, 5-3, 47875-4 #### [facility] IA [id number] [address] [place] [address] [place] AMERICAJo-1 extractable nuclear Ab Qn (S)on 52-96-5472CH 1 ANTIBODY QUALNegativeNormalNegativeOhioHealth on above:Order Comment: Specimen Type: BLOOD SPECIMEN Ordering Facility: [facility] Address: [address] [place], [place] [address]Result Comment: Anti-ANTHONY-1 antibody is used as an aid in diagnosis of polymyositis and dermatomyositis especially with pulmonary involvement. A negative result cannot rule out polymyositis or dermatomyositis. Clinical correlation is required. Test Methodology: Multiplex flow immunoassay.Performed By: #### 38477-1, 5195-3, 39147-4 #### [facility] CLIA [id number] [address] [place], [place] [address] [place] [facility] Panel Informationon 47-56-5031Ogbihxxjmonjmc and review of laboratory resultsAbnormalCtuscarawas hospitaland Kettering Health HamiltonProt/Creat Uron 79-38-5117Xqwnyoh/Creatinine (U) [Mass ratio]0.06 mg/mgNormal<0.15[facility] on above:Order Comment: Specimen Type: BLOOD SPECIMEN Ordering Facility: [facility] Address: [address] [place], [place] [address]Result Comment: Adult Proteinuria Categories: <0.15 mg/mg is considered normal to mildly increased 0.15 - 0.50 mg/mg is considered moderately increased >0.50 mg/mg is considered severely increased KDIGO. (2013). KDIGO 2012 Clinical Practice Guideline for the Evaluation and Management of Chronic Kidney Disease. Official Journal of the International Society of Nephrology, 3(1), 1-150.Performed By: #### 31714-6, 5195-3, 96370-8 #### [facility] CLIA [id number] [address] [place], [place] [address] [place] OF [facility] HOSPITALProtein/Creatinine (U) [Mass ratio]on 33-68-7977Xsumizzcok (U) [Mass/Vol]163.0 mg/pTTnaqoj61.0-300.0 [facility] on above:Order Comment: Specimen Type: BLOOD SPECIMEN Ordering Facility: [facility] Address: [address] [place] [address]Tcdvwgsca By: #### 09140-7, 5195-3, 22905-1 #### [facility] CLIA [id number] [address] [place], [place] [address] [place] [facility] HOSPITALProtein (U) [Mass/Vol]10 mg/dLNormal0-20[facility] on above:Order Comment: Specimen Type: BLOOD SPECIMEN Ordering Facility: [facility] Address: [address] [place] [address]Pmwregurr By: #### 54160-8, 5195-3, 51240-4 #### [facility] CLIA [id number] [address] [place] [address] [place] AMERICARibonucleoprotein extractable nuclear Ab Qn (S)on 38-29-7577ZDPV-PROGRAM SUPERVISOR QUALNegativeNormalNegative [facility] on above:Order Comment: Specimen Type: BLOOD SPECIMEN Ordering Facility: [facility] Address: [address] [place], [place] [address]Performed By: #### 64247-4, 5-3, 39421-8 #### [facility] CLIA [id number] [address] [place] [address] [place] AMERICARIBOSOMAL PROGRAM SUPERVISOR QUALNegative NormalNegativeOhioHealth on above:Order Comment: Specimen Type: BLOOD SPECIMEN Ordering Facility: [facility] Address: [address] [place], [place] [address]Result Comment: Anti-Ribosomal RNA (Ribosomal P) antibody is used as an aid in diagnosis of systemic autoimmune diseases especially systemic lupus erythematosus and mixed connective tissue disease. Cross-reactivity with Anti-ruiz antibody is not uncommon. Clinical correlation is required. Test Methodology: Multiplex flow immunoassay.Performed By: #### 87936-0, 5-3, 49927-5 #### [facility] CLIA [id number] [address] [place], [place] [address] [place] AMERICASCL-70 extractable nuclear IgG IA Qn (S)on 26-10-9917KKLUNWFIUNY AB QUALNegativeNormalNegativeOhioHealth on above:Order Comment: Specimen Type: BLOOD SPECIMEN Ordering Facility: [facility] Address: [address] [place], [place] [address]Performed By: #### 87070-8, 5-3, 26594-7 #### [facility] CLIA [id number] [address] [place] [address] [place] AMERICASCLERODERMA IGG AB<0.2Normal <1.0[facility] on above:Order Comment: Specimen Type: BLOOD SPECIMEN Ordering Facility: [facility] Address: [address] [place], [place] [address]Result Comment: Scl-70/Scleroderma antibody test is used as an aid in diagnosis of systemic sclerosis especially the diffuse cutaneous form. A negative result cannot rule out systemic sclerosis. The final interpretation should consider clinical picture and other test results such as anti-centromereantibody. Test Methodology: Multiplex flow immunoassay.Performed By: #### 55407-2, 5195-3, 39422-6 #### [facility] CLIA [id number] [address] [place] [address] [place] AMERICASjogrens syndrome-A extractable nuclear Ab Qn (S)on 78-02-9960REM ANTIBODY QUALNegativeNormal NegativeOhioHealth on above:Order Comment: Specimen Type: BLOOD SPECIMEN Ordering Facility[facility] Address: [address] [place], [place] [address]Performed By: #### 18854-3, 5195-3, 93838-1 #### [facility] CLIA [id number] [address] [place] [address] [place] AMERICASjogrens syndrome-B extractable nuclear Ab Qn (S)on 32-91-9241GIN ANTIBODY QUALNegativeNormal NegativeOhioHealth on above:Order Comment: Specimen Type: BLOOD SPECIMEN Ordering Facility: [facility] Address: [address] [place], [place] [address]Performed By: #### 22232-9, 5195-3, 66829-0 #### [facility] CLIA [id number] [address] [place] [address] [place] [facility] OF AMERICASmith extractable nuclear IgG Qn (S)on 21-42-9813FS ANTIBODY QUALNegativeNormalNegativeOhioHealth on above:Order Comment: Specimen Type: BLOOD SPECIMEN Ordering Facility: [facility] Address: [address] [place], [place] [address]Result Comment: Anti-Sm (Ruiz) antibody is used as an aid in diagnosis of systemic lupus erythematosus and its presence is associated with renal disease. A negative result cannot rule out systemic lupus erythematosus. Clinical correlation is required. Test Methodology: Multiplex flow immunoassay.Performed By: #### 82529-9, 5195-3, 73446-5 #### [facility] CLIA [id number] [address] [place], [place] [address]URINALYSIS, REFLEX MICROSCOPICOrdered By: Yudelka Fofana on 25-06-3532Eaovcntj LM.HPF (Urine sed) [#/Area]NegativeNegative /HPFCarnegie ClinicBilirubin Ql (U)NegativeNegative Carnegie ClinicClarity (Unsp spec)ClearClearCleveland ClinicColor (U)Yellow YellowPromedica Memorial HospitalEpithelial cells LM.HPF (Urine sed) [#/Area]None Seen/HPF [facility] HospitalGlucose Test strip (U) [Mass/Vol]NegativeNegativePromedica Memorial HospitalHemoglobin Ql (U)NegativeNegativePromedica Memorial HospitalHyaline casts (Urine sed) [#/Area]0 /[LPF]0 /LPFCleveland ClinicInterpretation and review of laboratory resultsAbnormalCleveland ClinicKetones Ql (U)NegativeNegativePromedica Memorial Hospital Leukocyte esterase Test strip Ql (U)NegativeNegativePromedica Memorial HospitalNitrite Ql (U)NegativeNegativePromedica Memorial HospitalpH (U)5.5 [pH]5.0 - 8.0[facility] Protein (U) [Mass/Vol]TraceAbnormalNegativePromedica Memorial HospitalRBC LM.HPF (Urine sed) [#/Area]0-2 /HPF0-2 /HPFKettering Health Main Campuspecific gravity (U) [Rel density] 1.0211.005 - 1.030Prom[facility] Memorial HospitalUrobilinogen Ql (U)0.2 EU/dL0.2-1.0 EU/dL [facility] HospitalWBC LM.HPF (Urine sed) [#/Area]0-5 /HPF0-5 /HPFCarnegie Clinic This test was developed and its performance characteristics determined by [facility]'s [facility] ([facility]). It has not been cleared or approved by the FDA. [facility] is regulated under CLIA as qualified to perform high-complexity testing. Thistest is used for clinical purposes. It should not be regarded as investigational or for research. [facility]. Vincent HospitalURINALYSIS, REFLEX MICROSCOPICon 12-04-2024 Bacteria LM.HPF (Urine sed) [#/Area]NegativeNormalNegativeOhioHealth on above:Order Comment: Specimen Type: URINE SPECIMEN Ordering Facility[facility] Address: [address] [place], [place] [address]Performed By: #### [id number] #### [facility] CLIA [id number] [address] [place] [address] [place] AMERICABilirubin Ql (U)Negative NormalNegativeOhioHealth on above:Order Comment: Specimen Type: URINE SPECIMEN Ordering Facility[facility] Address: [address] [place], [place] [address]Performed By: #### [id number] #### [facility] CLIA [id number] [address] [place] [address] [place] AMERICAClarity (Unsp spec)Clear NormalClearCFort Hamilton Hospital on above:Order Comment: Specimen Type: URINE SPECIMEN [facility] Address: [address] [place], [place] [address]Performed By: #### [id number] #### [facility] CLIA [id number] [address] [place] [address] [place] AMERICAColor (U)YellowNormalYellow [facility] on above:Order Comment: Specimen Type: URINE SPECIMEN Ordering Facility[facility] Address: [address] [place], [place] [address]Performed By: #### [id number] #### [facility] CLIA [id number] [address] [place], [place] [address] [place] AMERICAEpithelial cells LM.HPF (Urine sed) [#/Area]None SeenNormalCFort Hamilton Hospital on above: Order Comment: Specimen Type: URINE SPECIMEN Order[facility] Address: [address] [place], [place] [address]Performed By: #### [id number] #### [facility] CLIA [id number] [address] [place] [address] [place] AMERICAGlucose Test strip (U) [Mass/Vol]NegativeNormalNegativeOhioHealth on above:Order Comment: Specimen Type: URINE SPECIMEN Order[facility] Facility[facility] Address: [address] [place], [place] [address]Performed By: #### [id number] #### [facility] CLIA [id number] [address] [place] [address] [place] AMERICAHemoglobin Ql (U)Negative NormalNegativeOhioHealth on above:Order Comment: Specimen Type: URINE SPECIMEN Ordering Facility[facility] Address: [address] [place], [place] [address]Performed By: #### [id number] #### [facility] CLIA [id number] [address] [place] [address] [place] AMERICAHyaline casts (Urine sed) [#/Area]0 /[LPF]Normal0 /LPFCFort Hamilton Hospital on above:Order Comment: Specimen Type: URINE SPECIMEN Ordering [facility] Address: [address] [place], [place] [address]Performed By: #### [id number] #### [facility] CLIA [id number] [address] [place], [place] [address] [place] AMERICAKetones Ql (U)NegativeNormal NegativeOhioHealth on above:Order Comment: Specimen Type: URINE SPECIMEN [facility] Address: [address] [place], [place] [address]Performed By: #### [id number] #### [facility] CLIA [id number] [address] [place], [place] [address] [place] AMERICALeukocyte esterase Test strip Ql (U)NegativeNormalNegativeOhioHealth on above: Order Comment: Specimen Type: URINE SPECIMEN Ordering Facility[facility] Address: [address] [place], [place] [address]Performed By: #### [id number] #### [facility] CLIA [id number] [address] [place] [address] [place] AMERICANitrite Ql (U)NegativeNormal NegativeCleThe Christ Hospital on above:Order Comment: Specimen Type: URINE SPECIMEN [facility]ing [facility] Address: [address] [place], [place] [address]Performed By: #### [id number] #### [facility] CLIA [id number] [address] [place] [address] [place] AMERICApH (U)5.5 [pH]Normal5.0-8.0 [facility] on above:Order Comment: Specimen Type: URINE SPECIMEN Ordering Facility[facility] Address: [address] [place], [place] [address]Performed By: #### [id number] #### [facility] CLIA [id number] [address] [place] [address] [place] AMERICAProtein (U) [Mass/Vol]Trace AbnormalNegativeOhioHealth on above:Order Comment: Specimen Type: URINE SPECIMEN Ordering Facility[facility] Address: [address] [place], [place] [address]Performed By: #### [id number] #### [facility] CLIA [id number] [address] [place] [address] [place] AMERICARB LM.HPF (Urine sed) [#/Area]0-2 /HPFNormal0-2 /HPFOhioHealth on above:Order Comment: Specimen Type: URINE SPECIMEN [facility]ing Facility[facility] Address: [address] [place], [place] [address]Performed By: #### [id number] #### [facility] CLIA [id number] [address] [place] [address] [place] OF [facility] HOSPITALSpecific gravity (U) [Rel density]1.964Tatcti0.005-1.030[facility] on above:Order Comment: Specimen Type: URINE SPECIMEN Order[facility] Facility[facility] Address: [address] [place], [place] [address]Performed By: #### [id number] #### [facility] [place] [id number] [address] [place] [address] [place] [facility] HOSPITALUrobilinogen Ql (U)0.2 EU/dL Normal0.2-1.0 EU/dLOhioHealth on above:Order Comment: Specimen Type: URINE SPECIMEN [facility]ing Facility[facility] Address: [address] [place], [place] [address]Performed By: #### [id number] #### [facility] IA [id number] [address] [place] [address] [place] AMERICAWBC LM.HPF (Urine sed) [#/Area]0-5 /HPFNormal0-5 /HPFOhioHealth on above:Order Comment: Specimen Type: URINE SPECIMEN [facility]ing Facility[facility] Address: [address] [place], [place] [address]Performed By: #### [id number] #### [facility] [place] [id number] [address] [place] [address] [place] AMERICAUS TEMPORAL ARTERY BILon 37-20-8715MD TEMPORAL ARTERY CLAUDE* * *Final Report* * * DATE OF EXAM: Dec 04 2024 11:39AM [facility] 1123 - US TEMPORAL ARTERY CLAUDE / PROCEDURE REASON: PMR (polymyalgia rheumatica) (HCC) * * * * Physician Interpretation * * * * CLINICAL HISTORY: 74-year-old male with fatigue, muscle pain, and joint stiffness who is suspected to have PMR. The patient denies headaches, vision changes, or jaw pain. Today's exam was ordered as a screening for arteritis which may be associated with PMR. The patient does not have any blood work results available. Temporal artery peak systolic velocities in cm/sec: Right: Left: Proximal 47 Proximal 80 Mid 81 Mid 80 Distal 77 Distal 81 Vessel wall measurements: Right mid artery - cm Left mid artery - cm Vertebral artery peak systolic velocities in cm/sec: Right: Left: Proximal 38 Proximal 65 Mid 31 Mid 47 Distal 23 Distal 45 Vessel wall measurements: Right mid artery - cm Left mid artery - cm Axillary artery peak systolic velocities in cm/sec: Right: Left: Proximal 58 Proximal 64 Distal 71 Distal 47 Vessel wall measurements: Right mid artery - cm Left mid artery - cm Technologist: Jasmin Vega RVT, MARI, RT IMPRESSION: The bilateral temporal, vertebral, and axillary arteries were evaluated with grayscale, color Doppler, and spectral Doppler ultrasound. The velocities within the visualized vessels were within normal limits. The vessel cutler were not discernible and were therefore not measured. There were no halo effects identified. The right vertebral artery was small and difficult to visualize, this is most likely related to a nondominant vessel but distal disease cannot be excluded. The examination was negative for arteritis by sonographic criteria. Outsole Cementer Machine: [facility] Transcribe Date/Time: Dec 04 2024 11:43A Dictated by : KENISHA OJEDA MD This examination was interpreted and the report reviewed and electronically signed by: KENISHA OJEDA MD on Dec 04 2024 11:56AM EST [id number]_IDCSIACNNormalFirelands Regional Medical Center.doppler Headon [id number]: The bilateral temporal, vertebral, and axillary arteries were evaluated with grayscale, color Doppler, and spectral Doppler ultrasound. The velocities within the visualized vessels were within normal limits. The vessel cutler were not discernible and were therefore not measured. There were no halo effects identified. The right vertebral artery was small and difficult to visualize, this is most likely related to a nondominant vessel but distal disease cannot be excluded. The examination was negative for arteritis by sonographic criteria. Outsole Cementer Machine: [facility] Transcribe Date/Time: Dec 04 2024 11:43A Dictated by : KENISHA OJEDA MD This examination was interpreted and the report reviewed and electronically signed by: KENISHA OJEDA MD on Dec 04 2024 11:56AM [facility] DIVISION OF RADIOLOGY* * *Final Report* * * DATE OF EXAM: Dec 04 2024 11:39AM [facility] [place] TEMPORAL ARTERY CLAUDE / PROCEDURE REASON: PMR (polymyalgia rheumatica) (HCC) * * * * Physician Interpretation * * * * CLINICAL HISTORY: 74-year-old male with fatigue, muscle pain, and joint stiffness who is suspected to have PMR. The patient denies headaches, vision changes, or jaw pain. Today's exam was ordered as a screening for arteritis which may be associated with PMR. The patient does not have any blood work results available. Temporal artery peak systolic velocities in cm/sec: Right: Left: Proximal 47 Proximal 80 Mid 81 Mid 80 Distal 77 Distal 81 Vessel wall measurements: Right mid artery - cm Left mid artery - cm Vertebral artery peak systolic velocities in cm/sec: Right: Left: Proximal 38 Proximal 65 Mid 31 Mid 47 Distal 23 Distal 45 Vessel wall measurements: Right mid artery - cm Left mid artery - cm Axillary artery peak systolic velocities in cm/sec: Right: Left: Proximal 58 Proximal 64 Distal 71 Distal 47 Vessel wall measurements: Right mid artery - cm Left mid artery - cm Technologist: Jasmin Vega RVT, MARI, RT [facility] - 12/04/2024 * * *Final Report* * * DATE OF EXAM: Dec 04 2024 11:39AM [facility] [place] TEMPORAL ARTERY CLAUDE / PROCEDURE REASON: PMR (polymyalgia rheumatica) (HCC) * * * * Physician Interpretation * * * * CLINICAL HISTORY: 74-year-old male with fatigue, muscle pain, and joint stiffness who is suspected to have PMR. The patient denies headaches, vision changes, or jaw pain. Today's exam was ordered as a screening for arteritis which may be associated with PMR. The patient does not have any blood work results available. Temporal artery peak systolic velocities in cm/sec: Right: Left: Proximal 47 Proximal 80 Mid 81 Mid 80 Distal 77 Distal 81 Vessel wall measurements: Right mid artery - cm Left mid artery - cm Vertebral artery peak systolic velocities in cm/sec: Right: Left: Proximal 38 Proximal 65 Mid 31 Mid 47 Distal 23 Distal 45 Vessel wall measurements: Right mid artery - cm Left mid artery - cm Axillary artery peak systolic velocities in cm/sec: Right: Left: Proximal 58 Proximal 64 Distal 71 Distal 47 Vessel wall measurements: Right mid artery - cm Left mid artery - cm Technologist: Jasmin Vega RVT, RDMS, RT IMPRESSION IMPRESSION: The bilateral temporal, vertebral, and axillary arteries were evaluated with grayscale, color Doppler, and spectral Doppler ultrasound. The velocities within the visualized vessels were within normal limits. The vessel cutler were not discernible and were therefore not measured. There were no halo effects identified. The right vertebral artery was small and difficult to visualize, this is most likely related to a nondominant vessel but distal disease cannot be excluded. The examination was negative for arteritis by sonographic criteria. Outsole Cementer Machine: PSCAlejandra Transcribe Date/Time: Dec 04 2024 11:43A Dictated by : KENISHA OJEDA MD This examination was interpreted and the report reviewed and electronically signed by: KENISHA OJEDA MD on Dec 04 2024 11:56AM EST [facility] HospitalRad[facility] Study observation (narrative)[facility] US.doppler HeadOrdered By: Ccf Provider on [id number] ClinicdsDNA Ab Ser Ql CLIFon [id number] double strand Ab IF Crithidia luciliae Ql (S) NegativeNormalNegativeWestern Reserve HospitalComment on above:Order Comment: Specimen Type: BLOOD SPECIMEN Ordering Facility: [facility] Address: [address] [place], [place] [address]Result Comment: Crithidia luciliae assay is used as an aid in diagnosis of systemic lupus erythematosus (SLE). A negative result cannot rule out SLE. Low positive titers may be seen with other systemic autoimmune diseases. Clinical correlation is required.Performed By: #### 6457-6 #### [facility] CLIA [id number] [address] [place] [address] [place] AMERICAOrders Onlyon 11-18-2024 Orders [id number] Renny Mitchell 1950 M Date Provider Department Center 11/18/2024 MARILU PICKENS [facility] CARD [facility] HeartVAS Family History Problem Relation Age of Onset Heart disease Father Family Status - Relation Status Age at Mother Father DeceasedNormalUniversKettering Health MiamisburgFollow-Upon 11-15-2024 Follow-[id number] Renny Mitchell 1950 M Date Provider Department Center 11/15/2024 [id number] HART MATT [facility] Family History Problem Relation Age of Onset Heart disease Father Family Status - Relation Status Age at Mother Father Level of Service:15875 [place] OFFICE/OUTPATIENT ESTABLISHED MOD MDM 30 MIN Reason for Visit and Comments: Follow-up [[id number]][facility] HospitalHPon [id number] Electrophysiology Consult Note Reason for visit: Afib 11/04/24 Pt here for EPS 09/24/2024 Patient here today for a 2 [...] apt. 10/31/2023 patient underwent cardiac MRI at [facility] and this showed evidence of late [...] hld. He was seen in the [facility] 10/2022 for complaints of chest pain [...] Procedure Laterality Date CARDIAC CATHETERIZATION SH: Social Drivers of Health Tobacco Use: High Risk (09/24/2024) Patient History Smoking Tobacco Use: Never Smokeless Tobacco Use: Current Passive Exposure: Not on file Alcohol Use: Not (more content not included)...[facility] HospitalNURSNOTEon [id number] educated pt on d/c instructions. This included: site care, limited physical activity, resume normal diet, future appointments, medications, and moderate sedation instructions. RN educated pt on when to notify physician and when to go to the hospital. RN educated pt on importance of not overusing stairs at this time and limited weight bearing of 5lbs. RN encouraged pt to voice any questions or concerns, and answered any questions or concerns if pt verbalized.[facility]36on [id number] call from patient, patient state he was just diagnosed with Lupus and is wondering how this will affect his up coming ablation. Please advise Pj Kaba MD to Me (Selected Message) PC 10/28/24 2:41 PM NO LVM to advise patient.[facility] HospitalTelephoneon [id number] Renny Mitchell 1950 M Date Provider Department Center 10/28/2024 IGGY WATT Family History Problem Relation Age of Onset Heart disease Father Family Status - Relation Status Age at Mother Father DeceasedNoalUniKendra Ville [id number] call from Renny, Patient states he was back in the ER 10/08/2024 for another A-Fib attack. Patient states he is scheduled for an ablation October 16. Patient would like for you to prescribe him Cardizem until he has the procedure done, due to having 3 attacks in the last month and the Cardizem working quickly when they give it to him in the ER. Please advise. LVM to advised patient Dr. Kaba approved Cardizem.[id number] [id number] Tera Mitchelljan [place] 1950 Date Provider Department Center 10/08/2024 IGGY WATT Family History Problem Relation Age of Onset Heart disease Father Family Status - Relation Status Age at Mother Father DeceasedNoGreen Cross HospitalTeeast [facility] 10-08-2024 [id number] CarlkayceRenny A 1950 Date Provider Department Center 10/08/2024 IGGY WATT Family History Problem Relation Age of Onset Heart disease Father Family Status - Relation Status Age at Mother Father DeceasedAndrew Ville [id number] report has been cancelled.[facility]36Pharmacy called stating pt needs refill on his Eliquis medication. I spoke to pt he states he needed a refill on his xarelto but he gets it from [facility] and ordered a 4 month supply. Pt will call if he needs a refill on his eliquis.[facility] HospitalTeeast [facility] 10-02-2024 [id number] Tera Mitchelljan [place] 1950 Date Provider Department Center 10/02/2024 NICCI BARRIENTOS HVC CARD IN HeartVAS Family History Problem Relation Age of Onset Heart disease Father Family Status - Relation Status Age at Mother Father DeceasedNormalUniThe Jewish HospitalOffice Visiton [id number]-up [id number] Tera Mitchelly A 1950 M Date Provider Department Center 09/24/2024 PJ MONTGOMERY CARD [facility] Family History Problem Relation Age of Onset Heart disease Father Family Status - Relation Status Age at Mother Father Level of Service:80617 [place] OFFICE/OUTPATIENT ESTABLISHED HIGH MDM 40 [facility] CampusOrders Onlyon [id number] [id number] LoweTeray A 1950 M Date Provider Department Center 09/24/2024 SANDRA HAIDER CARD [facility] Family History Problem Relation Age of Onset Heart disease Father Family Status - Relation Status Age at Mother Father DeceasedNormGrand Lake Joint Township District Memorial HospitalOrders Onlyon 09-01-2024 Orders [id number] LoweRenny A 1950 M Date Provider Department Center 09/01/2024 PJ MONTGOMERY [facility] CARD IN HeartVAS Family History Problem Relation Age of Onset Heart disease Father Family Status - Relation Status Age at Mother Father DeceasedNormalUniThe Jewish HospitalOffice Visiton 15-25-6924Zlwqvd-up [id number] Renny Mitchell A 1950 M Date Provider Department Center 07/31/2024 [id number]-YPTTWBWING SALAZAR CARD [facility] Family History Problem Relation Age of Onset Heart disease Father Family Status - Relation Status Age at Mother Father Level of Service:78962 [place] OFFICE/OUTPATIENT ESTABLISHED LOW MDM 20 [facility] CampusHPon [id number] Electrophysiology Consult Note Reason for visit: Afib [...] apt. 10/31/2023 patient underwent cardiac MRI at [facility] and this showed evidence of late [...] hld. He was seen in the [facility] 10/2022 for complaints of chest pain [...] Tobacco Use: Low Risk (12/21/2023) [facility] Patient History Smoking Tobacco Use: Never [...] on file Intimate Partner Violence: Unknown (06/08/2023) [place] Safety & Environment Fear of Current or [...] Resp 15 SpO2 9 (more content not included)...NormalProMedica [facility] Office Visiton [id number]-up [id number] Renny Mitchell 1950 M Date Provider Department Center 02/06/2024 241-PJ KABA CARD [facility] Family History Problem Relation Age of Onset Heart disease Father Family Status - Relation Status Age at Father Level of Service:52003 [place] OFFICE/OUTPATIENT ESTABLISHED LOW MDM 20 [facility] CampusMR [facility] cine for blood flow velocity mapping on 08-21-2023* * *Final Report* * * DATE OF EXAM: Aug 21 2023 1:59PM [facility] 0704 - MRI CARDIAC VELOCITY FLOW MAP / PROCEDURE REASON: . * * * * Physician Interpretation * * * * Cardiac MRI Report: [facility] Date of service: 08/21/2023 1:11:05 PM Linked orders:[id number] CARDIAC VELOCITY FLOW MAP;[id number] CARD MORPH FUNC WO/W IVCON. Ordering physician: [...] T2 / ECV T2 * : +------+ +-----+ +-----+-------+----+ T1 pre (ms) +/- T1 post (ms) +/- ECV (%) +/- +------+ +-----+ +-----+-------+----+ Base 1050.71 62.93 384.00 42.41 30.31 7.47 +------+ +-----+ +-----+-------+----+ Mid 1043.04 68.22 395.52 31.77 31.89 9.90 +------+ +-----+ +-----+-------+----+ [place] 1018.68 66.60 419.45 33.61 25.92 6.44 +------+ +-----+ +-----+-------+----+ Global 1040.15 66.93 396.02 39.30 29.68 8.49 +------+ +-----+ +-----+-------+----+ Normal values based on healthy individuals: T1: 950 +/- 21 ms; ECV: 26 +/- 4% Aortic Valve: There is trace aortic regurgitation. There is no thickening. AV Flow Quantification: ST Junction Forward Volume: 65 ml Reverse Volume: 6 ml Net Forward Volume (more content not included)...DIVISION OF RADIOLOGYProvider, [facility] - 08/21/2023 * * *Final Report* * * DATE OF EXAM: Aug 21 2023 1:59PM [facility] 0704 - MRI CARDIAC VELOCITY FLOW MAP / PROCEDURE REASON: . * * * * Physician Interpretation * * * * Cardiac MRI Report: [facility] Date of service: 08/21/2023 1:11:05 PM Linked orders:[id number] CARDIAC VELOCITY FLOW MAP;[id number] CARD MORPH FUNC WO/W IVCON. Ordering physician: [...] T2 / ECV T2 * : +------+ +-----+ +-----+-------+----+ T1 pre (ms) +/- T1 post (ms) +/- ECV (%) +/- +------+ +-----+ +-----+-------+----+ Base 1050.71 62.93 384.00 42.41 30.31 7.47 +------+ +-----+ +-----+-------+----+ Mid 1043.04 68.22 395.52 31.77 31.89 9.90 +------+ +-----+ +-----+-------+----+ [place] 1018.68 66.60 419.45 33.61 25.92 6.44 +------+ +-----+ +-----+-------+----+ Global 1040.15 66.93 396.02 39.30 29.68 8.49 +------+ +-----+ +-----+-------+----+ Normal values based on healthy individuals: T1: 950 +/- 21 ms; ECV: 26 +/- 4% Aortic Valve: There is trace aortic regurgitation. There is no thickening. AV Flow Quantification: ST Junction Forward Volume: 65 ml Reverse Volume: 6 ml Net Forward Volume: 59 ml Regurgitant Fraction: 9 % Pulmonic Valve: The pulmonic valve was not seen or not int (more content not included)... [facility] CARDIAC MORPH [employer] WO/W IVCONon 08-21-2023* * *Final Report* * * DATE OF EXAM: Aug 21 2023 1:59PM [facility] 0703 - MRI CARD Alum.ni WO/W IVCON / PROCEDURE REASON: . * * * * Physician Interpretation * * * * Cardiac MRI Report: [facility] Date of service: 08/21/2023 1:11:05 PM Linked orders:[id number] CARDIAC VELOCITY FLOW MAP;[id number] CARD MORPH [employer] WO/W IVCON. Ordering physician: PJ KABA Technologist: CURT HOLLAND Fellow: Bruton Lorenzo MD Interpreting physician: Pj Antunez MD [...] T2 / ECV T2 * : +------+ +-----+ +-----+-------+----+ T1 pre (ms) +/- T1 post (ms) +/- ECV (%) +/- +------+ +-----+ +-----+-------+----+ Base 1050.71 62.93 384.00 42.41 30.31 7.47 +------+ +-----+ +-----+-------+----+ Mid 1043.04 68.22 395.52 31.77 31.89 9.90 +------+ +-----+ +-----+-------+----+ [place] 1018.68 66.60 419.45 33.61 25.92 6.44 +------+ +-----+ +-----+-------+----+ Global 1040.15 66.93 396.02 39.30 29.68 8.49 +------+ +-----+ +-----+-------+----+ Normal values based on healthy individuals: T1: 950 +/- 21 ms; ECV: 26 +/- 4% Aortic Valve: There is trace aortic regurgitation. There is no thickening. AV Flow Quantification: ST Junction Forward Volume: 65 ml Reverse Volume: 6 ml Net Forward Volum (more content not included)...DIVISION OF RADIOLOGYProvider, f [facility] - 08/21/2023 * * *Final Report* * * DATE OF EXAM: Aug 21 2023 1:59PM [facility] 0703 - MRI CARD MORPH FUNC WO/W IVCON / PROCEDURE REASON: . * * * * Physician Interpretation * * * * Cardiac MRI Report: [facility] Date of service: 08/21/2023 1:11:05 PM Linked orders:[id number] CARDIAC VELOCITY FLOW MAP;[id number] CARD MORPH FUNC WO/W IVCON. Ordering physician: [...] T2 / ECV T2 * : +------+ +-----+ +-----+-------+----+ T1 pre (ms) +/- T1 post (ms) +/- ECV (%) +/- +------+ +-----+ +-----+-------+----+ Base 1050.71 62.93 384.00 42.41 30.31 7.47 +------+ +-----+ +-----+-------+----+ Mid 1043.04 68.22 395.52 31.77 31.89 9.90 +------+ +-----+ +-----+-------+----+ [place] 1018.68 66.60 419.45 33.61 25.92 6.44 +------+ +-----+ +-----+-------+----+ Global 1040.15 66.93 396.02 39.30 29.68 8.49 +------+ +-----+ +-----+-------+----+ Normal values based on healthy individuals: T1: 950 +/- 21 ms; ECV: 26 +/- 4% Aortic Valve: There is trace aortic regurgitation. There is no thickening. AV Flow Quantification: ST Junction Forward Volume: 65 ml Reverse Volume: 6 ml Net Forward Volume: 59 ml Regurgitant Fraction: 9 % Pulmonic Valve: The pulmonic valve was not seen or not in (more content not included)... [facility] Panel Informationon 27-07-7274WHWETWTDWF: Pattern of findings could be c/w (residuals) [...] * * Final * * * RP Outsole Cementer Machine: CRISTINO Transcribe Date/Time: Aug 21 2023 1:11P Dictated by : PJ ANTUNEZ MD This examination was interpreted and the report reviewed and electronically signed by: PJ ANTUNEZ MD on Aug 21 2023 3:06PM [facility] DIVISION OF RADIOLOGYRadiology Study observation (narrative)[facility] Panel InformationOrdered By: Ccf Provider on [id number] ClinicCBC AUTO DIFFon [id number] #0.1 103/ulNormal0.0-0.1The St. Charles HospitalComment on above:Performed By: #### CBC ####[facility] [address] [place], [place] [address]Dr.Yilan ChangBasophils/100 WBC (Bld)0.6 %Normal 0.2-2.0The [facility]. Charles HospitalComment on above:Performed By: #### CBC ####[facility] [address] [place] [address]Dr.Yilan ChangEO # 0.1 103/ulNormal0.0-0.7The [facility]. Charles HospitalComment on above:Performed By: #### CBC ####[facility] Fy[address]bz[address]of[address] [place], [place] [address]Dr. Yilan ChangEosinophils/100 WBC (Bld)1.0 %Normal0.9-7.0[facility] Comment on above:Performed By: #### CBC ####[facility] Jfkokowcha[address] [place], [place] [address]Dr.Jeremiah ChangErythrocyte distribution width (RBC) [Ratio]13.9 %Othxga33.0-15.0The [facility] Charles HospitalComment on above: Performed By: #### CBC ####[facility] T[address]rsld[address] [place], [place] [address]Dr.Jeremiah ChangHematocrit (Bld) [Volume fraction]42.1 % Uaeojg84.0-54.0The [facility] Charles HospitalComment on above:Performed By: #### CBC ####[facility] Odj[address]fiey[address] [place], [place] [address]Dr. Jeremiah ChangHemoglobin (Bld) [Mass/Vol]13.7 g/dLCritically low14.0-18.0The [facility]. Charles HospitalComment on above:Performed By: #### CBC ####[facility] T[address]ew[address]axex[address] [place], [place] [address]Dr.Jeremiah ChangIG #0.02 10e3/ulNormal0.00-0.03The [facility] Charles HospitalComment on above:Performed By: #### CBC ####[facility] G[address]vu[address] [place], [place] [address]Dr. Jeremiah ChangIG %0.2 %Normal0.0-0.5The [facility]. Charles HospitalComment on above:Performed By: #### CBC ####[facility] Teypcyplkh[address] [place], [place] [address]Dr.Jeremiah ChangLYMPH #2.9 103/ulNormal1.2-3.8The [facility] Comment on above:Performed By: #### CBC ####[facility] Wxhxmymoci[address] [place], [place] [address]Dr.Jeremiah ChangLymphocytes/100 WBC (Bld)34.9 %Rtyvqj63.5-60.0The [facility] Charles HospitalComment on above:Performed By: #### CBC ####[facility] Ve[address]hcvirnl[address] [place], [place] [address]Dr. Jeremiah VelaMANUAL DIFF REQNONormalThe St. Charles HospitalComment on above: Performed By: #### CBC ####[facility] Gfsvd[address]qflt[address] [place], [place] [address]Dr.Jeremiah VelaH (RBC) [Entitic mass]27.1 pgNormal 25.9-34.0The [facility] HospitalComment on above:Performed By: #### CBC ####[facility] Hqmvbfbpfe[address] [place], [place] [address]Dr. Jeremiah VelaADIRONDACK REGIONAL H[facility]PITAL (RBC) [Mass/Vol]32.5 g/wJXagedp24.9-35.2The [facility] Comment on above:Performed By: #### CBC ####[facility] B[address]hdq[address] [place], [place] [address]Dr.Jeremiah VelaV (RBC) [Entitic vol]83.4 fL Gvzktj50.0-94.0The [facility] Charles HospitalComment on above:Performed By: #### CBC ####[facility] Qsxgoqgmti[address] [place], [place] [address]Dr. Jeremiah VelaMONO #0.7 103/ulNormal0.3-0.8The [facility]. Charles HospitalComment on above: Performed By: #### CBC ####[facility] Ivepcqxdtz[address] [place], [place] [address]Dr.Jeremiah ChangMonocytes/100 WBC (Bld)8.2 %Normal 1.7-12.0The [facility] Charles HospitalComment on above:Performed By: #### CBC ####[facility] Wwwfkxmlni[address] [place], [place] [address]Dr. Jeremiah VelaNEUT #4.6 103/ulNormal1.4-6.5The [facility]. Charles HospitalComment on above: Performed By: #### CBC ####[facility] Fqksmbteex[address] [place], [place] [address]Dr.Jeremiah ChangNeutrophils/100 WBC (Bld)55.1 %Normal 43.0-75.0The [facility] Charles HospitalComment on above:Performed By: #### CBC ####[facility] [address] [place] [address]Dr. Jeremiah VelaPlatelet mean volume (Bld) [Entitic vol]9.9 fLNormal9.5-13.5The St. Charles HospitalComment on above:Performed By: #### CBC ####[facility] [address] [place] [address]Dr.Jeremiah VelaPLT296 103/ul Eccxkt718-936Aib St. Charles HospitalComment on above:Performed By: #### CBC ####[facility] Zwanphitng[address] [place], [place] [address]Dr. Jeremiah VelaRBC5.05 106/ulNormal4.70-6.10The [facility] Charles HospitalComment on above: Performed By: #### CBC ####[facility] Ozwrdebrdc[address] [place], [place] [address]Dr.Jeremiah VelaWBC8.3 103/ulNormal4.0-11.0The [facility] HospitalCombronson south haven hospital on above:Performed By: #### CBC ####[facility] X[address]rhkp[address] [place], [place] [address]Dr.Jeremiah ChangFREE T3on 86-97-1879NAGL T33.00 pg/mlLNormal2.18-3.98The [facility] HospitalCombronson south haven hospital on above:Performed By: #### T4, TSH, FT3, CMP, URIC, LIPID ####[facility] Xgpoakrakw[address] [place], [place] [address]Dr. Jeremiah Vela GLYCOHEMOGLOBIN A1Con 39-05-1035IHR RECOMMENDATIONSEE BELOWThe MetroHealth SystemComment on above:Result Comment: ADA RECOMMENDED LIMIT 4.0 - 6.0 ADA THERAPEUTIC TARGET < 7.0 ACTION SUGGESTED > 7.0Performed By: #### A1C ####[facility] [address]aqjlfno[address] [place], [place] [address]Dr. Jeremiah VelaGlucose [Mass/Vol]105 mg/dLNoTwin City HospitalCombronson south haven hospital on above:Performed By: #### A1C ####[facility] Tfonnt[address] [place], [place] [address]Dr.Jeremiah VelaHbA1c (Bld) [Mass fraction]5.3 %Normal 4.5-6.2[facility] Hospitals Health SystemComment on above:Performed By: #### A1C ####[facility] [address] [place] [address]Dr.Jeremiah VelaLIPID PROFILEon 85-71-9489GLQB-HDL RATIO NORMSEE [facility] Comment on above:Result Comment: 3.3 - 4.4 LOW RISK 4.4 - 7.1 AVERAGE RISK 7.1 - 11.0 MODERATE RISK >11.0 HIGH RISKPerformed By: #### T4, TSH, FT3, CMP, URIC, LIPID ####[facility] [address] [address]Dr. Jeremiah DaneCholesterol [Mass/Vol]175 mg/dLNormal<=200The [facility]. [facility] HospitalComment on above:Performed By: #### T4, TSH, FT3, CMP, URIC, LIPID ####[facility] [address]jvaw[address] [place] [address]Dr. Jeremiah DaneCholesterol in HDL [Mass/Vol]40 mg/jMIygjzp35-36IugUniversity Hospitals Health System Comment on above:Performed By: #### T4, TSH, FT3, CMP, URIC, LIPID ####[facility] [address] [place] [address]Dr. Jeremiah Vela Cholesterol in LDL [Mass/Vol]102.4 mg/dLThe MetroHealth SystemComment on above:Performed By: #### T4, TSH, FT3, CMP, URIC, LIPID ####[facility] [address]ecdhmb[address] [place] [address]Dr. Jeremiah Vela Cholesterol.total/Cholesterol in HDL [Mass ratio]4.4 {ratio}NormalUniversity Hospitals Health SystemComment on above:Performed By: #### T4, TSH, FT3, CMP, URIC, LIPID ####[facility] [address] [place] [address]Dr. Jeremiah ChangHDL NORMAL> or = 60 mg/dl - LOW CARDIOVASCULAR RISK <40 mg/dl - HIGH CARDIOVASCULAR RISKThe MetroHealth SystemComment on above:Performed By: #### T4, TSH, FT3, CMP, URIC, LIPID ####[facility] [address] [place] [address]Dr. Jeremiah ChangLDL CALC NORMALSEE BELOWThe MetroHealth SystemComment on above:Result Comment: <100 mg/dl OPTIMAL 100 - 129 mg/dl NEAR OR ABOVE OPTIMAL 130 - 159 mg/dl BORDERLINE HIGH 160 - 189 mg/dl HIGH >190 mg/dl VERY HIGHPerformed By: #### T4, TSH, FT3, CMP, URIC, LIPID ####[facility] [address] [place] [address]Dr. Jeremiah VelaTriglyceride [Mass/Vol]163 mg/dLCritically high<=150The [facility] on above:Performed By: #### T4, TSH, FT3, CMP, URIC, LIPID ####[facility] [address] [place] [address]Dr. Jeremiah VelaVLDL CALC32.6 mg/dLNoTwin City HospitalComment on above: Performed By: #### T4, TSH, FT3, CMP, URIC, LIPID ####[facility] [address] [place] [address]Dr. Serenaaminah VelaPROF 14(COMP METB)on 81-64-5051Jcmavmo [Mass/Vol]3.8 g/dLNormal3.4-5.0[facility] Comment on above:Performed By: #### T4, TSH, FT3, CMP, URIC, LIPID ####[facility] [address]ds[address] [place] [address]Dr. Jeremiah Vela Albumin/Globulin [Mass ratio]0.8 {ratio}NormalProtestant Deaconess Hospital on above:Performed By: #### T4, TSH, FT3, CMP, URIC, LIPID ####[facility] [address]aaz[address] [place] [address]Dr. Jeremiah VelaALP [Catalytic activity/Vol]50 U/ZBhdbbn02-726Bse [facility]ment on above:Performed By: #### T4, TSH, FT3, CMP, URIC, LIPID ####[facility] [address] [place] [address]Dr. Yilan ChangALT [Catalytic activity/Vol] 25 U/LJbcguj53-30Wba [facility]ment on above:Performed By: #### T4, TSH, FT3, CMP, URIC, LIPID ####[facility] [address] [place] [address]Dr. Yilan ChangAnion gap [Moles/Vol]13.8 mmol/LNormalThe St. Charles HospitalComment on above:Performed By: #### T4, TSH, FT3, CMP, URIC, LIPID ####[facility] Uqcj[address] [place], [place] [address]Dr. Yilan ChangAST [Catalytic activity/Vol]15 U/YOpudde53-94Uvl [facility]ment on above:Performed By: #### T4, TSH, FT3, CMP, URIC, LIPID ####[facility] Rgrbfmvcot[address] [place], [place] [address]Dr. Yilan ChangBilirubin [Mass/Vol]0.5 mg/dLNormal0.2-1.0The [facility] Comment on above:Performed By: #### T4, TSH, FT3, CMP, URIC, LIPID ####[facility] Jqmfsldtyb[address] [place], [place] [address]Dr. Yilan Vela Calcium [Mass/Vol]9.0 mg/dLNormal8.5-10.1The [facility] on above: Performed By: #### T4, TSH, FT3, CMP, URIC, LIPID ####[facility] [address] [place], [place] [address]Dr. Yilan ChangChloride [Moles/Vol]104 mmol/QWvfciz22-764Umf [facility] on above:Performed By: #### T4, TSH, FT3, CMP, URIC, LIPID ####[facility] [address]ax[address]xkb[address] [place], [place] [address]Dr. Yilan ChangCO2 [Moles/Vol]27.4 mmol/L Nsdlwi06.0-32.0The [facility]. [facility] HospitalComment on above:Performed By: #### T4, TSH, FT3, CMP, URIC, LIPID ####[facility] [address] [place] [address]Dr. Yilan ChangCreatinine [Mass/Vol]1.27 mg/dLNormal 0.70-1.30University Hospitals Health SystemComment on above:Performed By: #### T4, TSH, FT3, CMP, URIC, LIPID ####[facility] [address] [place] [address]Dr. Yilan ChangEGFR-AF ECUADOREAN>60Normal>=60The [facility] Comment on above:Performed By: #### T4, TSH, FT3, CMP, URIC, LIPID ####[facility] Qdkkdtarby[address] [place], [place] [address]Dr. Yilan ChangEGFR- NON AF JVPROFDC40 mL/min/1.64r8Wpsmrvmmlj low>=60The [facility] HospitalComment on above:Performed By: #### T4, TSH, FT3, CMP, URIC, LIPID ####[facility] Fysmzmnwic[address] [place], [place] [address]Dr. Yilan ChangGlobulin (S) [Mass/Vol]4.5 g/dLNormalThSelect Medical [facility], [facility] ShawCombronson [facility] hospital on above:Performed By: #### T4, TSH, FT3, CMP, URIC, LIPID ####[facility] [address] [place] [address]Dr. Yilan ChangGlucose [Mass/Vol]97 mg/tNMpvfjv75-[address] [facility] HospitalCombronson south [facility] hospital on above:Performed By: #### T4, TSH, FT3, CMP, URIC, LIPID ####[facility] Rchoidmozl[address] [place], [place] [address]Dr. Yilan ChangPotassium [Moles/Vol]4.2 mmol/LNormal3.5-5.1The [facility] HospitalComment on above:Performed By: #### T4, TSH, FT3, CMP, URIC, LIPID ####[facility] Vwwrn[address] [place], [place] [address]Dr. Yilan ChangProtein [Mass/Vol]8.3 g/dLCritically high6.4-8.2The [facility] Comment on above:Performed By: #### T4, TSH, FT3, CMP, URIC, LIPID ####[facility] [address]ds[address] [place] [address]Dr. Yilan Vela Sodium [Moles/Vol]141 mmol/YVnvtaw775-206Grm St. [facility] HospitalComment on above: Performed By: #### T4, TSH, FT3, CMP, URIC, LIPID ####[facility] [address] [place] [address]Dr. Yilan ChangUrea nitrogen [Mass/Vol]19.0 mg/dLCritically high7.0-18.0The [facility] HospitalComment on above:Performed By: #### T4, TSH, FT3, CMP, URIC, LIPID ####[facility] [address] [place] [address]Dr. Yilan ChangUrea nitrogen/Creatinine [Mass ratio]15.0 mg/mgNormalThe St. Charles HospitalComment on above:Performed By: #### T4, TSH, FT3, CMP, URIC, LIPID ####[facility] [address] [place] [address]Dr. Yilan NqnjyJ5ko 32-99-0365W3 [Mass/Vol]6.30 ug/dLNormal4.50-12.10The [facility] HospitalComment on above:Performed By: #### T4, TSH, FT3, CMP, URIC, LIPID ####[facility] Mi[address] [place], [place] [address]Dr. Yilan ChangTSHon 94-74-7603OKR1.881 uIU/mLNormal0.358-3.740The [facility] HospitalComment on above: Performed By: #### T4, TSH, FT3, CMP, URIC, LIPID ####[facility] [address] [place] [address]Dr. Yilan ChangURIC ACID SERUMon 95-29-6923Tqukl [Mass/Vol]6.5 mg/dLNormal3.5-7.2The [facility] Comment on above:Performed By: #### T4, TSH, FT3, CMP, URIC, LIPID ####[facility] [address] [place], [place] [address]Cq. Jeremiah Vela ECHOCARDIO M/2D COMPLETEon 10-49-1956HJDZBIWBZI M/2D COMPLETEPatient: RENNY MITCHELL Exam Date: 03/18/2022 : 1950 Gender:M Ordering : DR ESTRELLA MARK . Admission #: [id number] Family : Order #: [id number] CLICK HERE TO VIEW EXAM ECHOCARDIOGRAM REPORT [...] by: Mazin Ramos M.D. on 03/23/2022 at 09:55[facility] STRESS/REST MULTIon 88-95-5099AH STRESS/REST MULTIPatient: RENNY MITCHELL Exam Date: 03/08/2022 : 1950 Gender:M Ordering : DR ESTRELLA MARK . Admission #: [id number] Family : Order #: [id number] CLICK HERE TO VIEW EXAM RADIOLOGY REPORT [...] by: Chema Tubbs M.D. on 03/08/2022 at 14:43NormalThSelect Medical Cleveland Clinic Rehabilitation Hospital, Edwin ShawAMYLASEon 85-60-9064Rlxkacd [Catalytic activity/Vol]40 U/JBzgbvd72-[address] [facility] HospitalComment on above:Performed By: #### CMP, LIPA, MARIAM, BNP, HSTROPN #### [facility] [address] [place] [address] Dr. Jeremiah Johnson 97-45-5723Acewgvwbvnx peptide B (Bld) [Mass/Vol]546.0 pg/mL Normal<=900.0The [facility]. [facility] HospitalComment on above:Performed By: #### CMP, LIPA, MARIAM, BNP, HSTROPN #### [facility] [address] [place] [address] Dr. Jeremiah Rice AUTO DIFFon 27-36-1702JUSD #0.1 103/ulNormal0.0-0.1[facility] Hospitals Health SystemComment on above:Performed By: #### CBC #### [facility] [address] [place] [address] Dr. Jeremiah Madisonsophils/100 WBC (Bld)0.5 %Normal0.2-2.0[facility] Comment on above:Performed By: #### CBC #### [facility] [address] [place] [address] Dr. Jeremiah Felder #0.1 103/ulNormal0.0-0.7The [facility]. [facility] HospitalComment on above: Performed By: #### CBC #### [facility] [address] [place] [address] Dr. Jeremiah Hessosinophils/100 WBC (Bld)1.1 %Normal0.9-7.0The [facility] Comment on above:Performed By: #### CBC #### [facility] [address] [place] [address] Dr. Yilan ChangErythrocyte distribution width (RBC) [Ratio]13.7 %Igspop87.0-15.0 [facility]als Health SystemComment on above:Performed By: #### CBC #### [facility] [address] [place] [address] Dr. Jeremiah VelaHematocrit (Bld) [Volume fraction]41.1 %Critically low42.0-54.[address] [facility] HospitalComment on above:Performed By: #### CBC #### [facility] [address] [place] [address] Dr. Jeremiah VelaHemoglobin (Bld) [Mass/Vol]13.4 g/dLCritically low14.0-18.0The [facility] HospitalComment on above:Performed By: #### CBC #### [facility] [address] [place] [address] Dr. Jeremiah Aranda #0.03 10e3/ulNormal0.00-0.03The [facility] HospitalComment on above:Performed By: #### CBC #### [facility] [address] [place] [address] Dr. Jeremiah Aranda %0.3 %Normal0.0-0.5The [facility] HospitalComment on above: Performed By: #### CBC #### [facility] [address] [place] [address] Dr. Jeremiah Mckeon #4.0 103/ulCritically high1.2-3.8The [facility] Comment on above:Performed By: #### CBC #### [facility] [address] [place] [address] Dr. Jeremiah Hallhocytes/100 WBC (Bld)36.4 %Tqlgnc95.5-60.0The [facility] HospitalComment on above:Performed By: #### CBC #### [facility] [address] [place] [address] Dr. Jeremiah DrummondUAL DIFF REQNONormalThe St. Charles HospitalComment on above: Performed By: #### CBC #### [facility] [address] [place] [address] Dr. Jeremiah Gaming (RBC) [Entitic mass]27.7 miBspcfh34.9-34.0The [facility] HospitalComment on above:Performed By: #### CBC #### [facility] [address] [place] [address] Dr. Jeremiah Tesfaye (RBC) [Mass/Vol]32.6 g/gMOieqmi65.9-35.2The [facility] HospitalComment on above:Performed By: #### CBC #### [facility] [address] [place] [address] Dr. Jeremiah Tesfaye (RBC) [Entitic vol]85.1 yXObhnse45.0-94.0The [facility] HospitalComment on above:Performed By: #### CBC #### [facility] [address] [place] [address] Dr. Jeremiah Newberry #1.0 103/ulCritically high0.3-0.8The [facility] Comment on above:Performed By: #### CBC #### [facility] [address] [place] [address] Dr. Jeremiah Desirocytes/100 WBC (Bld)8.9 %Normal1.7-12.0[facility] Comment on above:Performed By: #### CBC #### [facility] [address] [place] [address] Dr. Jeremiah HernandezUT #5.8 103/ulNormal1.4-6.5The [facility] HospitalComment on above:Performed By: #### CBC #### [facility] [address] [place] [address] Dr. Jeremiah Hernandezutrophils/100 WBC (Bld)52.8 %Xvjgkk69.0-75.0The [facility] HospitalComment on above:Performed By: #### CBC #### [facility] [address] [place] [address] Dr. Jeremiah Matsonlet mean volume (Bld) [Entitic vol]10.4 fLNormal9.5-13.5The [facility] HospitalComment on above:Performed By: #### CBC #### [facility] [address] [address] [address] Jeremiah VelaPLT342 103/qdUlkzgx725-678Myz St. Charles HospitalComment on above: Performed By: #### CBC #### [facility] [address] [address] [address] Jeremiah VelaRBC4.83 106/ulNormal4.70-6.10The [facility] HospitalComment on above:Performed By: #### CBC #### [facility] [address] [place] [address] Dr. Jeremiah VelaWBC11.0 103/ulNormal4.0-11.0The [facility] HospitalComment on above:Performed By: #### CBC #### [facility] [address] [place] [address] Dr. Jeremiah VelaLACTATE/LACTIC ACIDon 87-48-0495Recfcvi [Moles/Vol]1.2 mmol/L Normal0.4-1.9The [facility] HospitalComment on above:Performed By: #### LACT ####[facility] [address] [place] [address]Dr. Jeremiah VelaLIPASEon 55-63-8160Mfxfuu [Catalytic activity/Vol]56.0 U/LCritically low73.0-393.0The [facility] HospitalComment on above:Performed By: #### CMP, LIPA, MARIAM, BNP, HSTROPN #### [facility] [address] [place] [address] Dr. Jeremiah VelaPROF 14(COMP METB)on 07-10-3892Yvfsnbi [Mass/Vol]3.7 g/dLNormal 3.4-5.0The [facility] on above:Performed By: #### CMP, LIPA, MARIAM, BNP, HSTROPN #### [facility] [address] [place] [address] Dr. Jeremiah VelaAlbumin/Globulin [Mass ratio]0.9 {ratio}NormalThe St. Charles HospitalComment on above:Performed By: #### CMP, LIPA, MARIAM, BNP, HSTROPN #### [facility] [address] [place] [address] Dr. Jeremiah Wilson [Catalytic activity/Vol]53 U/LSifwcj01-505Nsz [facility]. [facility] HospitalComment on above:Performed By: #### CMP, LIPA, MARIAM, BNP, HSTROPN #### [facility] [address] [place] [address] Dr. Jeremiah Orr [Catalytic activity/Vol]22 U/BBjllxr31-78Cti St. [facility] HospitalComment on above:Performed By: #### CMP, LIPA, MARIAM, BNP, HSTROPN #### [facility] [address] [place] [address] Dr. Jeremiah Motton gap [Moles/Vol]10.5 mmol/LNormalUniversity Hospitals Health System Comment on above:Performed By: #### CMP, LIPA, MARIAM, BNP, HSTROPN #### [facility] [address] [place] [address] Dr. Jeremiah Mayorga [Catalytic activity/Vol]19 U/OFueahi33-89Yyi [facility]. [facility] HospitalComment on above:Performed By: #### CMP, LIPA, MARIAM, BNP, HSTROPN #### [facility] [address] [place] [address] Dr. Jeremiah VelaBilirubin [Mass/Vol]0.4 mg/dLNormal0.2-1.0The [facility] Comment on above:Performed By: #### CMP, LIPA, MARIAM, BNP, HSTROPN #### [facility] [address] [place] [address] Dr. Jeremiah VelaCalcium [Mass/Vol]9.2 mg/dLNormal8.5-10.1[facility] Comment on above:Performed By: #### CMP, LIPA, MARIAM, BNP, HSTROPN #### [facility] [address] [place] [address] Dr. Jeremiah VelaChloride [Moles/Vol]101 mmol/BNbjdrd61-124Ygi [facility] Comment on above:Performed By: #### CMP, LIPA, MARIAM, BNP, HSTROPN #### [facility] [address] [place] [address] Dr. Jeremiah VelaCO2 [Moles/Vol]29.2 mmol/OZddcbl63.0-32.0The [facility] Comment on above:Performed By: #### CMP, LIPA, MARIAM, BNP, HSTROPN #### [facility] [address] [place] [address] Dr. Jeremiah VelaCreatinine [Mass/Vol]1.44 mg/dLCritically high0.70-1.30The [facility] HospitalComment on above:Performed By: #### CMP, LIPA, MARIAM, BNP, HSTROPN #### [facility] [address] [place] [address] Dr. Daniels ChangEGFR-AF OMBHSHBM22 mL/min/1.27j1Jrvamrvhzx low>=60The [facility] HospitalComment on above:Performed By: #### CMP, LIPA, MARIAM, BNP, HSTROPN #### [facility] [address] [place] [address] Dr. Jeremiah HessGFR-NON AF RRIERKAH02 mL/min/1.13w3Yqyhgxswep low>=60The [facility] HospitalComment on above:Performed By: #### CMP, LIPA, MARIAM, BNP, HSTROPN #### [facility] [address] [place] [address] Dr. Jeremiah VelaGlobulin (S) [Mass/Vol]3.9 g/dLNormalThe St. [facility] HospitalComment on above:Performed By: #### CMP, LIPA, MARIAM, BNP, HSTROPN #### [facility] [address] [place] [address] Dr. Jeremiah VelaGlucose [Mass/Vol]107 mg/dLCritically nejt73-818Vdl [facility] HospitalComment on above:Performed By: #### CMP, LIPA, MARIAM, BNP, HSTROPN #### [facility] [address] [place] [address] Dr. Jeremiah VelaPotassium [Moles/Vol]4.7 mmol/LNormal3.5-5.1[facility] Comment on above:Performed By: #### CMP, LIPA, MARIAM, BNP, HSTROPN #### [facility] [address] [place] [address] Dr. Jeremiah VelaProtein [Mass/Vol]7.6 g/dLNormal6.4-8.2The [facility] Comment on above:Performed By: #### CMP, LIPA, MARIAM, BNP, HSTROPN #### [facility] [address] [place] [address] Dr. Jeremiah VelaSodium [Moles/Vol]136 mmol/KXrooxw573-869Zql [facility] Comment on above:Performed By: #### CMP, LIPA, MARIAM, BNP, HSTROPN #### [facility] [address] [place] [address] Dr. Jeremiah VelaUrea nitrogen [Mass/Vol]18.0 mg/dLNormal7.0-18.0The [facility] HospitalComment on above:Performed By: #### CMP, LIPA, MARIAM, BNP, HSTROPN #### [facility] [address] [place] [address] Dr. Jeremiah Toledo nitrogen/Creatinine [Mass ratio]12.5 mg/mgNormalThe St. [facility] HospitalComment on above:Performed By: #### CMP, LIPA, MARIAM, BNP, HSTROPN #### [facility] [address] [place] [address] Dr. Jeremiah Everett, HIGH SENSITIVITYon 10-40-2304NOXXMI24.5 pg/mLNormal 4.0-76.1[facility]als Health SystemComment on above:Result Comment: CUT-OFF POINTS HAVE BEEN ESTABLISHED BASED ON THE FOURTH UNIVERSAL DEFINITIONS OF MYOCARDIAL INFARCTION. THE UPPER REFERENCE LIMIT (URL) OF TROPONIN, DEFINED THE 99TH PERCENTILE OF cTnI DISTRIBUTION IN A REFERENCE POPULATION, HAS BEEN CONFIRMED THE DECISION THRESHOLD FOR TX DIAGNOSIS.Performed By: #### CMP, LIPA, MARIAM, BNP, HSTROPN #### [facility] [address] [place] [address] Dr. Jeremiah VelaXR CHEST 1 Von 63-74-2957GD CHEST 1 VEXAM: XR CHEST 1 V at 1742 hours HISTORY: Supraventricular tachycardia COMPARISON: 12/02/2020 TECHNIQUE: AP upright portable chest x-ray FINDINGS: The heart is not enlarged and the vasculature is not distended. No acute infiltrate, effusion or pneumothorax is identified. The osseous structures are grossly intact. IMPRESSION: No acute infiltrate or evidence of cardiac decompensation. The overall appearance of the chest is unchanged. Electronically authenticated by: GRANT ARMANDO Date: 2022-01-14 18:43[facility] Vital Signs Date TimeVital SignValuePerforming EwvbexkzpDhzbprbm47-06-9969 07:50-0400Body pfwvyl[address] Anaya MD Work Phone: [facility]08-20-2025 07:50-0400Body mass index (BMI) [Ratio]29.85 kg/n8Phtn-AbcUriel Anaya MD Work Phone: [facility]08-20-2025 07:50-0400Body temperature 97.5 [degF]Uriel Anaya MD Work Phone: [facility]08-20-2025 07:50-0400Body joqkpy05.7 kgUriel Anaya MD Work Phone: [facility]08-20-2025 07:50-0400Diastolic blood yvahsbou29 mm[Hg]Uriel Anaya MD Work Phone: [facility]08-20-2025 07:50-0400Heart rate80 /min Uriel Anaya MD Work Phone: [facility]08-20-2025 07:50-0400Systolic blood neufavut826 mm[Hg]Uriel Anaya MD Work Phone: [facility]09-05-2024 13:30-0400Body sozkbo041.3 Jessica Anderson NP Work Phone: [facility] CenterLohorvmxcr84-76-1425 13:30-0400Body mass index (BMI) [Ratio]32.19 kg/w0QarkylAngela Anderson REWINDER OPERATOR HELPER Work Phone: [facility] CenterXpscnmrmqv62-85-7698 13:30-0400Body oxwyzo22.88 kgAngela Anderson REWINDER OPERATOR HELPER Work Phone: [facility] CenterQnszfpqjpe44-19-9312 13:30-0400Diastolic blood vnjvicfg50 mm[Hg]Angela Anderson REWINDER OPERATOR HELPER Work Phone: [facility] CenterWvavehzlex51-29-4025 13:30-0400Heart rate75 /min Angela Anderson REWINDER OPERATOR HELPER Work Phone: [facility] CenterEnpcjrlygy33-25-6862 13:30-3628XoR7% (BldA) [Mass fraction]95 %Angela Anderson REWINDER OPERATOR HELPER Work Phone: [facility] CenterKbpthvuvtk99-19-2454 13:30-0400Systolic blood ygllefwq690 mm[Hg]Angela Anderson REWINDER OPERATOR HELPER Work Phone: [facility] CenterNbvgxtdofh48-27-3586 12:56-0400Body gptysc946.3 cmMri (I-Stat/1.5t)[facility]05-06-2024 12:56-0400Body mass index (BMI) [Ratio]31.75 kg/m2Mri (I-Stat/1.5t)[facility]05-06-2024 12:56-0400Body .52 kgMri (I-Stat/1.5t)[facility]05-06-2024 12:56-0400Diastolic blood mnzoqvqz06 mm[Hg]Mri (I-Stat/1.5t)[facility]05-06-2024 12:56-0400 Heart rate76 /minMri (I-Stat/1.5t)[facility]05-06-2024 12:56-0400Systolic blood bhjevnol041 mm[Hg]Mri (I-Stat/1.5t)[facility] Encounters Encounter DateEncounter TypeCare ProviderFacilityStart: 85-33-4276dfoltsucldAJBS [facility] Hospitaltart: 01-15-2025 End: 94-98-9218aewyltxgsnTHVQPPX M HOYFacility:[facility] HospitalStart: 01-15-2025 End: 70-64-7979rzhkzsjexwBSNWDRX M HOYFacility:[facility] HospitalStart: 12-17-2024 End: 89-02-4566Cyrmyz Jhonny Anaya MD Work Phone: RhmatologyStart: 12-13-2024 End: 62-05-5295Ahmxhlypc encounterUriel Anaya MD Work Phone: [facility] CentermatologyComment on above:Patient UpdateStart: 12-06-2024 End: 25-10-3797Pmkekdyit encounterUriel Anaya MD Work Phone: [facility] CentertologyComment on above:Return Call RequestStart: 12-05-2024 End: 94-86-9879Fhtjvk Jhonny Anaya MD Work Phone: [facility] CentertologyStart: 12-04-2024 End: 05-20-7971Sqjbobjajl hospital visit by Matthew Lewis Work Phone: radiologyComment on above:PMR (polymyalgia rheumatica) ([facility]) [M35.3]Start: 12-04-2024 End: 06-69-5878onycdlcldpGHIWCSQ M HOYFacility:[facility] HospitalStart: 12-04-2024 End: 51-83-9103Bbzlmjr encounter Astrid Anaya MD Work Phone: [facility] CentertologyComment on above:Pain of both shoulder joints (Primary Dx); Muscle pain; Malaise and fatigue; PMR (polymyalgia rheumatica) ([facility])Start: 12-04-2024 End: 82-73-8047gupgnbepqaHLFGOFJ M HOYFacility:[facility] HospitalStart: 66-08-8842feunmienziRSIXRCorey Hospitaltart: 11-15-2024 End: 42-17-9446lujmuxbbybVFLROhioHealth Marion General Hospitaltart: 67-53-6827rsvhwegyvjNDATCentervilletart: 93-82-0202zjsbgvtmceNKNLCentervilletart: 11-04-2024 End: 64-21-8793ellwazdnjzJXQVCentervilletart: 10-30-2024 End: 87-49-2526Wewrufxqfa Yesenia Mark MD Work Phone: Referring PhysicianComment on above:Systemic lupus erythematosus, unspecified SLE type, unspecified organ involvement status (HCC) (Primary Dx)Start: 34-03-5429ugmuumtunrHFAJMercy [facility]24 End: 13-58-4989ntgzosnhxgIGKCCentervilletart: 77-23-0610wbtudmejdeIYCOMercy [facility]: 07-31-2024 End: 28-37-8897pgdpbsmmagTBDD [facility]: 29-85-1028rskkkugayhXAWBCentervilletart: 40-94-5877rwfjxfpvmwIKYKCentervilletart: 40-07-3584jsicvwefkiEDHQCentervilletart: 03-07-2024 End: 24-25-8450cpwsogtsbaDTKDCentervilletart: 02-06-2024 End: 34-41-0250asjwyduuttSLJICentervilletart: 12-21-2023 End: 32-95-3688Pckbew Clayton Anderson REWINDER OPERATOR HELPER Work Phone: NONU [facility] ROUTEStart: 12-21-2023 End: 98-23-3567Uyuecw Clayton Anderson REWINDER OPERATOR HELPER Work Phone: noms [facility] ROUTEStart: 12-21-2023 End: 35-29-8799Emfoht outpatient visit 25 New Anderson REWINDER OPERATOR HELPER Work Phone: noms [facility] ROUTEComment on above:ABDULLAHI (obstructive sleep apnea) (Primary Dx); Snoring; Daytime hypersomnolenceStart: 12-21-2023 End: 76-64-8494bbfrrkocmpYYHEZP GILLMORNot AvailableStart: 08-21-2023 End: 97-83-5183Ztfixcybhe hospital visit by physicianJefferson Heller (I-Stat/1.5t)MRI JStart: 59-24-5121Idrmlsszt encounterKitty Owens MD Work Phone: cardiologyComment on above:Appointment (Left a message for the patient regarding the cancellation of 02/15/2023 appointment. Informed the patient of the new appointment scheduled on 05/24/2023. Left a call back number for the patient if the date and time does not fit. )Start: 11-21-2022 Telephone encounterHebro Owens MD Work Phone: cardiologyComment on above:Received Outside Medical RecordsStart: 93-16-4354Cyxivdnff encounterKitty Owens MD Work Phone: cardiologyComment on above:Received Outside Medical RecordsStart: 71-19-5340Pclgukasy encounterNo One (Historical)Referring PhysicianComment on above:External Referrals/resourcesStart: 09-30-2022 End: 73-04-3601rgronbvsmoAjrbueu [place] Other [employer] Other Start: 56-43-0838Bdexvc outpatient visit 15 minutes Jacey Alejandro [facility] OrthopedicsStart: 09-16-2022 End: 21-89-0551fdzkulowfkOtillgf [place] Other [employer] Other Start: 40-74-9158Byzfzp outpatient visit 10 minutes Jacey CalvElmo Horner OrthopedicsStart: 08-30-2022 End: 29-33-2457iwdkrlihjrDZ ESTRELLA MARK .Facility:X9Tuvsn: 03-18-2022 End: 31-39-2192sxtiembkurUQ ESTRELLA HOY .Facility:K0Idpxv: 03-08-2022 End: 91-34-7755nvojkhliqpBH ESTRELLA HOY .Facility:H8Ahukr: 01-28-2022 End: 73-10-7086duzmeuhaqxGT ESTRELLA HOY .Facility:C9Hrqqq: 01-14-2022 End: 78-86-6828qynejysdbuMO ESTRELLA HOY .Facility:H1 Procedures DateProcedureProcedure DetailPerforming ClinicianStart: 33-99-9129Isxzzi scan extracranial art compl bi studyNoelle-Syl Anaya MD Work Phone: Start: 55-40-0202Ymeojfj mri w/wo contrast & further seqCcf ProviderStart: 36-61-1646RUI screeningDR ESTRELLA MARK .Comment on above: Performed By: #### [facility] #### [facility] [address] [place] [address] Dr. Jeremiah Vela Plan of Treatment DateCare ActivityDetailAuthorStart: 72-06-4634Tyxvn microalbumin profile DTaP,Tdap,Td Vaccine (2 - Td or Tdap)[facility]Start: 59-88-3697Fezvxomb ScreeningDiabetes ScreeningCarnegie ClinicStart: 26-72-8776FBV Vaccine (1 - 1- dose 75+ series)RSV Vaccine (1 - 1-dose 75+ series)[facility]: 03-17-2025 End: 28-72-0721Fujrvhl encounter spdlkdokf56/01/2025 8:45 AM EST Office Visit Rheumatology [address] [address] Uriel Anaya MD [address] [place] [address] 3m f/u per walk upRheumatologyComment on above:3m f/u per walk upStart: 01-15-2025 End: 26-44-0594Jwiojcs encounter rhtbaqrxz64/01/2025 9:30 AM EDT Office Visit Rheumatology [address] [address] Uriel Anaya MD [address] [place] [address] 3m f/u per walk upRheumatologyComment on above:3m f/u per walk upStart: 06-25-9536Dkbcyxfjv vaccinationInfluenza Vaccine (#1)[facility]: 12-04-2024 End: 89-98-6310Hokairwm burgdorferi IgG and IgM panel - SerumLYME AB LATE >30 DAYS SYMPTOMS Lab Routine Pain of both shoulder joints Expected: 12/04/2024, Exp ires: 03/05/2025[facility] ClinicComment on above:Expected: 12/04/2024, Expires: 03/05/2025Start: 12-04-2024 End: 53-19-7491Mpgctvtq kinase [Enzymatic activity/volume] in Serum or Plasma CREATINE KINASE/CK Lab Routine Pain of both shoulder joints Muscle pain Malaise and fatigue Expected: 12/04/2024, Expires: 03/05/2025[facility] ClinicComment on above:Expected: 12/04/2024, Expires: 03/05/2025Start: 12-04-2024 End: 68-08-3175Fklurj citrullinated peptide IgG Ab [Units/volume] in Serum or PlasmaCCP ANTIBODY IGG Lab Routine Pain of both shoulder joints Expected: 12/04/2024, Expires: 03/05/2025[facility] ClinicComment on above:Expected: 12/04/2024, Expires: 03/05/2025Start: 12-04-2024 End: 62-55-9235OAB ANTIBODY DS [facility] Work Phone: comment on above:Expected: 12/04/2024, Expires: 03/05/2025Start: 12-04-2024 End: 20-66-9525DTJ double strand Ab [Presence] in Serum by Immunofluorescence (IF) Carolin Hicksleveland ClinicComment on above:Expected: 12/04/2024, Expires: 03/05/2025Start: 12-04-2024 End: 90-58-0343LICL SENSITIVITY TROPONIN THIGH SENSITIVITY TROPONIN T Lab Routine Pain of both shoulder joints Muscle pain Malaise and fatigue Expected: 12/04/2024, Expires: 03/05/2025[facility] ClinicComment on above:Expected: 12/04/2024, Expires: 03/05/2025Start: 12-04-2024 End: 64-36-4104Hritfrhlsqi peptide.B prohormone N-Terminal [Mass/volume] in Serum or PlasmaNT PRO BNP Lab Routine Pain of both shoulder joints Muscle pain Malaise and fatigue Expected: 12/04/2024, Expires: 03/05/2025[facility] Comment on above:Expected: 12/04/2024, Expires: 03/05/2025Start: 12-04-2024 End: 34-90-0024WBBKQYX ELECT RND UR W/INTERPPROTEIN ELECT RND UR W/INTERP Lab Routine Pain of both shoulder joints Muscle pain Malaise and fatigue Expected: 12/04/2024, Expires: 03/05/2025[facility] ClinicComment on above:Expected: 12/04/2024, Expires: 03/05/2025Start: 12-04-2024 End: 76-09-5613LNHTFWX ELECTROPHORESIS SERUM W/INTERPPROTEIN ELECTROPHORESIS SERUM W/INTERP Lab Routine Pain of both shoulder joints Muscle pain Malaiseand fatigue Expected: 12/04/2024, Expires: 03/05/2025[facility] ClinicComment on above:Expected: 12/04/2024, Expires: 03/05/2025Start: 12-04-2024 End: 87-83-7183Tklakgt/Creatinine [Mass Ratio] in UrineCarnegie ClinicComment on above:Expected: 12/04/2024, Expires: 03/05/2025Start: 12-04-2024 End: 24-48-9021Hqugygtwnc factor [Units/volume] in Serum or PlasmaRHEUMATOID FACTOR Lab Routine Pain of both shoulder joints Expected: 12/04/2024, Expires: 03/05/2025[facility] ClinicComment on above:Expected: 12/04/2024, Expires: 03/05/2025Start: 72-80-7029Nqqktmp Directive DiscussionAdvance Directive DiscussionKettering Health Main Campustart: 01-01-2025Medicare Advantage Annual Wellness VisitMedicare Advantage Annual Wellness VisitKettering Health Main Campustart: 12-21-2023 End: 86-05-4012Dkgqrph encounter utnxhugtp48/05/2024 1:40 PM EDT Office Visit [facility] [address] [place] [address] Angela Anderson, DAYSI [address] [place], [place] ArrivedNOMS [facility] ROUTEComment on above: ArrivedStart: 23-71-5531Epwzy-19 Vaccine ( season)Covid-19 Vaccine ( season)[facility]: 01-58-5691Bnyazobft vaccination Influenza Vaccine (#1)[facility] CenterStart: 69-13-3137Ktfvtvn Directive DiscussionAdvance Directive DiscussionKettering Health Main Campustart: 04-17-2023 Behavioral Health ScreeningBehavioral Health ScreeningKettering Health Main Campustart: 75-38-3383Yomkj-19 Vaccine ( season)Covid-19 Vaccine ( season)[facility]: 78-99-3732Wdapnxcqg vaccinationPromedica Memorial Hospital Start: 14-74-2390ZOJHRCB DIRECTIVE DISCUSSIONADVANCE DIRECTIVE DISCUSSION [facility]: 19-68-3500SIHFKLNMFE ASSESSMENTDEPRESSION ASSESSMENT [facility]: 70-66-0046Aunczyyhjfew Vaccine: 65+ (1 - PCV)Pneumococcal Vaccine: 65+ (1 - PCV)[facility]: 54-64-1003NMFPJMADFCQG: 65+ (1 - PCV)PNEUMOCOCCAL: 65+ (1 - PCV)[facility]: 81-33-7527Carnbgre Vaccine (2 of 3)Shingrix Vaccine (2 of 3)[facility]: 27-60-4109WCW Vaccine (1 - 1-dose 60+ series)RSV Vaccine (1 - 1-dose 60+ series)[facility]: 18-27-7921DFDVOWSE VACCINE (1 of 2)SHINGRIX VACCINE (1 of 2)[facility] Start: 80-45-0705SGEIHBCEF (FIT-DNA)COLOGUARD (FIT-DNA)[facility]: 59-52-8649HozmppxwludYBHNTXOHOOJEtgdmvzol ClinicStart: 30-91-4888NAQNWOXLNW CANCER SCREENINGCOLORECTAL CANCER SCREENINGK[facility]tering Health Main Campustart: 34-82-1943ZK COLONOGRAPHYCT COLONOGRAPHYKettering Health Main Campustart: 41-61-3712WLMZZBLZ SCREEN DIABETES SCREENKettering Health Main Campustart: 89-67-9304Ukwshhxh ScreeningDiabetes ScreeningKettering Health Main Campustart: 52-36-8818AEIQY OCCULT BLOODFECAL OCCULT BLOOD [facility]: 14-54-2982Bsoxacneu for malignant neoplasm of colon [facility]: 10-28-9845PUKQAUHVFBECUCOUDIIQMIOPDDXqfejjier Clinic Start: 30-97-1157Uhyic 1996 panel - Serum or PlasmaLipid ScreeningKettering Health Main Campustart: 62-10-4989Arttg panelLipid ScreeningKettering Health Main Campustart: 00-39-0786SATTA SCREENLIPID SCREENKettering Health Main Campustart: 07-57-3037Umwaq microalbumin profileKettering Health Main Campustart: 72-02-4273Flhcgom ScreeningAnxiety ScreeningKettering Health Main Campustart: 95-32-3235Hucwxhqmhs ScreeningDepression ScreeningKettering Health Main Campustart: 11-88-9860MQXHJNQDH C SCREENINGHEPATITIS C SCREENINGKettering Health Main Campustart: 24-21-1700Bmpooashy C screeningHepatitis C ScreeningKettering Health Main Campustart: 35-21-9901VHKPX-19 VACCINE (#1)COVID-19 VACCINE (#1)[facility]: 19-02-8104Xqkcpvrdt for malignant neoplasm of colon [facility] Immunizations Immunization DateImmunizationNotesCare WqeogszhNugdtkgz84-14-5255jzjytexiy virus vaccine, unspecified formulationUriel Anaya MD Work Phone: [facility]ica Memorial HospitalWinpcr90-52-4925ognrxxeyf virus vaccine, unspecified formulationAngela Anderson NP Work Phone: [facility] Payers DatePayer CategoryPayerPolicy [id number] Health Insurance [id number] [id number] [id number] Social History DateTypeDetailFacilityStart: 12-20-2023 End: 14-83-3931Tiw Assigned At [facility] [employer] Other Tobacco smoking status NHISTobacco smoking consumption unknownKettering Health Main Campustart: 49-15-1216Wkc Assigned At BirthNot on file [facility]ust[facility]: 90-62-6456Ahqlyvy smoking status NHISNever smoked tobacco [facility] HealthcareStart: 31-67-2923Lwtfxkp use and exposureSmokeless tobacco non-userNOMS HealthcareStart: 12-20-2023 End: 63-19-2938Wgqsmrihn beverage intakeLifetime non-drinker (finding)[facility] HealthcareStart: 12-20-2023 End: 91-28-5144Htfqyri of Social functionNOMS HealthcareStart: 80-38-4434Wongwbu Commentcaffeine 1-2 cups per dayResearch Medical CenterStart: 18-02-2376Gworsjas Score (1-100), lower number is lower yhdv77XaxurguxvPromedica Memorial Hospital Clinical Notes 09-16-2022 to 01-15-2025 Note Date & OhdzKwufIalnoojv54-39-1078 NoteHNO ID: [id number] Author: TOÑA DILL MD Service: ? Author Type: Physician Type: Progress Notes Filed: 01/15/2025 17:16 Note Text: Rheumatology Clinic note [facility] [place] Department of Rheumatic and Immunologic Diseases Referring Physician: Estrella Mark [address] [facility] [address] CC: PMR History of Present Illness, Initial Visit 12/04/24: Renny Mitchell is a 74 year old year-old male with PMH notable for AFIB,who presents to Rheumatology Clinic for evaluation of SLE. Reports positive SLE blood test on outside labs. Symptoms: Last 5,6 years worsening over the past 2 months. Associated with severe fatigue, legs feeling heavy, usually active but has not been able to play golf. Endorses decreased appetite, weight loss 12 pounds over 2 months. Seen rheumatology 5 years ago told he does not have Lupus. Cardiac stress tests have been negative for ischemia. Previously active, he played golf 2-3 times a week until October, when he became too fatigued to continue. He also reports difficulty performing household tasks and playing with his grandchildren due to fatigue and weakness. No h/o raynauds, no blood clots, IBD, uveitis, no psoriasis or serositis. He reports no family history of autoimmune diseases. Shoulder pain and stiffness, lasts several minutes to hours and improves with movement. Pain also felt in the back of the thighs. Has diffuse muscle pain. Endorses muscle weakness, mild difficulty getting up from a chair. Never used steroids. No swelling of joints. He denies chest pain, dyspnea, or palpitations. He has a history of myocarditis diagnosed 2 years ago and underwent an ablation last month for atrial fibrillation. He has a loop implant to monitor for arrhythmias and denies recent episodes of palpitations. 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 He uses a Mago device daily for nerve pain relief. He denies any recent head trauma, headaches, or changes in vision. He has been seeing an eye doctor regularly and was diagnosed with a cataract in one eye. He is concerned about his symptoms and has been researching his condition online, leading to increased anxiety. He is eager to return to his previous level of activity and enjoy time with his grandchildren. Interval Hx 01/15/25: Feels well, symptoms completely with 20mg of prednisone which he started on 12/06/24. Prednisone was reduced after 2 weeks to 15mg which patient is currently taking. Today he feels well. Has not had recurrence of his shoulder or hip pain and stiffness. He is very happy with the prednisone. He feels completely back to normal. His fatigue has also significantly improved. Able to mow and do significant walking without discomfort. No prior history of diverticulitis. He denies headaches, jaw or arm claudication or scalp tenderness. He is currently taking vitamin D and consumes dairy products such as milk, yogurt, and cheese. Review of Systems CONSTITUTION: Positive for: Recent weight change Negative for: Fever HEENT: Negative for: Nosebleeds, Mouth sores, Trouble swallowing and Dry mouth RESPIRATORY: Negative for: Cough, Shortness of breath, Pain with breathing and Coughing up blood GASTROINTESTINAL: Positive for: Diarrhea Negative for: Melena, Heartburn and Abdominal pain MUSCULOSKELETAL: Positive for: Arthralgias, Myalgias, Muscle weakness and Morning Joint Stiffness Negative for: Joint swelling NEUROLOGICAL: Negative for: Headaches, Numbness and Memory loss SKIN: Negative for: Rash, Sun Sensitive Rash, Skin changes, Hair loss and Nail changes EYES: Positive for: Visual disturbance Negative for: Eye pain, Eye redness and Eye dryness CARDIOVASCULAR: Negative for: Chest pain and Leg swelling GENITOURINARY: Negative for: Dysuria, Hematuria and Ulcerations HEMATOLOGIC/LYMPHATIC: Negative for: Swollen glands Otherwise, a 12 point ROS was obtained and was negative. MEDICATIONS: predniSONE (DELTASONE) 5 mg tablet Take 3 tablets by mouth once daily. Patient should start on December 23, 2024. predniSONE (DELTASONE) 20 mg tablet Take 1 tablet by mouth once daily. cholecalciferol (VITAMIN D3) 50 mcg (2,000 unit) tablet Take 2,000 Units by mouth. pantoprazole DR (PROTONIX) 40 mg tablet Take 40 mg by mouth. carvedilol (COREG) 25 mg tablet Take 25 mg by mouth. rivaroxaban (XARELTO) 20 mg tablet Take 20 mg by mouth. ALLERGIES No Known Allergies Physical Examination: Vitals: BP 162/84 Pulse 76 Temp 36.4 ?C (97.5 ?F) (Temporal) Ht 175.3 cm (5' 9 ) Wt 94.8 kg (208 lb 15.9 oz) BMI 30.86 kg/m? GEN: awake, alert, well-appearing HEENT: NCAT, EOMI, MMM. No nodulosis or tenderness over temporal arteries PULM: on RA.no acute distress NEURO: no facial asymmetry SKIN: no facial rash MSK: Shoulders: Limited ROM in abduction and flexion Elbows: no swelling, no tenderness, no fle (more content not included)... [facility]08-29-2025 Telephone encounter Note* Telephone Encounter - Debra Her MA - 12/13/2024 8:26 AM EDT Patient has been identified by name and date of : Yes . Patient calling for :patient update. Patient called to provide an update for Dr. Anaya regarding his Prednisone 20 mg (take 1 tablet daily). He stated that he is doing well and expressed his gratitude, saying he would like to thank youfor giving him his life back. Pharmacy has been updated: Yes . Return call needed: Patient is expecting a call back. Can be reached at phone number listed below.. Patient can be reached at : [phone] [facility]08-29-2025 Miscellaneous Notes* Telephone Encounter - Debra Her MA - 12/13/2024 8:26 AM EDT Patient has been identified by name and date of : Yes . Patient calling for :patient update. Patient called to provide an update for Dr. Anaya regarding his Prednisone 20 mg (take 1 tablet daily). He stated that he is doing well and expressed his gratitude, saying he would like to thank youfor giving him his life back. Pharmacy has been updated: Yes . Return call needed: Patient is expecting a call back. Can be reached at phone number listed below.. Patient can be reached at : [phone] documented in this encounterPromedica Memorial Hospital08-22-2025 Telephone encounter Note * Telephone Encounter - Uriel Anaya MD - 12/06/2024 8:46 AM EDT Spoke to patient via telephone, discussed lab results. Noted elevated creatinine, patient will obtain records from PCP for comparison. Discussed side effects of prednisone. Patient will reach out regarding his symptoms. Plan to f/u 07/05 at 8:45. [facility]08-22-2025 Miscellaneous Notes* Telephone Encounter - Uriel Anaya MD - 12/06/2024 8:46 AM EDT Spoke to patient via telephone, discussed lab results. Noted elevated creatinine, patient will obtain records from PCP for comparison. Discussed side effects of prednisone. Patient will reach out regarding his symptoms. Plan to f/u 07/05 at 8:45. * Telephone Encounter - Debra Her MA - 12/06/2024 8:30 AM EDT Patient called requesting to speak with Dr. Anaya he stated she left him a voicemail and he is returning her call to talk. Call back number [phone] documented in this encounterPromedica Memorial Hospital08-22-2025 Telephone encounter Note * Telephone Encounter - Debra Her MA - 12/06/2024 8:30 AM EDT Patient called requesting to speak with Dr. Anaya he stated she left him a voicemail and he is returning her call to talk. Call back number [phone] [facility]08-20-2025 Instructions* Patient Instructions* Uriel Anaya MD - 12/04/2024 9:22 AM EDT We discussed your symptoms of fatigue, muscle pain, and joint stiffness: - Based on your symptoms and physical exam, we suspect polymyalgia rheumatica (PMR), which is an inflammatory condition affecting the muscles and joints. However, we need to confirm this diagnosis with further testing. - We will perform several blood tests today to check for: - Signs of inflammation in your body. - Muscle inflammation. - Autoimmune conditions such as lupus or rheumatoid arthritis. - Kidney function and any signs of inflammation in the kidneys. - Hepatitis B and C, as these can mimic rheumatologic conditions. - Lyme disease, as it can cause similar symptoms. - Inflammation of the heart, given your history of myocarditis. - Markers for multiple myeloma, which can also present with fatigue and pain. - We will also check your urine for any signs of inflammation. We discussed imaging and additional testing: - We will arrange for an ultrasound of your temporal arteries. This is to screen for giant cell arteritis, a condition that can sometimes be associated with PMR. While you do not have symptoms like headaches or vision changes, this test will help rule out inflammation in the blood vessels. - If your kidney function is normal, we may order a CT scan of your chest and abdomen to check for inflammation in the blood vessels. We discussed symptom management: - For now, you can take ibuprofen or Tylenol as needed for pain. However, we will not start specific treatment until we confirm the diagnosis. - If PMR is confirmed, treatment with steroids typically provides significant improvement in symptoms, including fatigue and pain. Next steps: - Please complete the blood tests and ultrasound as soon as possible. The front end loader operator will assist you in scheduling the ultrasound, ideally today or within the week. - I will review your test results and contact you in a few days through [employer]. If further testingor imaging is needed, we will discuss the next steps at that time. - If your symptoms worsen or you experience new symptoms such as vision changes, severe headaches, or chest pain, please contact our office immediately or go to the emergency room. We discussed your concerns about fatigue and activity: - If your fatigue is related to PMR or another inflammatory condition, it should improve with treatment. If it does not improve, we will investigate other potential causes. - You can continue to engage in light activities as tolerated. There are no specific activity restrictions at this time. Follow-up: - You will continue to see me for your care. If additional specialists are needed, we will coordinate those referrals. - Please ensure you have access to [employer] to receive updates and communicate with our office. documented in this encounterPromedica Memorial Hospital08-20-2025 NoteHNO ID: [id number] Author: TOÑA DILL MD Service: ? Author Type: Physician Type: Progress Notes Filed: 12/04/2024 18:07 Note Text: Rheumatology Clinic note [facility] [place] Department of Rheumatic and Immunologic Diseases Referring Physician: Estrella Mark [address] [facility] [address] CC: SLE History of Present Illness: Renny Mitchell is a 74 year old year-old male with PMH notable for AFIB,who presents to Rheumatology Clinic for evaluation of SLE. Reports positive SLE blood test on outside labs. Symptoms: Last 5,6 years worsening over the past 2 months. Associated with severe fatigue, legs feeling heavy, usually active but has not been able to play golf. Endorses decreased appetite, weight loss 12 pounds over 2 months. Seen rheumatology 5 years ago told he does not have Lupus. Cardiac stress tests have been negative for ischemia. Previously active, he played golf 2-3 times a week until October, when he became too fatigued to continue. He also reports difficulty performing household tasks and playing with his grandchildren due to fatigue and weakness. No h/o raynauds, no blood clots, IBD, uveitis, no psoriasis or serositis. He reports no family history of autoimmune diseases. Shoulder pain and stiffness, lasts several minutes to hours and improves with movement. Pain also felt in the back of the thighs. Has diffuse muscle pain. Endorses muscle weakness, mild difficulty getting up from a chair. Never used steroids. No swelling of joints. He denies chest pain, dyspnea, or palpitations. He has a history of myocarditis diagnosed 2 years ago and underwent an ablation last month for atrial fibrillation. He has a loop implant to monitor for arrhythmias and denies recent episodes of palpitations. 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 He uses a Mago device daily for nerve pain relief. He denies any recent head trauma, headaches, or changes in vision. He has been seeing an eye doctor regularly and was diagnosed with a cataract in one eye. He is concerned about his symptoms and has been researching his condition online, leading to increased anxiety. He is eager to return to his previous level of activity and enjoy time with his grandchildren. Review of Systems CONSTITUTION: Positive for: Recent weight change Negative for: Fever HEENT: Negative for: Nosebleeds, Mouth sores, Trouble swallowing and Dry mouth RESPIRATORY: Negative for: Cough, Shortness of breath, Pain with breathing and Coughing up blood GASTROINTESTINAL: Positive for: Diarrhea Negative for: Melena, Heartburn and Abdominal pain MUSCULOSKELETAL: Positive for: Arthralgias, Myalgias, Muscle weakness and Morning Joint Stiffness Negative for: Joint swelling NEUROLOGICAL: Negative for: Headaches, Numbness and Memory loss SKIN: Negative for: Rash, Sun Sensitive Rash, Skin changes, Hair loss and Nail changes EYES: Positive for: Visual disturbance Negative for: Eye pain, Eye redness and Eye dryness CARDIOVASCULAR: Negative for: Chest pain and Leg swelling GENITOURINARY: Negative for: Dysuria, Hematuria and Ulcerations HEMATOLOGIC/LYMPHATIC: Negative for: Swollen glands Otherwise, a 12 point ROS was obtained and was negative. MEDICATIONS: pantoprazole DR (PROTONIX) 40 mg tablet Take 40 mg by mouth. carvedilol (COREG) 25 mg tablet Take 25 mg by mouth. rivaroxaban (XARELTO) 20 mg tablet Take 20 mg by mouth. cholecalciferol (VITAMIN D3) 50 mcg (2,000 unit) tablet Take 2,000 Units by mouth. ALLERGIES No Known Allergies Physical Examination: Vitals: BP 145/69 Pulse 80 Temp 36.4 ?C (97.5 ?F) (Temporal) Ht 175.3 cm (5' 9 ) Wt 91.7 kg (202 lb 2.6 oz) BMI 29.85 kg/m? GEN: awake, alert, well-appearing HEENT: NCAT, EOMI, MMM. No nodulosis or tenderness over temporal arteries NECK: supple, no LAD CV: RRR, no mgr PULM: CTAB, no wheezing, rhonchi, or crackles EXT: WWP, no edema NEURO: CN II-XII grossly intact, LT sensation and strength intact bl UE AND LE SKIN: no bruises, rashes, or lesions MSK: Spine: full ROM, no TTP Neck: full ROM with flexion/extension/lateral rotation Shoulders: Limited ROM in abduction and flexion Elbows: no swelling, no tenderness, no flexion contractures, no nodules, good ROM Wrists: no swelling, no tenderness, no limitation in flexion and extension Hands: no evidence of synovitis. Able to make full fist bilaterally Hips: limited ROM, pain, L>R with flexion and internal rotation Knees: no effusion, no tenderness, good ROM Ankles: no swelling, no tenderness, good ROM Pulses:+2 brachial, radial and popliteal No bruits over SCA or carotid arteries Imaging: MRI heart IMPRESSION: Pattern of findings could be c/w (residuals) of myocarditis or infiltrative disease. Clinical correlation is recommended ASSESSMENT: 74 year old year-old male with PMH notable for (more content not included)...[facility]08-20-2025 History of Present illness Narrative* Toña Dill MD - 12/04/2024 8:08 AM EDT Rheumatology Clinic note [facility] [place] Department of Rheumatic and Immunologic Diseases Referring Physician: Estrella Mark [address] [facility] [address] CC: SLE History of Present Illness: Renny Mitchell is a 74 year old year-old male with PMH notable for AFIB,who presents to Rheumatology Clinic for evaluation of SLE. Reports positive SLE blood test on outside labs. Symptoms: Last 5,6 years worsening over the past 2 months. Associated with severe fatigue, legs feeling heavy, usually active but has not been able to play golf. Endorses decreased appetite, weight loss 12 pounds over 2 months. Seen rheumatology 5 years ago told he does not have Lupus. Cardiac stress tests have been negative for ischemia. Previously active, he played golf 2-3 times a week until October, when he became too fatigued to continue. He also reports difficulty performing household tasks and playing with his grandchildren due to fatigue and weakness. No h/o raynauds, no blood clots, IBD, uveitis, no psoriasis or serositis. He reports no family history of autoimmune diseases. Shoulder pain and stiffness, lasts several minutes to hours and improves with movement. Pain also felt in the back of the thighs. Has diffuse muscle pain. Endorses muscle weakness, mild difficulty getting up from a chair. Never used steroids. No swelling of joints. He denies chest pain, dyspnea, or palpitations. He has a history of myocarditis diagnosed 2 years ago and underwent an ablation last month for atrial fibrillation. He has a loop implant to monitor for arrhythmias and denies recent episodes of palpitations. 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 He uses a Beamerdevice daily for nerve pain relief. He denies any recent head trauma, headaches, or changes in vision. He has been seeing an eye doctor regularly and was diagnosed with a cataract in one eye. He is concerned about his symptoms and has been researching his condition online, leading to increased anxiety. He is eager to return to his previous level of activity and enjoy time with his grandchildren. Review of Systems CONSTITUTION: Positive for: Recent weight change Negative for: Fever HEENT: Negative for: Nosebleeds, Mouth sores, Trouble swallowing and Dry mouth RESPIRATORY: Negative for: Cough, Shortness of breath, Pain with breathing and Coughing up blood GASTROINTESTINAL: Positive for: Diarrhea Negative for: Melena, Heartburn and Abdominal pain MUSCULOSKELETAL: Positive for: Arthralgias, Myalgias, Muscle weakness and Morning Joint Stiffness Negative for: Joint swelling NEUROLOGICAL: Negative for: Headaches, Numbness and Memory loss SKIN: Negative for: Rash, Sun Sensitive Rash, Skin changes, Hair loss and Nail changes EYES: Positive for: Visual disturbance Negative for: Eye pain, Eye redness and Eye dryness CARDIOVASCULAR: Negative for: Chest pain and Leg swelling GENITOURINARY: Negative for: Dysuria, Hematuria and Ulcerations HEMATOLOGIC/LYMPHATIC: Negative for: Swollen glands Otherwise, a 12 point ROS was obtained and was negative. MEDICATIONS: pantoprazole DR (PROTONIX) 40 mg tablet Take 40 mg by mouth. carvedilol (COREG) 25 mg tablet Take 25 mg by mouth. rivaroxaban (XARELTO) 20 mg tablet Take 20 mg by mouth. cholecalciferol (VITAMIN D3) 50 mcg (2,000 unit) tablet Take 2,000 Units by mouth. ALLERGIES No Known Allergies Physical Examination: Vitals: BP 145/69 Pulse 80 Temp 36.4 C (97.5 F) (Temporal) Ht 175.3 cm (5' 9 ) Wt 91.7 kg (202 lb 2.6 oz) BMI 29.85 kg/m GEN: awake, alert, well-appearing HEENT: NCAT, EOMI, MMM. No nodulosis or tenderness over temporal arteries NECK: supple, no LAD CV: RRR, no mgr PULM: CTAB, no wheezing, rhonchi, or crackles EXT: WWP, no edema NEURO: CN II-XII grossly intact, LT sensation and strength intact bl UE & LE SKIN: no bruises, rashes, or lesions MSK: Spine: full ROM, no TTP Neck: full ROM with flexion/extension/lateral rotation Shoulders: Limited ROM in abduction and flexion Elbows: no swelling, no tenderness, no flexion contractures, no nodules, good ROM Wrists: no swelling, no tenderness, no limitation in flexion and extension Hands: no evidence of synovitis. Able to make full fist bilaterally Hips: limited ROM, pain, L>R with flexion and internal rotation Knees: no effusion, no tenderness, good ROM Ankles: no swelling, no tenderness, good ROM Pulses:+2 brachial, radial and popliteal No bruits over SCA or carotid arteries Imaging: MRI heart IMPRESSION: Pattern of findings could be c/w (residuals) of myocarditis or infiltrative disease. Clinical correlation is recommended ASSESSMENT: 74 year old year-old male with PMH notable for Afib on Xarelto, myocarditis of unclear etiology who presents to Rheumatology Clinic for evaluation of SLE. (M25.511, M25.512) Pain of both shoulder joints (primary encounter diagnosis) (M32.9) Systemic lupus erythematosus, unspecified SLE type, unspecified organ involvement status (HCC) (M79.10) Muscle pain Patient reports over the last 5 to 6 years he has been having fatigue and weakness however this hasworsened over the past 2 months and limiting his ability to take part in household activities as well as golf. Today he also describes shoulder pain radiating to his upper arm, buttock pain radiatingdown the back of his thigh is associated with morning stiffness lasting for hours or the entire dayand range of motion which is limited by pain. He denies headaches, jaw or arm claudication or scalp tenderness. No vision changes. His proximal muscle pain, and morning stiffness are most consistent with PMR, with or without large vessel vasculitis Given the long duration of patient's severe fatigue differentials include etiologies such as SLE especially in the setting of myocarditis, Lyme, systemic vasculitis such as EGPA though less likely inthe absence of asthma and sinus issues Plan - Check AISSATOU, complements, urine microscopy - Order CBC with diff , ESR, CRP, CK, rheumatoid factor, anti-CCP, hepatitis B and C serologies, Lyme serology, and myeloma screening. - Order temporal artery ultrasound to screen for giant cell arteritis. - Advised use of ibuprofen or acetaminophen for symptomatic relief. - Discussed that if workup is consistent with PMR, corticosteroid therapy may be initiated. - If normal kidney function will consider CTA of abdomen and pelvis to look for evidence of large vessel vasculitis Follow-up: 3 months Patient discussed and seen with Dr. Dill. -- Uriel Anaya MD Rheumatology Fellow Fellow's history reviewed. Patient interviewed and examined. PMR might be the most likely diagnosis We will complete work up and might screen for LVV Unclear if the history of myocarditis is related or not but no symptoms to suggest EGPA Assessment and plan reviewed with fellow. I have personally examined the patient and repeated the field components of the exam/history. The assessment and plan were formulated and discussed with the fellow. See fellow's note for further details. Toña Dill MD Rheumatology staff December 04, 2024 documented in this encounterPromedica [facility] Hospital08-[facility]25 NoteSUBJECTIVE Reason for Visit: Renny Mitchell is a 73 y.o. year old male patient being seen for follow up visit status post ablation. HPI: Renny Mitchell is a 73 y.o. year old male with significant medical history of obstructive sleep apnea, atrial fibrillation, hypertension, hyperlipidemia, GERD, and prior episodes of syncope. He was evaluated at [facility] in October 2022 for chest pain [...] initial episode of atrial fibrillation occurred in 2018 with RVR, and he has since noted [...] and another on 03/09/2023 lasting 3 seconds. 11/15/2024 office visit: Patient seen evaluated in the office today status post AVNRT patient ablation. He reports feeling persistently fatigued that has remained the same since his ablation. He reports a recent diagnosis a few weeks ago of lupus, and will see a soap drier operator at the [facility] at the end of the month. Otherwise, he denies chest pain, shortness of breath, palpitations, lightheaded or dizziness, or lower extremity edema. 07/31/2024 office visit: Patient was seen and evaluated in the office today. He reports shortness of breath with stair climbing or prolonged walking, along with daily fatigue. 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 He is compliant with his CPAP therapy. He denies chest pain, palpitations, lightheadedness, or dizziness. Physical exam was otherwise unremarkable. 10/31/2023: patient underwent cardiac MRI at [facility] and this showed evidence of late gadolinium enhancement in the subepicardial to mid myocardial region that involve the basal posterior wall with extension to the basal inferior wall. this was consistent with the possibility of myocarditis 02/06/24: Pt continues to experience some palpitations. Prior [...] panel in Nov 2023 after last apt. 03/06/24: Pt here for LOOP Medical History[1] Surgical History[2] Problem List[3] family history includes Heart disease in his father. Social History[4] OBJECTIVE Visit Vitals Smoking Status Never Physical Exam Constitutional: General Appearance: well-developed, appears stated age. Level of Distress: fatigue. Neck: Jugular Veins: normal jugular venous pressure. [...] Inspection and Palpation: warm and dry. Allergies: Allergies[5] Outpatient Medications: Current Outpatient Medications Medication Instructions carvedilol (COREG) 25 mg, 2 times daily with meals cholecalciferol (VITAMIN D3) 2,000 Units, oral, Daily pantoprazole (PROTONIX) 40 mg, Daily rivaroxaban (XARELTO) 20 mg, oral, Daily with evening meal, Take with food. Recent Labs: Admission on 11/04/2024, Discharged on 11/04/2024 Component Date Value Ventricular Rate 11/04/2024 70 Atrial Rate 11/04/2024 70 OK Interval 11/04/2024 172 QRS DURATION 11/04/2024 88 QT Interval 11/04/2024 378 QTC CALCULATION(BAZETT) 11/04/2024 408 P [place] 11/04/2024 32 R-[place] 11/04/2024 3 T Wave [place] 11/04/2024 7 Ventricular Rate 11/04/2024 72 Atrial Rate 11/04/2024 72 OK Interval 11/04/2024 164 QRS DURATION 11/04/2024 78 QT Interval 11/04/2024 374 QTC CALCULATION(BAZETT) 11/05/19 (more content not included)...[facility]07-21-2025 NoteEP STUDY AND AVNRT ABLATION PROCEDURE NOTE DATE OF PROCEDURE: 11/04/2024 PERFORMING PHYSICIAN: Dr. Pj Kaba INDICATIONS FOR PROCEDURE: 1. SVT CONSENT: Patient LOCATION: EP Lab PROCEDURAL SEDATION: Versed and Fentanyl. Moderate sedation was administered by the sedation nurse under my supervision and noted in the anesthesia log. Intraprocedural face to face sedation time 101min. Monitoring: Cardiac telemetry, Blood pressure, continuous pulse oxymetry. FLUROSCOPY: 1.4min/32mGy EBL: 10cc SPECIMEN REMOVED: None PREPARATION: Preoperative antibiotics IV Ancef was administered. PROCEDURES PERFORMED: 1. Ultrasound guided vascular access for venous sheaths as documented below in procedure note. 2. Comprehensive EP study and catheter ablation for AVNRT. This includes right atrial recording and pacing, His bundle recording and right and left ventricular recording and pacing. 3. EP 3D mapping. 4. Coronary sinus recording and pacing to induce arrhythmia. 5. Induction of arrythmia with Isuprel and verification of ablation results. PROCEDURE NOTE: The risks, benefits and alternatives of the procedure were discussed with the patient and family who agreed to proceed. Please refer to my consult note for details of the discussion and of indications. Patient was brought to the EP lab in the post absorptive state. A procedural pause was performed verifying the patient, the procedure. The right and left groins were prepped and draped in the usual sterile fashion. Preoperative antibiotics IV Ancef was administered. Ultrasound was used to image the right and left femoral veins and it was noted to be patent and this was used for vessel entry as noted below. After infiltration with 1% lidocaine, 4 venous sheaths were placed in the right. 5000U Heparin bolus was given and bolus given subsequently to target ACT above 250. Details of catheters placed as follows. RFV: 6Fx2 CRD2 to His, Quad to RV, 8Fx 2 EZ steer to CS, VizigoL1 for Thermocool irrigated catheter. Once catheters were in position in RV, RA, CS, we decided to proceed with EP study. At baseline, AH and HV was 98ms and 53ms respectively. VEST was performed and VA conduction was noted. LV pacing ruled out any left sided accessory pathway. No evidence of retrograde accessory pathway confirmed with presence of retrograde RBBB. AEST was performed from proximal CS. AEST was performed from HRA as well as coronary sinus. AH jump was seen with non sustained NCT at 470ms with VA interval of 38ms suggestive of AVNRT. Repeat study could not reveal sustained SVT but echo beats noted. Isuprel was started and totrated to 5mcg/min to facilitate the SVT but to no success. So at this time, I decided to pursue with ablation of slow pathway considering the diagnosis of an narrow complex tachycardia and presence of dual AV node physiology. Thermocool irrigated catheter was advanced over Vizigo sheath to target the inferior extension of the slow pathway. Power was titrated to 30W with irrigation. Junctionals were noted during ablation of the slow pathway potential. Subsequently AEST was repeated and showed tachyinduction but AH jump was still seen. So, I performed lesions again targeting the LA input. The ablation catheter was advanced to the proximal aspect of CS and ablation was performed in the roof aspect monitoring AH interval which was unchanged. Following this repeat EP study showed no AH jump or tachycardia was noted and AERP was seen at 600/240ms. Isuprel was started at 5 mcg and repeat study showed no tachycardia. No echo beats were noted and AV conduction was seen until AERP.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
== END 2025-02-21 12:29 | disposition home or self-care (01) ==
LOC: LAB 12:32
PROVIDERS: PCP Family Medicine; Visit Provider Family Medicine
DX: M32.9 Systemic lupus erythematosus, unspecified (principal)
CPT/HCPCS: 36415; 85652; 86140